=== PATIENT | male | born 1965 | race Caucasian/White ===

== ENCOUNTER → 2016-04-27 | Outpatient (CLI) | payer OTHER ==
[~2016-04-27] MED LIST: ABL/5 PO; ABL5 PO; ARIP2TAB3 PO; CGN1 PO; DSY100 PO; GLIM1TAB PO; LVQ500 PO; METF-384 PO; NCDT7 TD; SERT-234 PO; SERT50TA PO; SIMV40TA2 PO
[2016-04-27 12:34] LABS: ALT/SGPT 61 U/L (12-78); AST/SGOT 42 U/L (15-37); BLOOD UREA NITROGEN 14 mg/dl (7-18); BUN/CREATININE RATIO 14.2 (10-20); CALCIUM 9.1 mg/dl (8.5-10.1); CARBON DIOXIDE 23 mmol/L (21-32); CHLORIDE 104 mmol/L (98-107); CHOLESTEROL 213 mg/dl (0-200); GLUCOSE 168 mg/dl (70-99); SODIUM 140 mmol/L (136-145); TRIGLYCERIDES 262 mg/dl (0-150); VERY LOW DENSITY LIPOPROT CALC 52 mg/dl
[2016-04-27 12:40] LABS: ALB/GLOB RATIO 1.1 (0.9-2); ALKALINE PHOSPHATASE 108 U/L (45-117); HDL CHOLESTEROL 43 mg/dl; LDL CHOLESTEROL CALCULATED 118 mg/dl
[2016-04-27 12:47] LABS: ESTIMATED AVERAGE GLUCOSE 252 mg/dl; HA1C FLAG Normal (Normal)
[2016-04-27 13:12] LABS: RATIO 22.9 mcg/mg (0-30.0)
== END | disposition home or self-care (01) ==
LOC: C.LABBFT 08:59
PROVIDERS: ATTEND Nurse Practitioner
DX: E11.65 Type 2 diabetes mellitus with hyperglycemia (principal)

== ENCOUNTER 2016-06-22 13:41 | Inpatient (IN) | payer OTHER ==
[~2016-06-22] VITALS: Ht 175.3 cm; Wt 99.4 kg
[~2016-06-22 13:41] MED LIST changes: -ABL/5 PO; -ARIP2TAB3 PO; -GLIM1TAB PO; -METF-384 PO; -SERT-234 PO; -SERT50TA PO; -SIMV40TA2 PO
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
[2016-06-22 14:37] LABS: URINE APPEARANCE CLEAR (CLEAR); URINE BILIRUBIN NEG (NEG); URINE COLOR YELLOW; URINE NITRITE NEG (NEG); URINE SPECIFIC GRAVITY 1.031 (1.000-1.030); UROBILINOGEN NEG (NEG); ZZUR CULT IF INDIC CLEAN CATCH NO
[2016-06-22] MEDS ORDERED: DSY100 PO (14:37)
[2016-06-22] MEDS ORDERED: ABL/5 PO (14:37)
[2016-06-22] MEDS ORDERED: METF-384 PO (14:37)
[2016-06-22] MEDS ORDERED: SIMV40TA2 PO (14:37)
[2016-06-22] MEDS ORDERED: ARIP2TAB3 PO (14:37)
[2016-06-22] MEDS ORDERED: GLIM1TAB PO (14:37)
[2016-06-22] MEDS ORDERED: SERT50TA PO (14:37)
[2016-06-22 14:39] LABS: MANUAL MICROSCOPIC REQUIRED? NO; REVIEW REQ? NO
[2016-06-22 14:57] LABS: BASO % 0.1 %; BASO ABS # 0.01 K/uL (0-0.2); COMPLETE YES; EOS % 0.4 %; HEMATOCRIT 42.2 % (42-52); IG% 0.7 %; LYMPH % 17.8 %; LYMPH ABS # 1.66 K/uL (1.2-3.4); MEAN CELL VOLUME 83.9 fL (80-100); MEAN CORPUSCULAR HEMOGLOBIN 29.6 pg (25-34); MEAN CORPUSCULAR HGB CONC 35.3 g/dl (32-36); MEAN PLATELET VOLUME 9.6 fL (7.4-10.4); MONO % 8.9 %; NEUT % 72.1 %; PLATELET COUNT 262 K/uL (130-400); RED BLOOD COUNT 5.03 M/uL (4.7-6.1); WHITE BLOOD COUNT 9.35 K/uL (4.8-10.8)
[2016-06-22 15:11] LABS: BENZODIAZEPINE, URINE NEG (NEG); COCAINE,URINE NEG (NEG); PHENCYCLIDINE, URINE NEG (NEG)
[2016-06-22 15:26] LABS: ACETAMINOPHEN < 2 ug/ml (10-30); BUN/CREATININE RATIO 11.9 (10-20); CALCIUM 8.8 mg/dl (8.5-10.1); POTASSIUM 4.1 mmol/L (3.5-5.1)
[2016-06-22 15:36] LABS: THYROID STIMULATING HORMONE 2.25 uIu/ml (0.300-4.500)
[2016-06-22 19:05] VITALS: O2SAT 98
[2016-06-22] MEDS ORDERED: NURSING VERBAL MED ORDER ONE ×2 (19:15→20:15)
[2016-06-22] MEDS ORDERED: SODIUM CHLORIDE 0.65% NA SOLN 45 ML (OCEAN) PRN (19:30)
[2016-06-22] MEDS ORDERED: BISMUTH SUBSALICYLATE PER ML OMNICELL CHARGE PO PRN (19:30)
[2016-06-22] MEDS ORDERED: hydrOXYzine HCL 25 MG TAB PO PRN ×2 (19:30)
[2016-06-22] MEDS ORDERED: ALUMINUM/MAGNESIUM SUSP 30 ML UDC PO PRN (19:30)
[2016-06-22] MEDS ORDERED: ACETAMINOPHEN 325 MG TAB PO PRN (19:30)
[2016-06-22] MEDS ORDERED: MAGNESIUM HYDROXIDE SUSP 30 ML UDC PO PRN (19:30)
[2016-06-22 20:34] VITALS: BP 138/91; PULSE 82; TEMP 36.8; Ht 175.3 cm; Wt 99.4 kg
[2016-06-22] MEDS: SIMVASTATIN 40 MG TAB PO SCH (21:39)
[2016-06-22] MEDS: ARIPIprazole TAB 5 MG TAB PO SCH (21:40)
[2016-06-22] MEDS: TRAZODONE HCL 100 MG TAB PO SCH (21:40)
[2016-06-22] MEDS: METFORMIN HCL 500 MG TAB PO SCH (21:40)
[2016-06-22] MEDS ORDERED: SERTRALINE HCL 50 MG TAB PO SCH (22:00)
[2016-06-23 07:00] VITALS: BP_SYST 109; BP_SYST 114; BP_DIAS 68; BP_DIAS 74; PULSE 76; PULSE 91; TEMP 36.7
[2016-06-23] MEDS: GLIMEPIRIDE 2 MG TAB PO SCH (08:39)
[2016-06-23] MEDS: METFORMIN HCL 500 MG TAB PO SCH ×2 (08:40→21:09)
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
[2016-06-23] MEDS: TRAZODONE HCL 100 MG TAB PO SCH (21:09)
[2016-06-23] MEDS: SIMVASTATIN 40 MG TAB PO SCH (21:09)
[2016-06-23] MEDS: SERTRALINE HCL 100 MG TAB PO SCH (21:09)
[2016-06-23] MEDS: ARIPIprazole TAB 5 MG TAB PO SCH (21:09)
[2016-06-24 07:00] VITALS: BP_SYST 108; BP_SYST 120; BP_DIAS 70; BP_DIAS 74; PULSE 84; TEMP 36.6
[2016-06-24] MEDS: GLIMEPIRIDE 2 MG TAB PO SCH (07:26)
[2016-06-24] MEDS: METFORMIN HCL 500 MG TAB PO SCH ×2 (07:27→21:29)
[2016-06-24 08:17] LABS: CHOLESTEROL/HDL RATIO 7.9
--- NOTE | 2016-06-24 12:00 | Psychiatric Progress Notes ---
Progress Note Date of Service Jun 24, 2016. Interval History 51 yo with many past diagnoses including schizoaffective disorder and ID, who was brought to the ER due to not taking meds, and being unable to take care of himself living alone. Chief Complaint "I've got to learn to control my anger. ". Subjective Patient was seen & assessed interval progress reviewed with Treatment Team. The patient said that he got angry yesterday after talking with his brother and says that he yelled at his peers, but has since apoligized. he says that he needs to learn to control his anger. "Im not sure if I'm acting like a child, but I am over 19." Hearing continues to be a problem in communications. He continues to report a steady buzzing sound in his ears. In trying to assess whether he has auditory hallucinations, he gives varying reports of hearing voices when no one is in the room and then denies same. He says that he hears peoples voices when talking with someone, and they are muddled by the buzzing. He also has some child like thoughts, and uses words and phrases inappropriately. He tends to talk a lot, filling any silence as if its part of the conversation, and at times does not answer a question posed with appropriate response, but when asked louder, is able to answer appropriately. We talk about [facility] having a wait list, and he says that he is agreeable to other referrals until a bed does open up, but then says that he would rather stay where he is. He agrees that he took meds when the nurses were there, and admits to forgetting when he was alone. He rates his mood 8-9/ 10, denying SI/HI or visual hallucinations. Review of Systems Constitutional: No chills, No fatigue, No fever, No problem reported, No sweats , No weakness, No weight loss ENT: + hearing loss Respiratory: No cough, No dyspnea at rest, No dyspnea on exertion, No hemoptysis, No problem reported, No shortness of breath, No sputum, No wheezing Cardiovascular: No PND, No chest pain, No claudication, No edema, No orthopnea , No palpitations, No problem reported Abdomen: No GI bleeding, No constipation, No diarrhea, No nausea, No pain, No problem reported, No vomiting Musculoskeletal: No calf pain, No joint pain, No muscle pain, No problem reported, No swelling Neurologic: No balance problems, No memory loss, No numbness/tingling, No paralysis, No problem reported, No vertigo, No weakness Psychiatric: + problem reported (rates mood 8-9) Sleep Information Total Hours of Sleep: 6.75 Meal Information Percent of Breakfast Consumed: 100 Percent of Lunch Consumed: 100 Percent of Dinner Consumed: 100 Mental Status Exam During interview pt is: alert and oriented, cooperative Appearance: appropriately groomed, disheveled Eye contact is: good Motor behavior is: other (occasional gross tremor of head) Speech: normal in rate, rhythm & volume Affect: blunted Mood is: other (denies depression) Thought process: confabulations (in the context of hearing loss) Thought content: other (still trying to tease out what may be delusions versus low IQ and severe hearing loss) Suicidal thought are: denied Homicidal thoughts are: denied Hallucinations: denies visual Cognition: memory grossly intact Intelligence estimated to be: below average Insight: limited Judgement: limited Summary of Past History Records reveal multiple past evaluations and diagnoses: Major depressive Disorder, schizotypal personality disorder, schizophrenia, schizoaffective disorder, psychotic disorder. , unspecified ID Impression With the structure and support of the unit, the patient is taking his meds, showering and eating. His hearing impairment makes it difficult to communicate at times, and he tends to fill in with disconnected conversation when he doesn' t hear the conversation. He still gives conflicting information in response to questions about hallucinations and delusions, and so may also be hallucinating. he has had a variety of diagnoses in the past including schizoaffective disorder and schizophrenia, in addition to ID. For now we will continue with his current home meds while we explore other housing options. Continued Inpatient Care The patient requires inpatient treatment for medication stabilization and evaluation of other housing options in view of failure to thrive living alone. Plan (1) Schizoaffective disorder 06/24 - Continue home meds, as he was non compliant for the most part. - Collaborate with his OP providers and care givers and coordinate aftercare - Q 15 min checks for safety - Encourage participation in group and individual counseling - Explore hearing assist devices - Reality orientation - Be sure that all staff are aware of severe hearing loss. - Encourage/assist the patient to maintain appropriate ADL's - Family meeting if indicated - Explore alternate housing arrangement. (2) Unspecified intellectual disabilities 06/24 - Explore all support options through the ID system - Use appropriate level of vocabulary during explanations (3) Dyslipidemia 06/24 - Continue simvastatin 40 mg. daily - FLP WNL with the exception of triglycerides 31 and total cholesteraol 254 (4) Diabetes mellitus type II, non insulin dependent 06/24 -Continue metformin - Monitor BSG"s - Assist with food choices - Encourage exercise - FBS 06/24 was 192 - Will need follow up with PCP Discharge / Aftercare Planning Primary Care Physician: Name: Dr Ho Psychiatrist: Name: Dr Cervantes Therapist: Name: sherley Emt I/99: Name: Joyce Hyman MHID ID BCM Visit Code E&M Code: 05157 Risk Factors Assessment Male: Yes : Yes /single/: Yes Higher / Fall in social status: No Access to guns: No Health problems: Yes Mental Health Diagnoses: Yes Substance use disorders: No Previous psychiatric stay: Yes Protective Factors Assessment Temple beliefs: No : No Responsible for young children: No Employed: No Stable relationships: No Supportive family: No Good rapport with provider: Yes Data Vital Signs Last 24 Hrs: Date Time Temp Pulse Resp B/P Pulse Ox O2 Delivery O2 Flow Rate FiO2 06/24/16 07:00 36.6 84 18 120/70 84 108/74 Meds Administered Last 24 Hrs: Meds Administered (Past 24Hrs) Medications (Trade) Dose Ordered Sig/Edna Route Start Time Stop Time Status Last Admin Dose Admin Bismuth Subsalicylate (Kaopectate Liqd) 15 ml DAILY PRN PO 06/22/16 19:30 07/22/16 19:29 06/23/16 21:10 15 ML Aripiprazole (Abilify Tab) 5 mg HS PO 06/22/16 22:00 07/22/16 21:59 06/23/16 21:09 5 MG Glimepiride (Amaryl Tab) 2 mg QDB PO 06/23/16 09:00 07/23/16 08:59 06/24/16 07:26 2 MG Metformin HCl (Glucophage Tab) 1,000 mg BID PO 06/22/16 22:00 07/22/16 21:59 06/24/16 07:27 1,000 MG Sertraline HCl (Zoloft Tab) 50 mg HS PO 06/22/16 22:00 06/23/16 10:41 DC 06/22/16 21:39 50 MG Simvastatin (Zocor Tab) 40 mg HS PO 06/22/16 22:00 07/22/16 21:59 06/23/16 21:09 40 MG Trazodone HCl (Desyrel Tab) 100 mg HS PO 06/22/16 22:00 07/22/16 21:59 06/23/16 21:09 100 MG Sertraline HCl (Zoloft Tab) 100 mg HS PO 06/23/16 22:00 07/23/16 21:59 06/23/16 21:09 100 MG Lab Results Last 24 Hrs: Last 24 Hours Test 06/23/16 20:51 06/24/16 07:11 06/24/16 09:18 Bedside Glucose 188 mg/dl 258 mg/dl Fasting Glucose 192 mg/dl Triglycerides Level 301 mg/dl Cholesterol Level 254 mg/dl HDL Cholesterol 32 mg/dl LDL Cholesterol, Calculated 162 mg/dl VLDL Cholesterol, Calculated 60 mg/dl Cholesterol/HDL Ratio 7.9
[2016-06-24] MEDS: TRAZODONE HCL 100 MG TAB PO SCH (21:29)
[2016-06-24] MEDS: ARIPIprazole TAB 5 MG TAB PO SCH (21:29)
[2016-06-24] MEDS: SIMVASTATIN 40 MG TAB PO SCH (21:30)
[2016-06-24] MEDS: SERTRALINE HCL 100 MG TAB PO SCH (21:30)
[2016-06-25 06:42] VITALS: BP_SYST 120; BP_SYST 94; BP_DIAS 61; BP_DIAS 87; PULSE 77; PULSE 90; TEMP 36.8
[2016-06-25] MEDS: GLIMEPIRIDE 2 MG TAB PO SCH (07:22)
[2016-06-25] MEDS: METFORMIN HCL 500 MG TAB PO SCH ×2 (07:22→21:06)
--- NOTE | 2016-06-25 11:08 | Psychiatric Progress Notes ---
Progress Note Date of Service Jun 25, 2016. Interval History 51 yo with many past diagnoses including schizoaffective disorder and ID, who was brought to the ER due to not taking meds, and being unable to take care of himself living alone. Chief Complaint "Pretty good, just trying to learn these new people". Subjective Patient was seen & assessed and interval progress reviewed. He states his mood is "feeling a 98," then says he is "pretty good." He continues to be annoyed by the buzzing sound in his ears, and struggles to hear what people are saying. He says he got upset and yelled after his mouth started bleeding this morning, and feels bad, thinks he should apologize to peers. He talks about the arguing within his family, as two of his brothers don't get along. He reports good appetite and sleep. He denies SI, HI, and hearing voices. Sleep Information Total Hours of Sleep: 7.00 Meal Information Percent of Breakfast Consumed: 100 Percent of Lunch Consumed: 100 Percent of Dinner Consumed: 75 Mental Status Exam During interview pt is: alert and oriented, cooperative Appearance: disheveled, other (Older than stated age, wearing blue jeans that are rolled up and a t-shirt with the neck cut out) Eye contact is: good Motor behavior is: steady gait & station, no abnormal motor movements Speech: normal in rate, rhythm & volume Affect: blunted Mood is: other ("pretty good") Thought process: confabulations (in the context of hearing loss) Thought content: other (still trying to tease out what may be delusions versus low IQ and severe hearing loss) Suicidal thought are: denied Homicidal thoughts are: denied Hallucinations: denies visual Cognition: memory grossly intact Intelligence estimated to be: below average Insight: limited Judgement: limited Summary of Past History Records reveal multiple past evaluations and diagnoses: Major depressive Disorder, schizotypal personality disorder, schizophrenia, schizoaffective disorder, psychotic disorder. , unspecified ID Impression With the structure and support of the unit, the patient is taking his meds, showering and eating. His hearing impairment makes it difficult to communicate , and he tends to fill in with disconnected conversation when he doesn't hear the conversation. He still gives conflicting information in response to questions about hallucinations and delusions, and so may also be hallucinating. He has had a variety of diagnoses in the past including schizoaffective disorder and schizophrenia, in addition to ID. For now we will continue with his current home meds while we explore other housing options. Continued Inpatient Care The patient requires inpatient treatment for medication stabilization and evaluation of other housing options in view of failure to thrive living alone. Plan (1) Schizoaffective disorder 06/24 - Continue home meds, as he was non compliant for the most part. - Collaborate with his OP providers and care givers and coordinate aftercare - Q 15 min checks for safety - Encourage participation in group and individual counseling - Explore hearing assist devices - Reality orientation - Be sure that all staff are aware of severe hearing loss. - Encourage/assist the patient to maintain appropriate ADL's - Family meeting if indicated - Explore alternate housing arrangement. 06/25 - No supervised housing options available, may need to return home to live independently with services. (2) Unspecified intellectual disabilities 06/24 - Explore all support options through the ID system - Use appropriate level of vocabulary during explanations (3) Dyslipidemia 06/24 - Continue simvastatin 40 mg. daily - FLP WNL with the exception of triglycerides 31 and total cholesteraol 254 (4) Diabetes mellitus type II, non insulin dependent 06/24 -Continue metformin - Monitor BSG"s - Assist with food choices - Encourage exercise - FBS 06/24 was 192 - Will need follow up with PCP Discharge / Aftercare Planning Primary Care Physician: Name: Dr Ho Psychiatrist: Name: Dr Cervantes Therapist: Name: sherley Ball Points Inspector: Name: Joyce Hyman MHID ID BCM Visit Code E&M Code: 38785 Risk Factors Assessment Male: Yes : Yes /single/: Yes Higher / Fall in social status: No Access to guns: No Health problems: Yes Mental Health Diagnoses: Yes Substance use disorders: No Previous psychiatric stay: Yes Protective Factors Assessment Uatsdin beliefs: No : No Responsible for young children: No Employed: No Stable relationships: No Supportive family: No Good rapport with provider: Yes Data Vital Signs Last 24 Hrs: Date Time Temp Pulse Resp B/P Pulse Ox O2 Delivery O2 Flow Rate FiO2 06/25/16 06:42 36.8 77 16 94/61 90 120/87 Meds Administered Last 24 Hrs: Meds Administered (Past 24Hrs) Medications (Trade) Dose Ordered Sig/Edna Route Start Time Stop Time Status Last Admin Dose Admin Sertraline HCl (Zoloft Tab) 100 mg HS PO 06/23/16 22:00 07/23/16 21:59 06/24/16 21:30 100 MG Lab Results Last 24 Hrs: Last 24 Hours Test 06/24/16 20:38 06/25/16 07:16 Bedside Glucose 151 mg/dl 163 mg/dl
[2016-06-25] MEDS: ARIPIprazole TAB 5 MG TAB PO SCH (21:06)
[2016-06-25] MEDS: SIMVASTATIN 40 MG TAB PO SCH (21:06)
[2016-06-25] MEDS: TRAZODONE HCL 100 MG TAB PO SCH (21:06)
[2016-06-25] MEDS: SERTRALINE HCL 100 MG TAB PO SCH (21:07)
[2016-06-26 06:42] VITALS: BP_SYST 116; BP_SYST 118; BP_DIAS 73; BP_DIAS 74; PULSE 81; PULSE 91; TEMP 36.5
[2016-06-26] MEDS: METFORMIN HCL 500 MG TAB PO SCH ×2 (08:44→21:34)
[2016-06-26] MEDS: GLIMEPIRIDE 2 MG TAB PO SCH (08:44)
--- NOTE | 2016-06-26 10:23 | Psychiatric Progress Notes ---
Progress Note Date of Service Jun 26, 2016. Interval History 51 yo with many past diagnoses including schizoaffective disorder and ID, who was brought to the ER due to not taking meds, and being unable to take care of himself living alone. Chief Complaint "I don't hear the buzzing anymore.". Subjective Patient was seen & assessed interval progress reviewed with [Treatment Team] [ Support Service Tech] Review of Systems Constitutional: No chills, No fatigue, No fever, No problem reported, No sweats , No weakness, No weight loss ENT: + hearing loss Respiratory: No cough, No dyspnea at rest, No dyspnea on exertion, No hemoptysis, No problem reported, No shortness of breath, No sputum, No wheezing Cardiovascular: No PND, No chest pain, No claudication, No edema, No orthopnea , No palpitations, No problem reported Abdomen: No GI bleeding, No constipation, No diarrhea, No nausea, No pain, No problem reported, No vomiting Musculoskeletal: No calf pain, No joint pain, No muscle pain, No problem reported, No swelling Neurologic: No balance problems, No memory loss, No numbness/tingling, No paralysis, No problem reported, No vertigo, No weakness Psychiatric: + problem reported (Denies depression) Integumentary: No bleeding, No color change, No itch, No new/changing skin lesions, No problem reported, No rash Sleep Information Total Hours of Sleep: 6.50 Meal Information Percent of Breakfast Consumed: 100 Percent of Lunch Consumed: 100 Percent of Dinner Consumed: 100 Mental Status Exam During interview pt is: alert and oriented, cooperative Appearance: disheveled Eye contact is: good Motor behavior is: steady gait & station, no abnormal motor movements Speech: normal in rate, rhythm & volume Affect: blunted Mood is: other ("pretty good") Thought process: confabulations (in the context of hearing loss) Thought content: other (Denies hallucinations or ear buzzing) Suicidal thought are: denied Homicidal thoughts are: denied Hallucinations: denies auditory, denies visual Cognition: memory grossly intact Intelligence estimated to be: below average Insight: limited Judgement: limited Summary of Past History Records reveal multiple past evaluations and diagnoses: Major depressive Disorder, schizotypal personality disorder, schizophrenia, schizoaffective disorder, psychotic disorder. , unspecified ID Impression With the structure and support of the unit, the patient is taking his meds, showering and eating. His hearing impairment makes it difficult to communicate , and he tends to fill in with disconnected conversation when he doesn't hear the conversation. Says that buzzing in his ears is gone today, but still have to speak very loudly. We have not heard back from all of the [facility] that referrals were sent to and hope to hear today. [place] discharge would be to a supervised living situation, but if none available, will look to discharge on Wednesday back to his apt with a robust OP plan. Continued Inpatient Care The patient requires inpatient treatment for medication stabilization and evaluation of other housing options in view of failure to thrive living alone. Plan (1) Schizoaffective disorder 06/24 - Continue home meds, as he was non compliant for the most part. - Collaborate with his OP providers and care givers and coordinate aftercare - Q 15 min checks for safety - Encourage participation in group and individual counseling - Explore hearing assist devices - Reality orientation - Be sure that all staff are aware of severe hearing loss. - Encourage/assist the patient to maintain appropriate ADL's - Family meeting if indicated - Explore alternate housing arrangement. 06/25 - No supervised housing options available, may need to return home to live independently with services. 06/26 - Buzzing in his ears gone today, denies hallucinations. Continue current meds (2) Unspecified intellectual disabilities 06/24 - Explore all support options through the ID system - Use appropriate level of vocabulary during explanations (3) Dyslipidemia 06/24 - Continue simvastatin 40 mg. daily - FLP WNL with the exception of triglycerides 31 and total cholesteraol 254 (4) Diabetes mellitus type II, non insulin dependent 06/24 -Continue metformin - Monitor BSG"s - Assist with food choices - Encourage exercise - FBS 06/24 was 192 - Will need follow up with PCP Discharge / Aftercare Planning Primary Care Physician: Name: Dr Ho Psychiatrist: Name: Dr Cervantes Therapist: Name: sherley Supervisor Paper Coating: Name: Joyce Hyman MHID ID BCM Visit Code E&M Code: 29467 Risk Factors Assessment Male: Yes : Yes /single/: Yes Higher / Fall in social status: No Access to guns: No Health problems: Yes Mental Health Diagnoses: Yes Substance use disorders: No Previous psychiatric stay: Yes Protective Factors Assessment Muslim beliefs: No : No Responsible for young children: No Employed: No Stable relationships: No Supportive family: No Good rapport with provider: Yes Data Vital Signs Last 24 Hrs: Date Time Temp Pulse Resp B/P Pulse Ox O2 Delivery O2 Flow Rate FiO2 06/26/16 06:42 36.5 81 16 116/73 91 118/74 Meds Administered Last 24 Hrs: Current Inpatient Medications Medications (Trade) Dose Ordered Sig/Edna Route Start Time Stop Time Status Last Admin Dose Admin Acetaminophen (Tylenol Tab) 650 mg Q4H PRN PO 06/22/16 19:30 07/22/16 19:29 Al Hydroxide/Mg Hydroxide (Maalox Susp) 30 ml Q4H PRN PO 06/22/16 19:30 07/22/16 19:29 Bismuth Subsalicylate (Kaopectate Liqd) 15 ml DAILY PRN PO 06/22/16 19:30 07/22/16 19:29 06/23/16 21:10 15 ML Magnesium Hydroxide (Milk Of Magnesia Susp) 30 ml DAILY PRN PO 06/22/16 19:30 07/22/16 19:29 Sodium Chloride ([place] Nasal [place]) PRN PRN NA 06/22/16 19:30 07/22/16 19:29 Hydroxyzine HCl (Vistaril Tab) 50 mg HSZ PRN PO 06/22/16 19:30 07/22/16 19:29 Hydroxyzine HCl (Vistaril Tab) 25 mg Q4H PRN PO 06/22/16 19:30 07/22/16 19:29 Aripiprazole (Abilify Tab) 5 mg HS PO 06/22/16 22:00 07/22/16 21:59 06/25/16 21:06 5 MG Glimepiride (Amaryl Tab) 2 mg QDB PO 06/23/16 09:00 07/23/16 08:59 06/26/16 08:44 2 MG Metformin HCl (Glucophage Tab) 1,000 mg BID PO 06/22/16 22:00 07/22/16 21:59 06/26/16 08:44 1,000 MG Simvastatin (Zocor Tab) 40 mg HS PO 06/22/16 22:00 07/22/16 21:59 06/25/16 21:06 40 MG Trazodone HCl (Desyrel Tab) 100 mg HS PO 06/22/16 22:00 07/22/16 21:59 06/25/16 21:06 100 MG Sertraline HCl (Zoloft Tab) 100 mg HS PO 06/23/16 22:00 07/23/16 21:59 06/25/16 21:07 100 MG Lab Results Last 24 Hrs: Last 24 Hours Test 06/26/16 08:00 Bedside Glucose 166 mg/dl
[2016-06-26] MEDS: ARIPIprazole TAB 5 MG TAB PO SCH (21:33)
[2016-06-26] MEDS: TRAZODONE HCL 100 MG TAB PO SCH (21:33)
[2016-06-26] MEDS: SERTRALINE HCL 100 MG TAB PO SCH (21:34)
[2016-06-26] MEDS: SIMVASTATIN 40 MG TAB PO SCH (21:34)
[2016-06-27 06:52] VITALS: BP_SYST 111; BP_SYST 112; BP_DIAS 72; BP_DIAS 80; PULSE 79; PULSE 89; TEMP 36.4
[2016-06-27] MEDS: METFORMIN HCL 500 MG TAB PO SCH ×2 (08:34→21:34)
[2016-06-27] MEDS: GLIMEPIRIDE 2 MG TAB PO SCH (08:34)
--- NOTE | 2016-06-27 12:21 | Psychiatric Progress Notes ---
Progress Note Date of Service Jun 27, 2016. Interval History 51 yo with many past diagnoses including schizoaffective disorder and ID, who was brought to the ER due to not taking meds, and being unable to take care of himself living alone. Chief Complaint "not much to do here". Subjective Patient was seen & assessed interval progress reviewed with nursing. He complains about ringing in his ears from time to time but not currently and no brody. 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 He understands that we are still waiting to hear from [facility] as recommended he have more structured living situation/support on discharge if a possibility. Review of Systems Psych: denies symptoms other than stated above Constitutional: denied Cardiovascular: denied GI: denied Neurologic: denied Remainder of 10 body systems also reviewed and denied other than noted above. Sleep Information Total Hours of Sleep: 5.75 Meal Information Percent of Breakfast Consumed: 100 Percent of Lunch Consumed: 100 Percent of Dinner Consumed: 100 Mental Status Exam During interview pt is: alert and oriented, cooperative Appearance: appropriately groomed Eye contact is: good Motor behavior is: steady gait & station, other (shook head several times, appears behavioral rather than a tic, ?stim) Speech: normal in rate, rhythm & volume Affect: blunted Mood is: other ("good") Thought process: concrete Thought content: reality based without delusions Suicidal thought are: denied Homicidal thoughts are: denied Hallucinations: denies auditory, denies visual Cognition: memory grossly intact Intelligence estimated to be: below average Insight: limited Judgement: limited Summary of Past History Records reveal multiple past evaluations and diagnoses: Major depressive Disorder, schizotypal personality disorder, schizophrenia, schizoaffective disorder, psychotic disorder. , unspecified ID Impression With the structure and support of the unit, the patient is taking his meds, showering and eating. His hearing impairment makes it difficult to communicate , and he tends to fill in with disconnected conversation when he doesn't hear the conversation. Says that buzzing in his ears is gone today, but still have to speak very loudly. Continued Inpatient Care The patient requires inpatient treatment for medication stabilization and evaluation of other housing options in view of failure to thrive living alone. Plan (1) Schizoaffective disorder 06/24 - Continue home meds, as he was non compliant for the most part. - Collaborate with his OP providers and care givers and coordinate aftercare - Q 15 min checks for safety - Encourage participation in group and individual counseling - Explore hearing assist devices - Reality orientation - Be sure that all staff are aware of severe hearing loss. - Encourage/assist the patient to maintain appropriate ADL's - Family meeting if indicated - Explore alternate housing arrangement. 06/25 - No supervised housing options available, may need to return home to live independently with services. 06/26 - Buzzing in his ears gone today, denies hallucinations. Continue current meds (2) Unspecified intellectual disabilities 06/24 - Explore all support options through the ID system - Use appropriate level of vocabulary during explanations (3) Dyslipidemia 06/24 - Continue simvastatin 40 mg. daily - FLP WNL with the exception of triglycerides 31 and total cholesteraol 254 (4) Diabetes mellitus type II, non insulin dependent 06/24 -Continue metformin - Monitor BSG"s - Assist with food choices - Encourage exercise - FBS 06/24 was 192 - Will need follow up with PCP Discharge / Aftercare Planning Primary Care Physician: Name: Dr Ho Psychiatrist: Name: Dr Cervantes Therapist: Name: sherley Cryptographic Vulnerability Analyst: Name: Joyce Hyman MHID ID BCM Visit Code E&M Code: 33265 Risk Factors Assessment Male: Yes : Yes /single/: Yes Higher / Fall in social status: No Access to guns: No Health problems: Yes Mental Health Diagnoses: Yes Substance use disorders: No Previous psychiatric stay: Yes Protective Factors Assessment Jew beliefs: No : No Responsible for young children: No Employed: No Stable relationships: No Supportive family: No Good rapport with provider: Yes Data Vital Signs Last 24 Hrs: Date Time Temp Pulse Resp B/P Pulse Ox O2 Delivery O2 Flow Rate FiO2 06/27/16 06:52 36.4 79 19 111/72 89 112/80 Lab Results Last 24 Hrs: Last 24 Hours Test 06/27/16 07:52 Bedside Glucose 147 mg/dl
[2016-06-27] MEDS: ARIPIprazole TAB 5 MG TAB PO SCH (21:33)
[2016-06-27] MEDS: TRAZODONE HCL 100 MG TAB PO SCH (21:33)
[2016-06-27] MEDS: SERTRALINE HCL 100 MG TAB PO SCH (21:34)
[2016-06-27] MEDS: SIMVASTATIN 40 MG TAB PO SCH (21:34)
[2016-06-28 07:02] VITALS: BP_SYST 105; BP_SYST 126; BP_DIAS 71; BP_DIAS 72; PULSE 80; PULSE 97; TEMP 36.7
[2016-06-28] MEDS: METFORMIN HCL 500 MG TAB PO SCH ×2 (09:23→21:16)
[2016-06-28] MEDS: GLIMEPIRIDE 2 MG TAB PO SCH (09:23)
--- NOTE | 2016-06-28 12:04 | Psychiatric Progress Notes ---
Progress Note Date of Service Jun 28, 2016. Interval History 51 yo with many past diagnoses including schizoaffective disorder and ID, who was brought to the ER due to not taking meds, and being unable to take care of himself living alone. Chief Complaint "no problems". Subjective Patient was seen & assessed interval progress reviewed with nursing. somewhat religiously preoccupied first thing this am as a Wednesday, can be socially awkward but nothing bizarre or inappropriate in peer interactions. Says he has always shaked his head to keep calm (consistent with stim), no rocking noted. Required vistaril in addition to trazodone last pm. Review of Systems Psych: denies symptoms other than stated above Constitutional: denied Cardiovascular: denied GI: denied Neurologic: denied Remainder of 10 body systems also reviewed and denied other than noted above. Sleep Information Total Hours of Sleep: 6.25 Meal Information Percent of Breakfast Consumed: 100 Percent of Lunch Consumed: 100 Percent of Dinner Consumed: 100 Mental Status Exam During interview pt is: alert and oriented, cooperative Appearance: appropriately groomed Eye contact is: good Motor behavior is: steady gait & station, other Speech: normal in rate, rhythm & volume Affect: mood congruent Mood is: other (fine") Thought process: concrete Thought content: reality based without delusions Suicidal thought are: denied Homicidal thoughts are: denied Hallucinations: denies auditory, denies visual Cognition: memory grossly intact Intelligence estimated to be: below average Insight: limited Judgement: limited Summary of Past History Records reveal multiple past evaluations and diagnoses: Major depressive Disorder, schizotypal personality disorder, schizophrenia, schizoaffective disorder, psychotic disorder. , unspecified ID Impression With the structure and support of the unit, the patient is taking his meds, showering and eating. His hearing impairment makes it difficult to communicate , and he tends to fill in with disconnected conversation when he doesn't hear the conversation. Says that buzzing in his ears is gone today, but still have to speak very loudly. Continued Inpatient Care The patient requires inpatient treatment for medication stabilization and evaluation of other housing options in view of failure to thrive living alone. Plan (1) Schizoaffective disorder 06/24 - Continue home meds, as he was non compliant for the most part. - Collaborate with his OP providers and care givers and coordinate aftercare - Q 15 min checks for safety - Encourage participation in group and individual counseling - Explore hearing assist devices - Reality orientation - Be sure that all staff are aware of severe hearing loss. - Encourage/assist the patient to maintain appropriate ADL's - Family meeting if indicated - Explore alternate housing arrangement. 06/25 - No supervised housing options available, may need to return home to live independently with services. 06/26 - Buzzing in his ears gone today, denies hallucinations. Continue current meds (2) Unspecified intellectual disabilities 06/24 - Explore all support options through the ID system - Use appropriate level of vocabulary during explanations (3) Dyslipidemia 06/24 - Continue simvastatin 40 mg. daily - FLP WNL with the exception of triglycerides 31 and total cholesteraol 254 (4) Diabetes mellitus type II, non insulin dependent 06/24 -Continue metformin - Monitor BSG"s - Assist with food choices - Encourage exercise - FBS 06/24 was 192 - Will need follow up with PCP Discharge / Aftercare Planning Primary Care Physician: Name: Dr Ho Psychiatrist: Name: Dr Cervantes Therapist: Name: sherley General Matcher: Name: Joyce Hyman ID ID BCM Visit Code E&M Code: 49945 Risk Factors Assessment Male: Yes : Yes /single/: Yes Higher / Fall in social status: No Access to guns: No Health problems: Yes Mental Health Diagnoses: Yes Substance use disorders: No Previous psychiatric stay: Yes Protective Factors Assessment Congregation beliefs: No : No Responsible for young children: No Employed: No Stable relationships: No Supportive family: No Good rapport with provider: Yes Data Vital Signs Last 24 Hrs: Date Time Temp Pulse Resp B/P Pulse Ox O2 Delivery O2 Flow Rate FiO2 06/28/16 07:02 36.7 80 16 105/71 97 126/72 Lab Results Last 24 Hrs: Last 24 Hours Test 06/27/16 21:07 Bedside Glucose 204 mg/dl
[2016-06-28] MEDS: ARIPIprazole TAB 5 MG TAB PO SCH (21:15)
[2016-06-28] MEDS: TRAZODONE HCL 100 MG TAB PO SCH (21:15)
[2016-06-28] MEDS: SIMVASTATIN 40 MG TAB PO SCH (21:16)
[2016-06-28] MEDS: SERTRALINE HCL 100 MG TAB PO SCH (21:16)
[2016-06-29 07:00] VITALS: BP_SYST 112; BP_SYST 127; BP_DIAS 74; BP_DIAS 77; PULSE 80; PULSE 86; TEMP 36.5
[2016-06-29] MEDS: GLIMEPIRIDE 2 MG TAB PO SCH (08:37)
[2016-06-29] MEDS: METFORMIN HCL 500 MG TAB PO SCH ×2 (08:37→21:34)
--- NOTE | 2016-06-29 12:15 | Psychiatric Progress Notes ---
Progress Note Date of Service Jun 29, 2016. Interval History 51 yo with many past diagnoses including schizoaffective disorder and ID, who was brought to the ER due to not taking meds, and being unable to take care of himself living alone. Chief Complaint "Ok, need to talk to my brother". Subjective Patient was seen & assessed interval progress reviewed with Treatment Team. Staff report he is going to groups, continues to report ringing in his ears. He reports difficulty conversing with others due to the ringing, as he cannot hear very much. Mood is "okay, except for the ringing in my ears, and I get homesick. " He denies SI and HI. He is not sure if he can take care of himself at home if not accepted at a personal ch[facility], but doesn't think he has other options. He is not sure of the year, asking if it is 2019 or 2018. Sleep Information Total Hours of Sleep: 5.50 Meal Information Percent of Breakfast Consumed: 100 Percent of Lunch Consumed: 100 Percent of Dinner Consumed: 90 Mental Status Exam During interview pt is: alert and oriented, cooperative Appearance: appropriately dressed, appropriately groomed Eye contact is: good Motor behavior is: steady gait & station, other Speech: normal in rate, rhythm & volume Affect: mood congruent Mood is: other ("okay, except for the ringing in my ears.") Thought process: concrete Thought content: reality based without delusions Suicidal thought are: denied Homicidal thoughts are: denied Hallucinations: denies auditory, denies visual Cognition: memory grossly intact Intelligence estimated to be: below average Insight: limited Judgement: limited Summary of Past History Records reveal multiple past evaluations and diagnoses: Major depressive Disorder, schizotypal personality disorder, schizophrenia, schizoaffective disorder, psychotic disorder. , unspecified ID Impression With the structure and support of the unit, the patient is taking his meds, showering and eating. His hearing impairment makes it difficult to communicate , and he tends to fill in with disconnected conversation when he doesn't hear the conversation. Continued Inpatient Care The patient requires inpatient treatment for medication stabilization and evaluation of other housing options in view of failure to thrive living alone. Plan (1) Schizoaffective disorder 06/24 - Continue home meds, as he was non compliant for the most part. - Collaborate with his OP providers and care givers and coordinate aftercare - Q 15 min checks for safety - Encourage participation in group and individual counseling - Explore hearing assist devices - Reality orientation - Be sure that all staff are aware of severe hearing loss. - Encourage/assist the patient to maintain appropriate ADL's - Family meeting if indicated - Explore alternate housing arrangement. 06/25 - No supervised housing options available, may need to return home to live independently with services. 06/26 - Buzzing in his ears gone today, denies hallucinations. Continue current meds. 06/29 - Ringing in ears continues, very hard of hearing. Await response from [facility]. (2) Unspecified intellectual disabilities 06/24 - Explore all support options through the ID system - Use appropriate level of vocabulary during explanations (3) Dyslipidemia 06/24 - Continue simvastatin 40 mg. daily - FLP WNL with the exception of triglycerides 31 and total cholesteraol 254 (4) Diabetes mellitus type II, non insulin dependent 06/24 -Continue metformin - Monitor BSG"s - Assist with food choices - Encourage exercise - FBS 06/24 was 192 - Will need follow up with PCP Discharge / Aftercare Planning Primary Care Physician: Name: Dr Ho Psychiatrist: Name: Dr Cervantes Therapist: Name: sherley Workers Compensation Paralegal: Name: Joyce Hyman MHID ID BCM Visit Code E&M Code: 11739 Risk Factors Assessment Male: Yes : Yes /single/: Yes Higher / Fall in social status: No Access to guns: No Health problems: Yes Mental Health Diagnoses: Yes Substance use disorders: No Previous psychiatric stay: Yes Protective Factors Assessment Pentecostalism beliefs: No : No Responsible for young children: No Employed: No Stable relationships: No Supportive family: No Good rapport with provider: Yes Data Vital Signs Last 24 Hrs: Date Time Temp Pulse Resp B/P Pulse Ox O2 Delivery O2 Flow Rate FiO2 06/29/16 07:00 36.5 80 16 127/77 86 112/74 Lab Results Last 24 Hrs: Last 24 Hours Test 06/28/16 20:05 06/29/16 07:32 Bedside Glucose 177 mg/dl 158 mg/dl
[2016-06-29] MEDS: SERTRALINE HCL 100 MG TAB PO SCH (21:34)
[2016-06-29] MEDS: ARIPIprazole TAB 5 MG TAB PO SCH (21:34)
[2016-06-29] MEDS: TRAZODONE HCL 100 MG TAB PO SCH (21:34)
[2016-06-29] MEDS: SIMVASTATIN 40 MG TAB PO SCH (21:34)
[2016-06-30 06:59] VITALS: BP_SYST 112; BP_SYST 128; BP_DIAS 75; PULSE 89; PULSE 90; TEMP 36.4
[2016-06-30] MEDS ORDERED: SERT-234 PO (08:54)
--- NOTE | 2016-06-30 09:02 | Discharge Instructions ---
Discharge Information Report Includes Report will include the: Discharge Instructions & Summary Admission Admission Date / Time: Jun 22, 2016 at 19:13 Reason for Admission: Schizoaffective Disorder Discharge Discharge Diagnosis / Problem: Schizoaffective disorder Condition at Discharge: Fair Discharge Goals Goal(s): Decrease discomfort, Improve disease control, Prevent Disease Progression Activity Recommendations Activity Limitations: resume your previous activity . Instructions / Follow-Up Instructions / Follow-Up . SPECIAL CARE INSTRUCTIONS: 1. Follow through with your scheduled aftercare appointments. If unable to keep an appointment, please call to reschedule. 2. Take your medication only as prescribed. Medication should not be changed or stopped without the approval of your doctor. In the event of worsening symptoms or concerns about side effects, contact your doctor immediately. 3. Utilize new healthy coping skills, anger management skills, and stress management skills learned during your hospitalization. Journal feelings and process them with a support person. Identify stressors or situations that may result in relapse, deterioration or inappropriate behaviors and develop a plan to deal with those issues. 4. If your coping skills are ineffective and you are in crisis, contact your outpatient providers for direction. If unable to reach your providers, please call the CAN HELP LINE AT or go to the closest Emergency Room. 5. Avoid alcohol and un-prescribed drugs. 6. You have been provided with the Mental Health Advance Directives Pamphlet for your review. AFTERCARE APPOINTMENTS: * Please call your insurance company prior to your scheduled appointment to confirm your aftercare providers are covered. Take your insurance information to your appointments. . Discharge / Aftercare Planning Primary Care Physician: Name: Dr Ho Psychiatrist: Name: Dr Cervantes Therapist: Name Of Therapist: sherley Finance Controller: Name: Joyce Hyman MHID ID BCM . Follow-Up Care Plan for Follow-Up Care: The patient will return to his previous psychiatric providers. Current Hospital Diet Patient's current hospital diet: Regular Diet Discharge Diet Recommended Diet: Regular Diet Procedures Procedures Performed: No Pending Studies Pending Studies at Discharge: No Medical Emergencies . Who to Call and When: Medical Emergencies: For questions or emergencies related to your hospital stay, please contact the Inpatient Behavioral Health Unit at [phone]. A crisis clinician is on-call 26/10 for the Behavioral Health Unit for emergencies At any time you feel your situation is an emergency, you may also call 911 immediately. . Non-Emergent Contact Non-Emergency issues call your: Psychiatrist, Therapist Advance Directives Existing Advance Directive: No Do You Have an Existing Mental: No Existing Living Will: No Existing Power of Piece Dyeing Machine Tender: No Advance Directives Info Given: To Pt/S.O. Advance Directives Reason: Declines as Mental Health Visit. Discharge Summary Admission HPI Per the Admitting provider: Please see attached H&P Hospital Course (1) Schizoaffective disorder 06/24 - Continue home meds, as he was non compliant for the most part. - Collaborate with his OP providers and care givers and coordinate aftercare - Q 15 min checks for safety - Encourage participation in group and individual counseling - Explore hearing assist devices - Reality orientation - Be sure that all staff are aware of severe hearing loss. - Encourage/assist the patient to maintain appropriate ADL's - Family meeting if indicated - Explore alternate housing arrangement. 06/25 - No supervised housing options available, may need to return home to live independently with services. 06/26 - Buzzing in his ears gone today, denies hallucinations. Continue current meds. 06/29 - Ringing in ears continues, very hard of hearing. Await response from [facility]. (2) Unspecified intellectual disabilities 06/24 - Explore all support options through the ID system - Use appropriate level of vocabulary during explanations (3) Dyslipidemia 06/24 - Continue simvastatin 40 mg. daily - FLP WNL with the exception of triglycerides 31 and total cholesteraol 254 (4) Diabetes mellitus type II, non insulin dependent 06/24 -Continue metformin - Monitor BSG"s - Assist with food choices - Encourage exercise - FBS 06/24 was 192 - Will need follow up with PCP Risk Factors Assessment Male: Yes : Yes /single/: Yes Higher / Fall in social status: No Access to guns: No Health problems: Yes Mental Health Diagnoses: Yes Substance use disorders: No Previous psychiatric stay: Yes Protective Factors Assessment Christian beliefs: No : No Responsible for young children: No Employed: No Stable relationships: No Supportive family: No Good rapport with provider: Yes Day of Discharge Assessment COURSE OF HOSPITALIZATION: During the patient's 8 day stay, medication adjustments were made. Zoloft was increased from 50-100 mg daily but all other medications continued at home doses. He tolerated this without side effect. During his stay his hearing impairments made it difficult at times for him to hear. He also reported a "buzzing" in his ears that interfered as well. At times it was difficult to determine if he was hallucinating, as he would shake his head frequently as if responding to internal stimuli. In the end, he denied hearing voices when no one was in the room and there is high suspicion that his presentation was a function of both severe hearing impairment as well as his intellectual disabilities. He was cooperative with treatment throughout his stay. He had 2 episodes in which she became angry in response to phone calls from his brothers. He has good support as an outpatient including [facility], case management, and his psychiatrist. The primary problem is that he is not driving living independently in an apartment. It was reported that at the time of admission, his apartment was in disarray, he did not appear to have the appropriate food in the apartment and all were concerned that he needed a higher level of supervision. To that end, multiple referrals were made to personal care homes, all declining with the exception of [facility]'s personal skilled nursing which had not responded by the time of discharge. He denied suicidal thinking throughout his stay. DAY OF DISCHARGE ASSESSMENT: Today the patient is anticipating discharge. He was concerned because he had copies of Medicare forms in front of him and was not sure what they meant. He had questions about [facility]'s personal skilled nursing in the event they had a bed for him but was okay with going home to his apartment in the meanwhile. He continues to deny suicidal or homicidal thinking. He denies auditory or visual hallucinations. Today he is casually and appropriately dressed and groomed. Eye contact is good. Gait and station are within normal limits. Affect is restricted, anxious. Speech is of normal rate volume and tone. Thoughts are organized and goal directed in response to questions. Recent and remote memory are for the most part intact per conversation. Intelligence is estimated to be below average. Insight and judgment are improved over admission. Laboratory Test 06/22/16 14:10 06/22/16 14:40 06/24/16 07:11 06/29/16 17:07 Urine Color YELLOW Urine Appearance CLEAR Urine pH 5.0 Urine Specific Ucon 1.031 Urine Protein TRACE Urine Glucose (UA) 3+ Urine Ketones NEG Urine Occult Blood NEG Urine Nitrite NEG Urine Bilirubin NEG Urine Urobilinogen NEG Urine Leukocyte Esterase NEG Urine WBC (Auto) 1-5 Urine RBC (Auto) 0-4 Urine Hyaline Casts (Auto) 1-5 Urine Epithelial Cells (Auto) 5-10 Urine Bacteria (Auto) NEG Urine Opiates Screen NEG Urine Methadone, Qualitative NEG Urine Barbiturates NEG Urine Phencyclidine (PCP) Level NEG Ur Amphetamine/Methamphetamine NEG MDMA (Ecstasy) Screen NEG Urine Benzodiazepines Screen NEG Urine Cocaine Metabolite NEG Urine Marijuana (THC) NEG White Blood Count 9.35 Red Blood Count 5.03 Hemoglobin 14.9 Hematocrit 42.2 Mean Corpuscular Volume 83.9 Mean Corpuscular Hemoglobin 29.6 Mean Corpuscular Hemoglobin Concent 35.3 Platelet Count 262 Mean Platelet Volume 9.6 Neutrophils (%) (Auto) 72.1 Lymphocytes (%) (Auto) 17.8 Monocytes (%) (Auto) 8.9 Eosinophils (%) (Auto) 0.4 Basophils (%) (Auto) 0.1 Neutrophils # (Auto) 6.74 Lymphocytes # (Auto) 1.66 Monocytes # (Auto) 0.83 Eosinophils # (Auto) 0.04 Basophils # (Auto) 0.01 RDW Standard Deviation 38.1 RDW Coefficient of Variation 12.6 Immature Granulocyte % (Auto) 0.7 Immature Granulocyte # (Auto) 0.07 Sodium Level 140 Potassium Level 4.1 Chloride Level 104 Carbon Dioxide Level 27 Anion Gap 9.0 Blood Urea Nitrogen 12 Creatinine 1.00 Est Creatinine Clear Calc Drug Dose 91.8 Estimated GFR () 99.2 Estimated GFR (Non- 85.5 BUN/Creatinine Ratio 11.9 Random Glucose 159 Calcium Level 8.8 Total Bilirubin 0.3 Aspartate Amino Transferase (AST) 27 Alanine Aminotransferase (ALT) 68 Alkaline Phosphatase 117 Total Protein 8.0 Albumin 4.0 Globulin 4.0 Albumin/Globulin Ratio 1.0 Thyroid Stimulating Hormone (TSH) 2.250 Salicylates Level < 1.7 Acetaminophen Level < 2 Ethyl Alcohol mg/dL < 3.0 Fasting Glucose 192 Triglycerides Level 301 Cholesterol Level 254 HDL Cholesterol 32 LDL Cholesterol, Calculated 162 VLDL Cholesterol, Calculated 60 Cholesterol/HDL Ratio 7.9 POC Glucose 112 Test 06/30/16 07:21 POC Glucose 188 Total Time Total Time Spent (min): Greater than 30 minutes Total Time Included: examination of the patient, discharge planning, medication reconciliation, communication with other providers Tobacco Cessation at Discharge Smoking Status: Never Smoker FDA approved Prescription: non-smoker
[2016-06-30] MEDS: METFORMIN HCL 500 MG TAB PO SCH (09:08)
[2016-06-30] MEDS: GLIMEPIRIDE 2 MG TAB PO SCH (09:08)
== END 2016-06-30 16:25 | disposition home or self-care (01) | DRG 885 ==
LOC: EDBD 13:41 → C.EDA 13:42 → C.MHU 19:13
PROVIDERS: ADMIT Student in an Organized Health Care Education/Training Program; ATTEND Psychiatry & Neurology Psychiatry
DX: F20.1 Disorganized schizophrenia (principal); F79 Unspecified intellectual disabilities; E66.9 Obesity, unspecified; Z68.32 Body mass index [BMI] 32.0-32.9, adult; E11.9 Type 2 diabetes mellitus without complications; E78.5 Hyperlipidemia, unspecified; Z91.14 Patient's other noncompliance with medication regimen

== ENCOUNTER → 2016-09-21 | Outpatient (CLI) | payer OTHER ==
[~2016-09-21] MED LIST changes: +ABL/5 PO; -ABL5 PO; -CGN1 PO; +GLIM1TAB PO; -LVQ500 PO; +METF-384 PO; -NCDT7 TD; +SERT-234 PO; +SIMV40TA2 PO
[2016-09-21 17:33] LABS: BASO % 0.1 %; BASO ABS # 0.01 K/uL (0-0.2); COMPLETE YES; EOS % 1.5 %; HEMATOCRIT 42.3 % (42-52); IG% 0.4 %; LYMPH ABS # 1.79 K/uL (1.2-3.4); MEAN CELL VOLUME 86.5 fL (80-100); MEAN CORPUSCULAR HGB CONC 33.6 g/dl (32-36); MEAN PLATELET VOLUME 10.5 fL (7.4-10.4); MONO % 7.8 %; NEUT % 66.2 %; PLATELET COUNT 232 K/uL (130-400); RED BLOOD COUNT 4.89 M/uL (4.7-6.1); WHITE BLOOD COUNT 7.47 K/uL (4.8-10.8)
[2016-09-21 18:16] LABS: ALKALINE PHOSPHATASE 126 U/L (45-117); ALT/SGPT 48 U/L (12-78); AST/SGOT 27 U/L (15-37); BLOOD UREA NITROGEN 14 mg/dl (7-18); CALCIUM 8.7 mg/dl (8.5-10.1); CARBON DIOXIDE 26 mmol/L (21-32); CHLORIDE 108 mmol/L (98-107); CHOLESTEROL 190 mg/dl (0-200); CHOLESTEROL/HDL RATIO 5.1; CREATININE 0.94 mg/dl (0.60-1.40); GLUCOSE 126 mg/dl (70-99); HDL CHOLESTEROL 37 mg/dl; LDL CHOLESTEROL CALCULATED 116 mg/dl; POTASSIUM 4.4 mmol/L (3.5-5.1); SODIUM 142 mmol/L (136-145); TRIGLYCERIDES 185 mg/dl (0-150); VERY LOW DENSITY LIPOPROT CALC 37 mg/dl
[2016-09-22 06:02] LABS: ESTIMATED AVERAGE GLUCOSE 232 mg/dl; HA1C FLAG Normal (Normal)
== END | disposition home or self-care (01) ==
LOC: C.LABBFT 12:35
PROVIDERS: ATTEND Internal Medicine
DX: E78.5 Hyperlipidemia, unspecified (principal); E11.65 Type 2 diabetes mellitus with hyperglycemia

== ENCOUNTER → 2017-11-03 | Outpatient (CLI) | payer OTHER ==
[~2017-11-03] MED LIST changes: -SERT-234 PO
[2017-11-04 06:07] LABS: HEMOGLOBIN A1C 10.3 % (4.5-5.6)
== END | disposition home or self-care (01) ==
LOC: C.LABBFT 14:46
PROVIDERS: ATTEND Internal Medicine
DX: E11.65 Type 2 diabetes mellitus with hyperglycemia (principal); E78.5 Hyperlipidemia, unspecified

== ENCOUNTER 2021-06-03 12:32 | Inpatient (IN) ==
--- NOTE | 2021-06-03 13:09 | Emergency Department Note ---
History of Present Illness General Chief complaint: Swelling/Edema to Extremity Stated complaint: LT FOOT SWOLLEN Time Seen by Provider: 06/03/21 12:52 Source: patient and family (Brother) History of Present Illness Provider complaint: Foot pain Onset (ago): week(s) 2 Location: foot and left Radiation: non-radiation Pain Consistency: + constant Quality: + burning Relieved By: + none Associated symptoms: + cough; no chest pain, no fever/chills, no nausea/vomiting or no shortness of breath This is a 56-year-old male who presents with left foot pain over the past 2 weeks. It started when the weather was very cold. He was wearing boots and they were shaving his toes and developed burning pain to his toes. He states that he lives in a barn and there is very little heating in the barn. He can see his breath when he breathes. His feet felt cold for the past 3 weeks. His brother came over today to check on him and noticed the foot looking the way it did and so he brought him to an urgent care center. The urgent care center sent him here for further evaluation. He has had no associated fever, vomiting, chest pain, shortness of breath, abdominal pain, diarrhea or urinary symptoms. He denies homicidal or suicidal ideation. He does have a history of schizophrenia but does not take any medications. He states his tetanus shot is up-to-date and he had one about a year ago when he stepped on a nail. Home Medications Medication Instructions Recorded Confirmed Type atorvastatin 20 mg tablet 20 mg PO DAILY #30 tab 05/22/20 12/12/20 Rx glipizide 5 mg tablet, extended 5 mg PO DAILY #30 tab 05/22/20 12/12/20 Rx release 24 hr Allergies Allergy/AdvReac Type Severity Reaction Status Date / Time egg Allergy Unknown Verified 12/12/20 14:40 mustard Allergy Unknown UNKNOWN Verified 12/12/20 14:40 risperidone [From Risperdal] AdvReac Unknown unknown Verified 12/12/20 14:40 Past Med/Surg History Medical History (Updated 06/03/21 @ 15:05 by Dmitry Merida MD) Cellulitis Depression Diabetes Diabetes mellitus type II, non insulin dependent Dyslipidemia Dyslipidemia Fracture of lower leg (10/29/12) Nocturia Pseudoseizures Psychosis Schizo affective schizophrenia Unspecified intellectual disabilities Family History Mother Diabetes Father Stroke Social History Smoking Status: Never smoker Preferred Language: [place] Communication Ability: Effective Visual Impairment: No Limitations Hearing Ability: Normal Beliefs That Will Affect Care: None marital status: Single Feels Safe at Home: Yes Review of Systems See HPI for pertinent positives & negatives. and A total of 10 systems reviewed and were otherwise negative Physical Exam Vital Signs Vital Signs - 24 hr 06/03/21 12:33 06/03/21 13:02 06/03/21 14:38 Temperature 36.8 C Temperature Source Temporal Artery Scan Oral Pulse Rate 90 Pulse Rate [Right Finger] 72 Respiratory Rate 18 18 Blood Pressure 118/76 Blood Pressure [Right Arm] 127/85 Blood Pressure Mean 90 Blood Pressure Mean [Right Arm] 99 Blood Pressure Position Sitting Pulse Oximetry 98 98 Oxygen Delivery Method Room Air Room Air Sepsis Recent Fever Within 48 Hours No Sepsis New/Unexplained Change in Mental Status No Sepsis Action Taken by Nursing No Action Required Constitutional: Vital signs reviewed. Disheveled. Eyes: Pupils are equal round reactive to light. Conjunctiva are noninjected. ENT: Pharynx is clear without erythema or exudate. Mucous membranes are moist. Neck supple without meningeal signs. Respiratory: Clear to auscultation bilaterally. Breath sounds are equal bilaterally. Cardiovascular: Regular rate and rhythm. No rubs or gallops. GI: Soft, nondistended and nontender. Bowel sounds are present. Musculoskeletal: Erythema to the toes of the left foot with dime sized ulceration over the medial aspect of the third toe. Malodorous. No discharge is noted. Significant tenderness to the third toe. Capillary refill is intact. Integumentary: No cyanosis. or jaundice. Neurological: The patient is awake and alert. No focal deficits. Psychiatric: Normal affect. Not anxious appearing. Medical Decision Making Differential Diagnosis Nonfreezing cold injury, trench foot, cellulitis, osteomyelitis, frostbite Medical Records Attestation: I reviewed the patient's medical records. I did perform a limited focused review of portions of the patient's old chart on the electronic medical record. The patient has had no recent pertinent visits to this hospital. Home Medications Current Medication List: was personally reviewed by me Laboratory Data Attestation: I reviewed the patient's lab results. Result diagrams: 06/03/21 13:30 06/03/21 13:30 Lab Results 06/03/21 06/03/21 06/03/21 Range/Units 13:30 13:30 13:30 WBC 8.75 (4.8-10.8) K/uL RBC 4.95 (4.7-6.1) M/uL Hgb 14.8 (14.0-18.0) g/dL Hct 42.5 (42-52) % MCV 85.9 (80-100) fL MCH 29.9 (25-34) pg MCHC 34.8 (32-36) g/dL RDW Std Deviation 40.3 (36.4-46.3) fL RDW Coeff of Sofía 12.8 (11.5-14.5) % Plt Count 298 (130-400) K/uL MPV 9.1 (7.4-10.4) fL Immature Gran % (Auto) 0.3 % Neut % (Auto) 62.8 % Lymph % (Auto) 27.2 % Island % (Auto) 8.2 % Eos % (Auto) 1.4 % Baso % (Auto) 0.1 % Neut # (Auto) 5.49 (1.4-6.5) K/uL Lymph # (Auto) 2.38 (1.2-3.4) K/uL [place] # (Auto) 0.72 H (0.11-0.59) K/uL Eos # (Auto) 0.12 (0-0.5) K/uL Baso # (Auto) 0.01 (0-0.2) K/uL Immature Gran # (Auto) 0.03 H (0.00-0.02) K/uL Sodium 134 L (136-145) mmol/L Potassium 4.5 (3.5-5.1) mmol/L Chloride 98 (98-107) mmol/L Carbon Dioxide 27 (21-32) mmol/L Anion Gap 9 (3-11) BUN 12 (6-23) mg/dl Creatinine 0.78 (0.6-1.4) mg/dl Est Cr Clr Drug Dosing 106.6 ml/min Est GFR ( Amer) 115.3 ml/min Est GFR (Non-Af Amer) 99.5 ml/min BUN/Creatinine Ratio 15.4 (10-20) Glucose 183 H (70-99(Fasting)) mg/dl Lactate 1.5 (0.4-2.0) mmol/L Calcium 9.9 (8.5-10.1) mg/dl Total Bilirubin 0.7 (0.2-1.0) mg/dl AST 17 (13-39) U/L ALT 14 (7-52) U/L Alkaline Phosphatase 114 H (34-104) U/L C-Reactive Protein 0.74 H (0-0.5) mg/dl Total Protein 7.7 (6.0-8.3) gm/dl Albumin 4.4 (3.4-5.0) gm/dl Globulin 3.3 (2.5-4.0) gm/dl Albumin/Globulin Ratio 1.3 (0.9-2) SARS-CoV-2, RNA, NAAT (NEGATIVE) 06/03/21 Range/Units 13:30 WBC (4.8-10.8) K/uL RBC (4.7-6.1) M/uL Hgb (14.0-18.0) g/dL Hct (42-52) % MCV (80-100) fL MCH (25-34) pg MCHC (32-36) g/dL RDW Std Deviation (36.4-46.3) fL RDW Coeff of Sofía (11.5-14.5) % Plt Count (130-400) K/uL MPV (7.4-10.4) fL Immature Gran % (Auto) % Neut % (Auto) % Lymph % (Auto) % Island % (Auto) % Eos % (Auto) % Baso % (Auto) % Neut # (Auto) (1.4-6.5) K/uL Lymph # (Auto) (1.2-3.4) K/uL [place] # (Auto) (0.11-0.59) K/uL Eos # (Auto) (0-0.5) K/uL Baso # (Auto) (0-0.2) K/uL Immature Gran # (Auto) (0.00-0.02) K/uL Sodium (136-145) mmol/L Potassium (3.5-5.1) mmol/L Chloride (98-107) mmol/L Carbon Dioxide (21-32) mmol/L Anion Gap (3-11) BUN (6-23) mg/dl Creatinine (0.6-1.4) mg/dl Est Cr Clr Drug Dosing ml/min Est GFR ( Amer) ml/min Est GFR (Non-Af Amer) ml/min BUN/Creatinine Ratio (10-20) Glucose (70-99(Fasting)) mg/dl Lactate (0.4-2.0) mmol/L Calcium (8.5-10.1) mg/dl Total Bilirubin (0.2-1.0) mg/dl AST (13-39) U/L ALT (7-52) U/L Alkaline Phosphatase (34-104) U/L C-Reactive Protein (0-0.5) mg/dl Total Protein (6.0-8.3) gm/dl Albumin (3.4-5.0) gm/dl Globulin (2.5-4.0) gm/dl Albumin/Globulin Ratio (0.9-2) SARS-CoV-2, RNA, NAAT NEGATIVE (NEGATIVE) Imaging Data Radiologist's Impression: Chest X-Ray 06/03/21 13:03 XR chest 1V portable HISTORY: cough COMPARISON: Chest 11/02/2014. FINDINGS: The lungs are clear. Cardiac silhouette is normal in size. No pleural effusions. No pneumothorax. IMPRESSION: No acute process. ACT 112: Negative or not required by law. Electronically signed by: Red Benson M.D. 06/03/2021 1:40 PM Foot X-Ray 06/03/21 13:03 XR foot LT min 3V routine CLINICAL HISTORY: pain in toes eval for osteomyelitis TECHNIQUE: 3 views of the left foot were obtained. Comparison: None available at the time of this dictation. FINDINGS: No evidence of bony erosion is seen. The alignment is anatomic. The joint spaces are well preserved. No soft tissue abnormality is seen. IMPRESSION: No radiographic evidence of osteomyelitis. If clinical concern remains, MRI is a more sensitive modality. ACT 112: Negative or not required by law. Electronically signed by: Frederic Conley M.D. 06/03/2021 1:45 PM MDM Narrative I did evaluate the patient as noted above. He is diabetic and has an obvious infection to his left foot mostly over his toes. He has had the infection for about 2 weeks. Based on what he and his brother say about his living conditions he likely had repetitive nonfreezing cold injury or even chilblains at some point. There is a significant odor from the foot. He does not have systemic symptoms. He is schizophrenic and is not on any medications. He has not seen a doctor for over a year. The only reason he came in today is because his brother brought him in. IV access was established. I did order blood cultures. I did order and personally reviewed the images of the patient's chest and left foot x- rays as described above. There is no evidence of pneumonia or osteomyelitis on plain radiograph. I did order and review the patient's blood work as noted in the electronic medical record. His white count is not elevated. He has no anemia or thrombocytopenia. Electrolytes demonstrate a sodium 134. His glucose is 183 and his alk phos is 114. C-reactive protein is elevated at 0.74. I did treat the patient with IV vancomycin as well as Zosyn to cover Pseudomonas. I did recommend hospitalization for IV antibiotics. Screening COVID test is negative. I did discuss case with the hospitalist and briefcase sewer. Impression & Plan Diabetic infection of left foot, Schizo affective schizophrenia, Local injury due to exposure to cold, Hyperglycemia Discharge Plan Visit Data Chief Complaint: Swelling/Edema to Extremity Stated Complaint: LT FOOT SWOLLEN ED Provider: Dmitry Merida Discharge Problem: Diabetic infection of left foot, Schizo affective schizophrenia, Local injury due to exposure to cold, Hyperglycemia Patient Disposition: Being Evaluated by Hospitalist Forms Stand Alone Forms: My [facility] Prescriptions Prescriptions: No Action atorvastatin 20 mg tablet 20 mg PO DAILY Qty: 30 RF: 11 glipizide 5 mg tablet extended release 24hr 5 mg PO DAILY Qty: 30 RF: 11 Referrals Referrals: Arnulfo Ho III, MD [Primary Care Provider] -
--- NOTE | 2021-06-03 13:42 | XRay Report ---
XR chest 1V portable HISTORY: cough COMPARISON: Chest 11/02/2014. FINDINGS: The lungs are clear. Cardiac silhouette is normal in size. No pleural effusions. No pneumot horax. IMPRESSION: No acute process. ACT 112: Negative or not required by law. Electronically signed by: Red Benson M.D. 06/03/2021 1:40 PM
[2021-06-03 13:45] LABS: Basophils # (auto) 0.01 K/uL (0-0.2); Basophils % (auto) 0.1 %; Eosinophils # (auto) 0.12 K/uL (0-0.5); Eosinophils % (auto) 1.4 %; Hematocrit (blood only) 42.5 % (42-52); Hemoglobin 14.8 g/dL (14.0-18.0); Immature Granulocytes # (auto) 0.03 K/uL (0.00-0.02); Immature Granulocytes % (auto) 0.3 %; Lymphocytes # (auto) 2.38 K/uL (1.2-3.4); Lymphocytes % (auto) 27.2 %; Mean Corpuscular Hemoglobin 29.9 pg (25-34); Mean Corpuscular Hgb Conc 34.8 g/dL (32-36); Mean Corpuscular Volume 85.9 fL (80-100); Mean Platelet Volume 9.1 fL (7.4-10.4); Monocytes # (auto) 0.72 K/uL (0.11-0.59); Monocytes % (auto) 8.2 %; Neutrophils # (auto) 5.49 K/uL (1.4-6.5); Neutrophils % (auto) 62.8 %; Platelet Count 298 K/uL (130-400); RDW Coefficient of Variation 12.8 % (11.5-14.5); RDW Standard Deviation 40.3 fL (36.4-46.3); Red Blood Count 4.95 M/uL (4.7-6.1); White Blood Count 8.75 K/uL (4.8-10.8)
--- NOTE | 2021-06-03 13:47 | XRay Report ---
XR foot LT min 3V routine CLINICAL HISTORY: pain in toes eval for osteomyelitis TECHNIQUE: 3 views of the left foot were obtained. Comparison: None available at the time of this dictation. FINDINGS: No evidence of bony erosion is seen. The alignment is anatomic. The joint spaces are well preserved. No soft tissue abnormality is seen. IMPRESSION: No radiographic evidence of osteomyelitis. If clinical concern remains, MRI is a more sensitive modal ity. ACT 112: Negative or not required by law. Electronically signed by: Frederic Conley M.D. 06/03/2021 1:45 PM
[2021-06-03 14:12] LABS: Albumin Globulin Ratio 1.3 (0.9-2); Albumin Level 4.4 gm/dl (3.4-5.0); BUN Creatinine Ratio 15.4 (10-20); Bilirubin,Total 0.7 mg/dl (0.2-1.0); C Reactive Protein 0.74 mg/dl (0-0.5); Calcium 9.9 mg/dl (8.5-10.1); Creatinine Clr Calc Pharmacy 106.6 ml/min; Est GFR (African American) 115.3 ml/min; Est GFR (Non-African American) 99.5 ml/min; Globulin 3.3 gm/dl (2.5-4.0); Potassium 4.5 mmol/L (3.5-5.1); Total Protein 7.7 gm/dl (6.0-8.3)
[2021-06-03] MEDS ORDERED: VANCOMYCIN HCL 1,750 MG in SODIUM CHLORIDE 0.9% 500 ML IV ONE (14:43)
[2021-06-03] MEDS ORDERED: VANCOMYCIN CONSULT ACTIVE PRN ×2 (14:43→17:46)
[2021-06-03] MEDS ORDERED: PIPERACILL/TAZOBAC CONSULT ACTIVE PRN ×2 (14:43→17:46)
[2021-06-03] MEDS ORDERED: PIPERACILLIN/TAZOBACTAM 4.5 GM/120 ML BAG IV ONE (14:43)
--- NOTE | 2021-06-03 16:04 | History & Physical Report ---
Date of Service June 03, 2021 Assessment & Plan (1) Diabetic foot ulcer associated with type 2 diabetes mellitus, with fat layer exposed: (2) Diabetic infection of left foot: Plan: Mr. Gunn is a 56-year-old male with a history of Schizoaffective Schizophrenia, Depression, Pseudoseizures, Hyperlipidemia (untreated), Uncontrolled Type 2 Diabetes Mellitus, and Poor Living Conditions who presented to [facility] ER today with a large diabetic ulcer on his left 3rd toe with localized infection and exposed bone. This ulcer was likely brought on by his untrimmed toenails digging into the side of that toe and I suspect he has underlying PAD and some loss of protective sensation. His BSG's are not controlled and his last fasting lipid panel on 12/12/20 showed a total cholesterol of 323 mg/dL, HDL is 43 mg/dL, LDL 202 mg/dL, and triglycerides are 391 mg/dL. These factors certainly put him at risk for vascular disease. Patient currently lives in a barn with an inadequate heating system (he has been using space heaters ), and he generally wears his muck boots without socks. Patient does not have any running water but he does have electricity. Patient is uncertain when this ulceration developed, but he stated that his toes have been stiff and sore for a couple of weeks and that his feet always feel cold. Patient does not think that he has had any frostbite injuries. Patient denies any fevers, chills, headache, stiff neck. He has not had any nausea or vomiting. he denies any swelling or erythema of the leg, most of the erythema is limited around the 3rd toe wound. He does not experience intermittent claudication. The patient does not take any medications this time although he is supposed to be on Atorvastatin and Glipizide. In the ER patient received IV Zosyn and IV Vancomycin. Left foot x-ray does not show any evidence of osteomyelitis. CBC with diff is largely unremarkable, CRP is elevated. BSG is elevated at 183 mg/d today and he is mildly hyponatremic. Recommend the following: -- Admit to Med-Surg floor. -- Wound and blood cultures have been obtained. -- Check daily labs, WBC is not elevated today. -- Check HgbA1C tomorrow morning. -- Check aorto-iliac arterial ultrasound. -- Bilateral LE arterial ultrasound. -- Continue IV Zosyn 4.5 g every 8 hours. -- Continue IV Vancomycin. -- Consult wound clinic. -- Consult orthopedics, Dr. Sargent is acid correction hand today. -- Consult piano case and bench assembler, patient has poor living conditions as outlined above. (3) Diabetes mellitus type 2, uncontrolled: Plan: Patient has not taken medications for his diabetes mellitus for some time now -- was previously on Glipizide and at one time was on Metformin. Medication non-compliance has been an issue. -- Check hemoglobin A1c. -- Glycemic pharmacy consult. -- BSG qAC and HS. -- Sliding scale insulin coverage. (4) Dyslipidemia: Plan: Fasting lipid panel 12/12/20 showed a total cholesterol of 323 mg/dL, HDL is 43 mg/dL, LDL 202 mg/dL, and triglycerides are 391 mg/dL. Total Cholesterol:HDL ration is 7.5. -- Resume Atorvastatin at 80 mg daily. -- Check FLP, AST, ALT, CK levels in 2 to 3 months. -- If LDL is not at goal at that point consider starting Repatha. -- Check aorto-iliac and arterial Dopplers as ordered above. (5) Schizo affective schizophrenia: Plan: -- No recent hallucinations or delusions. No suicidal or homicidal ideation. -- Add Haldol as needed for anxiety/agitation/hallucinations, etc. -- Add Lorazepam as needed for anxiety/agitation. History of Present Illness Chief Complaint: -- Left 3rd Toe Diabetic Ulceration. -- Uncontrolled Type 2 DM. -- Probable PAD. -- Uncontrolled Hyperlipidemia. Primary Care Provider: Arnulfo Ho MD Mr. Gunn is a 56-year-old male with a history of Schizoaffective Schizophrenia, Depression, Pseudoseizures, Hyperlipidemia (untreated), Uncontrolled Type 2 Diabetes Mellitus, and Poor Living Conditions who presented to [facility] ER today with a large ulcer on his left 3rd toe which was likely brought on by his untrimmed toenails digging into the side of that toe. Patient currently lives in a barn with an inadequate heating system (he has been using space heaters ), and he generally wears his muck boots without socks. Patient does not have any running water but he does have electricity. Patient is uncertain when this ulceration developed, but he stated that his toes have been stiff and sore for a couple of weeks and that his feet always feel cold. Patient does not think that he has had any frostbite injuries. Patient denies any fevers, chills, headache, stiff neck. He has not had any nausea or vomiting. he denies any swelling or erythema of the leg, most of the erythema is limited around the 3rd toe wound. He does not experience intermittent claudication. Patient is accompanied by his brother today. The patient does not take any medications this time although he is supposed to be on Atorvastatin and Glipizide. Patient does not routinely check his blood sugars. Allergies Allergy/AdvReac Type Severity Reaction Status Date / Time egg Allergy Unknown Unknown Verified 06/03/21 15:53 mustard Allergy Unknown UNKNOWN Verified 06/03/21 15:53 risperidone [From Risperdal] AdvReac Unknown unknown Verified 06/03/21 15:53 Home Medications Medication Instructions Recorded Confirmed Type No Known Home Medications 06/03/21 06/03/21 History Past Med/Surg History Medical History (Updated 06/03/21 @ 16:23 by Jose L Goddard PA-C) Cellulitis Depression Diabetes Diabetes mellitus type II, non insulin dependent Dyslipidemia Dyslipidemia Fracture of lower leg (10/29/12) Nocturia Pseudoseizures Psychosis Schizo affective schizophrenia Unspecified intellectual disabilities Family History Mother Diabetes Father Stroke Social History Smoking Status: Never smoker Preferred Language: Occitan Communication Ability: Effective Visual Impairment: No Limitations Hearing Ability: Normal Beliefs That Will Affect Care: None marital status: Single Feels Safe at Home: Yes Review of Systems Review of Systems: Ten point review of systems was completed, and is negative the exception of what is mentioned in the HPI. Patient has not been having any delusions or hallucinations. Physical Exam Physical Exam: GENERAL: Patient in no acute distress. HEENT: Head is atraumatic, normocephalic. EOM's intact. Sclerae anicteric. Facies symmetric. No perioral cyanosis. NECK: No JVD. JVP is not elevated. Carotid upstrokes are + 2 bilaterally without obvious bruits. CHEST/LUNGS: Clear to auscultation throughout all lung sadler. No wheezes, rales, or crackles. CVS: S1 and S2 are regular without obvious murmurs, gallops, or rubs. PMI is nondisplaced. No lifts, heaves, or thrills. No abdominal aortic or renal bruits. ABDOMINAL EXAM: Bowel sounds are present. No masses, organomegaly, or tenderne ss. EXTREMITIES: No clubbing or cyanosis. Sparse hair on the distal legs. Reduced dorsalis and posterior tibial pulses bilaterally. There is a large ulceration on the medial aspect of the left 3rd toe with exposed bone, surrounding erythema and swelling. Small black lesions on left toes 1 through 4. NEUROLOGIC EXAM: Patient is awake, alert, and oriented. Pleasant and cooperative. Answers questions appropriately. Speech is clear. Normal movement in all 4 extremities. Sensation intact to light touch bilaterally. Gauit pattern not assessed. Results & Data Results & Data ([facility]) Vital Signs (Past 12 Hours) Vital Signs Temp Pulse Pulse Resp BP BP Pulse Ox 06/03/21 14:38 72 18 127/85 98 06/03/21 12:33 36.8 C 90 18 118/76 98 Laboratory Results Laboratory Results - last 24 hr 06/03/21 06/03/21 06/03/21 13:30 13:30 13:30 WBC 8.75 RBC 4.95 Hgb 14.8 Hct 42.5 MCV 85.9 MCH 29.9 MCHC 34.8 RDW Std Deviation 40.3 RDW Coeff of Sofía 12.8 Plt Count 298 MPV 9.1 Immature Gran % (Auto) 0.3 Neut % (Auto) 62.8 Lymph % (Auto) 27.2 [place] % (Auto) 8.2 Eos % (Auto) 1.4 Baso % (Auto) 0.1 Neut # (Auto) 5.49 Lymph # (Auto) 2.38 [place] # (Auto) 0.72 H Eos # (Auto) 0.12 Baso # (Auto) 0.01 Immature Gran # (Auto) 0.03 H Sodium 134 L Potassium 4.5 Chloride 98 Carbon Dioxide 27 Anion Gap 9 BUN 12 Creatinine 0.78 Est Cr Clr Drug Dosing 106.6 Est GFR ( Amer) 115.3 Est GFR (Non-Af Amer) 99.5 BUN/Creatinine Ratio 15.4 Glucose 183 H Lactate 1.5 Calcium 9.9 Total Bilirubin 0.7 AST 17 ALT 14 Alkaline Phosphatase 114 H C-Reactive Protein 0.74 H Total Protein 7.7 Albumin 4.4 Globulin 3.3 Albumin/Globulin Ratio 1.3 SARS-CoV-2, RNA, NAAT 06/03/21 13:30 WBC RBC Hgb Hct MCV MCH MCHC RDW Std Deviation RDW Coeff of Sofía Plt Count MPV Immature Gran % (Auto) Neut % (Auto) Lymph % (Auto) [place] % (Auto) Eos % (Auto) Baso % (Auto) Neut # (Auto) Lymph # (Auto) [place] # (Auto) Eos # (Auto) Baso # (Auto) Immature Gran # (Auto) Sodium Potassium Chloride Carbon Dioxide Anion Gap BUN Creatinine Est Cr Clr Drug Dosing Est GFR ( Amer) Est GFR (Non-Af Amer) BUN/Creatinine Ratio Glucose Lactate Calcium Total Bilirubin AST ALT Alkaline Phosphatase C-Reactive Protein Total Protein Albumin Globulin Albumin/Globulin Ratio SARS-CoV-2, RNA, NAAT NEGATIVE Diagnostic Findings XRAY Left Foot 06/03/21: No evidence of bony erosion is seen. The alignment is anatomic. The joint spaces are well preserved. No soft tissue abnormality is seen. IMPRESSION: -- No radiographic evidence of osteomyelitis. If clinical concern remains, MRI is a more sensitive modality. CXR 06/03/21: The lungs are clear. Cardiac silhouette is normal in size. No pleural effusions. No pneumothorax. IMPRESSION: -- No acute process. Medications Administered Medications No Known Home Medications 06/03/21 [History Confirmed 06/03/21] Home Medications Vancomycin HCl 1,750 mg/ (Sodium Chloride) 535 mls @ 200 mls/hr IV NOW ONE Stop: 06/03/21 17:23 Last Admin: 06/03/21 15:37 Dose: 200 mls/hr Documented by: Miscellaneous Information (Piperacill/Tazobac Consult Active) 1 ea N/A UD PRN PRN Reason: Consult Stop: 07/03/21 14:42 Miscellaneous Information (Vancomycin Consult Active) 1 ea N/A UD PRN PRN Reason: Consult Stop: 07/03/21 14:42 Code Status & VTE Plan Code Status Full Code VTE Prophylaxis Plan VTE Prophylaxis will be ordered: Yes Supervising Physician Co-Signing Physician Notes Patient was seen and examined independently I discussed the case with Scot Nitza PAC I reviewed pertinent past medical social family history and also the plan of care and agree with the plan of care. Patient with significant open area on his third toe with bone exposed. I was in the room when he was being evaluated by logistics specialist there is minor erythema to his toes initial imaging of his foot does not suggest osteomyelitis notices systemic symptoms suggest that he is got a septic type picture however the feet are in fairly poor condition antibiotics will be maintained and orthopedic consultation will be maintained likely with the need for hospital surgical amputation. Situation is challenging I believe his family is trying their best to support him but likely they have limited resources His exam otherwise he is fairly well capped his cardiac exam is regular lungs are clear abdomen NABS and soft he does have poor capillary refill and peripheral pulses distally may benefit from arterial evaluation Continue Zosyn and vancomycin at this point time cultures are pending wound cultures pending evaluation by surgical specialists Any exceptions will be noted below PG Care Time/CCT Total # of Minutes Spent Total Time Spent with Patient: Total time spent is greater than 50% in coordination of care (as documented) at patient's floor/unit and/or counseling patient:44 Coding Level of Care Code 23235 Initial Inpt Care Lvl 3 Diagnoses Diabetic foot ulcer associated with type 2 diabetes mellitus, with fat layer exposed E11.621; L97.502 Diabetic infection of left foot E11.628; L08.9 Diabetes mellitus type 2, uncontrolled E11.65 Dyslipidemia E78.5 Schizo affective schizophrenia F25.0 Time Spent (min) 63
[2021-06-03] MEDS ORDERED: POLYETHYLENE (MIRALAX) 17 GM PACK PO PRN (17:46)
[2021-06-03] MEDS ORDERED: HALOPERIDOL LACTATE 5 MG/ML 1 ML VIAL IM PRN (17:46)
[2021-06-03] MEDS ORDERED: ALUMINUM/MAGNESIUM SUSP 30 ML UDC PO PRN (17:46)
[2021-06-03] MEDS ORDERED: MAGNESIUM HYDROXIDE SUSP 30 ML UDC PO PRN (17:46)
[2021-06-03] MEDS ORDERED: ZOLPIDEM TARTRATE 5 MG TAB PO PRN (17:46)
[2021-06-03] MEDS ORDERED: PIPERACILLIN/TAZOBACTAM 4.5 GM in DEXTROSE 5% 100 ML IV SCH (17:46)
[2021-06-03] MEDS ORDERED: PHARMACY GLYCEMIC MGMT CONSULT PRN (17:46)
[2021-06-03] MEDS ORDERED: LORazepam 2 MG/1 ML VIAL IV PRN (17:46)
[2021-06-03] MEDS ORDERED: ONDANSETRON INJ 2 MG/ML 2 ML VIAL IV PRN (17:46)
[2021-06-03] MEDS ORDERED: GLUCOSE 40% GEL 15 GM TUBE PO PRN (18:31)
[2021-06-03] MEDS ORDERED: DEXTROSE 50% 50 ML SYRINGE IV PRN (18:31)
[2021-06-03] MEDS ORDERED: GLUCOSE 10 TABS/TUBE PO PRN (18:31)
[2021-06-03] MEDS ORDERED: CARBOHYDRATES FOR HYPOGLYCEMIA PO PRN (18:31)
[2021-06-03] MEDS ORDERED: GLUCAGON FOR INJ 1 MG VIAL SQ PRN (18:31)
[2021-06-03] MEDS: ATORVASTATIN 40 MG TAB PO SCH (18:34)
--- NOTE | 2021-06-03 19:27 | Pharmacy Report ---
Pharmacy Abx Initial Consult - Date of Service June 03, 2021 - Pharmacy Dosing Scope Date of Consult: 06/03/2021 Consultation requested by: Dr. Lopez/[facility] is consulted to initiate Zosyn/Vancomycin IV dosing therapy, order appropriate labs and adjust drug dose/frequency. - Subjective The patient is a 56 year old M admitted on 06/03/21 15:23. 56 yo admitted with left foot ulcer secondary to uncontrolled DM and cold exposure - Objective Height: 5 ft 10 in Weight: 84.686 kg Vital Signs (Past 12hrs): Vital Signs Temp Pulse Pulse Resp BP BP Pulse Ox 06/03/21 17:48 36.4 C L 69 16 117/77 97 06/03/21 16:00 81 16 121/80 97 06/03/21 14:38 72 18 127/85 98 06/03/21 12:33 36.8 C 90 18 118/76 98 Lab Results (24hrs): Laboratory Tests (24 Hours) 06/03/21 06/03/21 13:30 13:30 WBC 8.75 Neut # (Auto) 5.49 Creatinine 0.78 Est Cr Clr Drug Dosing 106.6 C-Reactive Protein 0.74 H Micro Results: 06/03/21 15:19 Gram Stain - Final Toe,Left Deep Wound Culture - Pending 06/03/21 13:44 Aerobic Blood Culture - Pending Blood Anaerobic Blood Culture - Pending 06/03/21 13:30 Aerobic Blood Culture - Pending Blood Anaerobic Blood Culture - Pending - Assessment & Plan Assessment 56 year old M admitted with left foot ulcer secondary to uncontrolled DM and cold exposure Plan IV Zosyn/Vancomycin for treatment of skin and soft tissue infection of the left foot Vancomycin IV * Estimated PK Parameters: Vd [] L/kg, Aleksander [] hr-1, t1/2 [] hr * Loading dose: 1750 mg (29 mg/kg) * Maintenance dose: 1250 mg IV (~15 mg/kg) every 12 hours * Goal trough level for diabetic foot infection : 13 to 17 mcg/mL * Trough level ordered for 06/05/21 early AM dose Piperacillin/tazobactam * 4.5 g bolus administered over 30 minutes, then 3.375 g IV extended infusion every 8 hours for CrCl greater than 20 mL/min OR every 12 hours for CrCl 20 mL/min or less and dialysis. Pharmacy will continue to follow and will adjust dose/frequency as necessary. Thank you.
--- NOTE | 2021-06-03 20:10 | Pharmacy Report ---
Pharmacy Glycemic Short Note 2 - Date of Service June 03, 2021 - Glycemic Short BSG Results (Last 24 hours): 06/03/21 06/03/21 13:30 18:33 Glucose 183 H POC Glucose 162 H OUTPATIENT ANTIDIABETIC REGIMEN: * Non compliance - reportedly had taken glipizide in the past * A1C pending in AM ASSESSMENT: * Reportedly non compliant on home regimen * Admitted for diabetic foot infection contributed to by his non compliance and poor living conditions PLAN FOR INPATIENT GLYCEMIC CONTROL: * Start with correction factor and carb coverage alone as A1C in pending * Basal insulin * Hold initially until A1c reported * Bolus insulin * NovoLog per scale ACHS or Q6hrs while NPO * Goal Range: Low 90 mg/dL - High 140 mg/dL * Correction Factor: 20 mg/dL/unit * Nutritional / Prandial insulin per carb ratio of 1 unit per 15 grams CHO consumed PLAN FOR DISCHARGE: * Defer
[2021-06-03] MEDS: PIPERACILLIN/TAZOBACTAM 3.375 GM in DEXTROSE 5% 100 ML IV SCH (21:22)
[2021-06-03] MEDS: INSULIN ASPART PER UNIT SC SCH (21:28)
[2021-06-03] MEDS: ENOXAPARIN INJ 40 MG/0.4 ML SYR SQ SCH (21:28)
[2021-06-04] MEDS: VANCOMYCIN HCL 1,250 MG in SODIUM CHLORIDE 0.9% 250 ML IV SCH ×2 (03:45→16:51)
[2021-06-04] MEDS: PIPERACILLIN/TAZOBACTAM 3.375 GM in DEXTROSE 5% 100 ML IV SCH ×3 (05:12→21:30)
[2021-06-04] MEDS: ACETAMINOPHEN 325 MG TAB PO PRN (05:14)
[2021-06-04 06:13] LABS: Basophils # (auto) 0.01 K/uL (0-0.2); Basophils % (auto) 0.2 %; Eosinophils # (auto) 0.15 K/uL (0-0.5); Eosinophils % (auto) 2.3 %; Hematocrit (blood only) 39.4 % (42-52); Hemoglobin 13.2 g/dL (14.0-18.0); Immature Granulocytes # (auto) 0.01 K/uL (0.00-0.02); Immature Granulocytes % (auto) 0.2 %; Lymphocytes # (auto) 1.76 K/uL (1.2-3.4); Lymphocytes % (auto) 26.8 %; Mean Corpuscular Hgb Conc 33.5 g/dL (32-36); Mean Corpuscular Volume 86.6 fL (80-100); Mean Platelet Volume 9.1 fL (7.4-10.4); Monocytes # (auto) 0.65 K/uL (0.11-0.59); Monocytes % (auto) 9.9 %; Neutrophils # (auto) 3.98 K/uL (1.4-6.5); Neutrophils % (auto) 60.6 %; Platelet Count 242 K/uL (130-400); RDW Coefficient of Variation 12.9 % (11.5-14.5); RDW Standard Deviation 40.9 fL (36.4-46.3); Red Blood Count 4.55 M/uL (4.7-6.1); White Blood Count 6.56 K/uL (4.8-10.8)
[2021-06-04 06:51] LABS: BUN Creatinine Ratio 16.5 (10-20); Creatinine Clr Calc Pharmacy 97.8 ml/min; Est GFR (African American) 111.3 ml/min; Potassium 3.9 mmol/L (3.5-5.1)
[2021-06-04] MEDS ORDERED: Flu Vaccine (Flucelvax) 0.5mL SYR **Egg-Free IM ONE (07:00)
[2021-06-04 07:35] LABS: Estimated Average Glucose 286 mg/dl; Hemoglobin A1C 11.6 % (4.5-5.6)
[2021-06-04] MEDS: ATORVASTATIN 40 MG TAB PO SCH (08:40)
[2021-06-04] MEDS: INSULIN ASPART PER UNIT SC SCH ×4 (08:45→21:28)
[2021-06-04] MEDS ORDERED: INSULIN GLARGINE SOLOSTAR 100 UNITS/ML 3 ML PEN SC SCH (09:00)
--- NOTE | 2021-06-04 09:03 | Hospitalist Progress Note ---
Date of Service June 04, 2021 Assessment & Plan (1) Diabetic foot ulcer associated with type 2 diabetes mellitus, with fat layer exposed: Plan: Mr. Gunn is a 56-year-old male with a history of Schizoaffective Schizophrenia, Depression, Pseudoseizures, Hyperlipidemia (untreated), Uncontrolled Type 2 Diabetes Mellitus, and Poor Living Conditions who presented to [facility] today with a large diabetic ulcer on his left 3rd toe with localized infection and exposed bone. The patient does not take any medications this time although he is supposed to be on Atorvastatin and Glipizide. IV Zosyn and IV Vancomycin. MRI is now suspicious for osteomyelitis orthopedic consult is pending official decision regarding amputation -- Wound and blood cultures -- Check aorto-iliac arterial ultrasound. -- Bilateral LE arterial ultrasound. No hemodynamically significant stenosis with normal ankle-brachial indices seen -- Continue IV Zosyn IV Vancomycin. -- Consult wound clinic. -- Consult orthopedics, -- Consult manager rn case, patient has poor living conditions as outlined above. MRI of his left foot 06/04/2021 shows A cutaneous ulceration is noted in the third toe with findings highly suspicious for osteomyelitis of the third middle and distal phalanges. Milder marrow edema is seen in the second toe within the middle and distal phalanges. Osteitis/developing osteomyelitis is not excluded No organized/drainable fluid collection is seen to suggest abscess. (2) Diabetes mellitus type 2, uncontrolled: Plan: Patient has not taken medications for his diabetes mellitus for some time now -- was previously on Glipizide and at one time was on Metformin. Medication non-compliance has been an issue. -- hemoglobin A1c. 11.6 -- Glycemic pharmacy consult. -- BSG qAC and HS. -- Sliding scale insulin coverage. (3) Dyslipidemia: Plan: Fasting lipid panel 12/12/20 showed a total cholesterol of 323 mg/dL, HDL is 43 mg/dL, LDL 202 mg/dL, and triglycerides are 391 mg/dL. Total Cholesterol:HDL ration is 7.5. -- Resume Atorvastatin at 80 mg daily. -- Check aorto-iliac and arterial Dopplers as ordered above. (4) Schizo affective schizophrenia: Plan: -- No recent hallucinations or delusions. No suicidal or homicidal ideation. -- Add Haldol as needed for anxiety/agitation/hallucinations, etc. -- Add Lorazepam as needed for anxiety/agitation. Admission and Anticipated Discharge Date Admission Date: June 03, 2021 Subjective Patient has no significant complaints or problems his foot is bandaged it is still painful his understanding that he may require surgical debridement or amputation Review of Systems Review of Systems: Mild distress and fatigue no headache, no visual changes no speech or swallowing issues no chest pain, pressure or palpitations no shortness of breath, cough or wheezes no abdominal pain, nausea or vomiting, diarrhea or constipation no dysuria, hematuria or frequency Bilateral foot pain left greater than right no back pain, CVA tenderness or radicular pain Erythema to all of his toes on the left foot there is an open area to the medial side of the third toe with bone exposed no focal signs of weakness or numbness or altered sensation no complaints of anxiety or depression.. Physical Exam Physical Exam: The patient appeared well nourished and normally developed. Vital signs as documented. Head exam is normocephalic atraumatic Neck is without JVD, thyromegaly, or carotid bruits. Lungs are clear to auscultation, no focal loss of breath sounds Cardiac exam, Rhythm is regular.. No murmurs, rubs or gallops. Abdominal exam reveals normal bowel sounds, soft non tender, no masses His feet show Ms. Nails he does have erythema to all the toes on his left foot with ulceration to the medial aspect of the left third toe with bone exposure this is a. Thickness ulceration Neurologic exam is alert and oriented, no focal loss of strength or sensation Skin is with cheilitis with foot defects as noted in the wound care notes Psychologically is without concerns for anxiety or depression.. Results & Data Results & Data ([facility]) Vital Signs (Past 12 Hours) Vital Signs Temp Pulse Resp BP Pulse Ox 06/04/21 07:55 98.2 F 67 18 111/72 97 06/03/21 21:21 97.9 F 80 18 119/76 97 PG Care Time/CCT Total # of Minutes Spent Total Time Spent with Patient: Total time spent is greater than 50% in coordination of care (as documented) at patient's floor/unit and/or counseling patient: Coding Level of Care Code 61164 Subseq Hosp Care Lvl 3 Diagnoses Diabetic foot ulcer associated with type 2 diabetes mellitus, with fat layer exposed E11.621; L97.502 Diabetes mellitus type 2, uncontrolled E11.65 Dyslipidemia E78.5 Schizo affective schizophrenia F25.0
--- NOTE | 2021-06-04 09:33 | Ultrasound Report ---
US arterial duplex LE BI CLINICAL HISTORY: Uncontrolled DM, Left 3rd toe, decreased pulses TECHNIQUE: Real-time grayscale and color and spectral Doppler ultrasound imaging of the bilateral low er extremity arteries was performed. Measurements calculated based on NASCET criteria. COMPARISON: None available at the time of this dictation. FINDINGS: RIGHT: Common femoral artery: Triphasic waveforms. Peak systolic velocity (PSV) 113 cm/s. Deep femoral artery: Triphasic waveforms. PSV 121 cm/s. Superficial femoral artery: Triphasic waveforms. PSV 108 cm/s. Popliteal artery: Triphasic waveforms. PSV 72 cm/s. Anterior tibial artery: Triphasic waveforms. PSV 69 cm/s. Posterior tibial artery: Triphasic waveforms. PSV 115 cm/s. Peroneal artery: Triphasic waveforms. PSV 58 cm/s. Dorsalis pedis: Triphasic waveforms. PSV 53 cm/s. LEFT: Common femoral artery: Triphasic waveforms. Peak systolic velocity (PSV) 111 cm/s. Deep femoral artery: Triphasic waveforms. PSV 110 cm/s. Superficial femoral artery: Triphasic waveforms. PSV 110 cm/s. Popliteal artery: Triphasic waveforms. PSV 116 cm/s. Anterior tibial artery: Triphasic waveforms. PSV 90 cm/s. Posterior tibial artery: Triphasic waveforms. PSV 105 cm/s. Peroneal artery: Triphasic waveforms. PSV 50 cm/s. Dorsalis pedis: Triphasic waveforms. PSV 103 cm/s. ANKLE/BRACHIAL INDEX (VENKATESH): Brachial: Right: 127 mmHg. Left: 121 mmHg. Ankle (dorsalis pedis): Right: 133 mmHg. Left: 130 mmHg. Ankle (posterior tibial): Right: 133 mmHg. Left: 139 mmHg. Ankle/brachial index: Right: 1.05, Left: 1.09. Reference ranges: Normal Ankle/Brachial Index (VENKATESH) 1.0-1.4; 0.91-0.99 borderline; < or = 0.9 abnormal (0.7-0.89 mild, 0.51-0.69 moderate, < or = 0.5 severe peripheral arterial disease). Normal Toe/Brachial Index (TBI) > or = 0.6; < 0.6 abnormal (0.34-0.59 mild, 0.12-0.34 moderate, < or = 0.11 severe peripheral arterial disease). IMPRESSION: 1. No hemodynamically significant stenosis. 2. Normal ankle-brachial indices. ACT 112: Negative or not required by law. Electronically signed by: Frederic Conley M.D. 06/04/2021 9:32 AM
--- NOTE | 2021-06-04 10:42 | Ultrasound Report ---
US duplex aorta/iliacs/IVC ltd CLINICAL HISTORY: Uncontrolled DM, Left 3rd toe,. decreased pulses. COMPARISON: None FINDINGS: Aorta: The abdominal aorta tapers without aneurysmal dilatation. There are no retroperitonal fluid co llections. Doppler imaging was performed with the measurements provided in centimeters per second Proximal: 115 Mid: 149 Distal: 106 Common Iliac arteries: No significant ectasia of the common iliac arteries is noted. Left iliac: 106 Right iliac: 109 IMPRESSION: 1. Normal Doppler ultrasound of the abdominal aorta and iliac arteries with no increased flow velocit ies demonstrated.. ACT 112: Negative or not required by law. Electronically signed by: Coleman Castle M.D. 06/04/2021 10:41 AM
--- NOTE | 2021-06-04 11:03 | Orthopedic Consultation ---
Date of Consultation June 04, 2021 Assessment & Plan (1) Diabetic foot ulcer associated with type 2 diabetes mellitus, with fat layer exposed: X-rays reviewed. Duplex ultrasound performed and results noted below. Plan for MRI of the left foot with and without contrast to rule out osteomyeli tis. Case will be discussed with [facility] to consider irrigation and debridement and possibility of need for toe amputation. History of Present Illness Reason for Consultation: Left third toe infection/question osteomyelitis Attending Physician: Dmitry Lopez MD History of Present Illness Mr. Gunn is a 56-year-old male with a history of Schizoaffective Schizophrenia, Depression, Pseudoseizures, Hyperlipidemia (untreated), Uncontrolled Type 2 Diabetes Mellitus, and Poor Living Conditions who presented to [facility] today with a large ulcer on his left 3rd toe which was likely brought on by his untrimmed toenails digging into the side of that toe. Patient currently lives in a barn with an inadequate heating system (he has been using space heaters ), and he generally wears his muck boots without socks. Patient does not have any running water but he does have electricity. Currently the patient is sitting up in bed awake and alert. He states that he has been having pain in the left foot for several weeks. He feels that his feet are always cold and he is questioning whether he had gotten some frostbite or not. He states that he had noticed some of the ulceration noted sometime ago but felt that it was just dirt between his toes. As the ulceration worsened, he states that his brother had looked at it and felt there was a fair amount of purulence in and around the ulceration. He continued to have discomfort and came into the emergency room to be seen. He has been admitted by the hospitalist service for IV antibiotics and we have been asked to see him for his third toe ulceration. Allergies Allergy/AdvReac Type Severity Reaction Status Date / Time egg Allergy Unknown Unknown Verified 06/03/21 15:53 mustard Allergy Unknown UNKNOWN Verified 06/03/21 15:53 risperidone [From Risperdal] AdvReac Unknown unknown Verified 06/03/21 15:53 Home Medications Medication Instructions Recorded Confirmed Type No Known Home Medications 06/03/21 06/03/21 History Patient History Medical History Cellulitis Depression Diabetes Diabetes mellitus type II, non insulin dependent Dyslipidemia Dyslipidemia Fracture of lower leg (10/29/12) Nocturia Pseudoseizures Psychosis Schizo affective schizophrenia Unspecified intellectual disabilities Family History Mother Diabetes Father Stroke Social History Smoking Status: Never smoker Hx Alcohol Use: No Hx Substance Use: No Preferred Language: Spanish Communication Ability: Effective Visual Impairment: No Limitations Hearing Ability: Normal Field Reimbursement Manager Required: No Beliefs That Will Affect Care: None marital status: Single Current Living Situation: Alone Feels Safe at Home: Yes Assistive Devices: None Physical Exam Physical Exam: Patient is currently sitting up in bed awake and alert. He is watching TV. He is alert and oriented x3. No acute distress. Pleasant and cooperative. On examination of his left foot, there is a dressing noted over the foot and toes. This is removed. I am able to appreciate a foul odor that is increased while examining the toes of his left foot. He has a noted ulceration on the medial aspect of his left third toe. There is a scant amount of purulent drainage noted on the dressing. The area does feel firm and a question of it being down to bone. He also has a noted open wound on the plantar surface of his second left toe which has some purulent drainage as well. This 1 is small in nature and is approximately a 3 to 4 mm in length. The toes are pink and warm with capillary refill less than 2 seconds. He has a fairly diffuse neuropathy of his toes at this time. He is able to feel touch on the dorsum and plantar aspect of his foot. He has a strong dorsalis pedis pulse of the left foot. Aquacel Ag dressing was placed back on 2 wounds of his foot and these were covered with 4 x 4 gauze and Kerlix wrap. Results & Data ([facility]) Vital Signs (Past 12 Hours) Vital Signs Temp Pulse Resp BP Pulse Ox 06/04/21 07:55 36.8 C 67 18 111/72 97 Diagnostic Findings Laboratory Results WBC 6.56 K/uL (4.8-10.8) 06/04/21 05:57 RBC 4.55 M/uL (4.7-6.1) L 06/04/21 05:57 Hgb 13.2 g/dL (14.0-18.0) L 06/04/21 05:57 Hct 39.4 % (42-52) L 06/04/21 05:57 MCV 86.6 fL (80-100) 06/04/21 05:57 MCH 29.0 pg (25-34) 06/04/21 05:57 MCHC 33.5 g/dL (32-36) 06/04/21 05:57 RDW Std Deviation 40.9 fL (36.4-46.3) 06/04/21 05:57 RDW Coeff of Sofía 12.9 % (11.5-14.5) 06/04/21 05:57 Plt Count 242 K/uL (130-400) 06/04/21 05:57 MPV 9.1 fL (7.4-10.4) 06/04/21 05:57 Immature Gran % (Auto) 0.2 % 06/04/21 05:57 Neut % (Auto) 60.6 % 06/04/21 05:57 Lymph % (Auto) 26.8 % 06/04/21 05:57 [place] % (Auto) 9.9 % 06/04/21 05:57 Eos % (Auto) 2.3 % 06/04/21 05:57 Baso % (Auto) 0.2 % 06/04/21 05:57 Neut # (Auto) 3.98 K/uL (1.4-6.5) 06/04/21 05:57 Lymph # (Auto) 1.76 K/uL (1.2-3.4) 06/04/21 05:57 [place] # (Auto) 0.65 K/uL (0.11-0.59) H 06/04/21 05:57 Eos # (Auto) 0.15 K/uL (0-0.5) 06/04/21 05:57 Baso # (Auto) 0.01 K/uL (0-0.2) 06/04/21 05:57 Immature Gran # (Auto) 0.01 K/uL (0.00-0.02) 06/04/21 05:57 Sodium 135 mmol/L (136-145) L 06/04/21 05:57 Potassium 3.9 mmol/L (3.5-5.1) 06/04/21 05:57 Chloride 101 mmol/L (98-107) 06/04/21 05:57 Carbon Dioxide 26 mmol/L (21-32) 06/04/21 05:57 Anion Gap 8 (3-11) 06/04/21 05:57 BUN 14 mg/dl (6-23) 06/04/21 05:57 Creatinine 0.85 mg/dl (0.6-1.4) 06/04/21 05:57 Est Cr Clr Drug Dosing 97.8 ml/min 06/04/21 05:57 Est GFR ( Amer) 111.3 ml/min 06/04/21 05:57 Est GFR (Non-Af Amer) 96.0 ml/min 06/04/21 05:57 BUN/Creatinine Ratio 16.5 (10-20) 06/04/21 05:57 Glucose 172 mg/dl (70-99(Fasting)) H 06/04/21 05:57 POC Glucose 192 mg/dl (70-99) H 06/04/21 08:04 Estimat Average Glucose 286 mg/dl 06/04/21 05:57 Hemoglobin A1c 11.6 % (4.5-5.6) H 06/04/21 05:57 Lactate 1.5 mmol/L (0.4-2.0) 06/03/21 13:30 Calcium 9.0 mg/dl (8.5-10.1) 06/04/21 05:57 Total Bilirubin 0.7 mg/dl (0.2-1.0) 06/03/21 13:30 AST 17 U/L (13-39) 06/03/21 13:30 ALT 14 U/L (7-52) 06/03/21 13:30 Alkaline Phosphatase 114 U/L (34-104) H 06/03/21 13:30 C-Reactive Protein 0.74 mg/dl (0-0.5) H 06/03/21 13:30 Total Protein 7.7 gm/dl (6.0-8.3) 06/03/21 13:30 Albumin 4.4 gm/dl (3.4-5.0) 06/03/21 13:30 Globulin 3.3 gm/dl (2.5-4.0) 06/03/21 13:30 Albumin/Globulin Ratio 1.3 (0.9-2) 06/03/21 13:30 SARS-CoV-2, RNA, NAAT NEGATIVE (NEGATIVE) 06/03/21 13:30 Impressions Foot X-Ray 06/03/21 13:03 XR foot LT min 3V routine CLINICAL HISTORY: pain in toes eval for osteomyelitis TECHNIQUE: 3 views of the left foot were obtained. Comparison: None available at the time of this dictation. FINDINGS: No evidence of bony erosion is seen. The alignment is anatomic. The joint spaces are well preserved. No soft tissue abnormality is seen. IMPRESSION: No radiographic evidence of osteomyelitis. If clinical concern remains, MRI is a more sensitive modality. ACT 112: Negative or not required by law. Electronically signed by: Frederic Conley M.D. 06/03/2021 1:45 PM Aorta Iliac Ultrasound 06/03/21 17:46 US duplex aorta/iliacs/IVC ltd CLINICAL HISTORY: Uncontrolled DM, Left 3rd toe,. decreased pulses. COMPARISON: None FINDINGS: Aorta: The abdominal aorta tapers without aneurysmal dilatation. There are no retroperitonal fluid collections. Doppler imaging was performed with the measurements provided in centimeters per second Proximal: 115 Mid: 149 Distal: 106 Common Iliac arteries: No significant ectasia of the common iliac arteries is noted. Left iliac: 106 Right iliac: 109 IMPRESSION: 1. Normal Doppler ultrasound of the abdominal aorta and iliac arteries with no increased flow velocities demonstrated.. ACT 112: Negative or not required by law. Electronically signed by: Coleman Castle M.D. 06/04/2021 10:41 AM Duplex Scan Lower Extremity Artery 06/03/21 17:46 US arterial duplex LE BI CLINICAL HISTORY: Uncontrolled DM, Left 3rd toe, decreased pulses TECHNIQUE: Real-time grayscale and color and spectral Doppler ultrasound imaging of the bilateral lower extremity arteries was performed. Measurements calculated based on NASCET criteria. COMPARISON: None available at the time of this dictation. FINDINGS: RIGHT: Common femoral artery: Triphasic waveforms. Peak systolic velocity (PSV) 113 cm/s. Deep femoral artery: Triphasic waveforms. PSV 121 cm/s. Superficial femoral artery: Triphasic waveforms. PSV 108 cm/s. Popliteal artery: Triphasic waveforms. PSV 72 cm/s. Anterior tibial artery: Triphasic waveforms. PSV 69 cm/s. Posterior tibial artery: Triphasic waveforms. PSV 115 cm/s. Peroneal artery: Triphasic waveforms. PSV 58 cm/s. Dorsalis pedis: Triphasic waveforms. PSV 53 cm/s. LEFT: Common femoral artery: Triphasic waveforms. Peak systolic velocity (PSV) 111 cm/s. Deep femoral artery: Triphasic waveforms. PSV 110 cm/s. Superficial femoral artery: Triphasic waveforms. PSV 110 cm/s. Popliteal artery: Triphasic waveforms. PSV 116 cm/s. Anterior tibial artery: Triphasic waveforms. PSV 90 cm/s. Posterior tibial artery: Triphasic waveforms. PSV 105 cm/s. Peroneal artery: Triphasic waveforms. PSV 50 cm/s. Dorsalis pedis: Triphasic waveforms. PSV 103 cm/s. ANKLE/BRACHIAL INDEX (VENKATESH): Brachial: Right: 127 mmHg. Left: 121 mmHg. Ankle (dorsalis pedis): Right: 133 mmHg. Left: 130 mmHg. Ankle (posterior tibial): Right: 133 mmHg. Left: 139 mmHg. Ankle/brachial index: Right: 1.05, Left: 1.09. Reference ranges: Normal Ankle/Brachial Index (VENKATESH) 1.0-1.4; 0.91-0.99 borderline; < or = 0.9 abnormal (0.7-0.89 mild, 0.51-0.69 moderate, < or = 0.5 severe peripheral arterial disease). Normal Toe/Brachial Index (TBI) > or = 0.6; < 0.6 abnormal (0.34-0.59 mild, 0.12-0.34 moderate, < or = 0.11 severe peripheral arterial disease). IMPRESSION: 1. No hemodynamically significant stenosis. 2. Normal ankle-brachial indices. ACT 112: Negative or not required by law. Electronically signed by: Frederic Conley M.D. 06/04/2021 9:32 AM Addendum June 04, 2021 15:17 Agree with above findings. MRI was completed by radiology has not met yet but the middle phalanx has increased signal activity on T2 weighted imaging concerning for osteomyelitis. Also some increased T2 signal in the distal phalanx of the great toe and some early findings on the second toe possibly. Awaiting radiology reading. May need toe amputation or debridement procedures and certainly long-term IV antibiotics.
[2021-06-04] MEDS ORDERED: GADOBUTROL 65ML VIAL IV ONE (13:53)
--- NOTE | 2021-06-04 14:45 | Pharmacy Report ---
Pharmacy Glycemic Short Note 2 - Date of Service June 04, 2021 - Glycemic Short BSG Results (Last 24 hours): 06/03/21 06/03/21 06/04/21 18:33 21:19 05:57 Glucose 172 H POC Glucose 162 H 251 H 06/04/21 06/04/21 08:04 12:06 Glucose POC Glucose 192 H 205 H OUTPATIENT ANTIDIABETIC REGIMEN: * Non compliance - reportedly had taken glipizide in the past ASSESSMENT: 06/04/21: * Patient received 6 units of bolus insulin last night after pharmacy consulted for glycemic control. * Fasting BSG was 172 mg/dl today AM. * HbA1c = 11.6% reported this AM. Basal Lantus dose ordered this AM based on wt and stress of 1. HS Lantus dose scale ordered for tonight based on BSG. * Novolog CR tightened this AM. Pre-lunch BSG elevated above 200 mg/dl. CR tightened further at lunch. Background 06/03/21: * Reportedly non compliant on home regimen * Admitted for diabetic foot infection contributed to by his non compliance and poor living conditions PLAN FOR INPATIENT GLYCEMIC CONTROL: * Basal insulin * Lantus 8 units SQ QAM and 5-8 units scale based on BSG at HS * Bolus insulin * NovoLog per scale ACHS or Q6hrs while NPO * Goal Range: Low 110 mg/dL - High 140 mg/dL * Correction Factor: 20 mg/dL/unit * Nutritional / Prandial insulin per carb ratio of 1 unit per 6 grams CHO consumed PLAN FOR DISCHARGE: * TBD
--- NOTE | 2021-06-04 15:19 | Magnetic Resonance Report ---
MRI OF THE LEFT FOREFOOT COMBO CLINICAL HISTORY: Second and third toe infection. COMPARISON STUDY: Radiographs of the left foot dated 06/03/2021. TECHNIQUE: MRI of the left forefoot is performed utilizing various T1 and T2-weighted sequences in th e axial, sagittal, and coronal planes. Contrast-enhanced sequences were acquired following the IV adm inistration of 8 cc of Gadavist. The examination is degraded by motion artifact. FINDINGS: There is significant marrow edema identified in the middle and distal phalanges of the thir d toe with corresponding drop in signal on the T1-weighted sequences and abnormal postcontrast enhanc ement. There is also overlying cutaneous ulceration along the medial aspect of the toe. Findings are highly suspicious for osteomyelitis. Milder marrow edema seen within the second middle and distal pha langes. Osteitis/developing osteomyelitis is not excluded. Degenerative changes noted in the first me tatarsophalangeal and interphalangeal joints. There is nonspecific marrow edema within the first dist al phalanx. While nonspecific marrow edema is also suggested in the dylon of the fourth and fifth dis malka phalanges. Mild soft tissue edema seen throughout the forefoot, greatest in the third toe. No org anized fluid collection is seen to suggest abscess. The flexor and extensor tendons are intact as vis ualized. The Lisfranc ligament is maintained. Imaged portions of the plantar fascia are maintained. IMPRESSION: 1. A cutaneous ulceration is noted in the third toe with findings highly suspicious for osteomyelitis of the third middle and distal phalanges. 2. Milder marrow edema is seen in the second toe within the middle and distal phalanges. Osteitis/dev eloping osteomyelitis is not excluded. 3. Milder nonspecific edema is seen within the first distal phalanx and the dylon of the fourth and f ifth distal phalanges. Clinical correlation will be required. 4. Soft tissue edema is noted in the forefoot, greatest in the third toe. The appearance is typical f or cellulitis. 5. No organized/drainable fluid collection is seen to suggest abscess. Dictated: 06/04/2021 2:45 PM Transcribed: 06/04/2021 3:02 PM Birdie [id number] [email or web address] Electronically signed by: Uday Connors M.D. 06/04/2021 3:18 PM
[2021-06-04] MEDS: ENOXAPARIN INJ 40 MG/0.4 ML SYR SQ SCH (21:29)
[2021-06-04] MEDS: INSULIN GLARGINE SOLOSTAR 100 UNITS/ML 3 ML PEN SC SCH (21:29)
[2021-06-05] MEDS ORDERED: VANCOMYCIN TROUGH ONE (03:30)
[2021-06-05 03:58] LABS: Basophils # (auto) 0.01 K/uL (0-0.2); Basophils % (auto) 0.2 %; Eosinophils # (auto) 0.14 K/uL (0-0.5); Eosinophils % (auto) 2.3 %; Hematocrit (blood only) 41.1 % (42-52); Immature Granulocytes # (auto) 0.02 K/uL (0.00-0.02); Immature Granulocytes % (auto) 0.3 %; Lymphocytes # (auto) 2.09 K/uL (1.2-3.4); Lymphocytes % (auto) 34.4 %; Mean Corpuscular Hemoglobin 29.5 pg (25-34); Mean Corpuscular Hgb Conc 34.1 g/dL (32-36); Mean Corpuscular Volume 86.5 fL (80-100); Mean Platelet Volume 9.6 fL (7.4-10.4); Monocytes % (auto) 8.2 %; Neutrophils # (auto) 3.32 K/uL (1.4-6.5); Neutrophils % (auto) 54.6 %; Platelet Count 216 K/uL (130-400); RDW Coefficient of Variation 12.9 % (11.5-14.5); RDW Standard Deviation 40.9 fL (36.4-46.3); Red Blood Count 4.75 M/uL (4.7-6.1); White Blood Count 6.08 K/uL (4.8-10.8)
[2021-06-05] MEDS: VANCOMYCIN HCL 1,250 MG in SODIUM CHLORIDE 0.9% 250 ML IV SCH ×2 (04:09→15:37)
[2021-06-05 04:25] LABS: BUN Creatinine Ratio 14.9 (10-20); Calcium 9.2 mg/dl (8.5-10.1); Creatinine Clr Calc Pharmacy 88.4 ml/min; Est GFR (African American) 103.2 ml/min; Potassium 4.7 mmol/L (3.5-5.1)
[2021-06-05] MEDS: PIPERACILLIN/TAZOBACTAM 3.375 GM in DEXTROSE 5% 100 ML IV SCH ×3 (05:39→21:04)
[2021-06-05] MEDS: INSULIN ASPART PER UNIT SC SCH ×4 (06:11→21:03)
[2021-06-05] MEDS: INSULIN GLARGINE SOLOSTAR 100 UNITS/ML 3 ML PEN SC SCH ×2 (08:53→21:03)
--- NOTE | 2021-06-05 09:18 | Pharmacy Report ---
Pharmacy Abx Dose Short Note - Date of Service June 05, 2021 - Assessment & Plan Assessment 56 year old M receiving Vancomycin for treatment of Diabetic left foot ulcer Day # 3 of antimicrobial therapy. Patient has been receiving Vancomycin 1250 mg IV q12h. Trough level was obtained this AM after two maintenance doses of Vanco yesterday. Laboratory Tests 06/05/21 03:43 Vancomycin Trough 11.1 Plan Vancomycin * Trough level of 11.1 mcg/mL is not at steady state but expect trough to rise to ~15 mcg/ml by day 5. * AUC/ELIAS is the preferred PK/PD target for vancomycin * AUC guided dosing is effective and associated with decreased risk of nephrotoxicity compared to traditional trough targets * Trough level of 11.1 mcg/mL is predicted to achieve target AUC/ELIAS of 400-600 mg/L.hr and may be associated with a 11 % risk of nephrotoxicity * Goal trough level for SST: 12 to 15 mcg/mL * Trough level ordered for 06/07 before dose at 04:00 Pharmacy will continue to follow and will adjust dose/frequency as necessary. Thank you.
--- NOTE | 2021-06-05 11:00 | Anesthesiology Consultation ---
Date of Service June 05, 2021 Assessment & Plan (1) Encounter for pre-operative examination: Chart Review Chart Review: wellness specialist initiated History Surgery Operation Date: 06/05/21 12:35 Proposed Procedures p Amputation 2nd and 3rd Toes - Adrian Tello M.D. Height/Weight Height: 5 ft 10 in Weight: 84.686 kg Allergies Allergy/AdvReac Type Severity Reaction Status Date / Time egg Allergy Unknown Unknown Verified 06/03/21 15:53 mustard Allergy Unknown UNKNOWN Verified 06/03/21 15:53 risperidone [From Risperdal] AdvReac Unknown unknown Verified 06/03/21 15:53 Medications Home Medications Medication Instructions Recorded Confirmed Last Taken No Known Home Medications 06/03/21 06/03/21 Unknown Active Medications Generic Name Dose Route Start Last Admin Trade Name Freq PRN Reason Stop Dose Admin Acetaminophen 650 mg 06/03/21 17:46 06/04/21 05:14 Acetaminophen 325 Mg Tab PO 07/03/21 17:45 650 mg Q4H PRN Administration pain/fever Atorvastatin Calcium 80 mg 06/03/21 17:46 06/04/21 08:40 Atorvastatin 40 Mg Tab PO 07/03/21 17:45 80 mg QAM TOMMY Administration Enoxaparin Sodium 40 mg 06/03/21 21:00 06/04/21 21:29 Enoxaparin Inj 40 Mg/0.4 Ml Syr SQ 07/03/21 20:59 40 mg Q24H TOMMY Administration Vancomycin HCl 1,250 mg/ 275 mls @ 200 mls/hr 06/04/21 04:00 06/05/21 05:39 Sodium Chloride IV 06/10/21 15:59 Infused Q12H TOMMY Infusion Protocol Piperacillin Sod/Tazobactam 115 mls @ 28.75 mls/hr 06/03/21 22:00 06/05/21 09:39 Sod 3.375 gm/ Dextrose IV 06/10/21 21:59 Infused Q8 TOMMY Infusion Protocol Insulin Aspart 0 units 06/05/21 06:00 06/05/21 06:11 Insulin Aspart Per Unit SC 07/05/21 05:59 2 units Q6 TOMMY Administration Insulin Glargine 0 units 06/04/21 21:00 06/04/21 21:29 Insulin Glargine Solostar 100 Units/Ml 3 Ml Pen SC 07/04/21 20:59 8 units HS [facility] Administration Protocol Insulin Glargine 15 units 06/05/21 09:00 06/05/21 08:53 Insulin Glargine Solostar 100 Units/Ml 3 Ml Pen SC 07/05/21 08:59 15 units QAM [facility] Administration Past Medical History Medical History (Updated 06/05/21 @ 10:59 by Adan Ray DO) Cellulitis Depression Diabetes Diabetes mellitus type II, non insulin dependent Dyslipidemia Dyslipidemia Fracture of lower leg (10/29/12) Nocturia Pseudoseizures Psychosis Schizo affective schizophrenia Unspecified intellectual disabilities Past Family History Family History Mother Diabetes Father Stroke Social History Smoking Status: Never smoker Hx Alcohol Use: No Hx Substance Use: No Physical Exam Vital Signs Last Vital Signs Temp 97.7 F 06/05/21 07:27 Pulse 88 06/05/21 07:27 Resp 18 06/05/21 07:27 BP 106/67 06/05/21 07:27 Pulse Ox 93 06/05/21 07:27 Testing Laboratory Results 06/05/21 03:43 06/05/21 03:43 Hemoglobin A1c 11.6 % (4.5-5.6) H 06/04/21 05:57 06/03/21 15:19 Gram Stain - Final Toe,Left Deep Wound Culture - Preliminary Proteus vulgaris 06/03/21 13:44 Aerobic Blood Culture - Preliminary Blood No growth in Aerobic bottle after 24 hours. Anaerobic Blood Culture - Preliminary No growth in Anaerobic bottle after 24 hours. 06/03/21 13:30 Aerobic Blood Culture - Preliminary Blood No growth in Aerobic bottle after 24 hours. Anaerobic Blood Culture - Preliminary No growth in Anaerobic bottle after 24 hours. 06/05/21 06:00 POC Glucose 175 H Chest X-Ray Date: 06/03/21 Findings: + NAD
[2021-06-05] MEDS: ATORVASTATIN 40 MG TAB PO SCH (12:05)
--- NOTE | 2021-06-05 14:09 | Pharmacy Report ---
Pharmacy Glycemic Short Note 2 - Date of Service June 05, 2021 - Glycemic Short BSG Results (Last 24 hours): 06/04/21 06/04/21 06/05/21 17:05 20:37 03:43 Glucose 154 H POC Glucose 161 H 180 H 06/05/21 06/05/21 06:00 12:05 Glucose POC Glucose 175 H 141 H OUTPATIENT ANTIDIABETIC REGIMEN: * Non compliance - reportedly had taken glipizide in the past ASSESSMENT: 06/05: * Patient received total 43 units of insulin; 16 units basal and 27 units bolus * Fasting BSG = 154 mg/dl today. Basal dose of 15 units ordered this AM and added 0 to 5 units basal dose scale based on BSG for tonight. * BSGs yesterday were [phone] mg/dl. * Patient was made NPO today AM for I&D of diabetic foot ulcer. Continued Novolog CF/CR the same as yesterday. 06/04/21: * Patient received 6 units of bolus insulin last night after pharmacy consulted for glycemic control. * Fasting BSG was 172 mg/dl today AM. * HbA1c = 11.6% reported this AM. Basal Lantus dose ordered this AM based on wt and stress of 1. HS Lantus dose scale ordered for tonight based on BSG. * Novolog CR tightened this AM. Pre-lunch BSG elevated above 200 mg/dl. CR tightened further at lunch. Background 06/03/21: * Reportedly non compliant on home regimen * Admitted for diabetic foot infection contributed to by his non compliance and poor living conditions PLAN FOR INPATIENT GLYCEMIC CONTROL: * Basal insulin * Lantus 15 units SQ QAM and 0-5 units dose scale based on BSG at HS * Bolus insulin * NovoLog per scale ACHS or Q6hrs while NPO * Goal Range: Low 110 mg/dL - High 140 mg/dL * Correction Factor: 20 mg/dL/unit * Nutritional / Prandial insulin per carb ratio of 1 unit per 6 grams CHO consumed
[2021-06-05] MEDS ORDERED: HALOPERIDOL LACTATE 5 MG/ML 1 ML VIAL IM PRN (14:42)
--- NOTE | 2021-06-05 15:11 | Hospitalist Progress Note ---
Date of Service June 05, 2021 Assessment & Plan (1) Diabetic foot ulcer associated with type 2 diabetes mellitus, with fat layer exposed: Plan: Mr. Gunn is a 56-year-old male with a history of Schizoaffective Schizophrenia, Depression, Pseudoseizures, Hyperlipidemia (untreated), Uncontrolled Type 2 Diabetes Mellitus, and Poor Living Conditions who presented to [facility] ER with a large diabetic ulcer on his left 3rd toe with localized infection and exposed bone. The patient does not take any medications this time although he is supposed to be on Atorvastatin and Glipizide. Currently on IV Zosyn and IV Vancomycin. MRI reveals the presence of left third toe osteomyelitis . Orthopedic consult appreciated. Left third toe amputation planned for tomorrow, June 06 -- Wound and blood cultures obtained -- arterial study noted . -- No hemodynamically significant stenosis with normal ankle-brachial indices seen -- Continue IV Zosyn IV Vancomycin. -- Consult wound clinic. -- Orthopedic consult appreciated -- Consult high risk case manager, patient has poor living conditions as outlined above. MRI of his left foot 06/04/2021 shows A cutaneous ulceration is noted in the third toe with findings highly suspicious for osteomyelitis of the third middle and di stal phalanges. Milder marrow edema is seen in the second toe within the middle and distal phalanges. Osteitis/developing osteomyelitis is not excluded No organized/drainable fluid collection is seen to suggest abscess. (2) Diabetes mellitus type 2, uncontrolled: Plan: Patient has not taken medications for his diabetes mellitus for some time now -- was previously on Glipizide and at one time was on Metformin. Medication non-compliance has been an issue. -- hemoglobin A1c. 11.6 -- Glycemic pharmacy consult. -- BSG qAC and HS. -- Sliding scale insulin coverage. (3) Dyslipidemia: Plan: Fasting lipid panel 12/12/20 showed a total cholesterol of 323 mg/dL, HDL is 43 mg/dL, LDL 202 mg/dL, and triglycerides are 391 mg/dL. Total Cholesterol:HDL ration is 7.5. -- Resumed Atorvastatin at 80 mg daily. (4) Schizo affective schizophrenia: Plan: -- No recent hallucinations or delusions. No suicidal or homicidal ideation. -- Added Haldol as needed for anxiety/agitation/hallucinations, etc. -- Added Lorazepam as needed for anxiety/agitation. --Psychiatry consultation pending Plan: Disposition: To be determined Admission and Anticipated Discharge Date Admission Date: June 03, 2021 Subjective Alert. No acute distress. Behavior has been odd at times but he does have a psychiatric history. Psychiatry consult requested. Will administer IM Haldol as needed. MRI scan of the left foot reveals osteomyelitis of the left third toe which will be amputated probably tomorrow, June 06. Glucose 154 today. Hemodynamically stable. Review of Systems Review of Systems: Constitutional-no fever or chills ENT-no blurred vision, no double vision, no epistaxis, no sore throat Respiratory-no cough, no wheezing, no shortness of breath Cardiac-no palpitations, no chest pain, no syncope GI-no nausea, vomiting, diarrhea, melena, hematochezia -no urinary retention, no urinary incontinence, no dysuria, no hematuria Musculoskeletal-multiple left foot toes are macerated with the left third toe exhibiting the worst changes and has underlying osteomyelitis Skin-no bruising, no rashes, no pruritus Neuro-no isolated weakness, no paresthesia, no weakness Psych-no depression, no anxiety Physical Exam Physical Exam: Insert general-alert and oriented x3, no fevers, no chills HEENT-head atraumatic and normocephalic, TMs intact bilaterally, pupils equal and reactive to light, extraocular muscles intact Neck-no lymphadenopathy or thyromegaly, trachea midline Chest-clear to auscultation percussion. No rales wheezing or rhonchi Cardiac-regular rate and rhythm, normal S1 and S2, no murmurs Abdomen-normal bowel sounds, nontender, no hepatosplenomegaly Extremities-no cyanosis, clubbing, or edema. Multiple macerated and ulcerated toes on the left foot with the left third toe ulcerated with cellulitis and un derlying osteomyelitis Neuro-cranial nerves II through XII intact, motor and sensory function within normal limits, strength symmetrical 5/5, no focal deficits Psych-normal affect, normal mood Results & Data Results & Data ([facility]) Vital Signs (Past 12 Hours) Vital Signs Temp Pulse Resp BP Pulse Ox 06/05/21 14:39 36.7 C 75 18 116/74 95 06/05/21 07:27 36.5 C 88 18 106/67 93 Laboratory Results 06/05/21 03:43 06/05/21 03:43 PG Care Time/CCT Total # of Minutes Spent Total Time Spent with Patient: Total time spent is greater than 50% in coordination of care (as documented) at patient's floor/unit and/or counseling patient: Coding Level of Care Code 76362 Subseq Hosp Care Lvl 3 Diagnoses Diabetic foot ulcer associated with type 2 diabetes mellitus, with fat layer exposed E11.621; L97.502 Diabetes mellitus type 2, uncontrolled E11.65 Dyslipidemia E78.5 Schizo affective schizophrenia F25.0
--- NOTE | 2021-06-05 15:41 | Psychiatric Consultation ---
Date of Consultation June 05, 2021 Impression / Recommendations Impression 56 yo male with prior diagnosis of schizoaffective disorder and intellectual disability, primarily the latter interfering with his ability to care for self/diabetes [place]. (1) Schizo affective schizophrenia: (2) Diabetes mellitus type 2, uncontrolled: (3) Diabetic foot ulcer associated with type 2 diabetes mellitus, with fat layer exposed: there is no evidence of acute psychosis, ROSY for registered nurse hh case manager, he does not meet criteria for forced psychiatric medication, antipsychotic would not restore his ability to care for self. is inability to care for self is a chronic issue and not amenable to acute inpatient care, largely a factor of intellectual disability--he does not have capacity to refuse appropriate nursing placement. Psychological eval by office of aging on chart, will need to determine their legal status re competency. needs simple instructions with time to process, simple routine, if holding food will become more orally preoccupied. Dr. Almonte updated Risk Factors Assessment Do You Have Access To A Gun?: No Psych History Identifying Data Jamil is a 56-year-old male with a hx of schizoaffective disorder and longstanding noncompliance with diabetes and self-care. Consult is by hospitalist service for disinhibited behavior. He is admitted for ulceration/need surgery. Chief Complaint "I shouldn't be living at the farm house anymore". History of Present Illness He describes pretty deplorable conditions, "yeah my brother says he can see my breath", reportedly toilets have been removed and uses an old tub for a toilet. He states he does not have running water. Office of Aging is involved per CM and I did review a psychological evaluation on his chart dated mid Apr stating that he does not have capacity. He denies any recent depression, SI, psychosis. He does not report any delusions. He states that he is open with case management but hasn't taken medication for some time. "I'm going all natural", meaning no medication or supplements. He doesn't fully understand why he is in the hospital or why his feet are "black and blue". He states that he doesn't take insulin as he's afraid he'll overdose on it. He was NPO for his procedure this am an apparently became overstimulated when saw vending machine and perhaps licked at the air. Other concerns include drawing inappropriate pictures of breasts, etc. Past Psychiatric History Outpatient Services: CM Previous Psych Admissions: multiple to [facility] and [facility], most recent here 2013 and 2016. Do You Have Access To A Gun?: No History of Previous Suicide Attempt: No Past Medication Trials: unsure, per 2017 admission Abilify, Zoloft, trazodone. Allergies Allergy/AdvReac Type Severity Reaction Status Date / Time egg Allergy Unknown Unknown Verified 06/03/21 15:53 mustard Allergy Unknown UNKNOWN Verified 06/03/21 15:53 risperidone [From Risperdal] AdvReac Unknown unknown Verified 06/03/21 15:53 Home Medications Medication Instructions Recorded Confirmed Type No Known Home Medications 06/03/21 06/03/21 History Personal History Beliefs That Will Affect Care: None Patient History Medical History Cellulitis Depression Diabetes Diabetes mellitus type II, non insulin dependent Dyslipidemia Dyslipidemia Fracture of lower leg (10/29/12) Nocturia Pseudoseizures Psychosis Schizo affective schizophrenia Unspecified intellectual disabilities Family History Mother Diabetes Father Stroke Social History Smoking Status: Never smoker Hx Alcohol Use: No Hx Substance Use: No Preferred Language: Citizen Of [place] Communication Ability: Effective Visual Impairment: No Limitations Hearing Ability: Normal Services Tech Required: No Beliefs That Will Affect Care: None marital status: Single Current Living Situation: Alone Feels Safe at Home: Yes Assistive Devices: None Physical Exam Psychiatric: Orientation: alert and oriented x 3 Apperance: appropriately groomed Eye Contact: good eye contact Motor Behavior: no abnormal motor movements Speech: normal rate/rhythm/volume of speech Affect: no depressed affect Mood: + anxious mood Thought Process: goal directed thought process Thought Content: reality based without delusions Suicidal Thoughts: denies suicidal thoughts Homicidal Thoughts: denies homicidal thoughts Hallucinations: no auditory hallucinations and no visual hallucinations Cognition: attention grossly intact and language grossly intact Estimated Intelligence: consistent with education level Insight: + poor insight Judgement: + poor judgement Vital Signs (Past 24 Hours): Last Vital Signs Temp 36.7 C 06/05/21 14:39 Pulse 75 06/05/21 14:39 Resp 18 06/05/21 14:39 BP 116/74 06/05/21 14:39 Pulse Ox 95 06/05/21 14:39 Review of Systems All systems reviewed & are unremarkable except as noted in HPI & below Results & Data (PSY) Laboratory Results 06/05/21 06/05/21 06/05/21 Range/Units 12:05 06:00 03:43 WBC (4.8-10.8) K/uL RBC (4.7-6.1) M/uL Hgb (14.0-18.0) g/dL Hct (42-52) % MCV (80-100) fL MCH (25-34) pg MCHC (32-36) g/dL RDW Std Deviation (36.4-46.3) fL RDW Coeff of Sofía (11.5-14.5) % Plt Count (130-400) K/uL MPV (7.4-10.4) fL Immature Gran % (Auto) % Neut % (Auto) % Lymph % (Auto) % Noble % (Auto) % Eos % (Auto) % Baso % (Auto) % Neut # (Auto) (1.4-6.5) K/uL Lymph # (Auto) (1.2-3.4) K/uL Noble # (Auto) (0.11-0.59) K/uL Eos # (Auto) (0-0.5) K/uL Baso # (Auto) (0-0.2) K/uL Immature Gran # (Auto) (0.00-0.02) K/uL Sodium (136-145) mmol/L Potassium (3.5-5.1) mmol/L Chloride (98-107) mmol/L Carbon Dioxide (21-32) mmol/L Anion Gap (3-11) BUN (6-23) mg/dl Creatinine (0.6-1.4) mg/dl Est Cr Clr Drug Dosing ml/min Est GFR ( Amer) ml/min Est GFR (Non-Af Amer) ml/min BUN/Creatinine Ratio (10-20) Glucose (70-99(Fasting)) mg/dl POC Glucose 141 H 175 H (70-99) mg/dl Calcium (8.5-10.1) mg/dl Vancomycin Trough 11.1 (10-20) mcg/ml 06/05/21 06/05/21 06/04/21 Range/Units 03:43 03:43 20:37 WBC 6.08 (4.8-10.8) K/uL RBC 4.75 (4.7-6.1) M/uL Hgb 14.0 (14.0-18.0) g/dL Hct 41.1 L (42-52) % MCV 86.5 (80-100) fL MCH 29.5 (25-34) pg MCHC 34.1 (32-36) g/dL RDW Std Deviation 40.9 (36.4-46.3) fL RDW Coeff of Sofía 12.9 (11.5-14.5) % Plt Count 216 (130-400) K/uL MPV 9.6 (7.4-10.4) fL Immature Gran % (Auto) 0.3 % Neut % (Auto) 54.6 % Lymph % (Auto) 34.4 % Noble % (Auto) 8.2 % Eos % (Auto) 2.3 % Baso % (Auto) 0.2 % Neut # (Auto) 3.32 (1.4-6.5) K/uL Lymph # (Auto) 2.09 (1.2-3.4) K/uL Noble # (Auto) 0.50 (0.11-0.59) K/uL Eos # (Auto) 0.14 (0-0.5) K/uL Baso # (Auto) 0.01 (0-0.2) K/uL Immature Gran # (Auto) 0.02 (0.00-0.02) K/uL Sodium 136 (136-145) mmol/L Potassium 4.7 D (3.5-5.1) mmol/L Chloride 103 (98-107) mmol/L Carbon Dioxide 25 (21-32) mmol/L Anion Gap 8 (3-11) BUN 14 (6-23) mg/dl Creatinine 0.94 (0.6-1.4) mg/dl Est Cr Clr Drug Dosing 88.4 ml/min Est GFR ( Amer) 103.2 ml/min Est GFR (Non-Af Amer) 89.0 ml/min BUN/Creatinine Ratio 14.9 (10-20) Glucose 154 H (70-99(Fasting)) mg/dl POC Glucose 180 H (70-99) mg/dl Calcium 9.2 (8.5-10.1) mg/dl Vancomycin Trough (10-20) mcg/ml 06/04/21 Range/Units 17:05 WBC (4.8-10.8) K/uL RBC (4.7-6.1) M/uL Hgb (14.0-18.0) g/dL Hct (42-52) % MCV (80-100) fL MCH (25-34) pg MCHC (32-36) g/dL RDW Std Deviation (36.4-46.3) fL RDW Coeff of Sofía (11.5-14.5) % Plt Count (130-400) K/uL MPV (7.4-10.4) fL Immature Gran % (Auto) % Neut % (Auto) % Lymph % (Auto) % Noble % (Auto) % Eos % (Auto) % Baso % (Auto) % Neut # (Auto) (1.4-6.5) K/uL Lymph # (Auto) (1.2-3.4) K/uL Noble # (Auto) (0.11-0.59) K/uL Eos # (Auto) (0-0.5) K/uL Baso # (Auto) (0-0.2) K/uL Immature Gran # (Auto) (0.00-0.02) K/uL Sodium (136-145) mmol/L Potassium (3.5-5.1) mmol/L Chloride (98-107) mmol/L Carbon Dioxide (21-32) mmol/L Anion Gap (3-11) BUN (6-23) mg/dl Creatinine (0.6-1.4) mg/dl Est Cr Clr Drug Dosing ml/min Est GFR ( Amer) ml/min Est GFR (Non-Af Amer) ml/min BUN/Creatinine Ratio (10-20) Glucose (70-99(Fasting)) mg/dl POC Glucose 161 H (70-99) mg/dl Calcium (8.5-10.1) mg/dl Vancomycin Trough (10-20) mcg/ml Medications Administered Acetaminophen (Acetaminophen 325 Mg Tab) 650 mg PO Q4H PRN PRN Reason: pain/fever Stop: 07/03/21 17:45 Last Admin: 06/04/21 05:14 Dose: 650 mg Documented by: [id number] Atorvastatin Calcium (Atorvastatin 40 Mg Tab) 80 mg PO QAM [facility] Stop: 07/03/21 17:45 Last Admin: 06/05/21 12:05 Dose: Not Given Documented by: [id number] Admin: 06/04/21 08:40 Dose: 80 mg Documented by: [id number] Admin: 06/03/21 18:34 Dose: 80 mg Documented by: [id number] Enoxaparin Sodium (Enoxaparin Inj 40 Mg/0.4 Ml Syr) 40 mg SQ Q24H TOMMY Stop: 07/03/21 20:59 Last Admin: 06/04/21 21:29 Dose: 40 mg Documented by: [id number] Admin: 06/03/21 21:28 Dose: 40 mg Documented by: [id number] Vancomycin HCl 1,250 mg/ (Sodium Chloride) 275 mls @ 200 mls/hr IV Q12H TOMMY; Protocol Stop: 06/10/21 15:59 Last Infusion: 06/05/21 05:39 Dose: 0 mls/hr Documented by: [id number] Admin: 06/05/21 04:09 Dose: 200 mls/hr Documented by: [id number] Infusion: 06/04/21 18:26 Dose: 0 mls/hr Documented by: [id number] Admin: 06/04/21 16:51 Dose: 200 mls/hr Documented by: [id number] Infusion: 06/04/21 04:56 Dose: 0 mls/hr Documented by: [id number] Admin: 06/04/21 03:45 Dose: 200 mls/hr Documented by: [id number] Piperacillin Sod/Tazobactam (Sod 3.375 gm/ Dextrose) 115 mls @ 28.75 mls/hr IV Q8 TOMMY; Protocol Stop: 06/10/21 21:59 Last Admin: 06/05/21 15:19 Dose: 28.8 mls/hr Documented by: [id number] Infusion: 06/05/21 09:39 Dose: 0 mls/hr Documented by: [id number] Admin: 06/05/21 05:39 Dose: 28.8 mls/hr Documented by: [id number] Infusion: 06/05/21 01:38 Dose: 0 mls/hr Documented by: [id number] Admin: 06/04/21 21:30 Dose: 28.8 mls/hr Documented by: [id number] Infusion: 06/04/21 18:26 Dose: 0 mls/hr Documented by: [id number] Admin: 06/04/21 14:26 Dose: 28.8 mls/hr Documented by: [id number] Infusion: 06/04/21 09:12 Dose: 0 mls/hr Documented by: [id number] Admin: 06/04/21 05:12 Dose: 28.8 mls/hr Documented by: [id number] Infusion: 06/04/21 00:51 Dose: 0 mls/hr Documented by: [id number] Admin: 06/03/21 21:22 Dose: 28.8 mls/hr Documented by: [id number] Insulin Aspart (Insulin Aspart Per Unit) 0 units SC Q6 TOMMY Stop: 07/05/21 05:59 Last Admin: 06/05/21 12:39 Dose: Not Given Documented by: [id number] Admin: 06/05/21 06:11 Dose: 2 units Documented by: [id number] Cosigned by: [id number] Insulin Glargine (Insulin Glargine Solostar 100 Units/Ml 3 Ml Pen) 0 units SC HS [facility]; Protocol Stop: 07/04/21 20:59 Last Admin: 06/04/21 21:29 Dose: 8 units Documented by: [id number] Cosigned by: [id number] Insulin Glargine (Insulin Glargine Solostar 100 Units/Ml 3 Ml Pen) 15 units SC QAM [facility] Stop: 07/05/21 08:59 Last Admin: 06/05/21 08:53 Dose: 15 units Documented by: [id number] Cosigned by: [id number] Coding Level of Care Code 11108 Inpt Consult Level 3 Diagnoses Schizo affective schizophrenia F25.0 Diabetes mellitus type 2, uncontrolled E11.65 Diabetic foot ulcer associated with type 2 diabetes mellitus, with fat layer exposed E11.621; L97.502
[2021-06-05] MEDS ORDERED: ePHEDrine sulfate 50 MG/ML AMP IV PRN (16:11)
[2021-06-05] MEDS ORDERED: ONDANSETRON INJ 2 MG/ML 2 ML VIAL IV PRN (16:11)
[2021-06-05] MEDS ORDERED: ATROPINE SULFATE 0.1 MG/ML 10ML SYR IV PRN (16:11)
[2021-06-05] MEDS ORDERED: fentaNYL citrate 100 MCG/2 ML VIAL IV PRN (16:11)
--- NOTE | 2021-06-05 16:37 | History & Physical Bridge Note ---
Date of Service June 05, 2021 History & Physical Bridge Note I have examined the patient, reviewed the History & Physical and in the interval since the performance of the History & Physical I have noted the following changes of clinical significance: Exam and imaging is consistent with osteomyelitis of the third toe with a fairly large overlying soft tissue defect and ulceration with gross purulence. MRI shows less intense edema signal in the adjacent second toe, as well as the distal phalanges of the first, fourth, and fifth toes. There are scattered small wounds over the other toes, including along the plantar flexion crease of the second toe without gross purulent drainage. I recommended amputation of the third toe, irrigation and debridement of the wounds, and possible amputation of the second toe based on intraoperative findings. Patient has schizophrenia and mental health issues that preclude informed consent. Informed consent was obtained from the patient's brother, Santiago Gunn. Risks, benefits, and alternatives of surgery were explained in detail. The surgical procedure, as well as postoperative recovery and rehabilitation, was also explained in detail. Risks include bleeding; persistent infection; damage to surrounding structures such as nerves, blood vessels, and tendons that run in the area; persistent pain, weakness, or stiffness; or need for further surgery. The patient understands all of this and wishes to proceed with surgery. Informed consent was obtained.
[2021-06-05] MEDS ORDERED: BUPIVACAINE 0.5 % 5 MG/1 ML MPF 30ML VIAL ONE (17:09)
[2021-06-05] MEDS ORDERED: LIDOCAINE 1% LOCAL 20 ML VIAL ONE (17:09)
[2021-06-05] MEDS ORDERED: MIDAZOLAM HCL 1 MG/ML 2ML VIAL ONE (17:20)
[2021-06-05] MEDS ORDERED: fentaNYL citrate 100 MCG/2 ML VIAL ONE (17:20)
[2021-06-05] MEDS ORDERED: ONDANSETRON INJ 2 MG/ML 2 ML VIAL ONE (18:00)
[2021-06-05] MEDS ORDERED: PROPOFOL IV EMULSION 10 MG/ML 20 ML VIAL IV ONE (18:00)
[2021-06-05] MEDS ORDERED: LIDOCAINE 2% 20 MG/ML 5 ML SYR IV ONE (18:00)
--- NOTE | 2021-06-05 18:03 | Post Operative Brief Note ---
Immediate Post Op Note v1 Date of Surgery June 05, 2021 Pre & Post Diagnosis Operation Date: 06/05/21 12:35 Pre-Op Diagnosis: 1. Left third toe osteomyelitis with overlying soft tissue defect 2. Left second toe possible osteomyelitis with diabetic ulcer 3. Left great toe diabetic ulcer Post-Op Diagnosis: 1. Left third toe osteomyelitis with overlying soft tissue defect 2. Left second toe 10x6mm diabetic ulcer without obvious osteomyelitis 3. Left great toe 6x5mm diabetic ulcer without obvious osteomyelitis I identified the patient and participated in the time-out.: Yes Procedure Operation Date: 06/05/21 12:35 Actual Procedures 1. Left 3rd toe amputation 2. Left 2nd toe irrigation and debridement of 10x6mm diabetic ulcer 3. Left great toe irrigation and debridement of 6x5mm diabetic ulcer - Adrian Tello M.D. Surgeon Adrian Tello Circus Rider Julito Gerard PA-C Estimated Blood Loss 10 Findings Consistent with Post-Op Diagnosis
--- NOTE | 2021-06-05 18:05 | Operative Report ---
Post Operative Report Pre & Post Diagnosis Operation Date: 06/05/21 12:35 Pre-Op Diagnosis: 1. Left third toe osteomyelitis with overlying soft tissue defect 2. Left second toe possible osteomyelitis with diabetic ulcer 3. Left great toe diabetic ulcer Post-Op Diagnosis: 1. Left third toe osteomyelitis with overlying soft tissue defect 2. Left second toe 10x6mm diabetic ulcer without obvious osteomyelitis 3. Left great toe 6x5mm diabetic ulcer without obvious osteomyelitis I identified the patient and participated in the time-out.: Yes Procedure Operation Date: 06/05/21 12:35 Actual Procedures 1. Left 3rd toe amputation through the metatarsal phalangeal joint (66845) 2. Left 2nd toe irrigation and debridement of 10x6mm diabetic ulcer, skin and subcutaneous tissue ([id number]) 3. Left great toe irrigation and debridement of 6x5mm diabetic ulcer, skin and subcutaneous tissue (56010) - Adrian Tello M.D. Surgeon Adrian Tello Slot Floor Supervisor Julito Gerard PA-C Estimated Blood Loss 10 Findings Consistent with Post-Op Diagnosis Specimens Left 3rd toe Drains None Anesthesia Type MAC Complications none Disposition Disposition: Recovery Room Indications Mr. Gunn is a 56-year-old male with infection in multiple toes on his left foot. History, clinical exam, and imaging were consistent with the above diagnosis. Risks, benefits, and alternatives of surgery were explained in detail. The patient understood all this and wished to proceed. Description of Procedure Patient was identified in the preoperative holding area. Operative extremity was marked. Patient was then brought back to the operating room, and MAC anesthesia was induced without complication. Appropriate weight-based dose of Ancef was infused intravenously for antibiotic prophylaxis. Tourniquet was placed on the left lower leg. Lower leg was then prepped and draped in a standard sterile fashion using Betadine prep due to his open wounds. The lower leg was then exsanguinated with an Esmarch starting proximal to the foot infection site, and the tourniquet was inflated. I first inspected the third toe, which was obviously the most severely involved, both by clinical exam and preoperative imaging. There was a fairly large ulceration along the entire medial aspect of the toe, extending down to exposed bone. Preoperative MRI showed extensive osteomyelitis throughout the phalanges of the toe. I therefore decided to proceed with amputation of the third toe to control his infection and get adequate soft tissue coverage. A "tennis racquet" incision was made around the base of the third toe, extending longitudinally along the dorsal aspect of the distal foot extending across the dorsal aspect of the third MTP joint. I dissected through subcutaneous tissues down to the extensor tendon and third MTP joint capsule. Extensor tendon and dorsal joint capsule was divided transversely, and I continued the capsulotomy incision circumferentially, dividing the collateral ligaments and plantar plate, followed by the flexor tendons. I then shelled out the toe and flexor and extensor tendons from the surrounding soft tissues from proximally to distally, and sent the toe for specimen. After the toe was removed, the surrounding soft tissues were inspected. The large soft tissue ulceration was excised with the toe, and the remaining skin and subcutaneous tissues looked healthy without obvious abscess or spreading infection. I then copiously irrigated the wound with sterile saline via gravity irrigation. I then inspected the second toe. There was less severe edema and questionable osteomyelitis on preoperative MRI. Intraoperatively, there was a diabetic soft tissue ulceration on the volar aspect of the toe and a flexion crease. There was no active or expressible drainage, and no obvious exposed bone. I debrided the skin and subcutaneous tissue of this ulcer with curette and rongeur. It appeared that there was good granulation tissue in the base without obvious exposed tendon or bone. The ulcer measured about 10 mm in width and 6 mm in length. I decided that this did not warrant amputation of the second toe at this point, and the wound may heal with wound care. I then copiously irrigated the wound with sterile saline via gravity irrigation. Finally, I inspected the great toe. There is a smaller diabetic soft tissue ulceration on the dorsalmedial aspect of the toe, just proximal to the IP joint. Again, there was no active or expressible drainage, no obvious exposed bone. I debrided the skin and subcutaneous tissue of this ulcer with curette and rongeur. It appeared that there was good granulation tissue in the base of this wound as well, also without obvious exposed tendon or bone. The ulcer measured about 6 mm in length and 5 mm in width. This wound was also copiously irrigated with sterile saline via gravity irrigation. Skin was closed with 4-0 Prolene. I then anesthetized the wound bed with a 50/50 mixture of 1% lidocaine and 0.5% Marcaine without epinephrine. Sterile dressings were then applied with Xeroform, sterile gauze, sterile Webril, and Mark wrap. The drapes were removed, the patient was awakened from anesthesia, and taken to the Post Anesthesia Care Unit in stable condition. There were no immediate complications from the procedure. I was present and scrubbed for the entire procedure. Due to the complex nature of the procedure, the entire surgery was performed with the operational assistance of Julito Gerard PA-C. The portfolio assistant, under direct supervision, was involved in the performance of all aspects of the surgical procedure including hemostasis, tissue incision and retraction, instrument management, patient positioning, and wound closure. I attest to the content of the Intraoperative Record and any orders documented therein. Any exceptions are noted below.
--- NOTE | 2021-06-05 19:07 | Anesthesiology Progress Note ---
Date of Service June 05, 2021 Anesthesia Post Procedure Vital Signs Vital Signs: Temp Pulse Pulse Resp BP Pulse Ox 06/05/21 18:45 36.7 C 67 14 120/75 96 06/05/21 18:35 36.6 C 62 12 110/73 97 06/05/21 18:25 36.6 C 61 13 109/72 100 06/05/21 18:15 65 13 124/73 96 06/05/21 18:07 36.2 C L 72 18 115/74 97 06/05/21 15:51 36.9 C 77 18 143/86 H 96 06/05/21 14:39 36.7 C 75 18 116/74 95 06/05/21 07:27 36.5 C 88 18 106/67 93 06/04/21 21:44 36.7 C 79 18 101/65 98 Pain Intensity Left Foot: Pain Intensity: 0 Bilateral Foot: Pain Intensity: 0 Transfer of Care Handoff Completed per policy Notes Mental Status: alert / awake / arousable and participated in evaluation Patient Amnestic to Procedure: Yes Nausea / Vomiting: adequately controlled Pain: adequately controlled Airway Patency, RR, SpO2: stable & adequate BP & HR: stable & adequate Hydration State: stable & adequate Anesthetic Complications: no major complications apparent and Pt Satisfied with anesthetic care
[2021-06-06] MEDS: VANCOMYCIN HCL 1,250 MG in SODIUM CHLORIDE 0.9% 250 ML IV SCH (04:55)
[2021-06-06] MEDS: ACETAMINOPHEN 325 MG TAB PO PRN ×2 (05:36→15:24)
[2021-06-06] MEDS: PIPERACILLIN/TAZOBACTAM 3.375 GM in DEXTROSE 5% 100 ML IV SCH (05:37)
--- NOTE | 2021-06-06 06:15 | Electrocardiogram Report ---
Test Reason : Blood Pressure : / mmHG Vent. Rate : 072 BPM Atrial Rate : 072 BPM P-R Int : 146 ms QRS Dur : 092 ms QT Int : 380 ms P-R-T Axes : 028 -05 041 degrees QTc Int : 416 ms Normal sinus rhythm Normal ECG When compared with ECG of 22-JUN-2016 14:20, No significant change was found Confirmed by Mal Umanzor ([id number]) on 06/06/2021 6:14:25 AM Referred By: REFERRED SELF Confirmed By:Mal Umanzor
[2021-06-06 06:21] LABS: Basophils # (auto) 0.01 K/uL (0-0.2); Basophils % (auto) 0.1 %; Eosinophils # (auto) 0.08 K/uL (0-0.5); Eosinophils % (auto) 0.8 %; Hematocrit (blood only) 38.9 % (42-52); Immature Granulocytes # (auto) 0.01 K/uL (0.00-0.02); Immature Granulocytes % (auto) 0.1 %; Lymphocytes # (auto) 1.59 K/uL (1.2-3.4); Lymphocytes % (auto) 15.7 %; Mean Corpuscular Hgb Conc 33.4 g/dL (32-36); Mean Corpuscular Volume 86.8 fL (80-100); Mean Platelet Volume 9.2 fL (7.4-10.4); Monocytes # (auto) 1.11 K/uL (0.11-0.59); Neutrophils # (auto) 7.33 K/uL (1.4-6.5); Neutrophils % (auto) 72.3 %; Platelet Count 237 K/uL (130-400); RDW Standard Deviation 41.8 fL (36.4-46.3); Red Blood Count 4.48 M/uL (4.7-6.1); White Blood Count 10.13 K/uL (4.8-10.8)
[2021-06-06 06:39] LABS: Calcium 9.2 mg/dl (8.5-10.1); Creatinine Clr Calc Pharmacy 83.1 ml/min; Est GFR (African American) 95.7 ml/min; Est GFR (Non-African American) 82.6 ml/min
[2021-06-06] MEDS: ATORVASTATIN 40 MG TAB PO SCH (07:43)
[2021-06-06] MEDS: INSULIN ASPART PER UNIT SC SCH ×4 (08:41→21:04)
[2021-06-06] MEDS: INSULIN GLARGINE SOLOSTAR 100 UNITS/ML 3 ML PEN SC SCH ×2 (08:43→21:03)
--- NOTE | 2021-06-06 10:47 | Orthopedic Progress Note ---
Date of Service June 06, 2021 Assessment & Plan (1) Diabetic foot ulcer associated with type 2 diabetes mellitus, with fat layer exposed: Plan: POD 1 PT/OT. Heel weightbearing on LLE DVT prophylaxis - Resume Lovenox this evening as per Med service or ASA bid. Pain management as written. Dressing change Wednesday Admission and Anticipated Discharge Date Admission Date: June 03, 2021 Subjective POD 1 Pt lying in bed awake,alert. Having some mild discomfort in the left foot from the surgery. No other complaints. Physical Exam Physical Exam: Dressings C/D/I. Results & Data ([facility]) Vital Signs (Past 12 Hours) Vital Signs Temp Pulse Resp BP Pulse Ox 06/06/21 07:24 36.7 C 79 16 109/68 95
[2021-06-06] MEDS ORDERED: cefTRIAXone SODIUM 2,000 MG in DEXTROSE 5% 50 ML IV SCH (14:00)
--- NOTE | 2021-06-06 17:09 | Hospitalist Progress Note ---
Date of Service June 06, 2021 Assessment & Plan (1) Diabetic foot ulcer associated with type 2 diabetes mellitus, with fat layer exposed: Plan: Mr. Gunn is a 56-year-old male with a history of Schizoaffective Schizophrenia, Depression, Pseudoseizures, Hyperlipidemia (untreated), Uncontrolled Type 2 Diabetes Mellitus, and Poor Living Conditions who presented to [facility] ER with a large diabetic ulcer on his left 3rd toe with localized infection and exposed bone. The patient does not take any medications this time although he is supposed to be on Atorvastatin and Glipizide. Admitted empirically on IV Zosyn and IV Vancomycin. MRI reveals the presence of left third toe osteomyelitis MRI: A cutaneous ulceration is noted in the third toe with findings highly suspicious for osteomyelitis of the third middle and distal phalanges. Milder marrow edema is seen in the second toe within the middle and distal phalanges. Osteitis/developing osteomyelitis is not excluded No organized/drainable fluid collection is seen to suggest abscess. Orthopedic consult appreciated patient is s/p I&D and amputation of the left third toe on 06/05 -Culture data showing Proteus vulgaris with kerr sensitivity along with an anaerobe -Transition antibiotics from Zosyn/Vanco to ertapenem (which will provide adequate coverage for both the Proteus and provide anaerobic coverage). -Would recommend 2 weeks of IV antibiotics followed by transition to oral antibiotics for 2 to 4 weeks pending improvement. Could consider Levaquin with Flagyl with transition to PO -We will order ultrasound-guided line for long-term IV antibiotic (2) Osteomyelitis: Plan: -S/p I&D and amputation of left third digit -Needs 2 weeks of IV antibiotic therapy followed by oral antibiotics X 2 weeks as outlined above (3) Diabetes mellitus type 2, uncontrolled: Plan: Patient has not taken medications for his diabetes mellitus for some time now -- was previously on Glipizide and at one time was on Metformin. Medication non- compliance has been an issue. -- hemoglobin A1c. 11.6 -- Glycemic management per pharmacy -- BSG qAC and HS. -- Sliding scale insulin coverage. -- Given his known history of noncompliance, I would not utilize insulin in this man long-term. Could consider Metformin and Lantus since likelihood of going to a facility is high given need for 2 weeks of IV antibiotics. -- Lengthy discussion with patient regarding the importance of compliance (4) Dyslipidemia: Plan: Fasting lipid panel 12/12/20 showed a total cholesterol of 323 mg/dL, HDL is 43 mg/dL, LDL 202 mg/dL, and triglycerides are 391 mg/dL. Total Cholesterol:HDL ration is 7.5. -- Resumed Atorvastatin at 80 mg daily. (5) Schizo affective schizophrenia: Plan: -- No recent hallucinations or delusions. No suicidal or homicidal ideation. -- Added Haldol as needed for anxiety/agitation/hallucinations, etc. -- Added Lorazepam as needed for anxiety/agitation. --Psychiatry consultation pending Plan: Disposition: To be determined. Was living in a farm house without running water or heat. Unable to be discharged back to that environment. Has been seen by psych and deemed to not have capacity to refuse appropriate nursing placement. Patient has an emergency hearing on Wednesday to establish emergency guardianship for making decisions and discharge planning. He cannot return home to his current living conditions. Admission and Anticipated Discharge Date Admission Date: June 03, 2021 Supervising Physician Co-Signing Physician Notes Attending Attestation - Chart reviewed, care plan d/w PA Eulalia Fernandez. I agree with the saavedra components of her documentation. Sundar Cody MD Subjective Patient seen on daily rounds today. Vocalizes no complaints or concerns. Has mild discomfort in the left foot but no significant pain. Denies fevers, chills, chest pain, shortness of breath, abdominal pain, nausea or vomiting. Moving bowel bladder without difficulty. Nursing voices no complaints or concerns. Case management on board helping with disposition as prior to this hospital stay, he was living in an old farm house that did not have running water or heat. Psych has seen him and deemed him incapable of refusing nursing fa cility/placement. Review of Systems Review of Systems: All systems reviewed and are unremarkable except as noted in HPI and below Denies fevers, chills, headache, nasal congestion, sore throat, cough, chest pain, shortness of breath, palpitations, orthopnea, PND, abdominal pain, nausea, vomiting, diarrhea, constipation, dysuria, hematuria, frequency, back pain, joint pain or swelling, easy bruising or bleeding, skin lesions or rashes. Physical Exam 2 Physical Exam: General: Resting comfortably in his hospital bed. He does not appear ill or toxic. NAD. HEENT: Head is AT/NC. Buccal mucosa is moist and pink Neck: No JVD. Negative hepatojugular reflex Cardiac: RRR without M/G/R Lungs: CTA without W/R/R Abdomen: Normoactive X4. Soft and nontender in all quadrants. Extremities: Left lower extremity with surgical dressing in place. It is dry and intact. The toes are visible and still with mild erythema. Crusted over lesion on the medial aspect of the great toe. Obvious s/p amputation of the third digit. Superimposed cellulitic area appears significantly improved when comparison to pictures Neuro: A&O X4. Cranial nerves II through XII are grossly intact. No focal neuro deficits Skin: No obvious skin lesions or rashes Psych: seems mentally simple. Appropriate affect. Pleasant and cooperative Results & Data Results & Data ([facility]) Vital Signs (Past 12 Hours) Vital Signs Temp Pulse Resp BP Pulse Ox 06/06/21 15:55 36.4 C L 77 16 137/76 97 06/06/21 07:24 36.7 C 79 16 109/68 95 Laboratory Results 06/06/21 05:48 06/06/21 05:48 Deep Wound Culture Preliminary 06/06/21-1211 Organism 1 Proteus vulgaris Quantity Many Sens Sensitivities to Follow +MixWound Plus High Counts of Probable Skin Reina Organism 2 Anaerobic gram positive cocci Quantity Many Sens No Sensitivities to Follow CULTURE CONTAINS HIGH COUNTS OF ANAEROBIC MICROBIOTA P vulgaris RX M.I.C. --- --------- Amox/Clav S <=8/4 Amp/Sul S <=8/4 Cefepime S <=2 Ceftriaxone S <=1 Ciprofloxacin S <=0.25 Ertapenem S <=0.5 Gentamicin S <=4 Levofloxacin S <=0.5 Meropenem S <=1 Tobramycin S <=4 Trimeth/Sulfa S <=2/38 Pip/Tazo S <=16 S = SENSITIVE I = INTERMEDIATE R = RESISTANT PG Care Time/CCT Total # of Minutes Spent Total Time Spent with Patient: Total time spent is greater than 50% in coordination of care (as documented) at patient's floor/unit and/or counseling patient: Coding Level of Care Code 30302 Subseq Hosp Care Lvl 2 Diagnoses Diabetic foot ulcer associated with type 2 diabetes mellitus, with fat layer exposed E11.621; L97.502 Diabetes mellitus type 2, uncontrolled E11.65 Dyslipidemia E78.5 Schizo affective schizophrenia F25.0 Osteomyelitis M86.9
[2021-06-06] MEDS: ERTAPENEM SODIUM 1,000 MG in SYRINGE 0 ML IV SCH (19:16)
[2021-06-07 03:37] LABS: Hematocrit (blood only) 37.5 % (42-52); Hemoglobin 12.8 g/dL (14.0-18.0); Mean Corpuscular Hemoglobin 29.6 pg (25-34); Mean Corpuscular Hgb Conc 34.1 g/dL (32-36); Mean Corpuscular Volume 86.8 fL (80-100); Mean Platelet Volume 8.9 fL (7.4-10.4); Platelet Count 216 K/uL (130-400); RDW Coefficient of Variation 12.9 % (11.5-14.5); RDW Standard Deviation 41.5 fL (36.4-46.3); Red Blood Count 4.32 M/uL (4.7-6.1); White Blood Count 6.54 K/uL (4.8-10.8)
[2021-06-07] MEDS: ATORVASTATIN 40 MG TAB PO SCH (08:48)
[2021-06-07] MEDS: INSULIN ASPART PER UNIT SC SCH ×4 (08:54→21:04)
[2021-06-07] MEDS ORDERED: INSULIN GLARGINE SOLOSTAR 100 UNITS/ML 3 ML PEN SC SCH (09:00)
--- NOTE | 2021-06-07 12:58 | Pharmacy Report ---
Pharmacy Glycemic Short Note 2 - Date of Service June 07, 2021 - Glycemic Short BSG Results (Last 24 hours): 06/06/21 06/06/21 06/07/21 17:15 20:46 08:12 POC Glucose 125 H 159 H 100 H 06/07/21 12:05 POC Glucose 188 H OUTPATIENT ANTIDIABETIC REGIMEN: * Non compliance - reportedly had taken glipizide in the past ASSESSMENT: 06/07/21 * patient's BSGs yesterday were [phone] mg/dL. * Fasting today is 100 mg/dL. * Decrease Lantus as fastings trending downwards (Basal doses have changed but were 16-20-15 units while fasting BSGs consistently trending downwards) . Continue Novolog as BSGs stable yesterday. 06/05: * Patient received total 43 units of insulin; 16 units basal and 27 units bolus * Fasting BSG = 154 mg/dl today. Basal dose of 15 units ordered this AM and added 0 to 5 units basal dose scale based on BSG for tonight. * BSGs yesterday were 549-443-225-180 mg/dl. * Patient was made NPO today AM for I&D of diabetic foot ulcer. Continued Novolog CF/CR the same as yesterday. 06/04/21: * Patient received 6 units of bolus insulin last night after pharmacy consulted for glycemic control. * Fasting BSG was 172 mg/dl today AM. * HbA1c = 11.6% reported this AM. Basal Lantus dose ordered this AM based on wt and stress of 1. HS Lantus dose scale ordered for tonight based on BSG. * Novolog CR tightened this AM. Pre-lunch BSG elevated above 200 mg/dl. CR tightened further at lunch. Background 06/03/21: * Reportedly non compliant on home regimen * Admitted for diabetic foot infection contributed to by his non compliance and poor living conditions PLAN FOR INPATIENT GLYCEMIC CONTROL: * Basal insulin * Lantus 12 units SQ QAM * Bolus insulin * NovoLog per scale ACHS or Q6hrs while NPO * Goal Range: Low 110 mg/dL - High 140 mg/dL * Correction Factor: 20 mg/dL/unit * Nutritional / Prandial insulin per carb ratio of 1 unit per 6 grams CHO consumed
--- NOTE | 2021-06-07 14:06 | Orthopedic Progress Note ---
Date of Service June 07, 2021 Assessment & Plan (1) Osteomyelitis: Plan: Postoperative day #2 status post left third toe amputation -Appearance of the foot looks significantly improved compared to preoperatively. -Antibiotics per medical team -Daily dressing changes Admission and Anticipated Discharge Date Admission Date: June 03, 2021 Subjective Patient resting comfortably. Denies any pain in his left foot. Physical Exam Physical Exam: Left foot dressing taken down and changed. Third toe amputation site is healing well without evidence of persistent infection. Ulcers on first and second toes look clean without persistent drainage or significant infection. Results & Data ([facility]) Vital Signs (Past 12 Hours) Vital Signs Temp Pulse Resp BP Pulse Ox 06/07/21 07:20 36.7 C 74 16 132/73 100 Laboratory Results Intraoperative cultures show Proteus vulgaris and many anaerobic gram-positive cocci, not further speciated.
--- NOTE | 2021-06-07 14:54 | Hospitalist Progress Note ---
Date of Service June 07, 2021 Assessment & Plan (1) Diabetic foot ulcer associated with type 2 diabetes mellitus, with fat layer exposed: Plan: Mr. Gunn is a 56-year-old male with a history of Schizoaffective Schizophrenia, Depression, Pseudoseizures, Hyperlipidemia (untreated), Uncontrolled Type 2 Diabetes Mellitus, and Poor Living Conditions who presented to [facility] ER with a large diabetic ulcer on his left 3rd toe with localized infection and exposed bone. The patient does not take any medications this time although he is supposed to be on Atorvastatin and Glipizide. Admitted empirically on IV Zosyn and IV Vancomycin. MRI reveals the presence of left third toe osteomyelitis Orthopedic consult appreciated patient is s/p I&D and amputation of the left third toe on 06/05 Culture data showing Proteus vulgaris with kerr sensitivity along with an anaer obe Transition antibiotics from Zosyn/Vanco to ertapenem (which will provide adequate coverage for both the Proteus and provide anaerobic coverage). Would recommend 2 weeks of IV antibiotics followed by transition to oral antibiotics for 2 to 4 weeks pending improvement. Could consider Levaquin with Flagyl with transition to PO We will order ultrasound-guided line for long-term IV antibiotic (2) Osteomyelitis: Plan: S/p I&D and amputation of left third digit Needs 2 weeks of IV antibiotic therapy followed by oral antibiotics X 2 weeks as outlined above (3) Diabetes mellitus type 2, uncontrolled: Plan: Patient has not taken medications for his diabetes mellitus for some time now -- was previously on Glipizide and at one time was on Metformin. Medication non- compliance has been an issue. hemoglobin A1c. 11.6 Glycemic management per pharmacy BSG qAC and HS. Sliding scale insulin coverage. Given his known history of noncompliance, I would not utilize insulin in this man long-term. Could consider Metformin and Lantus since likelihood of going to a facility is high given need for 2 weeks of IV antibiotics. Lengthy discussion with patient and previous provider regarding the importance of compliance (4) Dyslipidemia: Plan: Fasting lipid panel 12/12/20 showed a total cholesterol of 323 mg/dL, HDL is 43 mg/dL, LDL 202 mg/dL, and triglycerides are 391 mg/dL. Total Cholesterol:HDL ration is 7.5. Resumed Atorvastatin at 80 mg daily. (5) Schizo affective schizophrenia: Plan: No recent hallucinations or delusions. No suicidal or homicidal ideation. Added Haldol as needed for anxiety/agitation/hallucinations, etc. Added Lorazepam as needed for anxiety/agitation. Seen by psych on 06/05, pt does not have capacity to make medical decisions Plan: Disposition: To be determined. Patient has an emergency hearing on Wednesday for [employer] to establish emergency guardianship for making decisions and discharge planning. He cannot return home to his current living conditions. Admission and Anticipated Discharge Date Admission Date: June 03, 2021 Subjective Patient seen on rounds this morning. He is sitting up on edge of bed, offers no complaints/concerns at present. Reports soreness in right foot but notes that pain is controlled. No fever/chills. Review of Systems Review of Systems: All systems reviewed and are unremarkable except as noted in HPI and below Denies fevers, chills, headache, nasal congestion, sore throat, cough, chest pain, shortness of breath, palpitations, orthopnea, PND, abdominal pain, nausea, vomiting, diarrhea, constipation, dysuria, hematuria, frequency, back pain, joint pain or swelling, easy bruising or bleeding, skin lesions or rashes. Physical Exam Physical Exam: GENERAL: 56 yo WD/WN WM. NAD. LUNGS: Clear to auscultation bilaterally. No W/R/R. CARDIOVASCULAR: Regular rate and rhythm. No M/G/R. No JVD. ABDOMEN: Soft, non-tender and non-distended. BS normal x 4 quad. EXTREMITIES: No edema. Non-tender. Peripheral pulses +2/4. NEUROLOGIC: A&O x3. PSYCHIATRIC: Cooperative. Appropriate mood and affect. SKIN: Warm, dry, intact. No rashes or lesions. Results & Data Results & Data ([facility]) Vital Signs (Past 12 Hours) Vital Signs Temp Pulse Resp BP Pulse Ox 06/07/21 07:20 36.7 C 74 16 132/73 100 Laboratory Results 06/07/21 03:18 06/06/21 05:48 PG Care Time/CCT Total # of Minutes Spent Total Time Spent with Patient: Total time spent is greater than 50% in coordination of care (as documented) at patient's floor/unit and/or counseling patient: Coding Level of Care Code 21849 Subseq Hosp Care Lvl 2 Diagnoses Diabetic foot ulcer associated with type 2 diabetes mellitus, with fat layer exposed E11.621; L97.502 Osteomyelitis M86.9 Diabetes mellitus type 2, uncontrolled E11.65 Dyslipidemia E78.5 Schizo affective schizophrenia F25.0
[2021-06-07] MEDS: ERTAPENEM SODIUM 1,000 MG in SYRINGE 0 ML IV SCH (17:39)
[2021-06-07] MEDS: ACETAMINOPHEN 325 MG TAB PO PRN (20:12)
[2021-06-08 05:39] LABS: Basophils # (auto) 0.01 K/uL (0-0.2); Basophils % (auto) 0.2 %; Eosinophils % (auto) 3.2 %; Hematocrit (blood only) 37.5 % (42-52); Hemoglobin 12.4 g/dL (14.0-18.0); Immature Granulocytes # (auto) 0.01 K/uL (0.00-0.02); Immature Granulocytes % (auto) 0.2 %; Lymphocytes # (auto) 1.87 K/uL (1.2-3.4); Lymphocytes % (auto) 30.3 %; Mean Corpuscular Hgb Conc 33.1 g/dL (32-36); Mean Corpuscular Volume 87.6 fL (80-100); Mean Platelet Volume 9.4 fL (7.4-10.4); Monocytes # (auto) 0.79 K/uL (0.11-0.59); Monocytes % (auto) 12.8 %; Neutrophils % (auto) 53.3 %; Platelet Count 235 K/uL (130-400); RDW Standard Deviation 41.8 fL (36.4-46.3); Red Blood Count 4.28 M/uL (4.7-6.1); White Blood Count 6.18 K/uL (4.8-10.8)
[2021-06-08 06:04] LABS: Calcium 9.2 mg/dl (8.5-10.1); Creatinine Clr Calc Pharmacy 103.9 ml/min; Est GFR (African American) 114.1 ml/min; Est GFR (Non-African American) 98.5 ml/min
[2021-06-08] MEDS: ATORVASTATIN 40 MG TAB PO SCH (08:24)
[2021-06-08] MEDS: INSULIN GLARGINE SOLOSTAR 100 UNITS/ML 3 ML PEN SC SCH (08:26)
[2021-06-08] MEDS: INSULIN ASPART PER UNIT SC SCH ×4 (08:31→21:52)
--- NOTE | 2021-06-08 09:05 | Orthopedic Progress Note ---
Date of Service June 08, 2021 Assessment & Plan (1) Osteomyelitis: Plan: 56 yo male stable POD #3 s/p left 3rd toe amputation. 1. Med management- cont IV abx 2. DVT prophylaxis- SCDs 3. PT/OT 4. D/C planning- per medicine, pt stable from ortho standpoint, will sign off, call if question/concerns Admission and Anticipated Discharge Date Admission Date: June 03, 2021 Subjective Pt sitting up, eating breakfast, denies complaints. Pain controlled. Physical Exam Physical Exam: Dressing intact, toes mobile Results & Data ([facility]) Vital Signs (Past 12 Hours) Vital Signs Temp Pulse Resp BP Pulse Ox 06/08/21 07:40 36.3 C L 76 16 122/82 98 06/07/21 22:24 36.7 C 61 18 137/80 96 Laboratory Results 06/08/21 06/08/21 06/08/21 Range/Units 08:08 05:07 05:07 WBC 6.18 (4.8-10.8) K/uL RBC 4.28 L (4.7-6.1) M/uL Hgb 12.4 L (14.0-18.0) g/dL Hct 37.5 L (42-52) % MCV 87.6 (80-100) fL MCH 29.0 (25-34) pg MCHC 33.1 (32-36) g/dL RDW Std Deviation 41.8 (36.4-46.3) fL RDW Coeff of Sofía 13.0 (11.5-14.5) % Plt Count 235 (130-400) K/uL MPV 9.4 (7.4-10.4) fL Immature Gran % (Auto) 0.2 % Neut % (Auto) 53.3 % Lymph % (Auto) 30.3 % Kimble % (Auto) 12.8 % Eos % (Auto) 3.2 % Baso % (Auto) 0.2 % Neut # (Auto) 3.30 (1.4-6.5) K/uL Lymph # (Auto) 1.87 (1.2-3.4) K/uL Kimble # (Auto) 0.79 H (0.11-0.59) K/uL Eos # (Auto) 0.20 (0-0.5) K/uL Baso # (Auto) 0.01 (0-0.2) K/uL Immature Gran # (Auto) 0.01 (0.00-0.02) K/uL Sodium 139 (136-145) mmol/L Potassium 4.0 (3.5-5.1) mmol/L Chloride 106 (98-107) mmol/L Carbon Dioxide 25 (21-32) mmol/L Anion Gap 8 (3-11) BUN 16 (6-23) mg/dl Creatinine 0.80 (0.6-1.4) mg/dl Est Cr Clr Drug Dosing 103.9 ml/min Est GFR ( Amer) 114.1 ml/min Est GFR (Non-Af Amer) 98.5 ml/min BUN/Creatinine Ratio 20.0 (10-20) Glucose 120 H (70-99(Fasting)) mg/dl POC Glucose 131 H (70-99) mg/dl Calcium 9.2 (8.5-10.1) mg/dl 06/07/21 06/07/21 06/07/21 Range/Units 20:59 17:01 12:05 WBC (4.8-10.8) K/uL RBC (4.7-6.1) M/uL Hgb (14.0-18.0) g/dL Hct (42-52) % MCV (80-100) fL MCH (25-34) pg MCHC (32-36) g/dL RDW Std Deviation (36.4-46.3) fL RDW Coeff of Sofía (11.5-14.5) % Plt Count (130-400) K/uL MPV (7.4-10.4) fL Immature Gran % (Auto) % Neut % (Auto) % Lymph % (Auto) % Kimble % (Auto) % Eos % (Auto) % Baso % (Auto) % Neut # (Auto) (1.4-6.5) K/uL Lymph # (Auto) (1.2-3.4) K/uL Kimble # (Auto) (0.11-0.59) K/uL Eos # (Auto) (0-0.5) K/uL Baso # (Auto) (0-0.2) K/uL Immature Gran # (Auto) (0.00-0.02) K/uL Sodium (136-145) mmol/L Potassium (3.5-5.1) mmol/L Chloride (98-107) mmol/L Carbon Dioxide (21-32) mmol/L Anion Gap (3-11) BUN (6-23) mg/dl Creatinine (0.6-1.4) mg/dl Est Cr Clr Drug Dosing ml/min Est GFR ( Amer) ml/min Est GFR (Non-Af Amer) ml/min BUN/Creatinine Ratio (10-20) Glucose (70-99(Fasting)) mg/dl POC Glucose 170 H 112 H 188 H (70-99) mg/dl Calcium (8.5-10.1) mg/dl Microbiology 06/03/21 15:19 Gram Stain - Final Toe,Left Deep Wound Culture - Final Proteus vulgaris Anaerobic gram positive cocci
--- NOTE | 2021-06-08 09:13 | Pharmacy Report ---
Pharmacy Glycemic Short Note 2 - Date of Service June 08, 2021 - Glycemic Short BSG Results (Last 24 hours): 06/07/21 06/07/21 06/07/21 12:05 17:01 20:59 Glucose POC Glucose 188 H 112 H 170 H 06/08/21 06/08/21 05:07 08:08 Glucose 120 H POC Glucose 131 H OUTPATIENT ANTIDIABETIC REGIMEN: * Non compliance - reportedly had taken glipizide in the past ASSESSMENT: 06/08/21 * Patient's BSGs yesterday were [phone] mg/dL. Fasting today is 131 mg/dL. * Increase Lantus by 15% to 14 units as fasting increased by 30 points. * Tighten CR as BSGs elevated after being in range. 06/07/21 * patient's BSGs yesterday were [phone] mg/dL. * Fasting today is 100 mg/dL. * Decrease Lantus as fastings trending downwards (Basal doses have changed but were 16-20-15 units while fasting BSGs consistently trending downwards) . Continue Novolog as BSGs stable yesterday. 06/05: * Patient received total 43 units of insulin; 16 units basal and 27 units bolus * Fasting BSG = 154 mg/dl today. Basal dose of 15 units ordered this AM and added 0 to 5 units basal dose scale based on BSG for tonight. * BSGs yesterday were [phone] mg/dl. * Patient was made NPO today AM for I&D of diabetic foot ulcer. Continued Novolog CF/CR the same as yesterday. 06/04/21: * Patient received 6 units of bolus insulin last night after pharmacy consulted for glycemic control. * Fasting BSG was 172 mg/dl today AM. * HbA1c = 11.6% reported this AM. Basal Lantus dose ordered this AM based on wt and stress of 1. HS Lantus dose scale ordered for tonight based on BSG. * Novolog CR tightened this AM. Pre-lunch BSG elevated above 200 mg/dl. CR tightened further at lunch. Background 06/03/21: * Reportedly non compliant on home regimen * Admitted for diabetic foot infection contributed to by his non compliance and poor living conditions PLAN FOR INPATIENT GLYCEMIC CONTROL: * Basal insulin * Lantus 14 units SQ QAM * Bolus insulin * NovoLog per scale ACHS or Q6hrs while NPO * Goal Range: Low 110 mg/dL - High 140 mg/dL * Correction Factor: 20 mg/dL/unit * Nutritional / Prandial insulin per carb ratio of 1 unit per 5 grams CHO consumed
--- NOTE | 2021-06-08 15:50 | Hospitalist Progress Note ---
Date of Service June 08, 2021 Assessment & Plan (1) Diabetic foot ulcer associated with type 2 diabetes mellitus, with fat layer exposed: Plan: Mr. Gunn is a 56-year-old male with a history of Schizoaffective Schizophrenia, Depression, Pseudoseizures, Hyperlipidemia (untreated), Uncontrolled Type 2 Diabetes Mellitus, and Poor Living Conditions who presented to [facility] with a large diabetic ulcer on his left 3rd toe with localized infection and exposed bone. The patient does not take any medications this time although he is supposed to be on Atorvastatin and Glipizide. Admitted empirically on IV Zosyn and IV Vancomycin. MRI reveals the presence of left third toe osteomyelitis Orthopedic consult appreciated patient is s/p I&D and amputation of the left third toe on 06/05 Culture data showing Proteus vulgaris with kerr sensitivity along with an anaer obe Transition antibiotics from Zosyn/Vanco to ertapenem (which will provide adequate coverage for both the Proteus and provide anaerobic coverage). Would recommend 2 weeks of IV antibiotics followed by transition to oral antibiotics for 2 to 4 weeks pending improvement. Could consider Levaquin with Flagyl with transition to PO Ultrasound-guided line in place for long-term IV antibiotic (2) Osteomyelitis: Plan: S/p I&D and amputation of left third digit Needs 2 weeks of IV antibiotic therapy followed by oral antibiotics X 2 weeks as outlined above (3) Diabetes mellitus type 2, uncontrolled: Plan: Patient has not taken medications for his diabetes mellitus for some time now -- was previously on Glipizide and at one time was on Metformin. Medication non- compliance has been an issue. hemoglobin A1c. 11.6 Glycemic management per pharmacy BSG qAC and HS. Sliding scale insulin coverage. Given his known history of noncompliance, I would not utilize insulin in this man long-term. Could consider Metformin and Lantus since likelihood of going to a facility is high given need for 2 weeks of IV antibiotics. Lengthy discussion with patient and previous provider regarding the importance of compliance (4) Dyslipidemia: Plan: Fasting lipid panel 12/12/20 showed a total cholesterol of 323 mg/dL, HDL is 43 mg/dL, LDL 202 mg/dL, and triglycerides are 391 mg/dL. Total Cholesterol:HDL ration is 7.5. Resumed Atorvastatin at 80 mg daily. (5) Schizo affective schizophrenia: Plan: No recent hallucinations or delusions. No suicidal or homicidal ideation. Added Haldol as needed for anxiety/agitation/hallucinations, etc. Added Lorazepam as needed for anxiety/agitation. Seen by psych on 06/05, pt does not have capacity to make medical decisions Plan: Disposition: To be determined. Patient has an emergency hearing on Wednesday for [employer]OA to establish emergency guardianship for making decisions and discharge planning. He cannot return home to his current living conditions. Admission and Anticipated Discharge Date Admission Date: June 03, 2021 Subjective Patient seen on daily rounds this morning. He is resting comfortably in bed and offers no complaints. He denies chest pain, shortness of breath, nausea/vomiting/diarrhea, or uncontrolled left foot pain. Review of Systems Review of Systems: All systems reviewed and are unremarkable except as noted in HPI and below Denies fevers, chills, headache, nasal congestion, sore throat, cough, chest pain, shortness of breath, palpitations, orthopnea, PND, abdominal pain, nausea, vomiting, diarrhea, constipation, dysuria, hematuria, frequency, back pain, joint pain or swelling, easy bruising or bleeding, skin lesions or rashes. Physical Exam Physical Exam: GENERAL: 56 yo WD/WN WM. NAD. LUNGS: Clear to auscultation bilaterally. No W/R/R. CARDIOVASCULAR: Regular rate and rhythm. No M/G/R. No JVD. ABDOMEN: Soft, non-tender and non-distended. BS normal x 4 quad. EXTREMITIES: No edema. Non-tender. Peripheral pulses +2/4. L foot is dressed. NEUROLOGIC: A&O x3. PSYCHIATRIC: Cooperative. Appropriate mood and affect. SKIN: Warm, dry, intact. No rashes or lesions. Results & Data Results & Data ([facility]) Vital Signs (Past 12 Hours) Vital Signs Temp Pulse Resp BP Pulse Ox 06/08/21 15:28 36.8 C 77 16 113/72 97 06/08/21 07:40 36.3 C L 76 16 122/82 98 Laboratory Results 06/08/21 05:07 06/08/21 05:07 PG Care Time/CCT Total # of Minutes Spent Total Time Spent with Patient: Total time spent is greater than 50% in coordination of care (as documented) at patient's floor/unit and/or counseling patient: Coding Level of Care Code 79563 Subseq Hosp Care Lvl 2 Diagnoses Diabetic foot ulcer associated with type 2 diabetes mellitus, with fat layer exposed E11.621; L97.502 Osteomyelitis M86.9 Diabetes mellitus type 2, uncontrolled E11.65 Dyslipidemia E78.5 Schizo affective schizophrenia F25.0
[2021-06-08] MEDS: ERTAPENEM SODIUM 1,000 MG in SYRINGE 0 ML IV SCH (17:35)
[2021-06-09] MEDS: ATORVASTATIN 40 MG TAB PO SCH (08:06)
[2021-06-09] MEDS: INSULIN GLARGINE SOLOSTAR 100 UNITS/ML 3 ML PEN SC SCH (08:23)
[2021-06-09] MEDS: INSULIN ASPART PER UNIT SC SCH ×4 (08:37→21:55)
--- NOTE | 2021-06-09 13:12 | Hospitalist Progress Note ---
Date of Service June 09, 2021 Assessment & Plan (1) Diabetic foot ulcer associated with type 2 diabetes mellitus, with fat layer exposed: Plan: Mr. Gunn is a 56-year-old male with a history of Schizoaffective Schizophrenia, Depression, Pseudoseizures, Hyperlipidemia (untreated), Uncontrolled Type 2 Diabetes Mellitus, and Poor Living Conditions who presented to [facility] ER with a large diabetic ulcer on his left 3rd toe with localized infection and exposed bone. The patient does not take any medications this time although he is supposed to be on Atorvastatin and Glipizide. Admitted empirically on IV Zosyn and IV Vancomycin. MRI reveals the presence of left third toe osteomyelitis Orthopedic consult appreciated patient is s/p I&D and amputation of the left third toe on 06/05 Culture data showing Proteus vulgaris with kerr sensitivity along with an anaer obe Transitioned antibiotics from Zosyn/Vanco to ertapenem (which will provide adequate coverage for both the Proteus and provide anaerobic coverage) on 06/06. Would recommend 2 weeks of IV antibiotics followed by transition to oral antibiotics for 2 to 4 weeks pending improvement. Could consider Levaquin with Flagyl with transition to PO Ultrasound-guided line in place for long-term IV antibiotic (2) Osteomyelitis: Plan: S/p I&D and amputation of left third digit Needs 2 weeks of IV antibiotic therapy followed by oral antibiotics X 2 weeks as outlined above (3) Diabetes mellitus type 2, uncontrolled: Plan: Patient has not taken medications for his diabetes mellitus for some time now -- was previously on Glipizide and at one time was on Metformin. Medication non-compliance has been an issue. hemoglobin A1c. 11.6 Glycemic management per pharmacy BSG qAC and HS. Sliding scale insulin coverage. Given his known history of noncompliance, I would not utilize insulin in this man long-term. Could consider Metformin and Lantus since likelihood of going to a facility is high given need for 2 weeks of IV antibiotics. Lengthy discussion with patient and previous provider regarding the importance of compliance (4) Dyslipidemia: Plan: Fasting lipid panel 12/12/20 showed a total cholesterol of 323 mg/dL, HDL is 43 mg/dL, LDL 202 mg/dL, and triglycerides are 391 mg/dL. Total Cholesterol:HDL ration is 7.5. Resumed Atorvastatin at 80 mg daily. (5) Schizo affective schizophrenia: Plan: No recent hallucinations or delusions. No suicidal or homicidal ideation. Added Haldol as needed for anxiety/agitation/hallucinations, etc. Added Lorazepam as needed for anxiety/agitation. Seen by psych on 06/05, pt does not have capacity to make medical decisions Plan: Disposition: To be determined. Patient has an emergency hearing on Wednesday for [employer]OA to establish emergency guardianship for making decisions and discharge planning. He cannot return home to his current living conditions. Admission and Anticipated Discharge Date Admission Date: June 03, 2021 Subjective Patient seen on daily rounds this morning. He is resting comfortably in bed and offers no complaints. He denies chest pain, shortness of breath, nausea/vomiting/diarrhea, or uncontrolled left foot pain. Review of Systems Review of Systems: All systems reviewed and are unremarkable except as noted in HPI and below Denies fevers, chills, headache, nasal congestion, sore throat, cough, chest pain, shortness of breath, palpitations, orthopnea, PND, abdominal pain, nausea, vomiting, diarrhea, constipation, dysuria, hematuria, frequency, back pain, joint pain or swelling, easy bruising or bleeding, skin lesions or rashes. Physical Exam Physical Exam: GENERAL: 56 yo WD/WN WM. NAD. LUNGS: Clear to auscultation bilaterally. No W/R/R. CARDIOVASCULAR: Regular rate and rhythm. No M/G/R. No JVD. ABDOMEN: Soft, non-tender and non-distended. BS normal x 4 quad. EXTREMITIES: No edema. Non-tender. Peripheral pulses +2/4. L foot is dressed. NEUROLOGIC: A&O x3. PSYCHIATRIC: Cooperative. Appropriate mood and affect. SKIN: Warm, dry, intact. No rashes or lesions. Results & Data Results & Data ([facility]) Vital Signs (Past 12 Hours) Vital Signs Temp Pulse Resp BP Pulse Ox 06/09/21 07:56 36.5 C 79 16 124/82 99 Laboratory Results No new labs today PG Care Time/CCT Total # of Minutes Spent Total Time Spent with Patient: Total time spent is greater than 50% in coordination of care (as documented) at patient's floor/unit and/or counseling patient: Coding Level of Care Code 23058 Subseq Hosp Care Lvl 2 Diagnoses Diabetic foot ulcer associated with type 2 diabetes mellitus, with fat layer exposed E11.621; L97.502 Osteomyelitis M86.9 Diabetes mellitus type 2, uncontrolled E11.65 Dyslipidemia E78.5 Schizo affective schizophrenia F25.0
[2021-06-09] MEDS: ERTAPENEM SODIUM 1,000 MG in SYRINGE 0 ML IV SCH (17:25)
[2021-06-10] MEDS: ATORVASTATIN 40 MG TAB PO SCH (08:26)
[2021-06-10] MEDS: INSULIN ASPART PER UNIT SC SCH ×4 (08:27→20:55)
[2021-06-10] MEDS: INSULIN GLARGINE SOLOSTAR 100 UNITS/ML 3 ML PEN SC SCH (08:27)
--- NOTE | 2021-06-10 11:03 | Hospitalist Progress Note ---
Date of Service June 10, 2021 Assessment & Plan (1) Diabetic foot ulcer associated with type 2 diabetes mellitus, with fat layer exposed: Plan: Mr. Gunn is a 56-year-old male with a history of Schizoaffective Schizophrenia, Depression, Pseudoseizures, Hyperlipidemia (untreated), Uncontrolled Type 2 Diabetes Mellitus, and Poor Living Conditions who presented to [facility] ER with a large diabetic ulcer on his left 3rd toe with localized infection and exposed bone. The patient does not take any medications this time although he is supposed to be on Atorvastatin and Glipizide. Admitted empirically on IV Zosyn and IV Vancomycin. MRI reveals the presence of left third toe osteomyelitis Orthopedic consult appreciated patient is s/p I&D and amputation of the left third toe on 06/05 Culture data showing Proteus vulgaris with kerr sensitivity along with an anaer obe Transitioned antibiotics from Zosyn/Vanco to ertapenem (which will provide adequate coverage for both the Proteus and provide anaerobic coverage) on 06/06. Would recommend 2 weeks of IV antibiotics followed by transition to oral antibiotics for 2 to 4 weeks pending improvement. Could consider Levaquin with Flagyl with transition to PO Ultrasound-guided line in place for long-term IV antibiotic (2) Osteomyelitis: Plan: S/p I&D and amputation of left third digit Needs 2 weeks of IV antibiotic therapy followed by oral antibiotics X 2 weeks as outlined above (3) Diabetes mellitus type 2, uncontrolled: Plan: Patient has not taken medications for his diabetes mellitus for some time now -- was previously on Glipizide and at one time was on Metformin. Medication non-compliance has been an issue. hemoglobin A1c. 11.6 Glycemic management per pharmacy BSG qAC and HS. Sliding scale insulin coverage. Given his known history of noncompliance, I would not utilize insulin in this man long-term. Could consider Metformin and Lantus since likelihood of going to a facility is high given need for 2 weeks of IV antibiotics. Lengthy discussion with patient and previous provider regarding the importance of compliance (4) Dyslipidemia: Plan: Fasting lipid panel 12/12/20 showed a total cholesterol of 323 mg/dL, HDL is 43 mg/dL, LDL 202 mg/dL, and triglycerides are 391 mg/dL. Total Cholesterol:HDL ration is 7.5. Resumed Atorvastatin at 80 mg daily. (5) Schizo affective schizophrenia: Plan: No recent hallucinations or delusions. No suicidal or homicidal ideation. Added Haldol as needed for anxiety/agitation/hallucinations, etc. Added Lorazepam as needed for anxiety/agitation. Seen by psych on 06/05, pt does not have capacity to make medical decisions Plan: Disposition: To be determined. Patient has an emergency hearing today for OOA to establish emergency guardianship for making decisions and discharge planning. He cannot return home to his current living conditions. Admission and Anticipated Discharge Date Admission Date: June 03, 2021 Subjective Patient seen on daily rounds this morning. He is resting comfortably in bed and offers no complaints. He denies chest pain, shortness of breath, nausea/vomiting/diarrhea, or uncontrolled left foot pain. Review of Systems Review of Systems: All systems reviewed and are unremarkable except as noted in HPI and below Denies fevers, chills, headache, nasal congestion, sore throat, cough, chest pain, shortness of breath, palpitations, orthopnea, PND, abdominal pain, nausea, vomiting, diarrhea, constipation, dysuria, hematuria, frequency, back pain, joint pain or swelling, easy bruising or bleeding, skin lesions or rashes. Physical Exam Physical Exam: GENERAL: 56 yo WD/WN WM. NAD. LUNGS: Clear to auscultation bilaterally. No W/R/R. CARDIOVASCULAR: Regular rate and rhythm. No M/G/R. No JVD. ABDOMEN: Soft, non-tender and non-distended. BS normal x 4 quad. EXTREMITIES: No edema. Non-tender. Peripheral pulses +2/4. L foot is dressed. NEUROLOGIC: A&O x3. PSYCHIATRIC: Cooperative. Appropriate mood and affect. SKIN: Warm, dry, intact. No rashes or lesions. Results & Data Results & Data ([facility]) Vital Signs (Past 12 Hours) Vital Signs Temp Pulse Resp BP Pulse Ox 06/10/21 07:58 36.7 C 71 17 112/69 98 Laboratory Results No labs ordered today PG Care Time/CCT Total # of Minutes Spent Total Time Spent with Patient: Total time spent is greater than 50% in coordination of care (as documented) at patient's floor/unit and/or counseling patient: Coding Level of Care Code 10340 Subseq Hosp Care Lvl 2 Diagnoses Diabetic foot ulcer associated with type 2 diabetes mellitus, with fat layer exposed E11.621; L97.502 Osteomyelitis M86.9 Diabetes mellitus type 2, uncontrolled E11.65 Dyslipidemia E78.5 Schizo affective schizophrenia F25.0
--- NOTE | 2021-06-10 13:26 | Pharmacy Report ---
Pharmacy Glycemic Short Note 2 - Date of Service June 10, 2021 - Glycemic Short BSG Results (Last 24 hours): 06/09/21 06/09/21 06/10/21 17:14 20:25 07:57 POC Glucose 196 H 75 127 H 06/10/21 11:59 POC Glucose 226 H OUTPATIENT ANTIDIABETIC REGIMEN: * Non compliance - reportedly had taken glipizide in the past ASSESSMENT: 06/10/21 * Patients BSG were [phone] mg/dL, fasting 127mg/dL * No change to lantus. Monitor post prandial BSGs today to see if time/meal specific NovoLog scales indicated 06/08/21 * Patient's BSGs yesterday were [phone] mg/dL. Fasting today is 131 mg/dL. * Increase Lantus by 15% to 14 units as fasting increased by 30 points. * Tighten CR as BSGs elevated after being in range. 06/07/21 * patient's BSGs yesterday were [phone] mg/dL. * Fasting today is 100 mg/dL. * Decrease Lantus as fastings trending downwards (Basal doses have changed but were 16-20-15 units while fasting BSGs consistently trending downwards) . Continue Novolog as BSGs stable yesterday. 06/05: * Patient received total 43 units of insulin; 16 units basal and 27 units bolus * Fasting BSG = 154 mg/dl today. Basal dose of 15 units ordered this AM and added 0 to 5 units basal dose scale based on BSG for tonight. * BSGs yesterday were [phone] mg/dl. * Patient was made NPO today AM for I&D of diabetic foot ulcer. Continued Novolog CF/CR the same as yesterday. 06/04/21: * Patient received 6 units of bolus insulin last night after pharmacy consulted for glycemic control. * Fasting BSG was 172 mg/dl today AM. * HbA1c = 11.6% reported this AM. Basal Lantus dose ordered this AM based on wt and stress of 1. HS Lantus dose scale ordered for tonight based on BSG. * Novolog CR tightened this AM. Pre-lunch BSG elevated above 200 mg/dl. CR tightened further at lunch. Background 06/03/21: * Reportedly non compliant on home regimen * Admitted for diabetic foot infection contributed to by his non compliance and poor living conditions PLAN FOR INPATIENT GLYCEMIC CONTROL: * Basal insulin * Lantus 14 units SQ QAM * Bolus insulin * NovoLog per scale ACHS or Q6hrs while NPO * Goal Range: Low 110 mg/dL - High 140 mg/dL * Correction Factor: 20 mg/dL/unit * Nutritional / Prandial insulin per carb ratio of 1 unit per 5 grams CHO consumed
[2021-06-10] MEDS: ERTAPENEM SODIUM 1,000 MG in SYRINGE 0 ML IV SCH (17:47)
[2021-06-11] MEDS: ATORVASTATIN 40 MG TAB PO SCH (08:43)
[2021-06-11] MEDS: INSULIN GLARGINE SOLOSTAR 100 UNITS/ML 3 ML PEN SC SCH (08:43)
[2021-06-11] MEDS: INSULIN ASPART PER UNIT SC SCH ×6 (08:44→21:48)
[2021-06-11] MEDS: ACETAMINOPHEN 325 MG TAB PO PRN (08:53)
--- NOTE | 2021-06-11 10:49 | Hospitalist Progress Note ---
Date of Service June 11, 2021 Assessment & Plan (1) Diabetic foot ulcer associated with type 2 diabetes mellitus, with fat layer exposed: Plan: Mr. Gunn is a 56-year-old male with a history of Schizoaffective Schizophrenia, Depression, Pseudoseizures, Hyperlipidemia (untreated), Uncontrolled Type 2 Diabetes Mellitus, and Poor Living Conditions who presented to [facility] ER with a large diabetic ulcer on his left 3rd toe with localized infection and exposed bone. The patient does not take any medications this time although he is supposed to be on Atorvastatin and Glipizide. Admitted empirically on IV Zosyn and IV Vancomycin. MRI reveals the presence of left third toe osteomyelitis Orthopedic consult appreciated patient is s/p I&D and amputation of the left third toe on 06/05 Culture data showing Proteus vulgaris with kerr sensitivity along with an anaer obe Transitioned antibiotics from Zosyn/Vanco to ertapenem (which will provide adequate coverage for both the Proteus and provide anaerobic coverage) on 06/06. Would recommend 2 weeks of IV antibiotics followed by transition to oral antibiotics for 2 to 4 weeks pending improvement. Could consider Levaquin with Flagyl with transition to PO Ultrasound-guided line in place for long-term IV antibiotic (2) Osteomyelitis: Plan: S/p I&D and amputation of left third digit Needs 2 weeks of IV antibiotic therapy followed by oral antibiotics X 2 weeks as outlined above (3) Diabetes mellitus type 2, uncontrolled: Plan: Patient has not taken medications for his diabetes mellitus for some time now -- was previously on Glipizide and at one time was on Metformin. Medication non-compliance has been an issue. hemoglobin A1c. 11.6 Glycemic management per pharmacy BSG qAC and HS. Sliding scale insulin coverage. Given his known history of noncompliance, I would not utilize insulin in this man long-term. Could consider Metformin and Lantus since likelihood of going to a facility is high given need for 2 weeks of IV antibiotics. Lengthy discussion with patient and previous provider regarding the importance of compliance (4) Dyslipidemia: Plan: Fasting lipid panel 12/12/20 showed a total cholesterol of 323 mg/dL, HDL is 43 mg/dL, LDL 202 mg/dL, and triglycerides are 391 mg/dL. Total Cholesterol:HDL ration is 7.5. Resumed Atorvastatin at 80 mg daily. (5) Schizo affective schizophrenia: Plan: No recent hallucinations or delusions. No suicidal or homicidal ideation. Added Haldol as needed for anxiety/agitation/hallucinations, etc. Added Lorazepam as needed for anxiety/agitation. Seen by psych on 06/05, pt does not have capacity to make medical decisions Plan: Disposition: To be determined. Meeting on 06/10 held for OOA to establish emergency guardianship for making decisions and discharge planning. He cannot return home to his current living conditions. CM to assist w/ d/c planning once OOA obtains guardianship. Admission and Anticipated Discharge Date Admission Date: June 03, 2021 Subjective Patient seen on daily rounds this morning. He is resting comfortably in bed, c/o ringing in his ears. He denies chest pain, shortness of breath, nausea/vomiting/diarrhea, or uncontrolled left foot pain. Review of Systems Review of Systems: All systems reviewed and are unremarkable except as noted in HPI and below (+) tinnitus. Denies fevers, chills, headache, nasal congestion, sore throat, cough, chest pain, shortness of breath, palpitations, orthopnea, PND, abdominal pain, nausea, vomiting, diarrhea, constipation, dysuria, hematuria, frequency, back pain, joint pain or swelling, easy bruising or bleeding, skin lesions or rashes. Physical Exam Physical Exam: GENERAL: 56 yo WD/WN WM. NAD. LUNGS: Clear to auscultation bilaterally. No W/R/R. CARDIOVASCULAR: Regular rate and rhythm. No M/G/R. No JVD. ABDOMEN: Soft, non-tender and non-distended. BS normal x 4 quad. EXTREMITIES: No edema. Non-tender. Peripheral pulses +2/4. L foot is dressed. NEUROLOGIC: A&O x3. PSYCHIATRIC: Cooperative. Appropriate mood and affect. SKIN: Warm, dry, intact. No rashes or lesions. Results & Data Results & Data ([facility]) Vital Signs (Past 12 Hours) Vital Signs Temp Pulse Resp BP Pulse Ox 06/11/21 07:14 36.3 C L 65 16 123/79 96 PG Care Time/CCT Total # of Minutes Spent Total Time Spent with Patient: Total time spent is greater than 50% in coordination of care (as documented) at patient's floor/unit and/or counseling patient: Coding Level of Care Code 94964 Subseq Hosp Care Lvl 2 Diagnoses Diabetic foot ulcer associated with type 2 diabetes mellitus, with fat layer exposed E11.621; L97.502 Osteomyelitis M86.9 Diabetes mellitus type 2, uncontrolled E11.65 Dyslipidemia E78.5 Schizo affective schizophrenia F25.0
--- NOTE | 2021-06-11 11:03 | Pharmacy Report ---
Pharmacy Glycemic Short Note 2 - Date of Service June 11, 2021 - Glycemic Short BSG Results (Last 24 hours): 06/10/21 06/10/21 06/10/21 11:59 16:48 20:35 POC Glucose 226 H 96 167 H 06/11/21 08:02 POC Glucose 94 OUTPATIENT ANTIDIABETIC REGIMEN: * Non compliance - reportedly had taken glipizide in the past ASSESSMENT: 06/11/21: * Jamil received 46 units of insulin yesterday (14 units basal + 32 units bolus) * Fasting BSG trending downward, if < 100 mg/dL x 2, will decrease Lantus dose * Lunch BSG tends to be the highest of the day. Will tighten carb coverage with breakfast only. * Patient will likely be discharged on metformin. Will start this in-house to see BSG lowering effect. May need to adjust novolog parameters tomorrow. 06/10/21 * Patients BSG were [phone] mg/dL, fasting 127mg/dL * No change to lantus. Monitor post prandial BSGs today to see if time/meal specific NovoLog scales indicated 06/08/21 * Patient's BSGs yesterday were [phone] mg/dL. Fasting today is 131 mg/dL. * Increase Lantus by 15% to 14 units as fasting increased by 30 points. * Tighten CR as BSGs elevated after being in range. 06/07/21 * patient's BSGs yesterday were [phone] mg/dL. * Fasting today is 100 mg/dL. * Decrease Lantus as fastings trending downwards (Basal doses have changed but were 16-20-15 units while fasting BSGs consistently trending downwards) . Continue Novolog as BSGs stable yesterday. Background 06/03/21: * Reportedly non compliant on home regimen * Admitted for diabetic foot infection contributed to by his non compliance and poor living conditions PLAN FOR INPATIENT GLYCEMIC CONTROL: * Start metformin 500 mg PO daily with dinner * Basal insulin * Lantus 14 units SQ QAM * Bolus insulin * NovoLog per scale ACHS or Q6hrs while NPO * Goal Range: Low 110 mg/dL - High 140 mg/dL Breakfast: * Correction Factor: 20 mg/dL/unit * Nutritional / Prandial insulin per carb ratio of 1 unit per 4 grams CHO consumed Lunch/Dinner/HS: * Correction Factor: 25 mg/dL/unit * Nutritional / Prandial insulin per carb ratio of 1 unit per 5 grams CHO consumed
[2021-06-11] MEDS: metFORMIN HCL 500 MG TAB PO SCH (17:51)
[2021-06-11] MEDS: ERTAPENEM SODIUM 1,000 MG in SYRINGE 0 ML IV SCH (17:51)
[2021-06-12] MEDS: ATORVASTATIN 40 MG TAB PO SCH (07:33)
[2021-06-12] MEDS: INSULIN GLARGINE SOLOSTAR 100 UNITS/ML 3 ML PEN SC SCH (09:37)
[2021-06-12] MEDS: INSULIN ASPART PER UNIT SC SCH ×4 (09:47→21:07)
--- NOTE | 2021-06-12 12:44 | Hospitalist Progress Note ---
Date of Service June 12, 2021 Assessment & Plan (1) Diabetic foot ulcer associated with type 2 diabetes mellitus, with fat layer exposed: Plan: Mr. Gunn is a 56-year-old male with a history of Schizoaffective Schizophrenia, Depression, Pseudoseizures, Hyperlipidemia (untreated), Uncontrolled Type 2 Diabetes Mellitus, and Poor Living Conditions who presented to [facility] with a large diabetic ulcer on his left 3rd toe with localized infection and exposed bone. The patient does not take any medications this time although he is supposed to be on Atorvastatin and Glipizide. Admitted empirically on IV Zosyn and IV Vancomycin. MRI reveals the presence of left third toe osteomyelitis Orthopedic consult appreciated patient is s/p I&D and amputation of the left third toe on 06/05 Culture data showing Proteus vulgaris with kerr sensitivity along with an anae robe Transitioned antibiotics from Zosyn/Vanco to ertapenem (which will provide adequate coverage for both the Proteus and provide anaerobic coverage) on 06/06--thus far has had total of 9 days of IV antibiotics out of 14 Would recommend 2 weeks of IV antibiotics followed by transition to oral antibiotics for 2 to 4 weeks pending improvement. Could consider Levaquin with Flagyl with transition to PO Ultrasound-guided line in place for long-term IV antibiotic (2) Osteomyelitis: Plan: S/p I&D and amputation of left third digit Needs 2 weeks of IV antibiotic therapy followed by oral antibiotics X 2 weeks as outlined above (3) Diabetes mellitus type 2, uncontrolled: Plan: Patient has not taken medications for his diabetes mellitus for some time now -- was previously on Glipizide and at one time was on Metformin. Medication non- compliance has been an issue. hemoglobin A1c. 11.6 Glycemic management per pharmacy BSG qAC and HS--per review, BS appear relatively well controlled, appears to be requiring ~10 units w/ meals and currently on 14 units of Lantus Given his known history of noncompliance, I would not utilize insulin in this man long-term. Could consider Metformin and Lantus since likelihood of going to a facility is high given need for 2 weeks of IV antibiotics. Patient has been educated regarding the importance of compliance Metformin initiated at 500mg daily while in house and will need increased to BID upon d/c (4) Dyslipidemia: Plan: Fasting lipid panel 12/12/20 showed a total cholesterol of 323 mg/dL, HDL is 43 mg/dL, LDL 202 mg/dL, and triglycerides are 391 mg/dL. Total Cholesterol:HDL ration is 7.5. Resumed Atorvastatin at 80 mg daily. (5) Schizo affective schizophrenia: Plan: No recent hallucinations or delusions. No suicidal or homicidal ideation. Added Haldol as needed for anxiety/agitation/hallucinations, etc. Added Lorazepam as needed for anxiety/agitation. Seen by psych on 06/05, pt does not have capacity to make medical decisions Plan: Disposition: To be determined. Meeting on 06/10 held for [facility] to establish emergency guardianship for making decisions and discharge planning. He cannot return home to his current living conditions. CM to assist w/ d/c planning once [facility] obtains guardianship. Admission and Anticipated Discharge Date Admission Date: June 03, 2021 Subjective Patient seen on daily rounds this morning. He is resting comfortably in bed, continues to c/o ringing in his right ear (states that this has been an ongoing issue for years). He denies chest pain, shortness of breath, nausea/vomiting/diarrhea, or uncontrolled left foot pain. Review of Systems Review of Systems: All systems reviewed and are unremarkable except as noted in HPI and below (+) tinnitus. Denies fevers, chills, headache, nasal congestion, sore throat, cough, chest pain, shortness of breath, palpitations, orthopnea, PND, abdominal pain, nausea, vomiting, diarrhea, constipation, dysuria, hematuria, frequency, back pain, joint pain or swelling, easy bruising or bleeding, skin lesions or rashes. Physical Exam 2 Physical Exam: GENERAL: 56 yo WD/WN WM. NAD. LUNGS: Clear to auscultation bilaterally. No W/R/R. CARDIOVASCULAR: Regular rate and rhythm. No M/G/R. No JVD. ABDOMEN: Soft, non-tender and non-distended. BS normal x 4 quad. EXTREMITIES: No edema. Non-tender. Peripheral pulses +2/4. L foot is dressed. NEUROLOGIC: A&O x3. PSYCHIATRIC: Cooperative. Appropriate mood and affect. SKIN: Warm, dry, intact. No rashes or lesions. Results & Data Results & Data ([facility]) Vital Signs (Past 12 Hours) Vital Signs Temp Pulse Resp BP Pulse Ox 06/12/21 07:21 36.8 C 75 16 113/72 96 PG Care Time/CCT Total # of Minutes Spent Total Time Spent with Patient: Total time spent is greater than 50% in coordination of care (as documented) at patient's floor/unit and/or counseling patient: Coding Level of Care Code 02122 Subseq Hosp Care Lvl 2 Diagnoses Diabetic foot ulcer associated with type 2 diabetes mellitus, with fat layer exposed E11.621; L97.502 Osteomyelitis M86.9 Diabetes mellitus type 2, uncontrolled E11.65 Dyslipidemia E78.5 Schizo affective schizophrenia F25.0
[2021-06-12] MEDS: metFORMIN HCL 500 MG TAB PO SCH (17:33)
[2021-06-12] MEDS: ERTAPENEM SODIUM 1,000 MG in SYRINGE 0 ML IV SCH (17:38)
[2021-06-13 06:12] LABS: Basophils # (auto) 0.01 K/uL (0-0.2); Basophils % (auto) 0.1 %; Eosinophils % (auto) 2.8 %; Hematocrit (blood only) 37.4 % (42-52); Hemoglobin 12.4 g/dL (14.0-18.0); Immature Granulocytes # (auto) 0.01 K/uL (0.00-0.02); Immature Granulocytes % (auto) 0.1 %; Lymphocytes # (auto) 1.79 K/uL (1.2-3.4); Lymphocytes % (auto) 25.4 %; Mean Corpuscular Hgb Conc 33.2 g/dL (32-36); Mean Corpuscular Volume 87.6 fL (80-100); Mean Platelet Volume 9.3 fL (7.4-10.4); Monocytes # (auto) 0.79 K/uL (0.11-0.59); Monocytes % (auto) 11.2 %; Neutrophils # (auto) 4.24 K/uL (1.4-6.5); Neutrophils % (auto) 60.4 %; Platelet Count 271 K/uL (130-400); RDW Coefficient of Variation 12.8 % (11.5-14.5); RDW Standard Deviation 41.2 fL (36.4-46.3); Red Blood Count 4.27 M/uL (4.7-6.1); White Blood Count 7.04 K/uL (4.8-10.8)
[2021-06-13 06:42] LABS: Calcium 9.3 mg/dl (8.5-10.1); Creatinine Clr Calc Pharmacy 93.4 ml/min; Est GFR (African American) 109.2 ml/min; Est GFR (Non-African American) 94.3 ml/min; Potassium 4.3 mmol/L (3.5-5.1)
[2021-06-13] MEDS: ATORVASTATIN 40 MG TAB PO SCH (08:38)
[2021-06-13] MEDS: INSULIN GLARGINE SOLOSTAR 100 UNITS/ML 3 ML PEN SC SCH (08:39)
[2021-06-13] MEDS: INSULIN ASPART PER UNIT SC SCH ×4 (08:43→21:55)
--- NOTE | 2021-06-13 09:52 | Pharmacy Report ---
Pharmacy Glycemic Short Note 2 - Date of Service June 13, 2021 - Glycemic Short BSG Results (Last 24 hours): 06/12/21 06/12/21 06/12/21 11:58 17:06 20:57 Glucose POC Glucose 142 H 125 H 111 H 06/13/21 06/13/21 05:18 07:34 Glucose 93 POC Glucose 98 OUTPATIENT ANTIDIABETIC REGIMEN: * Non compliance - reportedly had taken glipizide in the past * HbA1c: 5.8% (05/21/21) ASSESSMENT: 06/13/21 * Mr Gunn has been stable on current diabetic regimen for the past several days. * Metformin was initiated on 06/11, and appears to be tolerated thus far. * No changes required at this time. 06/11 * Jamil received 46 units of insulin yesterday (14 units basal + 32 units bolus) * Fasting BSG trending downward, if < 100 mg/dL x 2, will decrease Lantus dose * Lunch BSG tends to be the highest of the day. Will tighten carb coverage with breakfast only. * Patient will likely be discharged on metformin. Will start this in-house to see BSG lowering effect. May need to adjust novolog parameters tomorrow. 06/10 * Patients BSG were [phone] mg/dL, fasting 127mg/dL * No change to lantus. Monitor post prandial BSGs today to see if time/meal specific NovoLog scales indicated 06/08 * Patient's BSGs yesterday were [phone] mg/dL. Fasting today is 131 mg/dL. * Increase Lantus by 15% to 14 units as fasting increased by 30 points. * Tighten CR as BSGs elevated after being in range. 06/07 * patient's BSGs yesterday were [phone] mg/dL. * Fasting today is 100 mg/dL. * Decrease Lantus as fastings trending downwards (Basal doses have changed but were 16-20-15 units while fasting BSGs consistently trending downwards) . Continue Novolog as BSGs stable yesterday. Background 06/03/21: * Reportedly non compliant on home regimen * Admitted for diabetic foot infection contributed to by his non compliance and poor living conditions PLAN FOR INPATIENT GLYCEMIC CONTROL: * Metformin 500 mg PO daily with dinner * Basal insulin * Lantus 14 units SQ QAM * Bolus insulin * NovoLog per scale ACHS or Q6hrs while NPO * Goal Range: Low 110 mg/dL - High 140 mg/dL * Correction Factor: 25 mg/dL/unit * Nutritional / Prandial insulin per carb ratio of 1 unit per 4 grams CHO consumed
--- NOTE | 2021-06-13 10:37 | Hospitalist Progress Note ---
Date of Service June 13, 2021 Assessment & Plan (1) Diabetic foot ulcer associated with type 2 diabetes mellitus, with fat layer exposed: Plan: Mr. Gunn is a 56-year-old male with a history of Schizoaffective Schizophrenia, Depression, Pseudoseizures, Hyperlipidemia (untreated), Uncontrolled Type 2 Diabetes Mellitus, and Poor Living Conditions who presented to [facility] with a large diabetic ulcer on his left 3rd toe with localized infection and exposed bone. The patient does not take any medications this time although he is supposed to be on Atorvastatin and Glipizide. Admitted empirically on IV Zosyn and IV Vancomycin. MRI reveals the presence of left third toe osteomyelitis Orthopedic consult appreciated patient is s/p I&D and amputation of the left third toe on 06/05 Culture data showing Proteus vulgaris with kerr sensitivity along with an anae robe Transitioned antibiotics from Zosyn/Vanco to ertapenem (which will provide adequate coverage for both the Proteus and provide anaerobic coverage) on 06/06--thus far has had total of 10 days of IV antibiotics out of 14 Would recommend 2 weeks of IV antibiotics followed by transition to oral antibiotics for 2 to 4 weeks pending improvement. Could consider Levaquin with Flagyl with transition to PO Ultrasound-guided line in place for long-term IV antibiotic (2) Osteomyelitis: Plan: S/p I&D and amputation of left third digit Needs 2 weeks of IV antibiotic therapy followed by oral antibiotics X 2 weeks as outlined above (3) Diabetes mellitus type 2, uncontrolled: Plan: Patient has not taken medications for his diabetes mellitus for some time now -- was previously on Glipizide and at one time was on Metformin. Medication non- compliance has been an issue. hemoglobin A1c. 11.6 Glycemic management per pharmacy BSG qAC and HS--per review, BS appear relatively well controlled, appears to be requiring ~10 units w/ meals and currently on 14 units of Lantus Given his known history of noncompliance, I would not utilize insulin in this man long-term. Could consider Metformin and Lantus since likelihood of going to a facility is high given need for 2 weeks of IV antibiotics. Patient has been educated regarding the importance of compliance Metformin initiated at 500mg daily while in house and will need increased to BID upon d/c (4) Dyslipidemia: Plan: Fasting lipid panel 12/12/20 showed a total cholesterol of 323 mg/dL, HDL is 43 mg/dL, LDL 202 mg/dL, and triglycerides are 391 mg/dL. Total Cholesterol:HDL ration is 7.5. Resumed Atorvastatin at 80 mg daily. (5) Schizo affective schizophrenia: Plan: No recent hallucinations or delusions. No suicidal or homicidal ideation. Added Haldol as needed for anxiety/agitation/hallucinations, etc. Added Lorazepam as needed for anxiety/agitation. Seen by psych on 06/05, pt does not have capacity to make medical decisions Plan: Disposition: To be determined. Meeting on 06/10 held for [facility] to establish emergency guardianship for making decisions and discharge planning. He cannot return home to his current living conditions. CM to assist w/ d/c planning once [facility] obtains guardianship. Admission and Anticipated Discharge Date Admission Date: June 03, 2021 Subjective Patient seen on daily rounds this morning. He is resting comfortably in bed, continues to c/o ringing in his right ear (states that this has been an ongoing issue for years). He denies chest pain, shortness of breath, nausea/vomiting/diarrhea, or uncontrolled left foot pain. Review of Systems Review of Systems: All systems reviewed and are unremarkable except as noted in HPI and below (+) tinnitus. Denies fevers, chills, headache, nasal congestion, sore throat, cough, chest pain, shortness of breath, palpitations, orthopnea, PND, abdominal pain, nausea, vomiting, diarrhea, constipation, dysuria, hematuria, frequency, back pain, joint pain or swelling, easy bruising or bleeding, skin lesions or rashes. Physical Exam Physical Exam: GENERAL: 56 yo WD/WN WM. NAD. LUNGS: Clear to auscultation bilaterally. No W/R/R. CARDIOVASCULAR: Regular rate and rhythm. No M/G/R. No JVD. ABDOMEN: Soft, non-tender and non-distended. BS normal x 4 quad. EXTREMITIES: No edema. Non-tender. Peripheral pulses +2/4. L foot is dressed. NEUROLOGIC: A&O x3. PSYCHIATRIC: Cooperative. Appropriate mood and affect. SKIN: Warm, dry, intact. No rashes or lesions. Results & Data Results & Data ([facility]) Vital Signs (Past 12 Hours) Vital Signs Temp Pulse Resp BP Pulse Ox 06/13/21 07:23 36.9 C 69 16 122/74 96 06/12/21 23:04 36.4 C L 75 18 130/75 95 Laboratory Results 06/13/21 05:18 06/13/21 05:18 PG Care Time/CCT Total # of Minutes Spent Total Time Spent with Patient: Total time spent is greater than 50% in coordination of care (as documented) at patient's floor/unit and/or counseling patient: Coding Level of Care Code 17396 Subseq Hosp Care Lvl 2 Diagnoses Diabetic foot ulcer associated with type 2 diabetes mellitus, with fat layer exposed E11.621; L97.502 Osteomyelitis M86.9 Diabetes mellitus type 2, uncontrolled E11.65 Dyslipidemia E78.5 Schizo affective schizophrenia F25.0
[2021-06-13] MEDS: ACETAMINOPHEN 325 MG TAB PO PRN (17:42)
[2021-06-13] MEDS: ERTAPENEM SODIUM 1,000 MG in SYRINGE 0 ML IV SCH (17:43)
[2021-06-13] MEDS: metFORMIN HCL 500 MG TAB PO SCH (17:44)
[2021-06-14] MEDS: ATORVASTATIN 40 MG TAB PO SCH (08:04)
[2021-06-14] MEDS: INSULIN ASPART PER UNIT SC SCH ×4 (09:00→22:16)
[2021-06-14] MEDS: INSULIN GLARGINE SOLOSTAR 100 UNITS/ML 3 ML PEN SC SCH (09:00)
[2021-06-14] MEDS: ACETAMINOPHEN 325 MG TAB PO PRN (12:40)
--- NOTE | 2021-06-14 12:41 | Pharmacy Report ---
Pharmacy Glycemic Short Note 2 - Date of Service June 14, 2021 - Glycemic Short BSG Results (Last 24 hours): 06/13/21 06/13/21 06/14/21 16:29 20:49 08:07 POC Glucose 111 H 90 91 06/14/21 12:16 POC Glucose 88 OUTPATIENT ANTIDIABETIC REGIMEN: * Non compliance - reportedly had taken glipizide in the past * HbA1c: 5.8% (05/21/21) ASSESSMENT: 06/14: * Blood sugars at goal, but trending on the lower end, will decrease Lantus starting tomorrow and loosen CR today to prevent hypoglycemia. 06/13/21 * Mr Gunn has been stable on current diabetic regimen for the past several days. * Metformin was initiated on 06/11, and appears to be tolerated thus far. * No changes required at this time. 06/11 * Jamil received 46 units of insulin yesterday (14 units basal + 32 units bolus) * Fasting BSG trending downward, if < 100 mg/dL x 2, will decrease Lantus dose * Lunch BSG tends to be the highest of the day. Will tighten carb coverage with breakfast only. * Patient will likely be discharged on metformin. Will start this in-house to see BSG lowering effect. May need to adjust novolog parameters tomorrow. 06/10 * Patients BSG were [phone] mg/dL, fasting 127mg/dL * No change to lantus. Monitor post prandial BSGs today to see if time/meal specific NovoLog scales indicated 06/08 * Patient's BSGs yesterday were [phone] mg/dL. Fasting today is 131 mg/dL. * Increase Lantus by 15% to 14 units as fasting increased by 30 points. * Tighten CR as BSGs elevated after being in range. 06/07 * patient's BSGs yesterday were [phone] mg/dL. * Fasting today is 100 mg/dL. * Decrease Lantus as fastings trending downwards (Basal doses have changed but were 16-20-15 units while fasting BSGs consistently trending downwards) . Continue Novolog as BSGs stable yesterday. Background 06/03/21: * Reportedly non compliant on home regimen * Admitted for diabetic foot infection contributed to by his non compliance and poor living conditions PLAN FOR INPATIENT GLYCEMIC CONTROL: * Metformin 500 mg PO daily with dinner * Basal insulin -decrease * Lantus 10 units SQ QAM * Bolus insulin * NovoLog per scale ACHS or Q6hrs while NPO * Goal Range: Low 110 mg/dL - High 140 mg/dL * Correction Factor: 25 mg/dL/unit * LOOSEN: Nutritional / Prandial insulin per carb ratio of 1 unit per 5 grams CHO consumed
--- NOTE | 2021-06-14 13:50 | Hospitalist Progress Note ---
Date of Service June 14, 2021 Assessment & Plan (1) Diabetic foot ulcer associated with type 2 diabetes mellitus, with fat layer exposed: Plan: Mr. Gunn is a 56-year-old male with a history of Schizoaffective Schizophrenia, Depression, Pseudoseizures, Hyperlipidemia (untreated), Uncontrolled Type 2 Diabetes Mellitus, and Poor Living Conditions who presented to [facility] ER with a large diabetic ulcer on his left 3rd toe with localized infection and exposed bone. The patient does not take any medications this time although he is supposed to be on Atorvastatin and Glipizide. Admitted empirically on IV Zosyn and IV Vancomycin. MRI reveals the presence of left third toe osteomyelitis Orthopedic consult appreciated patient is s/p I&D and amputation of the left third toe on 06/05 Culture data showing Proteus vulgaris with kerr sensitivity along with an anae robe Transitioned antibiotics from Zosyn/Vanco to ertapenem (which will provide adequate coverage for both the Proteus and provide anaerobic coverage) -- to complete on 06/20 Would recommend 2 weeks of IV antibiotics followed by transition to oral a ntibiotics for 2 to 4 weeks pending improvement. Could consider Levaquin with Flagyl with transition to PO Ultrasound-guided line in place for long-term IV antibiotic (2) Osteomyelitis: Plan: S/p I&D and amputation of left third digit Needs 2 weeks of IV antibiotic therapy followed by oral antibiotics X 2 weeks as outlined above (3) Diabetes mellitus type 2, uncontrolled: Plan: Patient has not taken medications for his diabetes mellitus for some time now -- was previously on Glipizide and at one time was on Metformin. Medication non- compliance has been an issue. hemoglobin A1c. 11.6 Glycemic management per pharmacy BSG qAC and HS--per review, BS appear relatively well controlled, appears to be requiring ~10 units w/ meals and currently on 14 units of Lantus Given his known history of noncompliance, I would not utilize insulin in this man long-term. Could consider Metformin and Lantus since likelihood of going to a facility is high given need for 2 weeks of IV antibiotics. Patient has been educated regarding the importance of compliance Metformin initiated at 500mg daily while in house and will need increased to BID upon d/c (4) Dyslipidemia: Plan: Fasting lipid panel 12/12/20 showed a total cholesterol of 323 mg/dL, HDL is 43 mg/dL, LDL 202 mg/dL, and triglycerides are 391 mg/dL. Total Cholesterol:HDL ration is 7.5. Resumed Atorvastatin at 80 mg daily. (5) Schizo affective schizophrenia: Plan: No recent hallucinations or delusions. No suicidal or homicidal ideation. Added Haldol as needed for anxiety/agitation/hallucinations, etc. Added Lorazepam as needed for anxiety/agitation. Seen by psych on 06/05, pt does not have capacity to make medical decisions Plan: Disposition: To be determined. Meeting on 06/10 held for [facility] to establish emergency guardianship for making decisions and discharge planning. He cannot return home to his current living conditions. CM to assist w/ d/c planning once [facility] obtains guardianship. Admission and Anticipated Discharge Date Admission Date: June 03, 2021 Supervising Physician Co-Signing Physician Notes chart reviewed, case d/w J Rebecca PAC - agree w above Subjective Patient seen on daily rounds today. Vocalizes no significant complaints or concerns. Denies fevers, chills, chest pain, shortness of breath, abdominal pain, nausea or vomiting. Review of Systems Review of Systems: All systems reviewed and are unremarkable except as noted in HPI and below Denies fevers, chills, headache, nasal congestion, sore throat, cough, chest pain, shortness of breath, palpitations, orthopnea, PND, abdominal pain, nausea, vomiting, diarrhea, constipation, dysuria, hematuria, frequency, back pain, joint pain or swelling, easy bruising or bleeding, skin lesions or rashes. Physical Exam Physical Exam: General: Resting comfortably in his hospital bed. He does not appear ill or toxic. NAD. HEENT: Head is AT/NC. Buccal mucosa is moist and pink Neck: No JVD. Negative hepatojugular reflex Cardiac: RRR without M/G/R Lungs: CTA without W/R/R Abdomen: Normoactive X4. Soft and nontender in all quadrants. Extremities: Left lower extremity with surgical dressing in place. It is dry and intact. The toes are visible and still with mild erythema. Crusted over lesion on the medial aspect of the great toe. Obvious s/p amputation of the third digit. Superimposed cellulitic area appears significantly improved when comparison to pictures Neuro: A&O X4. Cranial nerves II through XII are grossly intact. No focal neuro deficits Skin: No obvious skin lesions or rashes Psych: seems mentally simple. Appropriate affect. Pleasant and cooperative Results & Data Results & Data ([facility]) Vital Signs (Past 12 Hours) Vital Signs Temp Pulse Resp BP Pulse Ox 06/14/21 07:30 36.8 C 75 18 119/78 97 Laboratory Results 06/13/21 05:18 06/13/21 05:18 PG Care Time/CCT Total # of Minutes Spent Total Time Spent with Patient: Total time spent is greater than 50% in coordination of care (as documented) at patient's floor/unit and/or counseling patient: Coding Level of Care Code 31542 Subseq Hosp Care Lvl 1 Diagnoses Diabetic foot ulcer associated with type 2 diabetes mellitus, with fat layer exposed E11.621; L97.502 Osteomyelitis M86.9 Diabetes mellitus type 2, uncontrolled E11.65 Dyslipidemia E78.5 Schizo affective schizophrenia F25.0
[2021-06-14] MEDS: ERTAPENEM SODIUM 1,000 MG in SYRINGE 0 ML IV SCH (17:35)
[2021-06-14] MEDS: metFORMIN HCL 500 MG TAB PO SCH (17:35)
[2021-06-15] MEDS ORDERED: INSULIN ASPART PER UNIT SC SCH
[2021-06-15] MEDS: INSULIN ASPART PER UNIT SC SCH ×4 (08:35→21:30)
[2021-06-15] MEDS: INSULIN GLARGINE SOLOSTAR 100 UNITS/ML 3 ML PEN SC SCH (08:35)
[2021-06-15] MEDS: ATORVASTATIN 40 MG TAB PO SCH (08:40)
--- NOTE | 2021-06-15 09:10 | Hospitalist Progress Note ---
Date of Service June 15, 2021 Assessment & Plan (1) Diabetic foot ulcer associated with type 2 diabetes mellitus, with fat layer exposed: Plan: Mr. Gunn is a 56-year-old male with a history of Schizoaffective Schizophrenia, Depression, Pseudoseizures, Hyperlipidemia (untreated), Uncontrolled Type 2 Diabetes Mellitus, and Poor Living Conditions who presented to [facility] ER with a large diabetic ulcer on his left 3rd toe with localized infection and exposed bone. The patient does not take any medications this time although he is supposed to be on Atorvastatin and Glipizide. Admitted empirically on IV Zosyn and IV Vancomycin. MRI revealed the presence of left third toe osteomyelitis Orthopedic consult appreciated patient is s/p I&D and amputation of the left third toe on 06/05 Culture data showing Proteus vulgaris with kerr-sensitivity along with an adolph erobic GPC Transitioned antibiotics from Zosyn/Vanco to ertapenem (which will provide adequate coverage for both the Proteus and provide anaerobic coverage) -- to complete on 06/20 Would recommend 2 weeks of IV antibiotics followed by transition to oral antibiotics for 2 to 4 weeks pending improvement. Could consider Levaquin with Flagyl with transition to PO Ultrasound-guided line in place for long-term IV antibiotic (2) Osteomyelitis: Plan: S/p I&D and amputation of left third digit Needs 2 weeks of IV antibiotic therapy followed by oral antibiotics X 2 weeks as outlined above (3) Diabetes mellitus type 2, uncontrolled: Plan: Patient has not taken medications for his diabetes mellitus for some time now -- was previously on Glipizide and at one time was on Metformin. Medication non- compliance has been an issue. hemoglobin A1c. 11.6 Glycemic management per pharmacy BSG qAC and HS--per review, BS appear relatively well controlled, appears to be requiring ~10 units w/ meals and currently on 14 units of Lantus Has been started on Metformin 500 mg daily. Tolerating this. Increase to 500 mg twice daily with eventual plan to increase to 1000 mg twice daily Given his known history of noncompliance, I would not utilize insulin in this man long-term. Could consider Lantus temporarily since likelihood of going to a facility is high given need for 2 weeks of IV antibiotics. Patient has been educated regarding the importance of compliance (4) Dyslipidemia: Plan: Fasting lipid panel 12/12/20 showed a total cholesterol of 323 mg/dL, HDL is 43 mg/dL, LDL 202 mg/dL, and triglycerides are 391 mg/dL. Total Cholesterol:HDL ration is 7.5. Resumed Atorvastatin at 80 mg daily. (5) Schizo affective schizophrenia: Plan: No recent hallucinations or delusions. No suicidal or homicidal ideation. Added Haldol as needed for anxiety/agitation/hallucinations, etc. Added Lorazepam as needed for anxiety/agitation. Seen by psych on 06/05, pt does not have capacity to make medical decisions Plan: Disposition: To be determined. Meeting on 06/10 held for [facility] to establish emergency guardianship for making decisions and discharge planning. He cannot return home to his current living conditions. CM to assist w/ d/c planning once [facility] obtains guardianship. Admission and Anticipated Discharge Date Admission Date: June 03, 2021 Subjective Patient seen on daily rounds today. Denies fevers, chills, chest pain, shortness of breath, abdominal pain, nausea or vomiting. No c/c per patient or staff. Review of Systems Review of Systems: All systems reviewed and are unremarkable except as noted in HPI and below Denies fevers, chills, headache, nasal congestion, sore throat, cough, chest pain, shortness of breath, palpitations, orthopnea, PND, abdominal pain, nausea, vomiting, diarrhea, constipation, dysuria, hematuria, frequency, back pain, joint pain or swelling, easy bruising or bleeding, skin lesions or rashes. Physical Exam Physical Exam: General: Resting comfortably in his hospital bed. He does not appear ill or toxic. NAD. HEENT: Head is AT/NC. Buccal mucosa is moist and pink Neck: No JVD. Negative hepatojugular reflex Cardiac: RRR without M/G/R Lungs: CTA without W/R/R Abdomen: Normoactive X4. Soft and nontender in all quadrants. Extremities: Left lower extremity with surgical dressing in place. It is dry and intact. The toes are visible and still with mild erythema. Crusted over lesion on the medial aspect of the great toe. Obvious s/p amputation of the third digit. Superimposed cellulitic area appears significantly improved when comparison to pictures Neuro: A&O X4. Cranial nerves II through XII are grossly intact. No focal neuro deficits Skin: No obvious skin lesions or rashes Psych: seems mentally simple. Appropriate affect. Pleasant and cooperative Results & Data Results & Data ([facility]) Vital Signs (Past 12 Hours) Vital Signs Temp Pulse Resp BP Pulse Ox 06/15/21 07:02 37.1 C 64 16 122/73 95 06/14/21 21:44 36.8 C 79 18 137/80 97 Laboratory Results no labs data today PG Care Time/CCT Total # of Minutes Spent Total Time Spent with Patient: Total time spent is greater than 50% in coordination of care (as documented) at patient's floor/unit and/or counseling patient: Coding Level of Care Code 55803 Subseq Hosp Care Lvl 1 Diagnoses Diabetic foot ulcer associated with type 2 diabetes mellitus, with fat layer exposed E11.621; L97.502 Osteomyelitis M86.9 Diabetes mellitus type 2, uncontrolled E11.65 Dyslipidemia E78.5 Schizo affective schizophrenia F25.0
[2021-06-15] MEDS: metFORMIN HCL 500 MG TAB PO SCH (18:00)
[2021-06-15] MEDS: ERTAPENEM SODIUM 1,000 MG in SYRINGE 0 ML IV SCH (18:00)
[2021-06-16 05:56] LABS: Basophils # (auto) 0.02 K/uL (0-0.2); Basophils % (auto) 0.3 %; Eosinophils # (auto) 0.22 K/uL (0-0.5); Eosinophils % (auto) 3.2 %; Hematocrit (blood only) 38.6 % (42-52); Hemoglobin 12.9 g/dL (14.0-18.0); Immature Granulocytes # (auto) 0.01 K/uL (0.00-0.02); Immature Granulocytes % (auto) 0.1 %; Lymphocytes % (auto) 27.7 %; Mean Corpuscular Hemoglobin 29.2 pg (25-34); Mean Corpuscular Hgb Conc 33.4 g/dL (32-36); Mean Corpuscular Volume 87.3 fL (80-100); Mean Platelet Volume 8.9 fL (7.4-10.4); Monocytes # (auto) 0.79 K/uL (0.11-0.59); Monocytes % (auto) 11.5 %; Neutrophils # (auto) 3.93 K/uL (1.4-6.5); Neutrophils % (auto) 57.2 %; Platelet Count 289 K/uL (130-400); RDW Coefficient of Variation 12.6 % (11.5-14.5); RDW Standard Deviation 40.6 fL (36.4-46.3); Red Blood Count 4.42 M/uL (4.7-6.1); White Blood Count 6.87 K/uL (4.8-10.8)
[2021-06-16 06:28] LABS: C Reactive Protein 3.64 mg/dl (0-0.5); Calcium 9.4 mg/dl (8.5-10.1); Creatinine Clr Calc Pharmacy 115.5 ml/min; Est GFR (African American) 119.2 ml/min; Est GFR (Non-African American) 102.8 ml/min; Potassium 4.4 mmol/L (3.5-5.1)
--- NOTE | 2021-06-16 08:21 | Pharmacy Report ---
Pharmacy Glycemic Short Note 2 - Date of Service June 16, 2021 - Glycemic Short BSG Results (Last 24 hours): 06/15/21 06/15/21 06/15/21 12:07 16:51 21:20 Glucose POC Glucose 91 193 H 80 06/16/21 06/16/21 05:41 07:13 Glucose 99 POC Glucose 102 H OUTPATIENT ANTIDIABETIC REGIMEN: * Non compliance - reportedly had taken glipizide in the past * HbA1c: 5.8% (05/21/21) ASSESSMENT: 06/15 * Stressors stable * AM fasting BSG in goal range after reduction in Lantus yesterday. Will continue * Metformin increasing today * Will loosen carb ratio further 2nd two BSG's below goal yesterday 06/14: * Blood sugars at goal, but trending on the lower end, will decrease Lantus starting tomorrow and loosen CR today to prevent hypoglycemia. 06/13/21 * Mr Gunn has been stable on current diabetic regimen for the past several days. * Metformin was initiated on 06/11, and appears to be tolerated thus far. * No changes required at this time. Background 06/03/21: * Reportedly non compliant on home regimen * Admitted for diabetic foot infection contributed to by his non compliance and poor living conditions PLAN FOR INPATIENT GLYCEMIC CONTROL: * Metformin 500 mg PO BIDM * Basal insulin * Lantus 10 units SQ QAM * Bolus insulin * NovoLog per scale ACHS or Q6hrs while NPO * Goal Range: Low 110 mg/dL - High 140 mg/dL * Correction Factor: 25 mg/dL/unit * Nutritional / Prandial insulin per carb ratio of 1 unit per 6 grams CHO consumed
[2021-06-16] MEDS: metFORMIN HCL 500 MG TAB PO SCH ×2 (08:35→17:22)
[2021-06-16] MEDS: INSULIN GLARGINE SOLOSTAR 100 UNITS/ML 3 ML PEN SC SCH (08:35)
[2021-06-16] MEDS: ATORVASTATIN 40 MG TAB PO SCH (08:35)
[2021-06-16] MEDS: INSULIN ASPART PER UNIT SC SCH ×4 (08:36→22:03)
--- NOTE | 2021-06-16 11:45 | Communication Note ---
Date of Service: June 16, 2021 POD 11 s/p toe amputation. Wound healing well. Scant drainage at the proximal and distal end of the incison. Incision well approximated. No erythema. Plan for follow up with Dr. Tello next week for wound check and possible sutrue removal.
--- NOTE | 2021-06-16 14:38 | Hospitalist Progress Note ---
Date of Service June 16, 2021 Assessment & Plan (1) Diabetic foot ulcer associated with type 2 diabetes mellitus, with fat layer exposed: Plan: Mr. Gunn is a 56-year-old male with a history of Schizoaffective Schizophrenia, Depression, Pseudoseizures, Hyperlipidemia (untreated), Uncontrolled Type 2 Diabetes Mellitus, and Poor Living Conditions who presented to [facility] ER with a large diabetic ulcer on his left 3rd toe with localized infection and exposed bone. The patient does not take any medications this time although he is supposed to be on Atorvastatin and Glipizide. Admitted empirically on IV Zosyn and IV Vancomycin. MRI revealed the presence of left third toe osteomyelitis Orthopedic consult appreciated patient is s/p I&D and amputation of the left third toe on 06/05 Culture data showing Proteus vulgaris with kerr-sensitivity along with an adolph erobic GPC Transitioned antibiotics from Zosyn/Vanco to ertapenem (which should provide adequate coverage for both the Proteus and provide anaerobic coverage) -- to complete on 06/20 Would recommend 2 weeks of IV antibiotics followed by transition to oral antibiotics for 2 to 4 weeks pending improvement. Could consider Levaquin with Flagyl with transition to PO Ultrasound-guided line in place for long-term IV antibiotic -CRP drawn today and elevated at 3.64 (was 0.74). No ESR down upfront. Although slightly increased, toe/foot showing no clinical concern for infection. Afebrile. Normal WBC. Would trend CRP every week to help tye when oral abx can be discontinued. (2) Osteomyelitis: Plan: S/p I&D and amputation of left third digit Needs 2 weeks of IV antibiotic therapy followed by oral antibiotics X 2-4 weeks as outlined above (3) Diabetes mellitus type 2, uncontrolled: Plan: Patient has not taken medications for his diabetes mellitus for some time now -- was previously on Glipizide and at one time was on Metformin. Medication non- compliance has been an issue. hemoglobin A1c. 11.6 Glycemic management per pharmacy BSG qAC and HS--per review, BS appear relatively well controlled, appears to be requiring ~10 units w/ meals and currently on 14 units of Lantus Since has been started on Metformin with uptitration to 500mg BID. Will plan to uptitrate further to 1000mg bid as he tolerates Given his known history of noncompliance, I would not utilize insulin in this man long-term. Could consider Lantus temporarily since likelihood of going to a facility is high given need for 2 weeks of IV antibiotics. Patient has been educated regarding the importance of compliance - will add lisinopril 2.5mg for renal protection - will need podiatry FU for nail care, diabetic eye exam, microalbumin, and follow up labs (4) Dyslipidemia: Plan: Fasting lipid panel 12/12/20 showed a total cholesterol of 323 mg/dL, HDL is 43 mg/dL, LDL 202 mg/dL, and triglycerides are 391 mg/dL. Total Cholesterol:HDL ration is 7.5. Resumed Atorvastatin at 80 mg daily. -will need follow up labs and potentially addition of tricor to target TG. Now on heart healthy diet. (5) Schizo affective schizophrenia: Plan: No recent hallucinations or delusions. No suicidal or homicidal ideation. Added Haldol as needed for anxiety/agitation/hallucinations, etc. Added Lorazepam as needed for anxiety/agitation. Seen by psych on 06/05, pt does not have capacity to make medical decisions Plan: Disposition: To be determined. Meeting on 06/10 held for [employer] to establish emergency guardianship for making decisions and discharge planning. He cannot return home to his current living conditions. CM to assist w/ d/c planning once [facility] obtains guardianship. Multiple phone calls made by CM regarding decisions of guardianship; however, Adult Prote [employer]ive Services not returning calls plan of care to be D/W Dr. Lopez Admission and Anticipated Discharge Date Admission Date: June 03, 2021 Subjective Patient seen on daily rounds today. Vocalizes no complaints or concerns. Denies fevers, chills, chest pain, shortness of breath, abdominal pain, nausea or vomiting. Nursing voices no complaints or concerns. Review of Systems Review of Systems: All systems reviewed and are unremarkable except as noted in HPI and below Denies fevers, chills, headache, nasal congestion, sore throat, cough, chest pain, shortness of breath, palpitations, orthopnea, PND, abdominal pain, nausea, vomiting, diarrhea, constipation, dysuria, hematuria, frequency, back pain, joint pain or swelling, easy bruising or bleeding, skin lesions or rashes. Physical Exam Physical Exam: General: Resting comfortably in his hospital bed. He does not appear ill or toxic. NAD. HEENT: Head is AT/NC. Buccal mucosa is moist and pink Neck: No JVD. Negative hepatojugular reflex Cardiac: RRR without M/G/R Lungs: CTA without W/R/R Abdomen: Normoactive X4. Soft and nontender in all quadrants. Extremities: Left foot examined. S/p third digit amputation. Sutures intact. Skin well approximated. No obvious drainage. No periwound erythema. Neuro: A&O X4. Cranial nerves II through XII are grossly intact. No focal neuro deficits Skin: No obvious skin lesions or rashes Psych: seems mentally simple. Appropriate affect. Pleasant and cooperative Results & Data Results & Data ([facility]) Vital Signs (Past 12 Hours) Vital Signs Temp Pulse Resp BP Pulse Ox 06/16/21 07:44 36.7 C 54 L 20 124/77 96 Laboratory Results 06/16/21 05:41 06/16/21 05:41 PG Care Time/CCT Total # of Minutes Spent Total Time Spent with Patient: Total time spent is greater than 50% in coordination of care (as documented) at patient's floor/unit and/or counseling patient: Coding Level of Care Code 99153 Subseq Hosp Care Lvl 2 Diagnoses Diabetic foot ulcer associated with type 2 diabetes mellitus, with fat layer exposed E11.621; L97.502 Osteomyelitis M86.9 Diabetes mellitus type 2, uncontrolled E11.65 Dyslipidemia E78.5 Schizo affective schizophrenia F25.0
[2021-06-16] MEDS: ERTAPENEM SODIUM 1,000 MG in SYRINGE 0 ML IV SCH (17:22)
[2021-06-17] MEDS: ACETAMINOPHEN 325 MG TAB PO PRN (07:44)
[2021-06-17] MEDS: metFORMIN HCL 500 MG TAB PO SCH ×2 (07:46→16:42)
[2021-06-17] MEDS: lisinopril 2.5 MG TAB PO SCH (08:16)
[2021-06-17] MEDS: ATORVASTATIN 40 MG TAB PO SCH (08:16)
[2021-06-17] MEDS: INSULIN GLARGINE SOLOSTAR 100 UNITS/ML 3 ML PEN SC SCH (09:13)
[2021-06-17] MEDS: INSULIN ASPART PER UNIT SC SCH ×4 (09:16→21:18)
--- NOTE | 2021-06-17 09:46 | Hospitalist Progress Note ---
Date of Service June 17, 2021 Assessment & Plan (1) Diabetic foot ulcer associated with type 2 diabetes mellitus, with fat layer exposed: Plan: Mr. Gunn is a 56-year-old male with a history of Schizoaffective Schizophrenia, Depression, Pseudoseizures, Hyperlipidemia (untreated), Uncontrolled Type 2 Diabetes Mellitus, and Poor Living Conditions who presented to [facility] ER with a large diabetic ulcer on his left 3rd toe with localized infection and exposed bone. The patient does not take any medications this time although he is supposed to be on Atorvastatin and Glipizide. Admitted empirically on IV Zosyn and IV Vancomycin. MRI revealed the presence of left third toe osteomyelitis with ? developing osteo of the 2nd toe Orthopedic consult appreciated patient is s/p I&D and amputation of the left third toe on 06/05 Culture data showing Proteus vulgaris with kerr-sensitivity along with an anaerobic GPC Transitioned antibiotics from Zosyn/Vanco to ertapenem (which should provide adequate coverage for both the Proteus and provide anaerobic coverage) -- to complete on 06/20 Would recommend 2 weeks of IV antibiotics (given concer for residual osteo of 2nd toe that remains) followed by transition to oral antibiotics for 2 to 4 weeks pending improvement. Could consider Levaquin with Flagyl with transition to PO Ultrasound-guided line in place for long-term IV antibiotic -CRP drawn today and elevated at 3.64 (was 0.74). No ESR down upfront. Although slightly increased, toe/foot showing no clinical concern for infection. Afebrile. Normal WBC. Would trend CRP every week to help tye when oral abx can be discontinued (2) Osteomyelitis: Plan: S/p I&D and amputation of left third digit but ? developing osteo in 2nd toe that remains Needs 2 weeks of IV antibiotic therapy followed by oral antibiotics X 2-4 weeks as outlined above (3) Diabetes mellitus type 2, uncontrolled: Plan: Patient has not taken medications for his diabetes mellitus for some time now -- was previously on Glipizide and at one time was on Metformin. Medication non- compliance has been an issue. hemoglobin A1c. 11.6 Glycemic management per pharmacy BSG qAC and HS--per review, BS appear relatively well controlled, appears to be requiring ~10 units w/ meals and currently on 14 units of Lantus Since has been started on Metformin with uptitration to 500mg BID. Will plan to uptitrate further to 1000mg bid as he tolerates Given his known history of noncompliance, I would not utilize insulin in this man long-term. Could consider Lantus temporarily since likelihood of going to a facility is high given need for 2 weeks of IV antibiotics. Patient has been educated regarding the importance of compliance - added lisinopril 2.5mg for renal protection - will need podiatry FU for nail care, diabetic eye exam, microalbumin, and follow up labs (4) Dyslipidemia: Plan: Fasting lipid panel 12/12/20 showed a total cholesterol of 323 mg/dL, HDL is 43 mg/dL, LDL 202 mg/dL, and triglycerides are 391 mg/dL. Total Cholesterol:HDL ration is 7.5. Resumed Atorvastatin at 80 mg daily. -will need follow up labs and potentially addition of tricor to target TG. Now on heart healthy diet. (5) Schizo affective schizophrenia: Plan: No recent hallucinations or delusions. No suicidal or homicidal ideation. Added Haldol as needed for anxiety/agitation/hallucinations, etc. Added Lorazepam as needed for anxiety/agitation. Seen by psych on 06/05, pt does not have capacity to make medical decisions Plan: Disposition: To be determined. Meeting on 06/10 held for [employer] to establish emergency guardianship for making decisions and discharge planning. He cannot return home to his current living conditions. CM to assist w/ d/c planning once [facility] obtains guardianship. Multiple phone calls made by CM regarding decisions of guardianship; however, Adult Protective Services not returning calls plan of care to be D/W Dr. Ferrell Admission and Anticipated Discharge Date Admission Date: June 03, 2021 Subjective Patient seen on daily rounds today. Vocalizes no complaints or concerns. Denies fevers, chills, chest pain, shortness of breath, abdominal pain, nausea or vomiting. Nursing voices no complaints or concerns. Review of Systems Review of Systems: All systems reviewed and are unremarkable except as noted in HPI and below Denies fevers, chills, headache, nasal congestion, sore throat, cough, chest pain, shortness of breath, palpitations, orthopnea, PND, abdominal pain, nausea, vomiting, diarrhea, constipation, dysuria, hematuria, frequency, back pain, joint pain or swelling, easy bruising or bleeding, skin lesions or rashes. Physical Exam Physical Exam: General: Resting comfortably in his hospital bed. He does not appear ill or toxic. NAD. HEENT: Head is AT/NC. Buccal mucosa is moist and pink Neck: No JVD. Negative hepatojugular reflex Cardiac: RRR without M/G/R Lungs: CTA without W/R/R Abdomen: Normoactive X4. Soft and nontender in all quadrants. Extremities: Left foot examined. S/p third digit amputation. Sutures intact. Skin well approximated. No obvious drainage. No periwound erythema. Neuro: A&O X4. Cranial nerves II through XII are grossly intact. No focal neuro deficits Skin: No obvious skin lesions or rashes Psych: seems mentally simple. Appropriate affect. Pleasant and cooperative Results & Data Results & Data ([facility]) Vital Signs (Past 12 Hours) Vital Signs Temp Pulse Resp BP Pulse Ox 06/17/21 07:38 36.9 C 66 18 132/81 97 Laboratory Results No lab data today PG Care Time/CCT Total # of Minutes Spent Total Time Spent with Patient: Total time spent is greater than 50% in coordination of care (as documented) at patient's floor/unit and/or counseling patient: Coding Level of Care Code 40797 Subseq Hosp Care Lvl 1 Diagnoses Diabetic foot ulcer associated with type 2 diabetes mellitus, with fat layer exposed E11.621; L97.502 Osteomyelitis M86.9 Diabetes mellitus type 2, uncontrolled E11.65 Dyslipidemia E78.5 Schizo affective schizophrenia F25.0
[2021-06-17] MEDS: ERTAPENEM SODIUM 1,000 MG in SYRINGE 0 ML IV SCH (17:40)
[2021-06-18] MEDS: lisinopril 2.5 MG TAB PO SCH (09:12)
[2021-06-18] MEDS: ATORVASTATIN 40 MG TAB PO SCH (09:13)
[2021-06-18] MEDS: metFORMIN HCL 500 MG TAB PO SCH ×2 (09:13→17:09)
[2021-06-18] MEDS: INSULIN GLARGINE SOLOSTAR 100 UNITS/ML 3 ML PEN SC SCH (09:15)
[2021-06-18] MEDS: INSULIN ASPART PER UNIT SC SCH ×4 (09:16→20:55)
--- NOTE | 2021-06-18 13:14 | Pharmacy Report ---
Pharmacy Glycemic Short Note 2 - Date of Service June 18, 2021 - Glycemic Short BSG Results (Last 24 hours): 06/17/21 06/17/21 06/18/21 17:03 21:13 08:16 POC Glucose 99 106 H 100 H 06/18/21 12:22 POC Glucose 99 OUTPATIENT ANTIDIABETIC REGIMEN: * Non compliance - reportedly had taken glipizide in the past * HbA1c: 5.8% (05/21/21) ASSESSMENT: 06/16: * Patient received total of 35 units of insulin yesterday of which 10 units were basal. Also receiving metformin bid * Fasting BSG 100 mg/dL - will plan to scale back on basal insulin this AM * Loosened CF/CR this AM, will remove CR at lunch today as BSGs have improved over the last couple of days with the addition of bid metformin 06/15 * Stressors stable * AM fasting BSG in goal range after reduction in Lantus yesterday. Will continue * Metformin increasing today * Will loosen carb ratio further 2nd two BSG's below goal yesterday 06/14: * Blood sugars at goal, but trending on the lower end, will decrease Lantus starting tomorrow and loosen CR today to prevent hypoglycemia. 06/13/21 * Mr Gunn has been stable on current diabetic regimen for the past several days. * Metformin was initiated on 06/11, and appears to be tolerated thus far. * No changes required at this time. Background 06/03/21: * Reportedly non compliant on home regimen * Admitted for diabetic foot infection contributed to by his non compliance and poor living conditions PLAN FOR INPATIENT GLYCEMIC CONTROL: * Metformin 500 mg PO BIDM * Basal insulin - decrease * Lantus 7 units SQ QAM * Bolus insulin - loosen * NovoLog per scale ACHS or Q6hrs while NPO * Goal Range: Low 110 mg/dL - High 140 mg/dL * Correction Factor: 30 mg/dL/unit * Nutritional / Prandial insulin per carb ratio of 1 unit per -- grams CHO consumed
--- NOTE | 2021-06-18 16:16 | Hospitalist Progress Note ---
Date of Service June 18, 2021 Assessment & Plan (1) Diabetic foot ulcer associated with type 2 diabetes mellitus, with fat layer exposed: Plan: Mr. Gunn is a 56-year-old male with a history of Schizoaffective Schizophrenia, Depression, Pseudoseizures, Hyperlipidemia (untreated), Uncontrolled Type 2 Diabetes Mellitus, and Poor Living Conditions who presented to [facility] ER with a large diabetic ulcer on his left 3rd toe with localized infection and exposed bone. The patient does not take any medications this time although he is supposed to be on Atorvastatin and Glipizide. Admitted empirically on IV Zosyn and IV Vancomycin. MRI revealed the presence of left third toe osteomyelitis with ? developing osteo of the 2nd toe Orthopedic consult appreciated patient is s/p I&D and amputation of the left third toe on 06/05 Culture data showing Proteus vulgaris with kerr-sensitivity along with an anaerobic GPC Transitioned antibiotics from Zosyn/Vanco to ertapenem (which should provide adequate coverage for both the Proteus and provide anaerobic coverage) -- to complete on 06/20 Would recommend 2 weeks of IV antibiotics (given concer for residual osteo of 2nd toe that remains) followed by transition to oral antibiotics for 2 to 4 weeks pending improvement. Could consider Levaquin with Flagyl with transition to PO Ultrasound-guided line in place for long-term IV antibiotic -CRP drawn today and elevated at 3.64 (was 0.74). No ESR down upfront. Although slightly increased, toe/foot showing no clinical concern for infection. Afebrile. Normal WBC. Would trend CRP every week to help tye when oral abx can be discontinued (2) Osteomyelitis: Plan: S/p I&D and amputation of left third digit but ? developing osteo in 2nd toe that remains Needs 2 weeks of IV antibiotic therapy followed by oral antibiotics X 2-4 weeks as outlined above (3) Diabetes mellitus type 2, uncontrolled: Plan: Patient has not taken medications for his diabetes mellitus for some time now -- was previously on Glipizide and at one time was on Metformin. Medication non- compliance has been an issue. hemoglobin A1c. 11.6 Glycemic management per pharmacy BSG qAC and HS--per review, BS appear relatively well controlled, appears to be requiring ~10 units w/ meals and currently on 14 units of Lantus Since has been started on Metformin with uptitration to 500mg BID. Will plan to uptitrate further to 1000mg bid as he tolerates Given his known history of noncompliance, I would not utilize insulin in this man long-term. Could consider Lantus temporarily since likelihood of going to a facility is high given need for 2 weeks of IV antibiotics. Patient has been educated regarding the importance of compliance - added lisinopril 2.5mg for renal protection. BP tolerating this (110/72) - will need podiatry FU for nail care, diabetic eye exam, microalbumin, and follow up labs (4) Dyslipidemia: Plan: Fasting lipid panel 12/12/20 showed a total cholesterol of 323 mg/dL, HDL is 43 mg/dL, LDL 202 mg/dL, and triglycerides are 391 mg/dL. Total Cholesterol:HDL ration is 7.5. Resumed Atorvastatin at 80 mg daily. -will need follow up labs and potentially addition of tricor to target TG. Now on heart healthy diet. (5) Schizo affective schizophrenia: Plan: No recent hallucinations or delusions. No suicidal or homicidal ideation. Added Haldol as needed for anxiety/agitation/hallucinations, etc. Added Lorazepam as needed for anxiety/agitation. Seen by psych on 06/05, pt does not have capacity to make medical decisions Plan: Disposition: To be determined. Meeting on 06/10 held for [facility] to establish emergency guardianship for making decisions and discharge planning. He cannot return home to his current living conditions. CM to assist w/ d/c planning once [facility] obtains guardianship. Multiple phone calls made by CM regarding decisions of guardianship; however, Adult Protective Services not returning calls plan of care to be D/W Dr. Ferrell Admission and Anticipated Discharge Date Admission Date: June 03, 2021 Subjective Patient seen on daily rounds today. Vocalizes no complaints or concerns. Comments on how beautiful the weather is but otherwise denies fevers, chills, chest pain, shortness of breath, abdominal pain, nausea or vomiting Review of Systems Review of Systems: All systems reviewed and are unremarkable except as noted in HPI and below Denies fevers, chills, headache, nasal congestion, sore throat, cough, chest pain, shortness of breath, palpitations, orthopnea, PND, abdominal pain, nausea, vomiting, diarrhea, constipation, dysuria, hematuria, frequency, back pain, joint pain or swelling, easy bruising or bleeding, skin lesions or rashes. Physical Exam Physical Exam: General: Resting comfortably in his hospital bed. He does not appear ill or toxic. NAD. HEENT: Head is AT/NC. Buccal mucosa is moist and pink Neck: No JVD. Negative hepatojugular reflex Cardiac: RRR without M/G/R Lungs: CTA without W/R/R Abdomen: Normoactive X4. Soft and nontender in all quadrants. Extremities: Left foot examined. S/p third digit amputation. Sutures intact. Skin well approximated. No obvious drainage. No periwound erythema. Neuro: A&O X4. Cranial nerves II through XII are grossly intact. No focal neuro deficits Skin: No obvious skin lesions or rashes Psych: seems mentally simple. Appropriate affect. Pleasant and cooperative Results & Data Results & Data ([facility]) Vital Signs (Past 12 Hours) Vital Signs Temp Pulse Resp BP Pulse Ox 06/18/21 16:00 36.8 C 66 16 110/72 98 06/18/21 07:46 37.2 C 63 16 94/58 L 97 Laboratory Results no labs PG Care Time/CCT Total # of Minutes Spent Total Time Spent with Patient: Total time spent is greater than 50% in coordination of care (as documented) at patient's floor/unit and/or counseling patient: Coding Level of Care Code 08606 Subseq Hosp Care Lvl 1 Diagnoses Diabetic foot ulcer associated with type 2 diabetes mellitus, with fat layer exposed E11.621; L97.502 Osteomyelitis M86.9 Diabetes mellitus type 2, uncontrolled E11.65 Dyslipidemia E78.5 Schizo affective schizophrenia F25.0
[2021-06-18] MEDS: ERTAPENEM SODIUM 1,000 MG in SYRINGE 0 ML IV SCH (17:03)
[2021-06-19 06:52] LABS: Creatinine Clr Calc Pharmacy 95.6 ml/min; Est GFR (African American) 110.3 ml/min; Est GFR (Non-African American) 95.1 ml/min
[2021-06-19] MEDS: metFORMIN HCL 500 MG TAB PO SCH ×2 (07:30→17:48)
[2021-06-19] MEDS: ATORVASTATIN 40 MG TAB PO SCH (07:30)
[2021-06-19] MEDS: lisinopril 2.5 MG TAB PO SCH (07:30)
[2021-06-19] MEDS: INSULIN ASPART PER UNIT SC SCH ×4 (08:58→21:09)
[2021-06-19] MEDS: INSULIN GLARGINE SOLOSTAR 100 UNITS/ML 3 ML PEN SC SCH (08:59)
[2021-06-19] MEDS: ACETAMINOPHEN 325 MG TAB PO PRN (08:59)
--- NOTE | 2021-06-19 14:34 | Hospitalist Progress Note ---
Date of Service June 19, 2021 Assessment & Plan (1) Diabetic foot ulcer associated with type 2 diabetes mellitus, with fat layer exposed: Plan: Mr. Gunn is a 56-year-old male with a history of Schizoaffective Schizophrenia, Depression, Pseudoseizures, Hyperlipidemia (untreated), Uncontrolled Type 2 Diabetes Mellitus, and Poor Living Conditions who presented to [facility] ER with a large diabetic ulcer on his left 3rd toe with localized infection and exposed bone. The patient does not take any medications this time although he is supposed to be on Atorvastatin and Glipizide. Admitted empirically on IV Zosyn and IV Vancomycin. MRI revealed the presence of left third toe osteomyelitis with ? developing osteo of the 2nd toe Orthopedic consult appreciated patient is s/p I&D and amputation of the left third toe on 06/05 Culture data showing Proteus vulgaris with kerr-sensitivity along with an anaerobic GPC Transitioned antibiotics from Zosyn/Vanco to ertapenem (which should provide adequate coverage for both the Proteus and provide anaerobic coverage) -- today is his 14th dose (to complete full course) has since completed 2 weeks of IV antibiotics (given concern for residual osteo of 2nd toe that remains). Transition to Levaquin with Flagyl with transition to PO starting tomorrow Ultrasound-guided line in place for long-term IV antibiotic -CRP drawn today and elevated at 3.64 (was 0.74). No ESR down upfront. Although slightly increased, toe/foot showing no clinical concern for infection. Afebrile. Normal WBC. Would trend CRP every week to help tye when oral abx can be discontinued (2) Osteomyelitis: Plan: S/p I&D and amputation of left third digit but ? developing osteo in 2nd toe that remains To receive last dose of IV Invanz today with conversion to oral Levaquin/Flagyl starting tomorrow (X 2 to 4 weeks based on follow-up clinical status) (3) Diabetes mellitus type 2, uncontrolled: Plan: Patient has not taken medications for his diabetes mellitus for some time now -- was previously on Glipizide and at one time was on Metformin. Medication non- compliance has been an issue. hemoglobin A1c. 11.6 Glycemic management per pharmacy BSG qAC and HS--per review, BS appear relatively well controlled, appears to be requiring ~10 units w/ meals and currently on 14 units of Lantus Since has been started on Metformin with uptitration to 500mg BID. Will plan to uptitrate further to 1000mg bid as he tolerates Given his known history of noncompliance, I would not utilize insulin in this man long-term. Could consider Lantus temporarily since likelihood of going to a facility is high given need for 2 weeks of IV antibiotics. Patient has been educated regarding the importance of compliance - added lisinopril 2.5mg for renal protection. BP tolerating this (110/72) - will need podiatry FU for nail care, diabetic eye exam, microalbumin, and follow up labs (4) Dyslipidemia: Plan: Fasting lipid panel 12/12/20 showed a total cholesterol of 323 mg/dL, HDL is 43 mg/dL, LDL 202 mg/dL, and triglycerides are 391 mg/dL. Total Cholesterol:HDL ration is 7.5. Resumed Atorvastatin at 80 mg daily. -will need follow up labs and potentially addition of tricor to target TG. Now on heart healthy diet. (5) Schizo affective schizophrenia: Plan: No recent hallucinations or delusions. No suicidal or homicidal ideation. Added Haldol as needed for anxiety/agitation/hallucinations, etc. Added Lorazepam as needed for anxiety/agitation. Seen by psych on 06/05, pt does not have capacity to make medical decisions Plan: Disposition: To be determined. Meeting on 06/10 held for [facility] to establish emergency guardianship for making decisions and discharge planning. He cannot return home to his current living conditions. CM to assist w/ d/c planning once [facility] obtains guardianship. Multiple phone calls made by CM regarding decisions of guardianship; however, Adult Protective Services not returning calls plan of care to be D/W Dr. Ferrell Admission and Anticipated Discharge Date Admission Date: June 03, 2021 Subjective Patient seen on daily rounds today. Vocalizes no significant complaints or concerns. Denies fevers, chills, chest pain, shortness breath, abdominal pain, nausea or vomiting. Nursing voices no complaints or concerns. Review of Systems Review of Systems: All systems reviewed and are unremarkable except as noted in HPI and below Denies fevers, chills, headache, nasal congestion, sore throat, cough, chest pain, shortness of breath, palpitations, orthopnea, PND, abdominal pain, nausea, vomiting, diarrhea, constipation, dysuria, hematuria, frequency, back pain, joint pain or swelling, easy bruising or bleeding, skin lesions or rashes. Physical Exam Physical Exam: General: Resting comfortably in his hospital bed. He does not appear ill or toxic. NAD. HEENT: Head is AT/NC. Buccal mucosa is moist and pink Neck: No JVD. Negative hepatojugular reflex Cardiac: RRR without M/G/R Lungs: CTA without W/R/R Abdomen: Normoactive X4. Soft and nontender in all quadrants. Extremities: Left foot examined. S/p third digit amputation. Sutures intact. Skin well approximated. No obvious drainage. No periwound erythema. Neuro: A&O X4. Cranial nerves II through XII are grossly intact. No focal neuro deficits Skin: No obvious skin lesions or rashes Psych: seems mentally simple. Appropriate affect. Pleasant and cooperative Results & Data Results & Data ([facility]) Vital Signs (Past 12 Hours) Vital Signs Temp Pulse Resp BP Pulse Ox 06/19/21 07:10 36.6 C 74 15 114/60 98 PG Care Time/CCT Total # of Minutes Spent Total Time Spent with Patient: Total time spent is greater than 50% in coordination of care (as documented) at patient's floor/unit and/or counseling patient: Coding Level of Care Code 38028 Subseq Hosp Care Lvl 2 Diagnoses Diabetic foot ulcer associated with type 2 diabetes mellitus, with fat layer exposed E11.621; L97.502 Osteomyelitis M86.9 Diabetes mellitus type 2, uncontrolled E11.65 Dyslipidemia E78.5 Schizo affective schizophrenia F25.0
[2021-06-19] MEDS ORDERED: ERTAPENEM SODIUM 1,000 MG in SYRINGE 0 ML IV SCH (18:00)
[2021-06-20] MEDS: metroNIDAZOLE 500 MG TAB PO SCH ×2 (08:06→17:15)
[2021-06-20] MEDS: INSULIN GLARGINE SOLOSTAR 100 UNITS/ML 3 ML PEN SC SCH (08:06)
[2021-06-20] MEDS: metFORMIN HCL 500 MG TAB PO SCH ×2 (08:06→17:15)
[2021-06-20] MEDS: ATORVASTATIN 40 MG TAB PO SCH (08:06)
[2021-06-20] MEDS: lisinopril 2.5 MG TAB PO SCH (08:06)
[2021-06-20] MEDS: INSULIN ASPART PER UNIT SC SCH ×4 (08:06→21:00)
--- NOTE | 2021-06-20 10:32 | Pharmacy Report ---
Pharmacy Glycemic Short Note 2 - Date of Service June 20, 2021 - Glycemic Short BSG Results (Last 24 hours): 06/19/21 06/19/21 06/19/21 12:23 17:27 20:57 POC Glucose 165 H 113 H 125 H 06/20/21 08:03 POC Glucose 221 H OUTPATIENT ANTIDIABETIC REGIMEN: * Non compliance - reportedly had taken glipizide in the past * HbA1c: 5.8% (05/21/21) ASSESSMENT: 06/20: * Patient received total of 9 units yesterday, of which 7 units were basal. Also receiving metformin BID * BSGs stable yesterday, no change to CF/CR * Fasting BSG trending up since dosage decrease on 06/18 - may increase for tomorrow AM 06/16: * Patient received total of 35 units of insulin yesterday of which 10 units were basal. Also receiving metformin bid * Fasting BSG 100 mg/dL - will plan to scale back on basal insulin this AM * Loosened CF/CR this AM, will remove CR at lunch today as BSGs have improved over the last couple of days with the addition of bid metformin 06/15 * Stressors stable * AM fasting BSG in goal range after reduction in Lantus yesterday. Will continue * Metformin increasing today * Will loosen carb ratio further 2nd two BSG's below goal yesterday 06/14: * Blood sugars at goal, but trending on the lower end, will decrease Lantus starting tomorrow and loosen CR today to prevent hypoglycemia. 06/13/21 * Mr Gunn has been stable on current diabetic regimen for the past several days. * Metformin was initiated on 06/11, and appears to be tolerated thus far. * No changes required at this time. Background 06/03/21: * Reportedly non compliant on home regimen * Admitted for diabetic foot infection contributed to by his non compliance and poor living conditions PLAN FOR INPATIENT GLYCEMIC CONTROL: * Metformin 500 mg PO BIDM * Basal insulin * Lantus 8 units SQ QAM * Bolus insulin - loosen * NovoLog per scale ACHS or Q6hrs while NPO * Goal Range: Low 110 mg/dL - High 140 mg/dL * Correction Factor: 30 mg/dL/unit * Nutritional / Prandial insulin per carb ratio of 1 unit per -- grams CHO consumed
[2021-06-20] MEDS: levoFLOXacin 750 MG TAB PO SCH (12:03)
--- NOTE | 2021-06-20 14:21 | Hospitalist Progress Note ---
Date of Service June 20, 2021 Assessment & Plan (1) Diabetic foot ulcer associated with type 2 diabetes mellitus, with fat layer exposed: Plan: Mr. Gunn is a 56-year-old male with a history of Schizoaffective Schizophrenia, Depression, Pseudoseizures, Hyperlipidemia (untreated), Uncontrolled Type 2 Diabetes Mellitus, and Poor Living Conditions who presented to [facility] ER with a large diabetic ulcer on his left 3rd toe with localized infection and exposed bone. The patient does not take any medications this time although he is supposed to be on Atorvastatin and Glipizide. Admitted empirically on IV Zosyn and IV Vancomycin. MRI revealed the presence of left third toe osteomyelitis with ? developing osteo of the 2nd toe Orthopedic consult appreciated patient is s/p I&D and amputation of the left third toe on 06/05 Culture data showing Proteus vulgaris with kerr-sensitivity along with an anaerobic GPC Transitioned antibiotics from Zosyn/Vanco to ertapenem (which should provide adequate coverage for both the Proteus and provide anaerobic coverage) -- today is his 14th dose (to complete full course) has since completed 2 weeks of IV antibiotics (given concern for residual osteo of 2nd toe that remains). Transitioned to Levaquin with Flagyl 06/20 Ultrasound-guided line in place for long-term IV antibiotic -CRP drawn today and elevated at 3.64 (was 0.74). No ESR down upfront. Although slightly increased, toe/foot showing no clinical concern for infection. Afebrile. Normal WBC. (2) Osteomyelitis: Plan: S/p I&D and amputation of left third digit but ? developing osteo in 2nd toe that remains Last dose of Invanz given 06/19 with conversion to oral Levaquin/Flagyl started today (X 2 to 4 weeks based on follow-up clinical status) (3) Diabetes mellitus type 2, uncontrolled: Plan: Patient has not taken medications for his diabetes mellitus for some time now -- was previously on Glipizide and at one time was on Metformin. Medication non- compliance has been an issue. hemoglobin A1c. 11.6 Glycemic management per pharmacy BSG qAC and HS--per review, BS appear relatively well controlled, appears to be requiring ~10 units w/ meals and currently on 14 units of Lantus Since has been started on Metformin with uptitration to 500mg BID. Will plan to uptitrate further to 1000mg bid as he tolerates Given his known history of noncompliance, I would not utilize insulin in this man long-term. Could consider Lantus temporarily since likelihood of going to a facility is high given need for 2 weeks of IV antibiotics. Patient has been educated regarding the importance of compliance Added lisinopril 2.5mg for renal protection. BP tolerating this (110/72) Will need podiatry FU for nail care, diabetic eye exam, microalbumin, and follow up labs (4) Dyslipidemia: Plan: Fasting lipid panel 12/12/20 showed a total cholesterol of 323 mg/dL, HDL is 43 mg/dL, LDL 202 mg/dL, and triglycerides are 391 mg/dL. Total Cholesterol:HDL ration is 7.5. Resumed Atorvastatin at 80 mg daily. Will need follow up labs and potentially addition of tricor to target TG. Now on heart healthy diet. (5) Schizo affective schizophrenia: Plan: No recent hallucinations or delusions. No suicidal or homicidal ideation. Added Haldol as needed for anxiety/agitation/hallucinations, etc. Added Lorazepam as needed for anxiety/agitation. Seen by psych on 06/05, pt does not have capacity to make medical decisions Plan: Disposition: To be determined. Meeting on 06/10 held for [facility] to establish emergency guardianship for making decisions and discharge planning. He cannot return home to his current living conditions. CM to assist w/ d/c planning once [facility] obtains guardianship. Multiple phone calls made by CM regarding decisions of guardianship; however, Adult Protective Services not returning calls Plan d/w Dr. Kraus. Admission and Anticipated Discharge Date Admission Date: June 03, 2021 Subjective Patient seen on daily rounds today. Vocalizes no significant complaints or concerns. Denies fevers, chills, chest pain, shortness breath, abdominal pain, nausea or vomiting. Nursing voices no complaints or concerns. Review of Systems Review of Systems: All systems reviewed and are unremarkable except as noted in HPI and below Denies fevers, chills, headache, nasal congestion, sore throat, cough, chest pain, shortness of breath, palpitations, orthopnea, PND, abdominal pain, nausea, vomiting, diarrhea, constipation, dysuria, hematuria, frequency, back pain, joint pain or swelling, easy bruising or bleeding, skin lesions or rashes. Physical Exam Physical Exam: GENERAL: 56 yo WD/WN WM. NAD. LUNGS: Clear to auscultation bilaterally. No W/R/R. CARDIOVASCULAR: Regular rate and rhythm. No M/G/R. No JVD. ABDOMEN: Soft, non-tender and non-distended. BS normal x 4 quad. EXTREMITIES: No edema. Non-tender. Peripheral pulses +2/4. L foot is dressed. NEUROLOGIC: A&O x3. PSYCHIATRIC: Cooperative. Appropriate mood and affect. SKIN: Warm, dry, intact. No rashes or lesions. Results & Data Results & Data ([facility]) Vital Signs (Past 12 Hours) Vital Signs Temp Pulse Resp BP Pulse Ox 06/20/21 07:30 37.2 C 78 18 115/74 95 Laboratory Results no labs PG Care Time/CCT Total # of Minutes Spent Total Time Spent with Patient: Total time spent is greater than 50% in coordination of care (as documented) at patient's floor/unit and/or counseling patient: Coding Level of Care Code 39078 Subseq Hosp Care Lvl 2 Diagnoses Diabetic foot ulcer associated with type 2 diabetes mellitus, with fat layer ex posed E11.621; L97.502 Osteomyelitis M86.9 Diabetes mellitus type 2, uncontrolled E11.65 Dyslipidemia E78.5 Schizo affective schizophrenia F25.0
[2021-06-21] MEDS: metroNIDAZOLE 500 MG TAB PO SCH ×3 (01:04→16:18)
[2021-06-21 06:51] LABS: Creatinine Clr Calc Pharmacy 92.4 ml/min; Est GFR (African American) 108.7 ml/min; Est GFR (Non-African American) 93.8 ml/min
[2021-06-21] MEDS: ACETAMINOPHEN 325 MG TAB PO PRN (07:30)
[2021-06-21] MEDS: lisinopril 2.5 MG TAB PO SCH (07:30)
[2021-06-21] MEDS: ATORVASTATIN 40 MG TAB PO SCH (07:30)
[2021-06-21] MEDS: metFORMIN HCL 500 MG TAB PO SCH ×2 (07:31→16:18)
[2021-06-21] MEDS: INSULIN ASPART PER UNIT SC SCH ×4 (08:17→21:20)
[2021-06-21] MEDS: levoFLOXacin 750 MG TAB PO SCH (10:17)
[2021-06-21] MEDS: INSULIN GLARGINE SOLOSTAR 100 UNITS/ML 3 ML PEN SC SCH (10:17)
--- NOTE | 2021-06-21 10:29 | Hospitalist Progress Note ---
Date of Service June 21, 2021 Assessment & Plan (1) Diabetic foot ulcer associated with type 2 diabetes mellitus, with fat layer exposed: Plan: Mr. Gunn is a 56-year-old male with a history of Schizoaffective Schizophrenia, Depression, Pseudoseizures, Hyperlipidemia (untreated), Uncontrolled Type 2 Diabetes Mellitus, and Poor Living Conditions who presented to [facility] ER with a large diabetic ulcer on his left 3rd toe with localized infection and exposed bone. The patient does not take any medications this time although he is supposed to be on Atorvastatin and Glipizide. Admitted empirically on IV Zosyn and IV Vancomycin. MRI revealed the presence of left third toe osteomyelitis with ? developing osteo of the 2nd toe Orthopedic consult appreciated patient is s/p I&D and amputation of the left third toe on 06/05 Culture data showing Proteus vulgaris with kerr-sensitivity along with an anaerobic GPC Transitioned antibiotics from Zosyn/Vanco to ertapenem (which should provide adequate coverage for both the Proteus and provide anaerobic coverage) -- today is his 14th dose (to complete full course) has since completed 2 weeks of IV antibiotics (given concern for residual osteo of 2nd toe that remains). Transitioned to Levaquin with Flagyl 06/20 Ultrasound-guided line in place for long-term IV antibiotic -CRP drawn today and elevated at 3.64 (was 0.74). No ESR done upfront. Although slightly increased, toe/foot showing no clinical concern for infection. Afebrile. Normal WBC. (2) Osteomyelitis: Plan: S/p I&D and amputation of left third digit but ? developing osteo in 2nd toe that remains Last dose of Invanz given 06/19 with conversion to oral Levaquin/Flagyl started 06/20 (X 2 to 4 weeks based on follow-up clinical status) (3) Diabetes mellitus type 2, uncontrolled: Plan: Patient has not taken medications for his diabetes mellitus for some time now -- was previously on Glipizide and at one time was on Metformin. Medication non- compliance has been an issue. hemoglobin A1c. 11.6 Glycemic management per pharmacy BSG qAC and HS--per review, BS appear relatively well controlled, appears to be requiring ~10 units w/ meals and currently on 14 units of Lantus Since has been started on Metformin with uptitration to 500mg BID. Will plan to uptitrate further to 1000mg bid as he tolerates Given his known history of noncompliance, I would not utilize insulin in this man long-term. Could consider Lantus temporarily since likelihood of going to a facility is high given need for 2 weeks of IV antibiotics. Patient has been educated regarding the importance of compliance Added lisinopril 2.5mg for renal protection. BP tolerating this (110/72) Will need podiatry FU for nail care, diabetic eye exam, microalbumin, and follow up labs (4) Dyslipidemia: Plan: Fasting lipid panel 12/12/20 showed a total cholesterol of 323 mg/dL, HDL is 43 mg/dL, LDL 202 mg/dL, and triglycerides are 391 mg/dL. Total Cholesterol:HDL ration is 7.5. Resumed Atorvastatin at 80 mg daily. Will need follow up labs and potentially addition of tricor to target TG. Now on heart healthy diet. (5) Schizo affective schizophrenia: Plan: No recent hallucinations or delusions. No suicidal or homicidal ideation. Added Haldol as needed for anxiety/agitation/hallucinations, etc. Added Lorazepam as needed for anxiety/agitation. Seen by psych on 06/05, pt does not have capacity to make medical decisions Plan: Disposition: To be determined. Meeting on 06/10 held for [facility] to establish emergency guardianship for making decisions and discharge planning. He cannot return home to his current living conditions. CM to assist w/ d/c planning once [facility] obtains guardianship. Multiple phone calls made by CM regarding decisions of guardianship; however, Adult Protective Services not returning calls Plan d/w Dr. Kraus. Admission and Anticipated Discharge Date Admission Date: June 03, 2021 Subjective Patient seen on daily rounds today. Vocalizes no significant complaints or concerns. Denies fevers, chills, chest pain, shortness breath, abdominal pain, nausea or vomiting. Nursing voices no complaints or concerns. Review of Systems Review of Systems: All systems reviewed and are unremarkable except as noted in HPI and below Denies fevers, chills, headache, nasal congestion, sore throat, cough, chest pain, shortness of breath, palpitations, orthopnea, PND, abdominal pain, nausea, vomiting, diarrhea, constipation, dysuria, hematuria, frequency, back pain, joint pain or swelling, easy bruising or bleeding, skin lesions or rashes. Physical Exam Physical Exam: GENERAL: 56 yo WD/WN WM. NAD. LUNGS: Clear to auscultation bilaterally. No W/R/R. CARDIOVASCULAR: Regular rate and rhythm. No M/G/R. No JVD. ABDOMEN: Soft, non-tender and non-distended. BS normal x 4 quad. EXTREMITIES: No edema. Non-tender. Peripheral pulses +2/4. L foot is dressed. NEUROLOGIC: A&O x3. PSYCHIATRIC: Cooperative. Appropriate mood and affect. SKIN: Warm, dry, intact. No rashes or lesions. Results & Data Results & Data ([facility]) Vital Signs (Past 12 Hours) Vital Signs Temp Pulse Resp BP Pulse Ox 06/21/21 07:53 37.2 C 75 16 111/70 96 06/20/21 22:56 36.6 C 67 16 138/74 96 PG Care Time/CCT Total # of Minutes Spent Total Time Spent with Patient: Total time spent is greater than 50% in coordination of care (as documented) at patient's floor/unit and/or counseling patient: Coding Level of Care Code 56247 Subseq Hosp Care Lvl 2 Diagnoses Diabetic foot ulcer associated with type 2 diabetes mellitus, with fat layer exposed E11.621; L97.502 Osteomyelitis M86.9 Diabetes mellitus type 2, uncontrolled E11.65 Dyslipidemia E78.5 Schizo affective schizophrenia F25.0
[2021-06-22] MEDS: metroNIDAZOLE 500 MG TAB PO SCH ×3 (00:51→17:38)
[2021-06-22] MEDS: ACETAMINOPHEN 325 MG TAB PO PRN ×2 (07:29→20:47)
[2021-06-22] MEDS: metFORMIN HCL 500 MG TAB PO SCH ×2 (07:30→17:38)
[2021-06-22] MEDS: ATORVASTATIN 40 MG TAB PO SCH (07:30)
[2021-06-22] MEDS: lisinopril 2.5 MG TAB PO SCH (07:30)
[2021-06-22] MEDS: INSULIN ASPART PER UNIT SC SCH ×4 (08:24→20:49)
[2021-06-22] MEDS: INSULIN GLARGINE SOLOSTAR 100 UNITS/ML 3 ML PEN SC SCH (08:50)
[2021-06-22] MEDS: levoFLOXacin 750 MG TAB PO SCH (11:10)
--- NOTE | 2021-06-22 12:02 | Hospitalist Progress Note ---
Date of Service June 22, 2021 Assessment & Plan (1) Diabetic foot ulcer associated with type 2 diabetes mellitus, with fat layer exposed: Plan: Mr. Gunn is a 56-year-old male with a history of Schizoaffective Schizophrenia, Depression, Pseudoseizures, Hyperlipidemia (untreated), Uncontrolled Type 2 Diabetes Mellitus, and Poor Living Conditions who presented to [facility] ER with a large diabetic ulcer on his left 3rd toe with localized infection and exposed bone. The patient does not take any medications this time although he is supposed to be on Atorvastatin and Glipizide. Admitted empirically on IV Zosyn and IV Vancomycin. MRI revealed the presence of left third toe osteomyelitis with ? developing osteo of the 2nd toe Orthopedic consult appreciated patient is s/p I&D and amputation of the left third toe on 06/05 Culture data showing Proteus vulgaris with kerr-sensitivity along with an anaerobic GPC Transitioned antibiotics from Zosyn/Vanco to ertapenem (which should provide adequate coverage for both the Proteus and provide anaerobic coverage)--completed 14 day course has since completed 2 weeks of IV antibiotics (given concern for residual osteo of 2nd toe that remains). Transitioned to Levaquin with Flagyl 06/20 for additional 2-4 weeks depending clinical response Ultrasound-guided line in place for long-term IV antibiotic and now at this time remains in place for IV access (2) Osteomyelitis: Plan: S/p I&D and amputation of left third digit but ? developing osteo in 2nd toe that remains Last dose of Invanz given 06/19 with conversion to oral Levaquin/Flagyl started 06/20 (X 2 to 4 weeks based on follow-up clinical status) (3) Diabetes mellitus type 2, uncontrolled: Plan: Patient has not taken medications for his diabetes mellitus for some time now -- was previously on Glipizide and at one time was on Metformin. Medication non- compliance has been an issue. hemoglobin A1c. 11.6 Glycemic management per pharmacy BSG qAC and HS--per review, BS appear relatively well controlled, appears to be requiring ~10 units w/ meals and currently on 14 units of Lantus Since has been started on Metformin with uptitration to 500mg BID. Will plan to uptitrate further to 1000mg bid as he tolerates Given his known history of noncompliance, I would not utilize insulin in this man long-term. Could consider Lantus temporarily since likelihood of going to a facility is high given need for 2 weeks of IV antibiotics. Patient has been educated regarding the importance of compliance Added lisinopril 2.5mg for renal protection. BP tolerating this (110/72) Will need podiatry F/U for nail care, diabetic eye exam, microalbumin, and follow up labs (4) Dyslipidemia: Plan: Fasting lipid panel 12/12/20 showed a total cholesterol of 323 mg/dL, HDL is 43 mg/dL, LDL 202 mg/dL, and triglycerides are 391 mg/dL. Total Cholesterol:HDL ration is 7.5. Resumed Atorvastatin at 80 mg daily. Will need follow up labs and potentially addition of tricor to target TG. Now on heart healthy/DM diet. (5) Schizo affective schizophrenia: Plan: No recent hallucinations or delusions. No suicidal or homicidal ideation. Added Haldol as needed for anxiety/agitation/hallucinations, etc. Added Lorazepam as needed for anxiety/agitation. Seen by psych on 06/05, pt does not have capacity to make medical decisions Plan: Disposition: To be determined. Meeting on 06/10 held for [employer] to establish emergency guardianship for making decisions and discharge planning. He cannot return home to his current living conditions. CM to assist w/ d/c planning once [facility] obtains guardianship. Multiple phone calls made by CM regarding decisions of guardianship; however, Adult Protective Services not returning calls Plan d/w Dr. Kraus. Admission and Anticipated Discharge Date Admission Date: June 03, 2021 Subjective Patient seen on daily rounds today. Vocalizes no significant complaints or concerns. Denies fevers, chills, chest pain, shortness breath, abdominal pain, nausea or vomiting. Review of Systems Review of Systems: All systems reviewed and are unremarkable except as noted in HPI and below Denies fevers, chills, headache, nasal congestion, sore throat, cough, chest pain, shortness of breath, palpitations, orthopnea, PND, abdominal pain, nausea, vomiting, diarrhea, constipation, dysuria, hematuria, frequency, back pain, joint pain or swelling, easy bruising or bleeding, skin lesions or rashes. Physical Exam Physical Exam: GENERAL: 56 yo WD/WN WM. NAD. LUNGS: Clear to auscultation bilaterally. No W/R/R. CARDIOVASCULAR: Regular rate and rhythm. No M/G/R. No JVD. ABDOMEN: Soft, non-tender and non-distended. BS normal x 4 quad. EXTREMITIES: No edema. Non-tender. Peripheral pulses +2/4. L foot is dressed. NEUROLOGIC: A&O x3. PSYCHIATRIC: Cooperative. Appropriate mood and affect. SKIN: Warm, dry, intact. L hallux with pea size black escar, mild swelling of toes noted. Surgical site just redressed this AM. Results & Data Results & Data ([facility]) Vital Signs (Past 12 Hours) Vital Signs Temp Pulse Resp BP Pulse Ox 06/22/21 07:39 36.9 C 63 16 112/73 98 PG Care Time/CCT Total # of Minutes Spent Total Time Spent with Patient: Total time spent is greater than 50% in coordination of care (as documented) at patient's floor/unit and/or counseling patient: Coding Level of Care Code 39146 Subseq Hosp Care Lvl 1 History Problem Focused Exam Problem Focused Medical Decision Making Low Complexity Diagnoses Diabetic foot ulcer associated with type 2 diabetes mellitus, with fat layer exposed E11.621; L97.502 Osteomyelitis M86.9 Diabetes mellitus type 2, uncontrolled E11.65 Dyslipidemia E78.5 Schizo affective schizophrenia F25.0
--- NOTE | 2021-06-22 14:45 | Pharmacy Report ---
Pharmacy Glycemic Short Note 2 - Date of Service June 22, 2021 - Glycemic Short BSG Results (Last 24 hours): 06/21/21 06/21/21 06/22/21 16:49 20:59 08:13 POC Glucose 117 H 167 H 117 H 06/22/21 11:47 POC Glucose 179 H OUTPATIENT ANTIDIABETIC REGIMEN: * Non compliance - reportedly had taken glipizide in the past * HbA1c: 5.8% (05/21/21) ASSESSMENT: 06/22: * Patient received total 10 units of insulin yesterday; 8 units basal + 2 units bolus. * BSGs yesterday were 126-147-838-167 mg/dl. * Fasting BSG today was 117 mg/dl. Continued basal insulin and Novolog parameters the same as yesterday. 06/20: * Patient received total of 9 units yesterday, of which 7 units were basal. Also receiving metformin BID * BSGs stable yesterday, no change to CF/CR * Fasting BSG trending up since dosage decrease on 06/18 - may increase for tomorrow AM 06/16: * Patient received total of 35 units of insulin yesterday of which 10 units were basal. Also receiving metformin bid * Fasting BSG 100 mg/dL - will plan to scale back on basal insulin this AM * Loosened CF/CR this AM, will remove CR at lunch today as BSGs have improved over the last couple of days with the addition of bid metformin 06/15 * Stressors stable * AM fasting BSG in goal range after reduction in Lantus yesterday. Will continue * Metformin increasing today * Will loosen carb ratio further 2nd two BSG's below goal yesterday 06/14: * Blood sugars at goal, but trending on the lower end, will decrease Lantus starting tomorrow and loosen CR today to prevent hypoglycemia. 06/13/21 * Mr Gunn has been stable on current diabetic regimen for the past several days. * Metformin was initiated on 06/11, and appears to be tolerated thus far. * No changes required at this time. Background 06/03/21: * Reportedly non compliant on home regimen * Admitted for diabetic foot infection contributed to by his non compliance and poor living conditions PLAN FOR INPATIENT GLYCEMIC CONTROL: * Metformin 500 mg PO BIDM * Basal insulin * Lantus 8 units SQ QAM * Bolus insulin - loosen * NovoLog per scale ACHS or Q6hrs while NPO * Goal Range: Low 110 mg/dL - High 140 mg/dL * Correction Factor: 30 mg/dL/unit * Nutritional / Prandial insulin per carb ratio of 1 unit per -- grams CHO consumed
[2021-06-23] MEDS: metroNIDAZOLE 500 MG TAB PO SCH ×3 (00:26→17:51)
[2021-06-23] MEDS: ATORVASTATIN 40 MG TAB PO SCH (08:18)
[2021-06-23] MEDS: lisinopril 2.5 MG TAB PO SCH (08:18)
[2021-06-23] MEDS: metFORMIN HCL 500 MG TAB PO SCH ×2 (08:18→17:51)
[2021-06-23] MEDS: INSULIN GLARGINE SOLOSTAR 100 UNITS/ML 3 ML PEN SC SCH (09:14)
[2021-06-23] MEDS: INSULIN ASPART PER UNIT SC SCH ×4 (09:15→21:09)
[2021-06-23] MEDS: levoFLOXacin 750 MG TAB PO SCH (11:30)
--- NOTE | 2021-06-23 12:50 | Hospitalist Progress Note ---
Date of Service June 23, 2021 Assessment & Plan (1) Diabetic foot ulcer associated with type 2 diabetes mellitus, with fat layer exposed: Plan: Mr. Gunn is a 56-year-old male with a history of Schizoaffective Schizophrenia, Depression, Pseudoseizures, Hyperlipidemia (untreated), Uncontrolled Type 2 Diabetes Mellitus, and Poor Living Conditions who presented to [facility] ER with a large diabetic ulcer on his left 3rd toe with localized infection and exposed bone. The patient does not take any medications this time although he is supposed to be on Atorvastatin and Glipizide. Admitted empirically on IV Zosyn and IV Vancomycin. MRI revealed the presence of left third toe osteomyelitis with ? developing osteo of the 2nd toe Orthopedic consult appreciated patient is s/p I&D and amputation of the left third toe on 06/05 Culture data showing Proteus vulgaris with kerr-sensitivity along with an anaerobic GPC Transitioned antibiotics from Zosyn/Vanco to ertapenem (which should provide adequate coverage for both the Proteus and provide anaerobic coverage)--completed 14 day course has since completed 2 weeks of IV antibiotics (given concern for residual osteo of 2nd toe that remains). Transitioned to Levaquin with Flagyl 06/20 for additional 2-4 weeks depending clinical response Ultrasound-guided line in place for long-term IV antibiotic (which has been completed) and now at this time remains in place for IV access (2) Osteomyelitis: Plan: S/p I&D and amputation of left third digit but ? developing osteo in 2nd toe that remains Last dose of Invanz given 06/19 with conversion to oral Levaquin/Flagyl started 06/20 (X 2 to 4 weeks based on follow-up clinical status) (3) Diabetes mellitus type 2, uncontrolled: Plan: Patient has not taken medications for his diabetes mellitus for some time now -- was previously on Glipizide and at one time was on Metformin. Medication non- compliance has been an issue. hemoglobin A1c. 11.6 Glycemic management per pharmacy BSG qAC and HS--per review, BS appear relatively well controlled, appears to be requiring ~10 units w/ meals and currently on 14 units of Lantus Since has been started on Metformin with uptitration to 500mg BID. Will plan to uptitrate further to 1000mg bid as he tolerates Given his known history of noncompliance, I would not utilize insulin in this man long-term. Could consider Lantus temporarily since likelihood of going to a facility is high given need for 2 weeks of IV antibiotics. Patient has been educated regarding the importance of compliance Added lisinopril 2.5mg for renal protection. BP tolerating this (110/72) Will need podiatry F/U for nail care, diabetic eye exam, microalbumin, and follow up labs (4) Dyslipidemia: Plan: Fasting lipid panel 12/12/20 showed a total cholesterol of 323 mg/dL, HDL is 43 mg/dL, LDL 202 mg/dL, and triglycerides are 391 mg/dL. Total Cholesterol:HDL ration is 7.5. Resumed Atorvastatin at 80 mg daily. Will need follow up labs and potentially addition of tricor to target TG. Now on heart healthy/DM diet. (5) Schizo affective schizophrenia: Plan: No recent hallucinations or delusions. No suicidal or homicidal ideation. Added Haldol as needed for anxiety/agitation/hallucinations, etc. Added Lorazepam as needed for anxiety/agitation. Seen by psych on 06/05, pt does not have capacity to make medical decisions Plan: Disposition: To be determined. Meeting on 06/10 held for [employer] to establish emergency guardianship for making decisions and discharge planning. He cannot return home to his current living conditions. CM to assist w/ d/c planning once [facility] obtains guardianship. Multiple phone calls made by CM regarding decisions of guardianship; however, Adult Protective Services not returning calls Plan d/w Dr. Kraus. Admission and Anticipated Discharge Date Admission Date: June 03, 2021 Subjective Patient seen on daily rounds today. Vocalizes no significant complaints or concerns. Denies fevers, chills, chest pain, shortness breath, abdominal pain, nausea or vomiting. Review of Systems Review of Systems: All systems reviewed and are unremarkable except as noted in HPI and below Denies fevers, chills, headache, nasal congestion, sore throat, cough, chest pain, shortness of breath, palpitations, orthopnea, PND, abdominal pain, nausea, vomiting, diarrhea, constipation, dysuria, hematuria, frequency, back pain, valdez int pain or swelling, easy bruising or bleeding, skin lesions or rashes. Physical Exam Physical Exam: GENERAL: 56 yo WD/WN WM. NAD. LUNGS: Clear to auscultation bilaterally. No W/R/R. CARDIOVASCULAR: Regular rate and rhythm. No M/G/R. No JVD. ABDOMEN: Soft, non-tender and non-distended. BS normal x 4 quad. EXTREMITIES: No edema. Non-tender. Peripheral pulses +2/4. L foot is dressed. NEUROLOGIC: A&O x3. PSYCHIATRIC: Cooperative. Appropriate mood and affect. SKIN: Warm, dry, intact. L hallux with pea size black escar, mild swelling of toes noted. Surgical site just redressed this AM. Results & Data Results & Data ([facility]) Vital Signs (Past 12 Hours) Vital Signs Temp Pulse Resp BP Pulse Ox 06/23/21 07:18 36.9 C 61 16 112/71 97 06/23/21 06:43 37.0 C 72 18 128/82 97 PG Care Time/CCT Total # of Minutes Spent Total Time Spent with Patient: Total time spent is greater than 50% in coordination of care (as documented) at patient's floor/unit and/or counseling patient: Coding Level of Care Code 87583 Subseq Hosp Care Lvl 1 Diagnoses Diabetic foot ulcer associated with type 2 diabetes mellitus, with fat layer exposed E11.621; L97.502 Osteomyelitis M86.9 Diabetes mellitus type 2, uncontrolled E11.65 Dyslipidemia E78.5 Schizo affective schizophrenia F25.0
[2021-06-24] MEDS: metroNIDAZOLE 500 MG TAB PO SCH ×3 (01:26→16:46)
[2021-06-24 07:08] LABS: Creatinine Clr Calc Pharmacy 91.4 ml/min; Est GFR (African American) 107.3 ml/min; Est GFR (Non-African American) 92.6 ml/min
[2021-06-24] MEDS: ACETAMINOPHEN 325 MG TAB PO PRN (07:53)
[2021-06-24] MEDS: metFORMIN HCL 500 MG TAB PO SCH (09:09)
[2021-06-24] MEDS: ATORVASTATIN 40 MG TAB PO SCH (09:09)
[2021-06-24] MEDS: lisinopril 2.5 MG TAB PO SCH (09:09)
[2021-06-24] MEDS: INSULIN GLARGINE SOLOSTAR 100 UNITS/ML 3 ML PEN SC SCH (09:10)
[2021-06-24] MEDS: INSULIN ASPART PER UNIT SC SCH ×4 (09:11→21:42)
--- NOTE | 2021-06-24 10:43 | Hospitalist Progress Note ---
Date of Service June 24, 2021 Assessment & Plan (1) Diabetic foot ulcer associated with type 2 diabetes mellitus, with fat layer exposed: Plan: Mr. Gunn is a 56-year-old male with a history of Schizoaffective Schizophrenia, Depression, Pseudoseizures, Hyperlipidemia (untreated), Uncontrolled Type 2 Diabetes Mellitus, and Poor Living Conditions who presented to [facility] with a large diabetic ulcer on his left 3rd toe with localized infection and exposed bone. The patient does not take any medications this time although he is supposed to be on Atorvastatin and Glipizide. Admitted empirically on IV Zosyn and IV Vancomycin. MRI revealed the presence of left third toe osteomyelitis with ? developing osteo of the 2nd toe Orthopedic consult appreciated patient is s/p I&D and amputation of the left third toe on 06/05 Culture data showing Proteus vulgaris with kerr-sensitivity along with an anaerobic GPC Transitioned antibiotics from Zosyn/Vanco to ertapenem (which should provide adequate coverage for both the Proteus and provide anaerobic coverage)--completed 14 day course has since completed 2 weeks of IV antibiotics (given concern for residual osteo of 2nd toe that remains). Transitioned to Levaquin with Flagyl 06/20 for additional 2-4 weeks depending clinical response Ultrasound-guided line in place for long-term IV antibiotic (which has been completed) and now at this time remains in place for IV access CRP elevated at 3.64 on 06/19, could consider trending weekly to gauge duration of treatment. Next one could be trended on /Wednesday of this week. (2) Osteomyelitis: Plan: S/p I&D and amputation of left third digit but ? developing osteo in 2nd toe that remains Last dose of Invanz given 06/19 with conversion to oral Levaquin/Flagyl started 06/20 (X 2 to 4 weeks based on follow-up clinical status) (3) Diabetes mellitus type 2, uncontrolled: Plan: Patient has not taken medications for his diabetes mellitus for some time now -- was previously on Glipizide and at one time was on Metformin. Medication non-compliance has been an issue. hemoglobin A1c. 11.6 Glycemic management per pharmacy BSG qAC and HS--per review, BS appear relatively well controlled, appears to be requiring ~10 units w/ meals and currently on 14 units of Lantus Since has been started on Metformin with uptitration to 500mg BID. Will plan to uptitrate further to 1000mg bid as he tolerates Given his known history of noncompliance, I would not utilize insulin long- term. Could consider Lantus temporarily since likelihood of going to a facility is high given need for 2 weeks of IV antibiotics. Patient has been educated regarding the importance of compliance Added lisinopril 2.5mg for renal protection. BP tolerating this Will need podiatry F/U for nail care, diabetic eye exam, microalbumin, and follow up labs (4) Dyslipidemia: Plan: Fasting lipid panel 12/12/20 showed a total cholesterol of 323 mg/dL, HDL is 43 mg/dL, LDL 202 mg/dL, and triglycerides are 391 mg/dL. Total Cholesterol:HDL ration is 7.5. Resumed Atorvastatin at 80 mg daily. Will need follow up labs and potentially addition of tricor to target TG. Now on heart healthy/DM diet. (5) Schizo affective schizophrenia: Plan: No recent hallucinations or delusions. No suicidal or homicidal ideation. Added Haldol as needed for anxiety/agitation/hallucinations, etc. Added Lorazepam as needed for anxiety/agitation. Seen by psych on 06/05, pt does not have capacity to make medical decisions Plan: Disposition: To be determined. Meeting on 06/10 held for [facility] to establish emergency guardianship for making decisions and discharge planning. He cannot return home to his current living conditions. CM to assist w/ d/c planning once [facility] obtains guardianship. Multiple phone calls made by CM regarding decisions of guardianship; however, Adult Protective Services not returning calls. As of 06/24, still no update per CM. Plan d/w Dr. Kraus. Admission and Anticipated Discharge Date Admission Date: June 03, 2021 Subjective Patient seen on daily rounds today. Vocalizes no significant complaints or concerns. Denies fevers, chills, chest pain, shortness breath, abdominal pain, nausea or vomiting. Review of Systems Review of Systems: All systems reviewed and are unremarkable except as noted in HPI and below Denies fevers, chills, headache, nasal congestion, sore throat, cough, chest pain, shortness of breath, palpitations, orthopnea, PND, abdominal pain, nausea, vomiting, diarrhea, constipation, dysuria, hematuria, frequency, back pain, joint pain or swelling, easy bruising or bleeding, skin lesions or rashes. Physical Exam Physical Exam: GENERAL: 56 yo WD/WN WM. NAD. LUNGS: Clear to auscultation bilaterally. No W/R/R. CARDIOVASCULAR: Regular rate and rhythm. No M/G/R. No JVD. ABDOMEN: Soft, non-tender and non-distended. BS normal x 4 quad. EXTREMITIES: No edema. Non-tender. Peripheral pulses +2/4. L foot is dressed. NEUROLOGIC: A&O x3. PSYCHIATRIC: Cooperative. Appropriate mood and affect. SKIN: Warm, dry, intact. L hallux with pea size black escar, mild swelling of t oes noted. Surgical site just redressed this AM. Results & Data Results & Data ([facility]) Vital Signs (Past 12 Hours) Vital Signs Temp Pulse Resp BP Pulse Ox 06/24/21 07:27 36.7 C 62 16 106/70 97 PG Care Time/CCT Total # of Minutes Spent Total Time Spent with Patient: Total time spent is greater than 50% in coordination of care (as documented) at patient's floor/unit and/or counseling patient: Coding Level of Care Code 28486 Subseq Hosp Care Lvl 1 Diagnoses Diabetic foot ulcer associated with type 2 diabetes mellitus, with fat layer exposed E11.621; L97.502 Osteomyelitis M86.9 Diabetes mellitus type 2, uncontrolled E11.65 Dyslipidemia E78.5 Schizo affective schizophrenia F25.0
[2021-06-24] MEDS: levoFLOXacin 750 MG TAB PO SCH (12:22)
--- NOTE | 2021-06-24 15:39 | Pharmacy Report ---
Glycemic Ortho Sign Off Note - Date of Service June 24, 2021 - Scope Glycemic Pharmacist consulted for glycemic control and to write orders per [facility] inpatient glycemic control protocol. - Objective Accuchecks BSG (last 24hrs):: 06/23/21 06/23/21 06/24/21 16:58 20:44 08:15 POC Glucose 122 H 127 H 133 H 06/24/21 11:57 POC Glucose 163 H HbA1c:: Hemoglobin A1c 11.6 % (4.5-5.6) H 06/04/21 05:57 - Assessment * Current regimen of low stress weight based insulin dosing appropriate since patient has minimal risk factors for insulin resistance (i.e. no steroids). * Low dose basal insulin has been resulting in well controlled fasting BSG. * Addition of home dose of oral Metformin with meals resulting in well controlled post-prandial BSGs. - Plan For Inpatient Glycemic Control * Basal insulin * Lantus 8 units SQ QAM * Bolus insulin * Novolog ACHS or Q6h if NPO * Correction factor: 30 mg/dl/unit * Carb ratio: none * Pharmacy has entered glycemic orders and is signing off of the glycemic consult. We will no longer be making adjustments to inpatient regimen. Please feel free to re-consult if needed. Thank you.
[2021-06-25] MEDS: metroNIDAZOLE 500 MG TAB PO SCH ×3 (00:29→17:22)
[2021-06-25] MEDS: metFORMIN HCL 500 MG TAB PO SCH ×2 (08:20→17:22)
[2021-06-25] MEDS: lisinopril 2.5 MG TAB PO SCH (08:21)
[2021-06-25] MEDS: ATORVASTATIN 40 MG TAB PO SCH (08:21)
[2021-06-25] MEDS: INSULIN GLARGINE SOLOSTAR 100 UNITS/ML 3 ML PEN SC SCH (08:22)
[2021-06-25] MEDS: INSULIN ASPART PER UNIT SC SCH ×4 (08:31→21:24)
[2021-06-25] MEDS: levoFLOXacin 750 MG TAB PO SCH (11:22)
--- NOTE | 2021-06-25 11:46 | Hospitalist Progress Note ---
Date of Service June 25, 2021 Assessment & Plan (1) Diabetic foot ulcer associated with type 2 diabetes mellitus, with fat layer exposed: Plan: Mr. Gunn is a 56-year-old male with a history of Schizoaffective Schizophrenia, Depression, Pseudoseizures, Hyperlipidemia (untreated), Uncontrolled Type 2 Diabetes Mellitus, and Poor Living Conditions who presented to [facility] with a large diabetic ulcer on his left 3rd toe with localized infection and exposed bone. The patient does not take any medications this time although he is supposed to be on Atorvastatin and Glipizide. Admitted empirically on IV Zosyn and IV Vancomycin. MRI revealed the presence of left third toe osteomyelitis with ? developing osteo of the 2nd toe Orthopedic consult appreciated patient is s/p I&D and amputation of the left third toe on 06/05 Culture data showing Proteus vulgaris with kerr-sensitivity along with an anaerobic GPC Transitioned antibiotics from Zosyn/Vanco to ertapenem (which should provide adequate coverage for both the Proteus and provide anaerobic coverage)--completed 14 day course has since completed 2 weeks of IV antibiotics (given concern for residual osteo of 2nd toe that remains). Transitioned to Levaquin with Flagyl 06/20 for additional 2-4 weeks depending clinical response Ultrasound-guided line in place for long-term IV antibiotic (which has been completed) and now at this time remains in place for IV access CRP elevated at 3.64 on 06/19, could consider trending weekly to gauge duration of treatment. Next one ordered for tomorrow AM. Sutures still in place, will reach out to ortho re: removal (2) Osteomyelitis: Plan: S/p I&D and amputation of left third digit but ? developing osteo in 2nd toe that remains Last dose of Invanz given 06/19 with conversion to oral Levaquin/Flagyl started 06/20 (X 2 to 4 weeks based on follow-up clinical status) (3) Diabetes mellitus type 2, uncontrolled: Plan: Patient has not taken medications for his diabetes mellitus for some time now -- was previously on Glipizide and at one time was on Metformin. Medication non- compliance has been an issue. hemoglobin A1c. 11.6 Glycemic management per pharmacy BSG qAC and HS--per review, BS appear relatively well controlled, appears to be requiring ~10 units w/ meals and currently on 14 units of Lantus Since has been started on Metformin with uptitration to 500mg BID. Will plan to uptitrate further to 1000mg bid as he tolerates Given his known history of noncompliance, I would not utilize insulin long- term. Could consider Lantus temporarily since likelihood of going to a facility is high given need for 2 weeks of IV antibiotics. Patient has been educated regarding the importance of compliance Added lisinopril 2.5mg for renal protection. BP tolerating this Will need podiatry F/U for nail care, diabetic eye exam, microalbumin, and follow up labs--will see if podiatry will come in and do nail care while still here (4) Dyslipidemia: Plan: Fasting lipid panel 12/12/20 showed a total cholesterol of 323 mg/dL, HDL is 43 mg/dL, LDL 202 mg/dL, and triglycerides are 391 mg/dL. Total Cholesterol:HDL ration is 7.5. Resumed Atorvastatin at 80 mg daily. Will need follow up labs and potentially addition of tricor to target TG. Now on heart healthy/DM diet. (5) Schizo affective schizophrenia: Plan: No recent hallucinations or delusions. No suicidal or homicidal ideation. Added Haldol as needed for anxiety/agitation/hallucinations, etc. Added Lorazepam as needed for anxiety/agitation. Seen by psych on 06/05, pt does not have capacity to make medical decisions Plan: Disposition: To be determined. Meeting on 06/10 held for [facility] to establish emergency guardianship for making decisions and discharge planning. He cannot return home to his current living conditions. CM to assist w/ d/c planning once [facility] obtains guardianship. Multiple phone calls made by CM regarding decisions of guardianship; however, Adult Protective Services not returning calls. As of 06/24, still no update per CM. Admission and Anticipated Discharge Date Admission Date: June 03, 2021 Subjective Patient seen on daily rounds today. Vocalizes no significant complaints or concerns. Denies fevers, chills, chest pain, shortness breath, abdominal pain, nausea or vomiting. Review of Systems Review of Systems: All systems reviewed and are unremarkable except as noted in HPI and below Denies fevers, chills, headache, nasal congestion, sore throat, cough, chest pain, shortness of breath, palpitations, orthopnea, PND, abdominal pain, nausea, vomiting, diarrhea, constipation, dysuria, hematuria, frequency, back pain, joint pain or swelling, easy bruising or bleeding, skin lesions or rashes. Physical Exam Physical Exam: GENERAL: 56 yo WD/WN WM. NAD. LUNGS: Clear to auscultation bilaterally. No W/R/R. CARDIOVASCULAR: Regular rate and rhythm. No M/G/R. No JVD. ABDOMEN: Soft, non-tender and non-distended. BS normal x 4 quad. EXTREMITIES: No edema. Non-tender. Peripheral pulses +2/4. L foot is dressed. NEUROLOGIC: A&O x3. PSYCHIATRIC: Cooperative. Appropriate mood and affect. SKIN: Warm, dry, intact. L hallux with pea size black escar. Surgical incision healing well, no active bleeding/drainage or erythema. Sutures still in place. Results & Data Results & Data ([facility]) Vital Signs (Past 12 Hours) Vital Signs Temp Pulse Resp BP Pulse Ox 06/25/21 07:26 36.7 C 67 16 111/74 97 PG Care Time/CCT Total # of Minutes Spent Total Time Spent with Patient: Total time spent is greater than 50% in coordination of care (as documented) at patient's floor/unit and/or counseling patient: Coding Level of Care Code 92840 Subseq Hosp Care Lvl 1 Diagnoses Diabetic foot ulcer associated with type 2 diabetes mellitus, with fat layer exposed E11.621; L97.502 Osteomyelitis M86.9 Diabetes mellitus type 2, uncontrolled E11.65 Dyslipidemia E78.5 Schizo affective schizophrenia F25.0
[2021-06-25] MEDS: ACETAMINOPHEN 325 MG TAB PO PRN ×2 (12:59→21:32)
[2021-06-26] MEDS: metroNIDAZOLE 500 MG TAB PO SCH ×3 (00:25→17:14)
[2021-06-26 07:33] LABS: C Reactive Protein 0.76 mg/dl (0-0.5); Creatinine Clr Calc Pharmacy 87.5 ml/min; Est GFR (African American) 101.9 ml/min; Est GFR (Non-African American) 87.9 ml/min
[2021-06-26] MEDS: metFORMIN HCL 500 MG TAB PO SCH ×2 (08:36→17:13)
[2021-06-26] MEDS: ATORVASTATIN 40 MG TAB PO SCH (08:37)
[2021-06-26] MEDS: lisinopril 2.5 MG TAB PO SCH (08:37)
[2021-06-26] MEDS: INSULIN GLARGINE SOLOSTAR 100 UNITS/ML 3 ML PEN SC SCH (08:39)
[2021-06-26] MEDS: INSULIN ASPART PER UNIT SC SCH ×4 (08:43→20:40)
[2021-06-26] MEDS: levoFLOXacin 750 MG TAB PO SCH (13:16)
--- NOTE | 2021-06-26 14:52 | Hospitalist Progress Note ---
Date of Service June 26, 2021 Assessment & Plan (1) Diabetic foot ulcer associated with type 2 diabetes mellitus, with fat layer exposed: Plan: Mr. Gunn is a 56-year-old male with a history of Schizoaffective Schizophrenia, Depression, Pseudoseizures, Hyperlipidemia (untreated), Uncontrolled Type 2 Diabetes Mellitus, and Poor Living Conditions who presented to [facility] with a large diabetic ulcer on his left 3rd toe with localized infection and exposed bone. The patient does not take any medications this time although he is supposed to be on Atorvastatin and Glipizide. Admitted empirically on IV Zosyn and IV Vancomycin. MRI revealed the presence of left third toe osteomyelitis with ? developing osteo of the 2nd toe Orthopedic consult appreciated patient is s/p I&D and amputation of the left third toe on 06/05 Culture data showing Proteus vulgaris with kerr-sensitivity along with an anaerobic GPC Transitioned antibiotics from Zosyn/Vanco to ertapenem (which should provide adequate coverage for both the Proteus and provide anaerobic coverage)--completed 14 day course has since completed 2 weeks of IV antibiotics (given concern for residual osteo of 2nd toe that remains). Transitioned to Levaquin with Flagyl 06/20 for additional 2-4 weeks depending clinical response CRP elevated at 3.64 on 06/19. Down to 0.76 on 06/26. Repeat in 1 week (will help gauge length or oral abx) Sutures still in place-- today is the start of 3 weeks. Per Ortho, to remain in place 3-4 week. Will have them follow up on this (2) Osteomyelitis: Plan: S/p I&D and amputation of left third digit but ? developing osteo in 2nd toe that remains Last dose of Invanz given 06/19 with conversion to oral Levaquin/Flagyl started 06/20 (X 2 to 4 weeks based on follow-up clinical status) (3) Diabetes mellitus type 2, uncontrolled: Plan: Patient has not taken medications for his diabetes mellitus for some time now -- was previously on Glipizide and at one time was on Metformin. Medication non- compliance has been an issue. hemoglobin A1c. 11.6 Glycemic management per pharmacy BSG qAC and HS--per review, BS appear relatively well controlled, appears to be requiring ~10 units w/ meals and currently on 14 units of Lantus Since has been started on Metformin with uptitration to 500mg BID. Will plan to uptitrate further to 1000mg bid as he tolerates Given his known history of noncompliance, I would not utilize insulin long- term. Could consider Lantus temporarily if going to a facility Patient has been educated regarding the importance of compliance Added lisinopril 2.5mg for renal protection. BP tolerating this Will need podiatry F/U for nail care, diabetic eye exam, microalbumin, and follow up labs (4) Dyslipidemia: Plan: Fasting lipid panel 12/12/20 showed a total cholesterol of 323 mg/dL, HDL is 43 mg/dL, LDL 202 mg/dL, and triglycerides are 391 mg/dL. Total Cholesterol:HDL ration is 7.5. Resumed Atorvastatin at 80 mg daily. Will need follow up labs and potentially addition of tricor to target TG. Now on heart healthy/DM diet. (5) Schizo affective schizophrenia: Plan: No recent hallucinations or delusions. No suicidal or homicidal ideation. Added Haldol as needed for anxiety/agitation/hallucinations, etc. Added Lorazepam as needed for anxiety/agitation. Seen by psych on 06/05, pt does not have capacity to make medical decisions Plan: Disposition: To be determined. Meeting on 06/10 held for [facility] to establish emergency guardianship for making decisions and discharge planning. He cannot return home to his current living conditions. CM to assist w/ d/c planning once [facility] obtains guardianship. Multiple phone calls made by CM regarding decisions of guardianship; however, Adult Protective Services not returning calls. As of 06/26, still no update per CM. Admission and Anticipated Discharge Date Admission Date: June 03, 2021 Subjective Patient seen on daily rounds today. Vocalizes no complaints or concerns. Denies fevers, chills, chest pain, shortness of breath, abdominal pain, nausea or vomiting. Moving bowel bladder without difficulty. Nursing voices no complaints or concerns. Review of Systems Review of Systems: All systems reviewed and are unremarkable except as noted in HPI and below Denies fevers, chills, headache, nasal congestion, sore throat, cough, chest pain, shortness of breath, palpitations, orthopnea, PND, abdominal pain, nausea, vomiting, diarrhea, constipation, dysuria, hematuria, frequency, back pain, joint pain or swelling, easy bruising or bleeding, skin lesions or rashes. Physical Exam Physical Exam: GENERAL: 56 yo WD/WN WM. NAD. LUNGS: Clear to auscultation bilaterally. No W/R/R. CARDIOVASCULAR: Regular rate and rhythm. No M/G/R. No JVD. ABDOMEN: Soft, non-tender and non-distended. BS normal x 4 quad. EXTREMITIES: No edema. Non-tender. Peripheral pulses +2/4. L foot is dressed. NEUROLOGIC: A&O x3. PSYCHIATRIC: Cooperative. Appropriate mood and affect. SKIN: Warm, dry, intact. L hallux with pea size black escar. Surgical incision healing well, no active bleeding/drainage or erythema. Sutures still in place. Results & Data Results & Data ([place]) Vital Signs (Past 12 Hours) Vital Signs Temp Pulse Resp BP Pulse Ox 06/26/21 14:43 36.8 C 87 18 113/76 96 06/26/21 08:27 36.6 C 63 16 124/79 97 PG Care Time/CCT Total # of Minutes Spent Total Time Spent with Patient: Total time spent is greater than 50% in coordination of care (as documented) at patient's floor/unit and/or counseling patient: Coding Level of Care Code 55194 Subseq Hosp Care Lvl 1 Diagnoses Diabetic foot ulcer associated with type 2 diabetes mellitus, with fat layer exposed E11.621; L97.502 Osteomyelitis M86.9 Diabetes mellitus type 2, uncontrolled E11.65 Dyslipidemia E78.5 Schizo affective schizophrenia F25.0
[2021-06-27] MEDS: metroNIDAZOLE 500 MG TAB PO SCH ×3 (00:56→17:29)
[2021-06-27] MEDS: metFORMIN HCL 500 MG TAB PO SCH ×2 (08:21→17:28)
[2021-06-27] MEDS: INSULIN ASPART PER UNIT SC SCH ×4 (08:25→21:36)
[2021-06-27] MEDS: ATORVASTATIN 40 MG TAB PO SCH (09:19)
[2021-06-27] MEDS: lisinopril 2.5 MG TAB PO SCH (09:20)
[2021-06-27] MEDS: INSULIN GLARGINE SOLOSTAR 100 UNITS/ML 3 ML PEN SC SCH (09:21)
[2021-06-27] MEDS: levoFLOXacin 750 MG TAB PO SCH (13:26)
[2021-06-27] MEDS: FLUTICASONE PROPIONATE NA SPR 16 GM BTL SCH (13:26)
--- NOTE | 2021-06-27 15:16 | Hospitalist Progress Note ---
Date of Service June 27, 2021 Assessment & Plan (1) Diabetic foot ulcer associated with type 2 diabetes mellitus, with fat layer exposed: Plan: Mr. Gunn is a 56-year-old male with a history of Schizoaffective Schizophrenia, Depression, Pseudoseizures, Hyperlipidemia (untreated), Uncontrolled Type 2 Diabetes Mellitus, and Poor Living Conditions who presented to [facility] ER with a large diabetic ulcer on his left 3rd toe with localized infection and exposed bone. The patient does not take any medications this time although he is supposed to be on Atorvastatin and Glipizide. Admitted empirically on IV Zosyn and IV Vancomycin. MRI revealed the presence of left third toe osteomyelitis with ? developing osteo of the 2nd toe Orthopedic consult appreciated patient is s/p I&D and amputation of the left third toe on 06/05 Culture data showing Proteus vulgaris with kerr-sensitivity along with an anaerobic GPC Transitioned antibiotics from Zosyn/Vanco to ertapenem (which should provide adequate coverage for both the Proteus and provide anaerobic coverage)--completed 14 day course has since completed 2 weeks of IV antibiotics (given concern for residual osteo of 2nd toe that remains). Transitioned to Levaquin with Flagyl 06/20 for additional 2-4 weeks depending clinical response CRP elevated at 3.64 on 06/19. Down to 0.76 on 06/26. Repeat in 1 week (will help gauge length or oral abx) Sutures still in place-- today is the start of 3 weeks. Per Ortho, to remain in place 3-4 week. Will have them follow up on this (2) Osteomyelitis: Plan: S/p I&D and amputation of left third digit but ? developing osteo in 2nd toe that remains Last dose of Invanz given 06/19 with conversion to oral Levaquin/Flagyl started 06/20 (X 2 to 4 weeks based on follow-up clinical status) (3) Diabetes mellitus type 2, uncontrolled: Plan: Patient has not taken medications for his diabetes mellitus for some time now -- was previously on Glipizide and at one time was on Metformin. Medication non- compliance has been an issue. hemoglobin A1c. 11.6 Glycemic management per pharmacy Since has been started on Metformin with uptitration to 1000mg Given his known history of noncompliance, I would not utilize insulin long- term. Could consider Lantus temporarily if going to a facility Blood sugars have been adequately controlled up until this point. Blood sugar over 300 this morning which is likely due to him snacking from the vending machine and his brothers bring chips Patient has been educated regarding the importance of compliance and good glyc emic control Consult dietitian Added lisinopril 2.5mg for renal protection. BP tolerating this Will need podiatry F/U for nail care, diabetic eye exam, microalbumin, and follow up labs (4) Dyslipidemia: Plan: Fasting lipid panel 12/12/20 showed a total cholesterol of 323 mg/dL, HDL is 43 mg/dL, LDL 202 mg/dL, and triglycerides are 391 mg/dL. Total Cholesterol:HDL ration is 7.5. Resumed Atorvastatin at 80 mg daily. Will need follow up labs and potentially addition of tricor to target TG. Now on heart healthy/DM diet. (5) Schizo affective schizophrenia: Plan: No recent hallucinations or delusions. No suicidal or homicidal ideation. Added Haldol as needed for anxiety/agitation/hallucinations, etc. Added Lorazepam as needed for anxiety/agitation. Seen by psych on 06/05, pt does not have capacity to make medical decisions Plan: Disposition: To be determined. Meeting on 06/10 held for [facility] to establish emergency guardianship for making de cisions and discharge planning. He cannot return home to his current living conditions. CM to assist w/ d/c planning once [facility] obtains guardianship. Multiple phone calls made by CM regarding decisions of guardianship; however, Adult Protective Services not returning calls. As of 06/26, still no update per CM. Admission and Anticipated Discharge Date Admission Date: June 03, 2021 Subjective Patient seen on daily rounds today. When initially seen, had multiple complaints but was a difficult historian and hard to assess exactly what the problem was. From what I can gather, he was hearing "ringing". This was causing him to be very agitated. At this time, there was a different patient walking up and down the halls with therapy and there walker was squeaking. Patient started to freak out, he was grabbing his head and yelling. His door was closed and the patient ambulating the brody with a squeaky walker was encouraged down a different brody. This seemed to improve the ringing and patient was able to be called. He is complaining of a fullness in his ears but otherwise denies fevers, chills, head pressure/pain. In addition, his blood sugar was over 300 this morning. Nursing reports he has been to and from the vending machine all evening and this morning. In addition, patient's brother was in yesterday and brought him several snacks including bags of chips. Review of Systems Review of Systems: All systems reviewed and are unremarkable except as noted in HPI and below Denies fevers, chills, headache, nasal congestion, sore throat, cough, chest pain, shortness of breath, palpitations, orthopnea, PND, abdominal pain, nausea, vomiting, diarrhea, constipation, dysuria, hematuria, frequency, back pain, joint pain or swelling, easy bruising or bleeding, skin lesions or rashes. Physical Exam Physical Exam: General: Resting comfortably in his hospital bed. Initially when seen, he was holding his head and yelling due to the "ringing" which was later deemed secondary to a squeaky walker. When reevaluated, he was calm. NAD. HEENT: Head is AT/NC. Buccal mucosa is moist and pink. Bilateral ear canals filled with cerumen. Cannot visualize the right TM. Left TM, I can visualize the top. It is ganrer and shiny. It is not erythematous or bulging Neck: No JVD. Negative hepatojugular reflex Cardiac: RRR without M/G/R Lungs: CTA without W/R/R Abdomen: Normoactive X4. Soft and nontender in all quadrants. Extremities: No peripheral clubbing cyanosis or edema Neuro: A&O X4. Cranial nerves II through XII are grossly intact. No focal neuro deficits Skin: No obvious skin lesions or rashes Psych: Appropriate affect. Pleasant and cooperative Results & Data Results & Data ([facility]) Vital Signs (Past 12 Hours) Vital Signs Temp Pulse Resp BP Pulse Ox 06/27/21 14:40 36.9 C 96 H 16 133/94 96 06/27/21 07:51 36.4 C L 77 18 144/82 H 97 Laboratory Results 06/16/21 05:41 06/26/21 06:52 PG Care Time/CCT Total # of Minutes Spent Total Time Spent with Patient: Total time spent is greater than 50% in coordination of care (as documented) at patient's floor/unit and/or counseling patient: Coding Level of Care Code 96312 Subseq Hosp Care Lvl 2 Diagnoses Diabetic foot ulcer associated with type 2 diabetes mellitus, with fat layer exposed E11.621; L97.502 Osteomyelitis M86.9 Diabetes mellitus type 2, uncontrolled E11.65 Dyslipidemia E78.5 Schizo affective schizophrenia F25.0
[2021-06-27 18:11] LABS: Influenza A virus by PCR Negative (Negative); Influenza B virus by PCR Negative (Negative)
[2021-06-27] MEDS: CARBAMIDE PEROXIDE 6.5% 15 ML BTL OT SCH (21:35)
[2021-06-28] MEDS: metroNIDAZOLE 500 MG TAB PO SCH ×3 (00:22→17:03)
[2021-06-28] MEDS: lisinopril 2.5 MG TAB PO SCH (08:45)
[2021-06-28] MEDS: ATORVASTATIN 40 MG TAB PO SCH (08:45)
[2021-06-28] MEDS: metFORMIN HCL 500 MG TAB PO SCH ×2 (08:45→17:02)
[2021-06-28] MEDS: FLUTICASONE PROPIONATE NA SPR 16 GM BTL SCH (08:46)
[2021-06-28] MEDS: INSULIN GLARGINE SOLOSTAR 100 UNITS/ML 3 ML PEN SC SCH (08:49)
[2021-06-28] MEDS: INSULIN ASPART PER UNIT SC SCH ×4 (08:49→21:21)
[2021-06-28] MEDS: levoFLOXacin 750 MG TAB PO SCH (11:11)
[2021-06-28] MEDS: CARBAMIDE PEROXIDE 6.5% 15 ML BTL OT SCH ×2 (11:11→21:35)
--- NOTE | 2021-06-28 13:51 | Hospitalist Progress Note ---
Date of Service June 28, 2021 Assessment & Plan (1) Diabetic foot ulcer associated with type 2 diabetes mellitus, with fat layer exposed: Plan: Mr. Gunn is a 56-year-old male with a history of Schizoaffective Schizophrenia, Depression, Pseudoseizures, Hyperlipidemia (untreated), Uncontrolled Type 2 Diabetes Mellitus, and Poor Living Conditions who presented to [facility] ER with a large diabetic ulcer on his left 3rd toe with localized infection and exposed bone. The patient does not take any medications this time although he is supposed to be on Atorvastatin and Glipizide. Admitted empirically on IV Zosyn and IV Vancomycin. MRI revealed the presence of left third toe osteomyelitis with ? developing osteo of the 2nd toe Orthopedic consult appreciated patient is s/p I&D and amputation of the left third toe on 06/05 Culture data showing Proteus vulgaris with kerr-sensitivity along with an anaerobic GPC Transitioned antibiotics from Zosyn/Vanco to ertapenem (which should provide adequate coverage for both the Proteus and provide anaerobic coverage)--completed 14 day course has since completed 2 weeks of IV antibiotics (given concern for residual osteo of 2nd toe that remains). Transitioned to Levaquin with Flagyl 06/20 for additional 2-4 weeks depending clinical response CRP elevated at 3.64 on 06/19. Down to 0.76 on 06/26. Repeat in 1 week (will help gauge length or oral abx) Sutures still in place-- today is the start of 3 weeks. Per Ortho, to remain in place 3-4 week. Will have them follow up on this (2) Osteomyelitis: Plan: S/p I&D and amputation of left third digit but ? developing osteo in 2nd toe that remains Last dose of Invanz given 06/19 with conversion to oral Levaquin/Flagyl started 06/20 (X 2 to 4 weeks based on follow-up clinical status) (3) Diabetes mellitus type 2, uncontrolled: Plan: Patient has not taken medications for his diabetes mellitus for some time now -- was previously on Glipizide and at one time was on Metformin. Medication non- compliance has been an issue. hemoglobin A1c. 11.6 Glycemic management per pharmacy Since has been started on Metformin with uptitration to 1000mg Given his known history of noncompliance, I would not utilize insulin long- term. Could consider Lantus temporarily if going to a facility blood sugars mostly controlled but >300 on 06/27 (from brother bringing chips and patient eating from vending machine) Patient has been educated regarding the importance of compliance and good glycemic control Consult dietitian-- appreciate assistance Added lisinopril 2.5mg for renal protection. BP tolerating this Will need podiatry F/U for nail care, diabetic eye exam, microalbumin, and follow up labs (4) Dyslipidemia: Plan: Fasting lipid panel 12/12/20 showed a total cholesterol of 323 mg/dL, HDL is 43 mg/dL, LDL 202 mg/dL, and triglycerides are 391 mg/dL. Total Cholesterol:HDL ration is 7.5. Resumed Atorvastatin at 80 mg daily. Will need follow up labs and potentially addition of tricor to target TG. Now on heart healthy/DM diet. (5) Schizo affective schizophrenia: Plan: No recent hallucinations or delusions. No suicidal or homicidal ideation. Added Haldol as needed for anxiety/agitation/hallucinations, etc. Added Lorazepam as needed for anxiety/agitation. Seen by psych on 06/05, pt does not have capacity to make medical decisions (6) Tinnitus: Plan: - doesn't seem to be acute (patient seen by ENT in the past) - poor historian given tangential speech pattern-- unable to differentiate if unilateral/bilateral, if he has associated/OWENS/change in hearing/vertigo. - seems improved slightly per patient. Refer to ENT as OP (if severe, may reach out for assistance while patient remains in house) Plan: Disposition: To be determined. Meeting on 06/10 held for [facility] to establish emergency guardianship for making decisions and discharge planning. He cannot return home to his current living conditions. CM to assist w/ d/c planning once [facility] obtains guardianship. Multiple phone calls made by CM regarding decisions of guardianship; however, Adult Protective Services not returning calls. As of 06/26, still no update per CM. Admission and Anticipated Discharge Date Admission Date: June 03, 2021 Subjective Patient seen on daily rounds today. Difficult historian due to tangential speech pattern but from what I can gather, still complaining of mild tinnitus. In talking with him, it sounds as if he has seen an ENT in the past (Dr. Rothman) whom has since retired. He reports he was told "there is nothing that can be done". I have asked him multiple times if he is having any pain, headache, change in his hearing but I am not able to get a clear-cut response given the tangential speech pattern. In addition, I am unable to differentiate if this is bilateral or unilateral tinnitus. Review of Systems Review of Systems: All systems reviewed and are unremarkable except as noted in HPI and below Denies fevers, chills, headache, nasal congestion, sore throat, cough, chest pain, shortness of breath, palpitations, orthopnea, PND, abdominal pain, nausea, vomiting, diarrhea, constipation, dysuria, hematuria, frequency, back pain, joint pain or swelling, easy bruising or bleeding, skin lesions or rashes. Physical Exam Physical Exam: General: Resting comfortably in his hospital bed. NAD. HEENT: Head is AT/NC. Buccal mucosa is moist and pink. Neck: No JVD. Negative hepatojugular reflex Cardiac: RRR without M/G/R Lungs: CTA without W/R/R Abdomen: Normoactive X4. Soft and nontender in all quadrants. Extremities: No peripheral clubbing cyanosis or edema. post-surgical boot to right lower extremity Neuro: A&O X4. Cranial nerves II through XII are grossly intact. No focal neuro deficits Skin: No obvious skin lesions or rashes Psych: Appropriate affect. Pleasant and cooperative Results & Data Results & Data ([facility]) Vital Signs (Past 12 Hours) Vital Signs Temp Pulse Resp BP Pulse Ox 06/28/21 07:30 36.6 C 79 14 102/57 L 95 Laboratory Results 06/16/21 05:41 06/26/21 06:52 PG Care Time/CCT Total # of Minutes Spent Total Time Spent with Patient: Total time spent is greater than 50% in coordination of care (as documented) at patient's floor/unit and/or counseling patient: Coding Level of Care Code 99272 Subseq Hosp Care Lvl 1 Diagnoses Diabetic foot ulcer associated with type 2 diabetes mellitus, with fat layer exposed E11.621; L97.502 Osteomyelitis M86.9 Diabetes mellitus type 2, uncontrolled E11.65 Dyslipidemia E78.5 Schizo affective schizophrenia F25.0 Tinnitus H93.19
[2021-06-29] MEDS: metroNIDAZOLE 500 MG TAB PO SCH ×3 (01:34→16:58)
--- NOTE | 2021-06-29 08:13 | Hospitalist Progress Note ---
Date of Service June 29, 2021 Assessment & Plan (1) Diabetic foot ulcer associated with type 2 diabetes mellitus, with fat layer exposed: Plan: Mr. Gunn is a 56-year-old male with a history of Schizoaffective Schizophrenia, Depression, Pseudoseizures, Hyperlipidemia (untreated), Uncontrolled Type 2 Diabetes Mellitus, and Poor Living Conditions who presented to [facility] ER with a large diabetic ulcer on his left 3rd toe with localized infection and exposed bone. The patient does not take any medications this time although he is supposed to be on Atorvastatin and Glipizide. Admitted empirically on IV Zosyn and IV Vancomycin. MRI revealed the presence of left third toe osteomyelitis with ? developing osteo of the 2nd toe Orthopedic consult appreciated patient is s/p I&D and amputation of the left third toe on 06/05 Culture data showing Proteus vulgaris with kerr-sensitivity along with an anaerobic GPC Transitioned antibiotics from Zosyn/Vanco to ertapenem (which should provide adequate coverage for both the Proteus and provide anaerobic coverage)--completed 14 day course has since completed 2 weeks of IV antibiotics (given concern for residual osteo of 2nd toe that remains). Transitioned to Levaquin with Flagyl 06/20 for additional 2-4 weeks depending clinical response CRP elevated at 3.64 on 06/19. Down to 0.76 on 06/26. Repeat in 1 week (will help gauge length or oral abx) Sutures still in place-- today is the start of 3 weeks. Per Ortho, to remain in place 3-4 week. Will have them follow up on this (2) Osteomyelitis: Plan: S/p I&D and amputation of left third digit but ? developing osteo in 2nd toe that remains Last dose of Invanz given 06/19 with conversion to oral Levaquin/Flagyl started 06/20 (X 2 to 4 weeks based on follow-up clinical status) (3) Diabetes mellitus type 2, uncontrolled: Plan: Patient has not taken medications for his diabetes mellitus for some time now -- was previously on Glipizide and at one time was on Metformin. Medication non- compliance has been an issue. hemoglobin A1c. 11.6 Glycemic management per pharmacy Since has been started on Metformin with uptitration to 1000mg Given his known history of noncompliance, I would not utilize insulin long- term. Could consider Lantus temporarily if going to a facility blood sugars mostly controlled but >300 on 06/27 (from brother bringing chips and patient eating from vending machine) Patient has been educated regarding the importance of compliance and good glycemic control Consult dietitian-- appreciate assistance Added lisinopril 2.5mg for renal protection. BP tolerating this Will need podiatry F/U for nail care, diabetic eye exam, microalbumin, and follow up labs (4) Dyslipidemia: Plan: Fasting lipid panel 12/12/20 showed a total cholesterol of 323 mg/dL, HDL is 43 mg/dL, LDL 202 mg/dL, and triglycerides are 391 mg/dL. Total Cholesterol:HDL ration is 7.5. Resumed Atorvastatin at 80 mg daily. Will need follow up labs and potentially addition of tricor to target TG. Now on heart healthy/DM diet. (5) Schizo affective schizophrenia: Plan: Added Haldol as needed for anxiety/agitation/hallucinations, etc. Added Lorazepam as needed for anxiety/agitation. Seen by psych on 06/05, pt does not have capacity to make medical decisions On 06/28 and 06/29: Patient seems to be very easily agitated. Things such as the lights, loud noises, things going on with other patients seem overstimulating to him. He has been very tearful off and on. I have consulted psychiatry who has since seen the patient and recommends no medication changes at this time but behavioral modifications such as limiting overstimulation. In addition, she has recommended a urinalysis which I have ordered. Not overly suspicious that there is an underlying bacterial infectious process as patient has been on IV antibiotics and now converted to oral antibiotics. His CRP continues to downtrend. He is afebrile and hemodynamically stable. He did have an episode of emesis this morning, perhaps he has something viral which is exacerbating his psychiatric issues. We will continue to follow. Appreciate recommendations per psych. (6) Tinnitus: Plan: - doesn't seem to be acute (patient seen by ENT in the past) - poor historian given tangential speech pattern-- unable to differentiate if unilateral/bilateral, if he has associated/[place]/change in hearing/vertigo. - seems improved slightly per patient. Refer to ENT as OP (if severe, may reach out for assistance while patient remains in house) Plan: Disposition: To be determined. Meeting on 06/10 held for [facility] to establish emergency guardianship for making decisions and discharge planning. He cannot return home to his current living conditions. CM to assist w/ d/c planning once [facility] obtains guardianship. Multiple phone calls made by CM regarding decisions of guardianship; however, Adult Protective Services not returning calls. As of 06/26, still no update per CM. Case discussed with Dr. Arreola Admission and Anticipated Discharge Date Admission Date: June 03, 2021 Subjective Patient seen on daily rounds today. Laying in bed reporting that he "just does not feel well". Had one bout of emesis per nursing staff. Overall, he seems to feel better. Still easily agitated by many things. Tearful at times. Difficult historian given tangential speech pattern. Review of Systems 2 Review of Systems: All systems reviewed and are unremarkable except as noted in HPI and below Denies fevers, chills, headache, nasal congestion, sore throat, cough, chest pain, shortness of breath, palpitations, orthopnea, PND, abdominal pain, diarrhea, constipation, dysuria, hematuria, frequency, back pain, joint pain or swelling, easy bruising or bleeding, skin lesions or rashes. Physical Exam Physical Exam: General: Resting comfortably in his hospital bed. NAD. HEENT: Head is AT/NC. Buccal mucosa is moist and pink. Neck: No JVD. Negative hepatojugular reflex Cardiac: RRR without M/G/R Lungs: CTA without W/R/R Abdomen: Normoactive X4. Soft and nontender in all quadrants. Extremities: No peripheral clubbing cyanosis or edema. post-surgical boot to right lower extremity Neuro: A&O X4. Cranial nerves II through XII are grossly intact. No focal neuro deficits Skin: No obvious skin lesions or rashes Psych: Appropriate affect. Pleasant and cooperative Results & Data Results & Data ([facility]) Vital Signs (Past 12 Hours) Vital Signs Temp Pulse Resp BP Pulse Ox 06/29/21 07:25 36.8 C 65 16 116/74 98 06/28/21 22:07 36.6 C 82 18 93/64 L 97 PG Care Time/CCT Total # of Minutes Spent Total Time Spent with Patient: Total time spent is greater than 50% in coordination of care (as documented) at patient's floor/unit and/or counseling patient: Coding Level of Care Code 29628 Subseq Hosp Care Lvl 2 Diagnoses Diabetic foot ulcer associated with type 2 diabetes mellitus, with fat layer exposed E11.621; L97.502 Osteomyelitis M86.9 Diabetes mellitus type 2, uncontrolled E11.65 Dyslipidemia E78.5 Schizo affective schizophrenia F25.0 Tinnitus H93.19
[2021-06-29] MEDS: lisinopril 2.5 MG TAB PO SCH (08:50)
[2021-06-29] MEDS: metFORMIN HCL 500 MG TAB PO SCH ×2 (08:50→16:21)
[2021-06-29] MEDS: ATORVASTATIN 40 MG TAB PO SCH (08:50)
[2021-06-29] MEDS: FLUTICASONE PROPIONATE NA SPR 16 GM BTL SCH (08:51)
[2021-06-29] MEDS: CARBAMIDE PEROXIDE 6.5% 15 ML BTL OT SCH ×2 (08:54→21:55)
[2021-06-29] MEDS: INSULIN ASPART PER UNIT SC SCH ×4 (08:55→21:55)
[2021-06-29] MEDS: INSULIN GLARGINE SOLOSTAR 100 UNITS/ML 3 ML PEN SC SCH (08:56)
[2021-06-29] MEDS: levoFLOXacin 750 MG TAB PO SCH (11:24)
--- NOTE | 2021-06-29 14:34 | Psychiatric Consultation ---
Date of Consultation June 29, 2021 Impression / Recommendations Impression 56 yo male with prior diagnosis of schizoaffective disorder and intellectual disability, primarily the latter interfering with his ability to care for self/diabetes [place]. He does exhibit some autistic features that are typical of ID patients with/without other developmental disabilities. I see no evidence of active psychosis at time of exam, if intermittent confusion consider delirium or sundowning. (1) Schizo affective schizophrenia: (2) Diabetes mellitus type 2, uncontrolled: (3) Diabetic foot ulcer associated with type 2 diabetes mellitus, with fat layer exposed: reports he understands and would be agreeable to supervised living setting such as personal care or what is recommended by medical team/protective services no acute indication for antipsychotics meds as no agitation, brody, aggression consider UA will follow, limit overstimulation (bright lights, noises, room or routine changes) Risk Factors Assessment Do You Have Access To A Gun?: No Psych History Identifying Data Jamil is a 56-year-old male with a hx of schizoaffective disorder and longstanding noncompliance with diabetes and self-care. Re-consult by Eulalia Fernandez PA-C for behavior change past 2-3 days, brody? Chief Complaint "my ear was bothering me" History of Present Illness initial consult completed on 06/05/21. Patient was pending a guardianship hearing which apparently was ?rescheduled. No recent contact with adult protective services per CM. Patient currently has cotton in ears and said ringing/noise was bothering him. Is able to identify that although he's been in the hospital for some time he gets confused if wakes up to noise. Has been sensitive to noise in the past and initial consultation he was rather disinhibited with food/change. No clear pattern. Past Psychiatric History Previous Psych History: see previous consult, prior dx schizophrenia with no psych meds for years, hx ID Do You Have Access To A Gun?: No History of Previous Suicide Attempt: No Allergies Allergy/AdvReac Type Severity Reaction Status Date / Time egg Allergy Unknown Unknown Verified 06/03/21 15:53 mustard Allergy Unknown UNKNOWN Verified 06/03/21 15:53 risperidone [From Risperdal] AdvReac Unknown unknown Verified 06/03/21 15:53 Home Medications Medication Instructions Recorded Confirmed Type No Known Home Medications 06/03/21 06/03/21 History Personal History Beliefs That Will Affect Care: None Patient History Medical History Cellulitis Depression Diabetes Diabetes mellitus type II, non insulin dependent Dyslipidemia Dyslipidemia Fracture of lower leg (10/29/12) Nocturia Pseudoseizures Psychosis Schizo affective schizophrenia Unspecified intellectual disabilities Family History Mother Diabetes Father Stroke Social History Smoking Status: Never smoker Hx Alcohol Use: No Hx Substance Use: No Preferred Language: Romanian Communication Ability: Effective Visual Impairment: No Limitations Hearing Ability: Normal 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 Required: No Beliefs That Will Affect Care: None marital status: Single Current Living Situation: Alone Feels Safe at Home: Yes Assistive Devices: None Physical Exam Psychiatric: Orientation: alert, oriented to person and oriented to place Apperance: appropriately groomed Eye Contact: + fair eye contact Motor Behavior: no abnormal motor movements Speech: normal rate/rhythm/volume of speech Affect: no depressed affect Mood: no anxious mood Thought Process: + concrete thought process; no looseness of associations Thought Content: reality based without delusions Suicidal Thoughts: denies suicidal thoughts Homicidal Thoughts: denies homicidal thoughts Hallucinations: no auditory hallucinations and no visual hallucinations Cognition: attention grossly intact and language grossly intact Estimated Intelligence: consistent with education level Insight: + poor insight Judgement: + poor judgement Vital Signs (Past 24 Hours): Last Vital Signs Temp 36.8 C 06/29/21 13:43 Pulse 91 H 06/29/21 13:43 Resp 16 06/29/21 13:43 BP 132/85 06/29/21 13:43 Pulse Ox 96 06/29/21 13:43 Review of Systems All systems reviewed & are unremarkable except as noted in HPI & below Results & Data (PSY) Medications Administered Acetaminophen (Acetaminophen 325 Mg Tab) 650 mg PO Q4H PRN PRN Reason: pain/fever Stop: 07/03/21 17:45 Last Admin: 06/25/21 21:32 Dose: 650 mg Documented by: [id number] Admin: 06/25/21 12:59 Dose: 650 mg Documented by: [id number] Admin: 06/24/21 07:53 Dose: 650 mg Documented by: [id number] Admin: 06/22/21 20:47 Dose: 650 mg Documented by: [id number] Admin: 06/22/21 07:29 Dose: 650 mg Documented by: [id number] Admin: 06/21/21 07:30 Dose: 650 mg Documented by: [id number] Admin: 06/19/21 08:59 Dose: 650 mg Documented by: [id number] Admin: 06/17/21 07:44 Dose: 650 mg Documented by: [id number] Admin: 06/14/21 12:40 Dose: 650 mg Documented by: [id number] Admin: 06/13/21 17:42 Dose: 650 mg Documented by: [id number] Cosigned by: [id number] Admin: 06/11/21 08:53 Dose: 650 mg Documented by: [id number] Admin: 06/07/21 20:12 Dose: 650 mg Documented by: [id number] Admin: 06/06/21 15:24 Dose: 650 mg Documented by: [id number] Admin: 06/06/21 05:36 Dose: 650 mg Documented by: [id number] Admin: 06/04/21 05:14 Dose: 650 mg Documented by: [id number] Atorvastatin Calcium (Atorvastatin 40 Mg Tab) [facility] [place] 07/03/21 17:45 Last Admin: 06/29/21 08:50 Dose: 80 mg Documented by: [id number] Admin: 06/28/21 08:45 Dose: 80 mg Documented by: [id number] Admin: 06/27/21 09:19 Dose: 80 mg Documented by: [id number] Admin: 06/26/21 08:37 Dose: 80 mg Documented by: [id number] Admin: 06/25/21 08:21 Dose: 80 mg Documented by: [id number] Admin: 06/24/21 09:09 Dose: 80 mg Documented by: [id number] Admin: 06/23/21 08:18 Dose: 80 mg Documented by: [id number] Admin: 06/22/21 07:30 Dose: 80 mg Documented by: [id number] Admin: 06/21/21 07:30 Dose: 80 mg Documented by: [id number] Admin: 06/20/21 08:06 Dose: 80 mg Documented by: [id number] Admin: 06/19/21 07:30 Dose: 80 mg Documented by: [id number] Admin: 06/18/21 09:13 Dose: 80 mg Documented by: [id number] Admin: 06/17/21 08:16 Dose: 80 mg Documented by: [id number] Admin: 06/16/21 08:35 Dose: 80 mg Documented by: [id number] Admin: 06/15/21 08:40 Dose: 80 mg Documented by: [id number] Admin: 06/14/21 08:04 Dose: 80 mg Documented by: [id number] Admin: 06/13/21 08:38 Dose: 80 mg Documented by: [id number] Cosigned by: [id number] Admin: 06/12/21 07:33 Dose: 80 mg Documented by: [id number] Admin: 06/11/21 08:43 Dose: 80 mg Documented by: [id number] Admin: 06/10/21 08:26 Dose: 80 mg Documented by: [id number] Admin: 06/09/21 08:06 Dose: 80 mg Documented by: [id number] Admin: 06/08/21 08:24 Dose: 80 mg Documented by: [id number] Admin: 06/07/21 08:48 Dose: 80 mg Documented by: [id number] Admin: 06/06/21 07:43 Dose: 80 mg Documented by: [id number] Admin: 06/05/21 12:05 Dose: Not Given Documented by: [id number] Admin: 06/04/21 08:40 Dose: 80 mg Documented by: [id number] Admin: 06/03/21 18:34 Dose: 80 mg Documented by: [id number] Carbamide Peroxide (Carbamide Peroxide 6.5% 15 Ml Btl) 5 drops OT BID TOMMY Stop: 07/01/21 20:59 Last Admin: 06/29/21 08:54 Dose: 5 drops Documented by: [id number] Admin: 06/28/21 21:35 Dose: 5 drops Documented by: [id number] Admin: 06/28/21 11:11 Dose: 5 drops Documented by: [id number] Admin: 06/27/21 21:35 Dose: 5 drops Documented by: [id number] Fluticasone Propionate (Fluticasone Propionate Na Spr 16 Gm Btl) 2 sprays NA DAILY TOMMY Stop: 07/27/21 12:14 Last Admin: 06/29/21 08:51 Dose: 2 sprays Documented by: [id number] Admin: 06/28/21 08:46 Dose: 2 sprays Documented by: [id number] Admin: 06/27/21 13:26 Dose: 2 sprays Documented by: [id number] Insulin Aspart (Insulin Aspart Per Unit) 0 units SC ACHS TOMMY Stop: 07/12/21 07:29 Last Admin: 06/29/21 12:56 Dose: 2 units Documented by: [id number] Cosigned by: [id number] Admin: 06/29/21 08:55 Dose: 1 units Documented by: [id number] Cosigned by: [id number] Admin: 06/28/21 21:21 Dose: Not Given Documented by: [id number] Cosigned by: [id number] Admin: 06/28/21 18:20 Dose: Not Given Documented by: [id number] Admin: 06/28/21 13:30 Dose: 4 units Documented by: [id number] Cosigned by: [id number] Admin: 06/28/21 08:49 Dose: Not Given Documented by: [id number] Admin: 06/27/21 21:36 Dose: 2 units Documented by: [id number] Cosigned by: [id number] Admin: 06/27/21 17:33 Dose: 1 units Documented by: [id number] Cosigned by: [id number] Admin: 06/27/21 13:35 Dose: 3 units Documented by: [id number] Cosigned by: [id number] Admin: 06/27/21 08:25 Dose: 8 units Documented by: [id number] Cosigned by: [id number] Admin: 06/26/21 20:40 Dose: 1 units Documented by: [id number] Cosigned by: [id number] Admin: 06/26/21 17:10 Dose: Not Given Documented by: [id number] Admin: 06/26/21 13:15 Dose: 1 units Documented by: [id number] Cosigned by: [id number] Admin: 06/26/21 08:43 Dose: 1 units Documented by: [id number] Cosigned by: [id number] Admin: 06/25/21 21:24 Dose: 5 units Documented by: [id number] Cosigned by: [id number] Admin: 06/25/21 17:40 Dose: Not Given Documented by: [id number] Admin: 06/25/21 12:58 Dose: 3 units Documented by: [id number] Cosigned by: [id number] Admin: 06/25/21 08:31 Dose: Not Given Documented by: [id number] Admin: 06/24/21 21:42 Dose: 1 units Documented by: [id number] Cosigned by: [id number] Admin: 06/24/21 17:38 Dose: Not Given Documented by: [id number] Admin: 06/24/21 13:28 Dose: 1 units Documented by: [id number] Cosigned by: [id number] Admin: 06/24/21 09:11 Dose: Not Given Documented by: [id number] Admin: 06/23/21 21:09 Dose: Not Given Documented by: [id number] Admin: 06/23/21 17:52 Dose: Not Given Documented by: [id number] Admin: 06/23/21 13:09 Dose: Not Given Documented by: [id number] Admin: 06/23/21 09:15 Dose: 1 units Documented by: [id number] Cosigned by: [id number] Admin: 06/22/21 20:49 Dose: Not Given Documented by: [id number] Admin: 06/22/21 17:38 Dose: 1 units Documented by: [id number] Cosigned by: [id number] Admin: 06/22/21 12:33 Dose: 2 units Documented by: [id number] Cosigned by: [id number] Admin: 06/22/21 08:24 Dose: Not Given Documented by: [id number] Admin: 06/21/21 21:20 Dose: 1 units Documented by: [id number] Cosigned by: [id number] Admin: 06/21/21 17:07 Dose: Not Given Documented by: [id number] Admin: 06/21/21 12:31 Dose: 1 units Documented by: [id number] Cosigned by: [id number] Admin: 06/21/21 08:17 Dose: Not Given Documented by: [id number] Admin: 06/20/21 21:00 Dose: Not Given Documented by: [id number] Cosigned by: [id number] Admin: 06/20/21 17:12 Dose: 1 units Documented by: [id number] Cosigned by: [id number] Admin: 06/20/21 12:03 Dose: Not Given Documented by: [id number] Admin: 06/20/21 08:06 Dose: 3 units Documented by: [id number] Cosigned by: [id number] Admin: 06/19/21 21:09 Dose: Not Given Documented by: [id number] Admin: 06/19/21 17:31 Dose: Not Given Documented by: [id number] Admin: 06/19/21 12:29 Dose: 1 units Documented by: [id number] Cosigned by: [id number] Admin: 06/19/21 08:58 Dose: 1 units Documented by: [id number] Cosigned by: [id number] Admin: 06/18/21 20:55 Dose: Not Given Documented by: [id number] Admin: 06/18/21 17:34 Dose: 1 units Documented by: [id number] Cosigned by: [id number] Admin: 06/18/21 12:32 Dose: Not Given Documented by: [id number] Admin: 06/18/21 09:16 Dose: 7 units Documented by: [id number] Cosigned by: [id number] Admin: 06/17/21 21:18 Dose: Not Given Documented by: [id number] Admin: 06/17/21 17:35 Dose: 8 units Documented by: [id number] Cosigned by: [id number] Admin: 06/17/21 12:54 Dose: 7 units Documented by: [id number] Cosigned by: [id number] Admin: 06/17/21 09:16 Dose: 10 units Documented by: [id number] Cosigned by: [id number] Admin: 06/16/21 22:03 Dose: Not Given Documented by: [id number] Cosigned by: [id number] Admin: 06/16/21 17:22 Dose: 10 units Documented by: [id number] Cosigned by: [id number] Admin: 06/16/21 12:39 Dose: 8 units Documented by: [id number] Cosigned by: [id number] Admin: 06/16/21 08:36 Dose: 5 units Documented by: [id number] Cosigned by: [id number] Admin: 06/15/21 21:30 Dose: Not Given Documented by: [id number] Cosigned by: [id number] Admin: 06/15/21 17:59 Dose: 9 units Documented by: [id number] Cosigned by: [id number] Admin: 06/15/21 12:48 Dose: 9 units Documented by: [id number] Cosigned by: [id number] Admin: 06/15/21 08:35 Dose: 9 units Documented by: [id number] Cosigned by: [id number] Admin: 06/14/21 22:16 Dose: 3 units Documented by: [id number] Cosigned by: [id number] Admin: 06/14/21 17:35 Dose: 9 units Documented by: [id number] Cosigned by: [id number] Admin: 06/14/21 12:45 Dose: 4 units Documented by: [id number] Cosigned by: [id number] Admin: 06/14/21 09:00 Dose: 17 units Documented by: [id number] Cosigned by: [id number] Admin: 06/13/21 21:55 Dose: Not Given Documented by: [id number] Cosigned by: [id number] Admin: 06/13/21 17:43 Dose: 8 units Documented by: [id number] Cosigned by: [id number] Admin: 06/13/21 12:39 Dose: 18 units Documented by: [id number] Cosigned by: [id number] Admin: 06/13/21 08:43 Dose: 17 units Documented by: [id number] Cosigned by: [id number] Admin: 06/12/21 21:07 Dose: Not Given Documented by: [id number] Cosigned by: [id number] Admin: 06/12/21 17:36 Dose: 6 units Documented by: [id number] Cosigned by: [id number] Admin: 06/12/21 12:49 Dose: 17 units Documented by: [id number] Cosigned by: [id number] Admin: 06/12/21 09:47 Dose: 16 units Documented by: [id number] Cosigned by: [id number] Insulin Glargine (Insulin Glargine Solostar 100 Units/Ml 3 Ml Pen) [facility] [place] [facility] [place]: 07/21/21 08:59 Last Admin: 06/29/21 08:56 Dose: 8 units Documented by: [id number] Cosigned by: [id number] Admin: 06/28/21 08:49 Dose: 8 units Documented by: [id number] Cosigned by: [id number] Admin: 06/27/21 09:21 Dose: 8 units Documented by: [id number] Cosigned by: [id number] Admin: 06/26/21 08:39 Dose: 8 units Documented by: [id number] Cosigned by: [id number] Admin: 06/25/21 08:22 Dose: 8 units Documented by: [id number] Cosigned by: [id number] Admin: 06/24/21 09:10 Dose: 8 units Documented by: [id number] Cosigned by: [id number] Admin: 06/23/21 09:14 Dose: 8 units Documented by: [id number] Cosigned by: [id number] Admin: 06/22/21 08:50 Dose: 8 units Documented by: [id number] Cosigned by: [id number] Admin: 06/21/21 10:17 Dose: 8 units Documented by: [id number] Cosigned by: [id number] Levofloxacin (Levofloxacin 750 Mg Tab) 750 mg PO DAILY@1100 [facility] Stop: 08/01/21 10:59 Last Admin: 06/29/21 11:24 Dose: 750 mg Documented by: [id number] Admin: 06/28/21 11:11 Dose: 750 mg Documented by: [id number] Admin: 06/27/21 13:26 Dose: 750 mg Documented by: [id number] Admin: 06/26/21 13:16 Dose: 750 mg Documented by: [id number] Admin: 06/25/21 11:22 Dose: 750 mg Documented by: [id number] Admin: 06/24/21 12:22 Dose: 750 mg Documented by: [id number] Admin: 06/23/21 11:30 Dose: 750 mg Documented by: [id number] Admin: 06/22/21 11:10 Dose: 750 mg Documented by: [id number] Admin: 06/21/21 10:17 Dose: 750 mg Documented by: [id number] Admin: 06/20/21 12:03 Dose: 750 mg Documented by: [id number] Lisinopril (Lisinopril 2.5 Mg Tab) 2.5 mg PO [facility] Stop: 07/17/21 08:59 Last Admin: 06/29/21 08:50 Dose: 2.5 mg Documented by: [id number] Admin: 06/28/21 08:45 Dose: 2.5 mg Documented by: [id number] Admin: 06/27/21 09:20 Dose: 2.5 mg Documented by: [id number] Admin: 06/26/21 08:37 Dose: 2.5 mg Documented by: [id number] Admin: 06/25/21 08:21 Dose: 2.5 mg Documented by: [id number] Admin: 06/24/21 09:09 Dose: 2.5 mg Documented by: [id number] Admin: 06/23/21 08:18 Dose: 2.5 mg Documented by: [id number] Admin: 06/22/21 07:30 Dose: 2.5 mg Documented by: [id number] Admin: 06/21/21 07:30 Dose: 2.5 mg Documented by: [id number] Admin: 06/20/21 08:06 Dose: 2.5 mg Documented by: [id number] Admin: 06/19/21 07:30 Dose: 2.5 mg Documented by: [id number] Admin: 06/18/21 09:12 Dose: 2.5 mg Documented by: [id number] Admin: 06/17/21 08:16 Dose: 2.5 mg Documented by: [id number] Lorazepam (Lorazepam 2 Mg/1 Ml Vial) 1 mg IV Q4H PRN PRN Reason: Anxiety/Agitation Stop: 07/03/21 17:45 Last Admin: 06/06/21 05:52 Dose: 1 mg Documented by: [id number] Metformin HCl (Metformin Hcl 500 Mg Tab) 500 mg PO QDB [facility] Stop: 07/25/21 07:29 Last Admin: 06/29/21 08:50 Dose: 500 mg Documented by: [id number] Admin: 06/28/21 08:45 Dose: 500 mg Documented by: [id number] Admin: 06/27/21 08:21 Dose: 500 mg Documented by: [id number] Admin: 06/26/21 08:36 Dose: 500 mg Documented by: [id number] Admin: 06/25/21 08:20 Dose: 500 mg Documented by: [id number] Metformin HCl (Metformin Hcl 500 Mg Tab) 1,000 mg PO DAILYBD [facility] Stop: 07/25/21 15:29 Last Admin: 06/28/21 17:02 Dose: 1,000 mg Documented by: [id number] Admin: 06/27/21 17:28 Dose: 1,000 mg Documented by: [id number] Admin: 06/26/21 17:13 Dose: 1,000 mg Documented by: [id number] Admin: 06/25/21 17:22 Dose: 1,000 mg Documented by: [id number] Metronidazole (Metronidazole 500 Mg Tab) 500 mg PO Q8H TOMMY Stop: 08/01/21 08:59 Last Admin: 06/29/21 08:50 Dose: 500 mg Documented by: [id number] Admin: 06/29/21 01:34 Dose: 500 mg Documented by: [id number] Admin: 06/28/21 17:03 Dose: 500 mg Documented by: [id number] Admin: 06/28/21 08:45 Dose: 500 mg Documented by: [id number] Admin: 06/28/21 00:22 Dose: 500 mg Documented by: [id number] Admin: 06/27/21 17:29 Dose: 500 mg Documented by: [id number] Admin: 06/27/21 09:20 Dose: 500 mg Documented by: [id number] Admin: 06/27/21 00:56 Dose: 500 mg Documented by: [id number] Admin: 06/26/21 17:14 Dose: 500 mg Documented by: [id number] Admin: 06/26/21 08:38 Dose: 500 mg Documented by: [id number] Admin: 06/26/21 00:25 Dose: 500 mg Documented by: [id number] Admin: 06/25/21 17:22 Dose: 500 mg Documented by: [id number] Admin: 06/25/21 08:23 Dose: 500 mg Documented by: [id number] Admin: 06/25/21 00:29 Dose: 500 mg Documented by: [id number] Admin: 06/24/21 16:46 Dose: 500 mg Documented by: [id number] Admin: 06/24/21 09:09 Dose: 500 mg Documented by: [id number] Admin: 06/24/21 01:26 Dose: 500 mg Documented by: [id number] Admin: 06/23/21 17:51 Dose: 500 mg Documented by: [id number] Admin: 06/23/21 08:18 Dose: 500 mg Documented by: [id number] Admin: 06/23/21 00:26 Dose: 500 mg Documented by: [id number] Admin: 06/22/21 17:38 Dose: 500 mg Documented by: [id number] Admin: 06/22/21 07:30 Dose: 500 mg Documented by: [id number] Admin: 06/22/21 00:51 Dose: 500 mg Documented by: [id number] Admin: 06/21/21 16:18 Dose: 500 mg Documented by: [id number] Admin: 06/21/21 07:31 Dose: 500 mg Documented by: [id number] Admin: 06/21/21 01:04 Dose: 500 mg Documented by: [id number] Admin: 06/20/21 17:15 Dose: 500 mg Documented by: [id number] Admin: 06/20/21 08:06 Dose: 500 mg Documented by: [id number] Coding Level of Care Code 97258 Inpt Consult Level 3 Diagnoses Schizo affective schizophrenia F25.0 Diabetes mellitus type 2, uncontrolled E11.65 Diabetic foot ulcer associated with type 2 diabetes mellitus, with fat layer exposed E11.621; L97.140
[2021-06-29] MEDS ORDERED: ONDANSETRON 4 MG OD TAB PO PRN (15:36)
[2021-06-29 16:34] LABS: Appearance Urine Clear (Clear); Bilirubin Urine Negative (Negative); Blood Urine Negative (Negative); Color Urine Yellow; Glucose Urine UA Trace (Negative); Ketones Urine Negative (Negative); Leukocyte Esterase Urine Negative (Negative); Nitrite Urine Negative (Negative); Protein Urine Negative (Negative); Urobilinogen Urine Negative (Negative)
[2021-06-30] MEDS: metroNIDAZOLE 500 MG TAB PO SCH ×3 (01:45→17:02)
[2021-06-30] MEDS: ATORVASTATIN 40 MG TAB PO SCH (09:18)
[2021-06-30] MEDS: metFORMIN HCL 500 MG TAB PO SCH ×2 (09:18→15:29)
[2021-06-30] MEDS: lisinopril 2.5 MG TAB PO SCH (09:18)
[2021-06-30] MEDS: FLUTICASONE PROPIONATE NA SPR 16 GM BTL SCH (09:20)
[2021-06-30] MEDS: CARBAMIDE PEROXIDE 6.5% 15 ML BTL OT SCH ×2 (09:23→21:54)
[2021-06-30] MEDS: INSULIN GLARGINE SOLOSTAR 100 UNITS/ML 3 ML PEN SC SCH (09:24)
[2021-06-30] MEDS: INSULIN ASPART PER UNIT SC SCH ×4 (09:25→21:55)
[2021-06-30] MEDS: levoFLOXacin 750 MG TAB PO SCH (12:01)
[2021-06-30] MEDS ORDERED: OPTIRAY 320 100ml IV ONE (12:48)
--- NOTE | 2021-06-30 14:48 | CT Scan Report ---
CT angio head wo/w CLINICAL HISTORY: tinnitus COMPARISON STUDY: No previous studies for comparison. CT DOSE: 650.23 mGy.cm TECHNIQUE: CT Angio of the brain was performed.followed by image post processing with coronal, and s agittal MIP reformats. Contrast Volume: Optiray 320, 120 ml FINDINGS: Vascular findings: There is normal enhancement within the internal carotid arteries bilaterally. The re is normal enhancement noted within the anterior, middle and posterior cerebral arteries. Nonvascular findings: There is homogeneous attenuation of the brain parenchyma bilaterally. There is no evidence for an acute infarct or cerebral edema. IMPRESSION: Negative CT angiogram of the brain without and with contrast. ACT 112: Negative or not required by law. Electronically signed by: Coleman Castle M.D. 06/30/2021 2:47 PM
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
[2021-07-01] MEDS: metroNIDAZOLE 500 MG TAB PO SCH ×2 (00:59→08:15)
[2021-07-01] MEDS: INSULIN ASPART PER UNIT SC SCH ×2 (08:12→12:11)
[2021-07-01] MEDS: metFORMIN HCL 500 MG TAB PO SCH ×2 (08:13→15:57)
[2021-07-01] MEDS: lisinopril 2.5 MG TAB PO SCH (08:14)
[2021-07-01] MEDS: ATORVASTATIN 40 MG TAB PO SCH (08:14)
[2021-07-01] MEDS: FLUTICASONE PROPIONATE NA SPR 16 GM BTL SCH (08:15)
[2021-07-01] MEDS: INSULIN GLARGINE SOLOSTAR 100 UNITS/ML 3 ML PEN SC SCH (08:16)
[2021-07-01] MEDS: CARBAMIDE PEROXIDE 6.5% 15 ML BTL OT SCH ×2 (08:51→20:16)
--- NOTE | 2021-07-01 09:13 | Hospitalist Progress Note ---
Date of Service July 01, 2021 Assessment & Plan (1) Diabetic foot ulcer associated with type 2 diabetes mellitus, with fat layer exposed: Plan: Mr. Gunn is a 56-year-old male with a history of Schizoaffective Schizophrenia, Depression, Pseudoseizures, Hyperlipidemia (untreated), Uncontrolled Type 2 Diabetes Mellitus, and Poor Living Conditions who presented to [facility] ER with a large diabetic ulcer on his left 3rd toe with localized infection and exposed bone. The patient does not take any medications this time although he is supposed to be on Atorvastatin and Glipizide. Admitted empirically on IV Zosyn and IV Vancomycin. MRI revealed the presence of left third toe osteomyelitis with ? developing osteo of the 2nd toe Orthopedic consult appreciated patient is s/p I&D and amputation of the left third toe on 06/05 Culture data showing Proteus vulgaris with kerr-sensitivity along with an anaerobic GPC Transitioned antibiotics from Zosyn/Vanco to ertapenem (which should provide adequate coverage for both the Proteus and provide anaerobic coverage)--c ompleted 14 day course has since completed 2 weeks of IV antibiotics (given concern for residual osteo of 2nd toe that remains). Transitioned to Levaquin with Flagyl 06/20 for additional 2-4 weeks depending clinical response --Uncertain if the quinolone is potentially causing exacerbation of his psychiatric issues. Seems to be ongoing since this change. --Needs antibiotics through 07/03 at minimum given significant improvement. --will transition Levaquin/Flagyl to Augmentin to complete full course CRP elevated a 3.64 on 06/19. Down to 0.76 on 06/26. Repeat in 1 week (will help gauge length or oral abx) Sutures were not removed by anyone in house. On evaluation today (07/01) no sutures in place. Discussed with orthopedics and they did not remove these nor did nursing staff. Nor did anyone with the hospitalist. Patient has not been compliant with heel only weightbearing restrictions. Ortho believes that perhaps the sutures broke. Fortunately, there is no wound dehiscence (2) Osteomyelitis: Plan: S/p I&D and amputation of left third digit but ? developing osteo in 2nd toe that remains Last dose of Invanz given 06/19 with conversion to oral Levaquin/Flagyl started 06/20. Now on Augmentin through 07/03 minimum given clinical improvement. (3) Tinnitus: Plan: - doesn't seem to be acute (patient seen by ENT in the past) - poor historian given tangential speech pattern-- unable to differentiate if unilateral/bilateral, if he has associated/OWENS/change in hearing/vertigo. - seems improved slightly per patient. Refer to ENT as OP (if severe, may reach out for assistance while patient remains in house) - Given difficulty ascertaining history questions and associated one bout of emesis on 06/29 I did order a CT of the head with and without with intraauditory canal cuts (discussed with radiology) -- CT shows no acute pathology. No obvious schwannoma --Ultimately, MRI would be diagnostic study of choice; however, he seems to be very sensitive to noise and I do not believe he would be compliant with that (4) Diabetes mellitus type 2, uncontrolled: Plan: Patient has not taken medications for his diabetes mellitus for some time now -- was previously on Glipizide and at one time was on Metformin. Medication non- compliance has been an issue. hemoglobin A1c. 11.6 Glycemic management per pharmacy Since has been started on Metformin with uptitration to 1000mg Given his known history of noncompliance, I would not utilize insulin long- term. Could consider Lantus temporarily if going to a facility (currently on Lantus 8U at night) Is on sliding scale and requiring little if any coverage (2 units). His biggest complaint is the multiple fingersticks and his fingers are sore Given adequate blood sugar control, will stop Accu-Cheks 4 times daily and transition to Accuchecks (Fasting) on Mondays, Wednesdays, Fridays and as needed Patient has been educated regarding the importance of compliance and good glycemic control returned item clerk consulted for dietary education-- appreciate assistance Added lisinopril 2.5mg for renal protection. BP tolerating this Will need podiatry F/U for nail care, diabetic eye exam, microalbumin, and follow up labs Will need follow-up A1c (September) (5) Dyslipidemia: Plan: Fasting lipid panel 12/12/20 showed a total cholesterol of 323 mg/dL, HDL is 43 mg/dL, LDL 202 mg/dL, and triglycerides are 391 mg/dL. Total Cholesterol:HDL ration is 7.5. Resumed Atorvastatin at 80 mg daily. Will need follow up labs and potentially addition of tricor to target TG. Now on heart healthy/DM diet. (6) Schizo affective schizophrenia: Plan: Added Haldol as needed for anxiety/agitation/hallucinations, etc. Added Lorazepam as needed for anxiety/agitation. Seen by psych on 06/05, pt does not have capacity to make medical decisions On 06/28 and 06/29: Patient seems to be very easily agitated. Things such as the lights, loud noises, things going on with other patients seem overstimulating to him. He has been very tearful off and on. I have consulted psychiatry who has since seen the patient and recommends no medication changes at this time but behavioral modifications such as limiting overstimulation. In addition, she has recommended a urinalysis which I have ordered. Not overly suspicious that there is an underlying bacterial infectious process as patient has been on IV antibiotics and now converted to oral antibiotics. His CRP continues to downtrend. He is afebrile and hemodynamically stable. He did have an episode of emesis on 06/29, perhaps he has something viral which is exacerbating his psychiatric issues. ? exacerbated bu Quinolone on board (changed as outlined above). Will continue to follow. Appreciate recommendations per psych. Plan: Disposition: To be determined. Meeting on 06/10 held for [facility] to establish emergency guardianship for making decisions and discharge planning. He cannot return home to his current living conditions. CM to assist w/ d/c planning once [facility] obtains guardianship. Multiple phone calls made by CM regarding decisions of guardianship; however, Adult Protective Services not returning calls. As of 06/26, still no update per CM. Case discussed with Dr. Arreola Admission and Anticipated Discharge Date Admission Date: June 03, 2021 Subjective Patient remains overstimulated. Continues to complain of buzzing in his head. CT of the head was negative showing no evidence of schwannoma or vascular abnormality. Denies fevers, chills, chest pain, shortness of breath, abdominal pain, nausea or vomiting but a very difficult historian given his tangential speech pattern. Looking back, this seems to be an issue since converting his IV to oral antibiotics. Review of Systems Review of Systems: All systems reviewed and are unremarkable except as noted in HPI and below Denies fevers, chills, headache, nasal congestion, sore throat, cough, chest pain, shortness of breath, palpitations, orthopnea, PND, abdominal pain, nausea, vomiting, diarrhea, constipation, dysuria, hematuria, frequency, back pain, joint pain or swelling, easy bruising or bleeding, skin lesions or rashes. Physical Exam Physical Exam: General: Resting comfortably in his hospital bed. NAD. HEENT: Head is AT/NC. Buccal mucosa is moist and pink. No nystagmus but limited in his cooperation. TMs intact bilaterally. Cerumen in the bilateral canals which seems to be improving with Debrox. Neck: No JVD. Negative hepatojugular reflex. No bruits Cardiac: RRR without M/G/R Lungs: CTA without W/R/R Abdomen: Normoactive X4. Soft and nontender in all quadrants. Extremities: No peripheral clubbing cyanosis or edema. post-surgical boot to right lower extremity. Surgical dressing removed and he is s/p amputation of the third toe. This area looks very good. The skin is well approximated with just a minimal amount of scabbing. There is no periwound erythema. No drainage. Sutures are not in place at this point Neuro: A&O X4. Cranial nerves II through XII are grossly intact. No focal neuro deficits Skin: No obvious skin lesions or rashes Psych: Appropriate affect. Pleasant and cooperative Results & Data Results & Data ([facility]) Vital Signs (Past 12 Hours) Vital Signs Temp Pulse Resp BP BP Pulse Ox 07/01/21 07:02 36.6 C 77 16 106/74 95 06/30/21 23:34 36.9 C 80 18 102/60 98 Laboratory Results No lab data Urinalysis is not grossly infected Urine culture shows less than 1000 colonies PG Care Time/CCT Total # of Minutes Spent Total Time Spent with Patient: Total time spent is greater than 50% in coordination of care (as documented) at patient's floor/unit and/or counseling patient: Coding Level of Care Code 30981 Subseq Hosp Care Lvl 2 Diagnoses Diabetic foot ulcer associated with type 2 diabetes mellitus, with fat layer exposed E11.621; L97.502 Osteomyelitis M86.9 Tinnitus H93.19 Diabetes mellitus type 2, uncontrolled E11.65 Dyslipidemia E78.5 Schizo affective schizophrenia F25.0
[2021-07-01] MEDS: AMOXICILLIN/CLAVULANATE 875 MG TAB PO SCH (15:57)
[2021-07-02] MEDS: AMOXICILLIN/CLAVULANATE 875 MG TAB PO SCH ×2 (08:14→17:59)
[2021-07-02] MEDS: metFORMIN HCL 500 MG TAB PO SCH ×2 (08:14→15:25)
[2021-07-02] MEDS: FLUTICASONE PROPIONATE NA SPR 16 GM BTL SCH (08:33)
[2021-07-02] MEDS: INSULIN GLARGINE SOLOSTAR 100 UNITS/ML 3 ML PEN SC SCH (08:33)
[2021-07-02] MEDS: ATORVASTATIN 40 MG TAB PO SCH (08:34)
[2021-07-02] MEDS: CARBAMIDE PEROXIDE 6.5% 15 ML BTL OT SCH (08:34)
[2021-07-02] MEDS: lisinopril 2.5 MG TAB PO SCH (08:34)
[2021-07-02] MEDS: ADVANCED PROBIOTIC 1250 MG CAPSULE PO SCH (08:40)
--- NOTE | 2021-07-02 18:19 | Hospitalist Progress Note ---
Date of Service July 02, 2021 Assessment & Plan (1) Diabetic foot ulcer associated with type 2 diabetes mellitus, with fat layer exposed: Plan: Mr. Gunn is a 56-year-old male with a history of Schizoaffective Schizophrenia, Depression, Pseudoseizures, Hyperlipidemia (untreated), Uncontrolled Type 2 Diabetes Mellitus, and Poor Living Conditions who presented to [facility] ER with a large diabetic ulcer on his left 3rd toe with localized infection and exposed bone. The patient does not take any medications this time although he is supposed to be on Atorvastatin and Glipizide. Admitted empirically on IV Zosyn and IV Vancomycin. MRI revealed the presence of left third toe osteomyelitis with ? developing osteo of the 2nd toe Orthopedic consult appreciated patient is s/p I&D and amputation of the left third toe on 06/05 Culture data showing Proteus vulgaris with kerr-sensitivity along with an anaerobic GPC Transitioned antibiotics from Zosyn/Vanco to ertapenem (which should provide adequate coverage for both the Proteus and provide anaerobic coverage)--c ompleted 14 day course has since completed 2 weeks of IV antibiotics (given concern for residual osteo of 2nd toe that remains). Transitioned to Levaquin with Flagyl 06/20 for additional 2-4 weeks depending clinical response --Uncertain if the quinolone was potentially causing exacerbation of his psychiatric issues. Seems to be ongoing since this change. pt claims predates this hosptialization --Needs antibiotics through 07/03 at minimum given significant improvement. --transitioned Levaquin/Flagyl to Augmentin to complete full course CRP elevated a 3.64 on 06/19. Down to 0.76 on 06/26. Repeat in 1 week (will help gauge length or oral abx) Sutures were not removed by anyone in house. On evaluation today (07/01) no sutures in place. Discussed with orthopedics and they did not remove these nor did nursing staff. Nor did anyone with the hospitalist. Patient has not been compliant with heel only weightbearing restrictions. Ortho believes that perhaps the sutures broke. Fortunately, there is no wound dehiscence (2) Osteomyelitis: Plan: S/p I&D and amputation of left third digit but ? developing osteo in 2nd toe that remains Last dose of Invanz given 06/19 with conversion to oral Levaquin/Flagyl started 06/20. Now on Augmentin through 07/03 minimum given clinical improvement. (3) Tinnitus: Plan: - doesn't seem to be acute (patient seen by ENT in the past) - poor historian given tangential speech pattern-- unable to differentiate if unilateral/bilateral, if he has associated/OWENS/change in hearing/vertigo. - seems improved slightly per patient. Refer to ENT as OP (if severe, may reach out for assistance while patient remains in house) - Given difficulty ascertaining history questions and associated one bout of emesis on 06/29 I did order a CT of the head with and without with intraauditory canal cuts (discussed with radiology) -- CT shows no acute pathology. No obvious schwannoma --Ultimately, MRI would be diagnostic study of choice; however, he seems to be very sensitive to noise and I do not believe he would be compliant with that (4) Diabetes mellitus type 2, uncontrolled: Plan: Patient has not taken medications for his diabetes mellitus for some time now -- was previously on Glipizide and at one time was on Metformin. Medication non- compliance has been an issue. hemoglobin A1c. 11.6 Glycemic management per pharmacy Since has been started on Metformin with uptitration to 1000mg Given his known history of noncompliance, I would not utilize insulin long- term. Could consider Lantus temporarily if going to a facility (currently on Lantus 8U at night) Is on sliding scale and requiring little if any coverage (2 units). His biggest complaint is the multiple fingersticks and his fingers are sore Given adequate blood sugar control, stopped Accu-Cheks 4 times daily and transitioned to Accuchecks (Fasting) on Mondays, Wednesdays, Fridays and as needed (trying to lesson stimulation) Patient has been educated regarding the importance of compliance and good glycemic control lead fire protection engineer consulted for dietary education-- appreciate assistance Added lisinopril 2.5mg for renal protection. BP tolerating this Will need podiatry F/U for nail care, diabetic eye exam, microalbumin, and follow up labs Will need follow-up A1c (September) (5) Dyslipidemia: Plan: Fasting lipid panel 12/12/20 showed a total cholesterol of 323 mg/dL, HDL is 43 mg/dL, LDL 202 mg/dL, and triglycerides are 391 mg/dL. Total Cholesterol:HDL ration is 7.5. Resumed Atorvastatin at 80 mg daily. Will need follow up labs and potentially addition of tricor to target TG. Now on heart healthy/DM diet. (6) Schizo affective schizophrenia: Plan: Added Haldol as needed for anxiety/agitation/hallucinations, etc. Added Lorazepam as needed for anxiety/agitation. Seen by psych on 06/05, pt does not have capacity to make medical decisions On 06/28 and 06/29: Patient seems to be very easily agitated. Things such as the lights, loud noises, things going on with other patients seem overstimulating to him. He has been very tearful off and on. I have consulted psychiatry who has since seen the patient and recommends no medication changes at this time but behavioral modifications such as limiting overstimulation. In addition, she has recommended a urinalysis which I have ordered. Not overly suspicious that there is an underlying bacterial infectious process as patient has been on IV antibiotics and now converted to oral antibiotics. His CRP continues to downtrend. He is afebrile and hemodynamically stable. He did have an episode of emesis on 06/29, perhaps he has something viral which is exacerbating his psychiatric issues. ? exacerbated bu Quinolone on board (changed as outlined above). Will continue to follow. Appreciate recommendations per psych. Did change Accu-Cheks from 4 times a day to 3 times a week trying to limit stimulation as patient seems to be easily agitated. Plan: Disposition: To be determined. Meeting on 06/10 held for [employer] to establish emergency guardianship for making decisions and discharge planning. He cannot return home to his current living conditions. CM to assist w/ d/c planning once [employer] obtains guardianship. Multiple phone calls made by CM regarding decisions of guardianship; however, Adult Protective Services not returning calls. As of 07/02, still no update per CM. Case discussed with Dr. Ferrell Admission and Anticipated Discharge Date Admission Date: June 03, 2021 Subjective Patient seen on daily rounds today. Vocalizes no significant complaints or concerns. Still with intermittent "buzzing in his head". Nursing voices no complaints or concerns. Review of Systems Review of Systems: All systems reviewed and are unremarkable except as noted in HPI and below Denies fevers, chills, headache, nasal congestion, sore throat, cough, chest pain, shortness of breath, palpitations, orthopnea, PND, abdominal pain, nausea, vomiting, diarrhea, constipation, dysuria, hematuria, frequency, back pain, joint pain or swelling, easy bruising or bleeding, skin lesions or rashes. Physical Exam Physical Exam: General: Resting comfortably in his hospital bed. NAD. HEENT: Head is AT/NC. Buccal mucosa is moist and pink. No nystagmus but limited in his cooperation. TMs intact bilaterally. Cerumen in the bilateral canals which seems to be improving with Debrox. Neck: No JVD. Negative hepatojugular reflex. No bruits Cardiac: RRR without M/G/R Lungs: CTA without W/R/R Abdomen: Normoactive X4. Soft and nontender in all quadrants. Extremities: No peripheral clubbing cyanosis or edema. post-surgical boot to right lower extremity. Surgical dressing removed and he is s/p amputation of the third toe. This area looks very good. The skin is well approximated with just a minimal amount of scabbing. There is no periwound erythema. No drainage. Sutures are not in place at this point Neuro: A&O X4. Cranial nerves II through XII are grossly intact. No focal neuro deficits Skin: No obvious skin lesions or rashes Psych: Appropriate affect. Pleasant and cooperative Results & Data Results & Data ([facility]) Vital Signs (Past 12 Hours) Vital Signs Temp Pulse Resp BP Pulse Ox 07/02/21 15:57 36.9 C 82 16 121/79 97 07/02/21 07:17 36.9 C 78 16 108/75 97 PG Care Time/CCT Total # of Minutes Spent Total Time Spent with Patient: Total time spent is greater than 50% in coordination of care (as documented) at patient's floor/unit and/or counseling patient: Coding Level of Care Code 84081 Subseq Hosp Care Lvl 1 Diagnoses Diabetic foot ulcer associated with type 2 diabetes mellitus, with fat layer exposed E11.621; L97.502 Osteomyelitis M86.9 Tinnitus H93.19 Diabetes mellitus type 2, uncontrolled E11.65 Dyslipidemia E78.5 Schizo affective schizophrenia F25.0
[2021-07-03] MEDS: ATORVASTATIN 40 MG TAB PO SCH (08:19)
[2021-07-03] MEDS: lisinopril 2.5 MG TAB PO SCH (08:19)
[2021-07-03] MEDS: metFORMIN HCL 500 MG TAB PO SCH ×2 (08:19→16:51)
[2021-07-03] MEDS: ADVANCED PROBIOTIC 1250 MG CAPSULE PO SCH (08:19)
[2021-07-03] MEDS: AMOXICILLIN/CLAVULANATE 875 MG TAB PO SCH ×2 (08:19→16:51)
[2021-07-03] MEDS: FLUTICASONE PROPIONATE NA SPR 16 GM BTL SCH (08:20)
[2021-07-03] MEDS: INSULIN GLARGINE SOLOSTAR 100 UNITS/ML 3 ML PEN SC SCH (08:20)
--- NOTE | 2021-07-03 13:08 | Hospitalist Progress Note ---
Date of Service July 03, 2021 Assessment & Plan (1) Diabetic foot ulcer associated with type 2 diabetes mellitus, with fat layer exposed: Plan: Mr. Gunn is a 56-year-old male with a history of Schizoaffective Schizophrenia, Depression, Pseudoseizures, Hyperlipidemia (untreated), Uncontrolled Type 2 Diabetes Mellitus, and Poor Living Conditions who presented to [facility] ER with a large diabetic ulcer on his left 3rd toe with localized infection and exposed bone. The patient does not take any medications this time although he is supposed to be on Atorvastatin and Glipizide. Admitted empirically on IV Zosyn and IV Vancomycin. MRI revealed the presence of left third toe osteomyelitis with ? developing osteo of the 2nd toe Orthopedic consult appreciated patient is s/p I&D and amputation of the left third toe on 06/05 Culture data showing Proteus vulgaris with kerr-sensitivity along with an anaerobic GPC Transitioned antibiotics from Zosyn/Vanco to ertapenem (which should provide adequate coverage for both the Proteus and provide anaerobic coverage)--c ompleted 14 day course has since completed 2 weeks of IV antibiotics (given concern for residual osteo of 2nd toe that remains). Transitioned to Levaquin with Flagyl 06/20 for additional 2-4 weeks depending clinical response --Uncertain if the quinolone was potentially causing exacerbation of his psychiatric issues. Seems to be ongoing since this change. pt claims predates this hospitalization --Needs antibiotics through 07/03 at minimum given significant improvement. --transitioned Levaquin/Flagyl to Augmentin to complete full course CRP elevated a 3.64 on 06/19. Down to 0.76 on 06/26. Repeat in 1 week (will help gauge length or oral abx) Sutures were in fact removed by nursing on 06/25 after d/w orthopedic PA Today (07/03) tapia completion of abx after evening dose of Augmentin. (2) Osteomyelitis: Plan: S/p I&D and amputation of left third digit but ? developing osteo in 2nd toe that remains Last dose of Invanz given 06/19 with conversion to oral Levaquin/Flagyl started 06/20. Now on Augmentin through 07/03 minimum given clinical improvement. (3) Tinnitus: Plan: - doesn't seem to be acute (patient seen by ENT in the past) - poor historian given tangential speech pattern-- unable to differentiate if unilateral/bilateral, if he has associated/OWENS/change in hearing/vertigo. - seems improved slightly per patient. Refer to ENT as OP (if severe, may reach out for assistance while patient remains in house) - Given difficulty ascertaining history questions and associated one bout of emesis on 06/29 I did order a CT of the head with and without with intraauditory canal cuts (discussed with radiology) -- CT shows no acute pathology. No obvious schwannoma --Ultimately, MRI would be diagnostic study of choice; however, he seems to be very sensitive to noise and I do not believe he would be compliant with that (4) Diabetes mellitus type 2, uncontrolled: Plan: Patient has not taken medications for his diabetes mellitus for some time now -- was previously on Glipizide and at one time was on Metformin. Medication non- compliance has been an issue. hemoglobin A1c. 11.6 Glycemic management per pharmacy Since has been started on Metformin with uptitration to 1000mg Given his known history of noncompliance, I would not utilize insulin long- term. Could consider Lantus temporarily if going to a facility (currently on Lantus 8U at night) Is on sliding scale and requiring little if any coverage (2 units). His biggest complaint is the multiple fingersticks and his fingers are sore Given adequate blood sugar control, stopped Accu-Cheks 4 times daily and transitioned to Accuchecks (Fasting) on Mondays, Wednesdays, Fridays and as needed (trying to lesson stimulation) Patient has been educated regarding the importance of compliance and good glycemic control chairman & ceo consulted for dietary education-- appreciate assistance Added lisinopril 2.5mg for renal protection. BP tolerating this Will need podiatry F/U for nail care, diabetic eye exam, microalbumin, and follow up labs Will need follow-up A1c (September) (5) Dyslipidemia: Plan: Fasting lipid panel 12/12/20 showed a total cholesterol of 323 mg/dL, HDL is 43 mg/dL, LDL 202 mg/dL, and triglycerides are 391 mg/dL. Total Cholesterol:HDL ration is 7.5. Resumed Atorvastatin at 80 mg daily. Will need follow up labs and potentially addition of tricor to target TG. Now on heart healthy/DM diet. (6) Schizo affective schizophrenia: Plan: Added Haldol as needed for anxiety/agitation/hallucinations, etc. Added Lorazepam as needed for anxiety/agitation. Seen by psych on 06/05, pt does not have capacity to make medical decisions On 06/28 and 06/29: Patient seems to be very easily agitated. Things such as the lights, loud noises, things going on with other patients seem overstimulating to him. He has been very tearful off and on. I have consulted psychiatry who has since seen the patient and recommends no medication changes at this time but behavioral modifications such as limiting overstimulation. In addition, she has recommended a urinalysis which I have ordered. Not overly suspicious that there is an underlying bacterial infectious process as patient has been on IV antibiotics and now converted to oral antibiotics. His CRP continues to downtrend. He is afebrile and hemodynamically stable. He did have an episode of emesis on 06/29, perhaps he has something viral which is exacerbating his psychiatric issues. ? exacerbated by FQ on board (changed as outlined above). Will continue to follow. Appreciate recommendations per psych. Did change Accu-Cheks from 4 times a day to 3 times a week trying to limit stimulation as patient seems to be easily agitated. Plan: Disposition: To be determined. Meeting on 06/10 held for [employer] to establish emergency guardianship for making decisions and discharge planning. He cannot return home to his current living conditions. CM to assist w/ d/c planning once [facility] obtains guardianship. Multiple phone calls made by CM regarding decisions of guardianship; however, Adult Protective Services not returning calls. As of 07/02, still no update per CM. Admission and Anticipated Discharge Date Admission Date: June 03, 2021 Subjective Patient seen on daily rounds today. Vocalizes no significant complaints or concerns. Still with intermittent "buzzing in his head". Nursing voices no complaints or concerns. Review of Systems Review of Systems: All systems reviewed and are unremarkable except as noted in HPI and below Denies fevers, chills, headache, nasal congestion, sore throat, cough, chest pain, shortness of breath, palpitations, orthopnea, PND, abdominal pain, nausea, vomiting, diarrhea, constipation, dysuria, hematuria, frequency, back pain, joint pain or swelling, easy bruising or bleeding, skin lesions or rashes. Physical Exam Physical Exam: GENERAL: 56 yo WD/WN WM. NAD. LUNGS: Clear to auscultation bilaterally. No W/R/R. CARDIOVASCULAR: Regular rate and rhythm. No M/G/R. No JVD. ABDOMEN: Soft, non-tender and non-distended. BS normal x 4 quad. EXTREMITIES: No edema. Non-tender. Peripheral pulses +2/4. L foot is dressed. NEUROLOGIC: A&O x3. PSYCHIATRIC: Cooperative. Appropriate mood and affect. SKIN: Warm, dry, intact. Post operative site looks well healed, sutures removed. Results & Data Results & Data ([facility]) Vital Signs (Past 12 Hours) Vital Signs Temp Pulse Resp BP Pulse Ox 07/03/21 07:51 36.8 C 81 16 117/78 92 PG Care Time/CCT Total # of Minutes Spent Total Time Spent with Patient: Total time spent is greater than 50% in coordination of care (as documented) at patient's floor/unit and/or counseling patient: Coding Level of Care Code 17179 Subseq Hosp Care Lvl 1 Diagnoses Diabetic foot ulcer associated with type 2 diabetes mellitus, with fat layer exposed E11.621; L97.502 Osteomyelitis M86.9 Tinnitus H93.19 Diabetes mellitus type 2, uncontrolled E11.65 Dyslipidemia E78.5 Schizo affective schizophrenia F25.0
[2021-07-04] MEDS: ADVANCED PROBIOTIC 1250 MG CAPSULE PO SCH (08:54)
[2021-07-04] MEDS: FLUTICASONE PROPIONATE NA SPR 16 GM BTL SCH (08:55)
[2021-07-04] MEDS: metFORMIN HCL 500 MG TAB PO SCH ×2 (08:55→16:06)
[2021-07-04] MEDS: INSULIN GLARGINE SOLOSTAR 100 UNITS/ML 3 ML PEN SC SCH (08:55)
[2021-07-04] MEDS: lisinopril 2.5 MG TAB PO SCH (08:55)
--- NOTE | 2021-07-04 10:18 | Hospitalist Progress Note ---
Date of Service July 04, 2021 Assessment & Plan (1) Discharge planning issues: Plan: Patient presented to the hospital with large diabetic foot ulcer with exposed bone, all of which has subsequently been treated as indicated below Pt was living in poor conditions--old farm house w/o running water or heat Seen by Psych, it was determined he does not have capacity to make decisions A meeting was held on 06/10 in order for the OOA to obtain emergency guardianship to assist in medical decision making and discharge planning Case management has been following along closely with this case, multiple phone calls made to APS re: guardianship decision but they are not returning calls, no update as of 07/02 Pt subsequently remains in the hospital until a safe discharge plan is in place (2) Diabetic foot ulcer associated with type 2 diabetes mellitus, with fat layer exposed: Plan: Admitted empirically on IV Zosyn and IV Vancomycin. MRI revealed the presence of left third toe osteomyelitis with ? developing osteo of the 2nd toe Orthopedic consult appreciated patient is s/p I&D and amputation of the left third toe on 06/05 Culture data showing Proteus vulgaris with kerr-sensitivity along with an anaerobic GPC Transitioned antibiotics from Zosyn/Vanco to ertapenem (to cover Proteus and provide anaerobic coverage)--completed 14 day course has since completed 2 weeks of IV antibiotics (given concern for residual osteo of 2nd toe that remains). Transitioned to Levaquin with Flagyl 06/20 for additional 2-4 weeks depending on clinical response --Uncertain if the quinolone was potentially causing exacerbation of his psychiatric issues. Seems to be ongoing since this change. pt claims predates this hospitalization --Needs antibiotics through 07/03 at minimum given significant improvement. --transitioned Levaquin/Flagyl to Augmentin on 07/01 to complete full courseon 07/03 CRP elevated a 3.64 on 06/19. Down to 0.76 on 06/26. Sutures were removed by nursing on 06/25 after d/w orthopedic PA (sutures were in place for 3 weeks) Antibiotics were completed as of 07/03 and Augmentin has been discontinued. (3) Osteomyelitis: Plan: S/p I&D and amputation of left third digit but ? developing osteo in 2nd toe that remains Last dose of Invanz given 06/19 with conversion to oral Levaquin/Flagyl started 06/20. Changed to Augmentin 07/01 and completed as of 07/03 (4) Tinnitus: Plan: doesn't seem to be acute (patient seen by ENT in the past) poor historian given tangential speech pattern-- unable to differentiate if unilateral/bilateral, if he has associated/OWENS/change in hearing/vertigo. seems improved slightly per patient. Refer to ENT as OP (if severe, may reach out for assistance while patient remains in house) Given difficulty ascertaining history questions and associated one bout of emesis on 06/29, a CT of the head with and without with intraauditory canal cuts was ordered --CT shows no acute pathology. No obvious schwannoma --Ultimately, MRI would be diagnostic study of choice; however, he seems to be very sensitive to noise and I do not believe he would be compliant with that (5) Diabetes mellitus type 2, uncontrolled: Plan: Patient has not taken medications for his diabetes mellitus for some time now -- was previously on Glipizide and at one time was on Metformin. Medication non- compliance has been an issue. hemoglobin A1c. 11.6 Glycemic management per pharmacy Since has been started on Metformin with uptitration to 1000mg Given his known history of noncompliance, I would not utilize insulin long- term. Could consider Lantus temporarily if going to a facility (currently on Lantus 8U at night) Is on sliding scale and requiring little if any coverage (2 units). His biggest complaint is the multiple fingersticks and his fingers are sore Given adequate blood sugar control, stopped Accu-Cheks 4 times daily and transitioned to Accuchecks (Fasting) on Mondays, Wednesdays, Fridays and as needed (trying to lesson stimulation) Patient has been educated regarding the importance of compliance and good glycemic control residential caregiver consulted for dietary education-- appreciate assistance Added lisinopril 2.5mg for renal protection. BP tolerating this Will need podiatry F/U for nail care, diabetic eye exam, microalbumin, and follow up labs Will need follow-up A1c (September) (6) Dyslipidemia: Plan: Fasting lipid panel 12/12/20 showed a total cholesterol of 323 mg/dL, HDL is 43 mg/dL, LDL 202 mg/dL, and triglycerides are 391 mg/dL. Total Cholesterol:HDL ration is 7.5. Resumed Atorvastatin at 80 mg daily. Will need follow up labs and potentially addition of tricor to target TG. Now on heart healthy/DM diet. (7) Schizo affective schizophrenia: Plan: Added Haldol as needed for anxiety/agitation/hallucinations, etc. Added Lorazepam as needed for anxiety/agitation. Seen by psych on 06/05, pt does not have capacity to make medical decisions On 06/28 and 06/29: Patient seems to be very easily agitated. Things such as the lights, loud noises, things going on with other patients seem overstimulating to him. He has been very tearful off and on. I have consulted psychiatry who has since seen the patient and recommends no medication changes at this time but behavioral modifications such as limiting overstimulation. In addition, she has recommended a urinalysis which I have ordered. Not overly suspicious that there is an underlying bacterial infectious process as patient has been on IV antibiotics and now converted to oral antibiotics. His CRP continues to downtrend. He is afebrile and hemodynamically stable. He did have an episode of emesis on 06/29, perhaps he has something viral which is exacerbating his psychiatric issues. ? exacerbated by FQ on board (changed as outlined above). Will continue to follow. Appreciate recommendations per psych. Did change Accu-Cheks from 4 times a day to 3 times a week trying to limit stimulation as patient seems to be easily agitated. Plan: Disposition: To be determined. Admission and Anticipated Discharge Date Admission Date: June 03, 2021 Subjective Patient seen on daily rounds today. Vocalizes no significant complaints or concerns. Nursing voices no complaints or concerns. Review of Systems Review of Systems: All systems reviewed and are unremarkable except as noted in HPI and below Denies fevers, chills, headache, nasal congestion, sore throat, cough, chest pain, shortness of breath, palpitations, orthopnea, PND, abdominal pain, nausea, vomiting, diarrhea, constipation, dysuria, hematuria, frequency, back pain, joint pain or swelling, easy bruising or bleeding, skin lesions or rashes. Physical Exam Physical Exam: GENERAL: 56 yo WD/WN WM. NAD. LUNGS: Clear to auscultation bilaterally. No W/R/R. CARDIOVASCULAR: Regular rate and rhythm. No M/G/R. ABDOMEN: Soft, non-tender and non-distended. BS normal x 4 quad. EXTREMITIES: No edema. Non-tender. Peripheral pulses +2/4. NEUROLOGIC: A&O x3. PSYCHIATRIC: Cooperative. Appropriate mood and affect. SKIN: Warm, dry, intact. Results & Data Results & Data ([facility]) Vital Signs (Past 12 Hours) Vital Signs Temp Pulse Resp BP Pulse Ox 07/04/21 07:40 36.8 C 65 16 107/71 98 07/03/21 23:15 37.2 C 67 16 120/75 97 PG Care Time/CCT Total # of Minutes Spent Total Time Spent with Patient: Total time spent is greater than 50% in coordination of care (as documented) at patient's floor/unit and/or counseling patient: Coding Level of Care Code 21793 Subseq Hosp Care Lvl 1 Diagnoses Diabetic foot ulcer associated with type 2 diabetes mellitus, with fat layer exposed E11.621; L97.502 Osteomyelitis M86.9 Tinnitus H93.19 Diabetes mellitus type 2, uncontrolled E11.65 Dyslipidemia E78.5 Schizo affective schizophrenia F25.0 Discharge planning issues Z02.9
[2021-07-04] MEDS ORDERED: GLUCOSE 10 TABS/TUBE PO PRN (13:30)
[2021-07-04] MEDS ORDERED: GLUCAGON FOR INJ 1 MG VIAL IM PRN (13:30)
[2021-07-04] MEDS ORDERED: GLUCOSE 40% GEL 15 GM TUBE PO PRN (13:30)
[2021-07-04] MEDS ORDERED: CARBOHYDRATES FOR HYPOGLYCEMIA PO PRN (13:30)
[2021-07-04] MEDS ORDERED: DEXTROSE 50% 50 ML SYRINGE IV PRN (13:30)
[2021-07-05] MEDS: lisinopril 2.5 MG TAB PO SCH (08:57)
[2021-07-05] MEDS: ADVANCED PROBIOTIC 1250 MG CAPSULE PO SCH (08:57)
[2021-07-05] MEDS: FLUTICASONE PROPIONATE NA SPR 16 GM BTL SCH (08:57)
[2021-07-05] MEDS: INSULIN GLARGINE SOLOSTAR 100 UNITS/ML 3 ML PEN SC SCH (08:57)
[2021-07-05] MEDS: metFORMIN HCL 500 MG TAB PO SCH ×2 (08:57→14:35)
--- NOTE | 2021-07-05 10:54 | Hospitalist Progress Note ---
Date of Service July 05, 2021 Assessment & Plan (1) Discharge planning issues: Plan: Patient presented to the hospital with large diabetic foot ulcer with exposed bone, all of which has subsequently been treated as indicated below Pt was living in poor conditions--old farm house w/o running water or heat Seen by Psych, it was determined he does not have capacity to make decisions A meeting was held on 06/10 in order for the OOA to obtain emergency guardianship to assist in medical decision making and discharge planning Case management has been following along closely with this case, multiple phone calls made to APS re: guardianship decision but they are not returning calls, no update as of 07/02 Pt subsequently remains in the hospital until a safe discharge plan is in place (2) Diabetic foot ulcer associated with type 2 diabetes mellitus, with fat layer exposed: Plan: Admitted empirically on IV Zosyn and IV Vancomycin. MRI revealed the presence of left third toe osteomyelitis with ? developing osteo of the 2nd toe Orthopedic consult appreciated patient is s/p I&D and amputation of the left third toe on 06/05 Culture data showing Proteus vulgaris with kerr-sensitivity along with an anaerobic GPC Transitioned antibiotics from Zosyn/Vanco to ertapenem (to cover Proteus and provide anaerobic coverage)--completed 14 day course has since completed 2 weeks of IV antibiotics (given concern for residual osteo of 2nd toe that remains). Transitioned to Levaquin with Flagyl 06/20 for additional 2-4 weeks depending on clinical response --Uncertain if the quinolone was potentially causing exacerbation of his psychiatric issues. Seems to be ongoing since this change. pt claims predates this hospitalization --Needs antibiotics through 07/03 at minimum given significant improvement. --transitioned Levaquin/Flagyl to Augmentin on 07/01 to complete full courseon 07/03 CRP elevated a 3.64 on 06/19. Down to 0.76 on 06/26. Sutures were removed by nursing on 06/25 after d/w orthopedic PA (sutures were in place for 3 weeks) Antibiotics were completed as of 07/03 and Augmentin has been discontinued. (3) Osteomyelitis: Plan: S/p I&D and amputation of left third digit but ? developing osteo in 2nd toe that remains Last dose of Invanz given 06/19 with conversion to oral Levaquin/Flagyl started 06/20. Changed to Augmentin 07/01 and completed as of 07/03 (4) Tinnitus: Plan: doesn't seem to be acute (patient seen by ENT in the past) poor historian given tangential speech pattern-- unable to differentiate if unilateral/bilateral, if he has associated/OWENS/change in hearing/vertigo. seems improved slightly per patient. Refer to ENT as OP (if severe, may reach out for assistance while patient remains in house) Given difficulty ascertaining history questions and associated one bout of emesis on 06/29, a CT of the head with and without with intraauditory canal cuts was ordered --CT shows no acute pathology. No obvious schwannoma --Ultimately, MRI would be diagnostic study of choice; however, he seems to be very sensitive to noise and I do not believe he would be compliant with that (5) Diabetes mellitus type 2, uncontrolled: Plan: Patient has not taken medications for his diabetes mellitus for some time now -- was previously on Glipizide and at one time was on Metformin. Medication non- compliance has been an issue. hemoglobin A1c. 11.6 Glycemic management per pharmacy Since has been started on Metformin with uptitration to 1000mg Given his known history of noncompliance, I would not utilize insulin long- term. Could consider Lantus temporarily if going to a facility (currently on Lantus 8U at night) Is on sliding scale and requiring little if any coverage (2 units). His biggest complaint is the multiple fingersticks and his fingers are sore Given adequate blood sugar control, stopped Accu-Cheks 4 times daily and transitioned to Accuchecks (Fasting) on Mondays, Wednesdays, Fridays and as needed (trying to lesson stimulation) Patient has been educated regarding the importance of compliance and good glycemic control rd lab technician consulted for dietary education-- appreciate assistance Added lisinopril 2.5mg for renal protection. BP tolerating this Will need podiatry F/U for nail care, diabetic eye exam, microalbumin, and follow up labs Will need follow-up A1c (September) (6) Dyslipidemia: Plan: Fasting lipid panel 12/12/20 showed a total cholesterol of 323 mg/dL, HDL is 43 mg/dL, LDL 202 mg/dL, and triglycerides are 391 mg/dL. Total Cholesterol:HDL ration is 7.5. Resumed Atorvastatin at 80 mg daily. Will need follow up labs and potentially addition of tricor to target TG. Now on heart healthy/DM diet. (7) Schizo affective schizophrenia: Plan: Added Haldol as needed for anxiety/agitation/hallucinations, etc. Added Lorazepam as needed for anxiety/agitation. Seen by psych on 06/05, pt does not have capacity to make medical decisions On 06/28 and 06/29: Patient seems to be very easily agitated. Things such as the lights, loud noises, things going on with other patients seem overstimulating to him. He has been very tearful off and on. I have consulted psychiatry who has since seen the patient and recommends no medication changes at this time but behavioral modifications such as limiting overstimulation. In addition, she has recommended a urinalysis which I have ordered. Not overly suspicious that there is an underlying bacterial infectious process as patient has been on IV antibiotics and now converted to oral antibiotics. His CRP continues to downtrend. He is afebrile and hemodynamically stable. He did have an episode of emesis on 06/29, perhaps he has something viral which is exacerbating his psychiatric issues. ? exacerbated by FQ on board (changed as outlined above). Will continue to follow. Appreciate recommendations per psych. Did change Accu-Cheks from 4 times a day to 3 times a week trying to limit stimulation as patient seems to be easily agitated. Plan: Disposition: To be determined. Admission and Anticipated Discharge Date Admission Date: June 03, 2021 Subjective Patient seen on daily rounds today. Vocalizes no significant complaints or concerns. C/o "buzzing" again in his ear. Review of Systems Review of Systems: All systems reviewed and are unremarkable except as noted in HPI and below Denies fevers, chills, headache, nasal congestion, sore throat, cough, chest pain, shortness of breath, palpitations, orthopnea, PND, abdominal pain, nausea, vomiting, diarrhea, constipation, dysuria, hematuria, frequency, back pain, joint pain or swelling, easy bruising or bleeding, skin lesions or rashes. Physical Exam Physical Exam: GENERAL: 56 yo WD/WN WM. NAD. LUNGS: Clear to auscultation bilaterally. No W/R/R. CARDIOVASCULAR: Regular rate and rhythm. No M/G/R. ABDOMEN: Soft, non-tender and non-distended. BS normal x 4 quad. EXTREMITIES: No edema. Non-tender. Peripheral pulses +2/4. NEUROLOGIC: A&O x3. PSYCHIATRIC: Cooperative. Appropriate mood and affect. SKIN: Warm, dry, intact. Results & Data Results & Data ([facility]) Vital Signs (Past 12 Hours) Vital Signs Temp Pulse Resp BP Pulse Ox 07/05/21 07:44 36.6 C 70 20 116/77 95 PG Care Time/CCT Total # of Minutes Spent Total Time Spent with Patient: Total time spent is greater than 50% in coordination of care (as documented) at patient's floor/unit and/or counseling patient: Coding Level of Care Code 39166 Subseq Hosp Care Lvl 1 Diagnoses Discharge planning issues Z02.9 Diabetic foot ulcer associated with type 2 diabetes mellitus, with fat layer exposed E11.621; L97.502 Osteomyelitis M86.9 Tinnitus H93.19 Diabetes mellitus type 2, uncontrolled E11.65 Dyslipidemia E78.5 Schizo affective schizophrenia F25.0
[2021-07-06] MEDS: metFORMIN HCL 500 MG TAB PO SCH ×2 (09:25→15:07)
[2021-07-06] MEDS: INSULIN GLARGINE SOLOSTAR 100 UNITS/ML 3 ML PEN SC SCH (09:25)
[2021-07-06] MEDS: FLUTICASONE PROPIONATE NA SPR 16 GM BTL SCH (09:25)
[2021-07-06] MEDS: lisinopril 2.5 MG TAB PO SCH (09:26)
--- NOTE | 2021-07-06 10:56 | Hospitalist Progress Note ---
Date of Service July 06, 2021 Assessment & Plan (1) Discharge planning issues: Plan: Patient presented to the hospital with large diabetic foot ulcer with exposed bone, all of which has subsequently been treated as indicated below Pt was living in poor conditions--old farm house w/o running water or heat Seen by Psych, it was determined he does not have capacity to make decisions A meeting was held on 06/10 in order for the [facility]OA to obtain emergency guardianship to assist in medical decision making and discharge planning Case management has been following along closely with this case, multiple phone calls made to APS re: guardianship decision but they are not returning calls, no update as of 07/02 Pt subsequently remains in the hospital until a safe discharge plan is in place (2) Diabetic foot ulcer associated with type 2 diabetes mellitus, with fat layer exposed: Plan: Admitted empirically on IV Zosyn and IV Vancomycin. MRI revealed the presence of left third toe osteomyelitis with ? developing osteo of the 2nd toe Orthopedic consult appreciated patient is s/p I&D and amputation of the left third toe on 06/05 Culture data showing Proteus vulgaris with kerr-sensitivity along with an anaerobic GPC Transitioned antibiotics from Zosyn/Vanco to ertapenem (to cover Proteus and provide anaerobic coverage)--completed 14 day course has since completed 2 weeks of IV antibiotics (given concern for residual osteo of 2nd toe that remains). Transitioned to Levaquin with Flagyl 06/20 for additional 2-4 weeks depending on clinical response --Uncertain if the quinolone was potentially causing exacerbation of his psychiatric issues. Seems to be ongoing since this change. pt claims predates this hospitalization --Needs antibiotics through 07/03 at minimum given significant improvement. --transitioned Levaquin/Flagyl to Augmentin on 07/01 to complete full courseon 07/03 CRP elevated a 3.64 on 06/19. Down to 0.76 on 06/26. Sutures were removed by nursing on 06/25 after d/w orthopedic PA (sutures were in place for 3 weeks) Antibiotics were completed as of 07/03 and Augmentin has been discontinued. (3) Osteomyelitis: Plan: S/p I&D and amputation of left third digit but ? developing osteo in 2nd toe that remains Last dose of Invanz given 06/19 with conversion to oral Levaquin/Flagyl started 06/20. Changed to Augmentin 07/01 and completed as of 07/03 (4) Tinnitus: Plan: doesn't seem to be acute (patient seen by ENT in the past) poor historian given tangential speech pattern-- unable to differentiate if unilateral/bilateral, if he has associated/[place]/change in hearing/vertigo. seems improved slightly per patient. Refer to ENT as OP (if severe, may reach out for assistance while patient remains in house) Given difficulty ascertaining history questions and associated one bout of emesis on 06/29, a CT of the head with and without with intraauditory canal cuts was ordered --CT shows no acute pathology. No obvious schwannoma --Ultimately, MRI would be diagnostic study of choice; however, he seems to be very sensitive to noise and I do not believe he would be compliant with that (5) Diabetes mellitus type 2, uncontrolled: Plan: Patient has not taken medications for his diabetes mellitus for some time now -- was previously on Glipizide and at one time was on Metformin. Medication non- compliance has been an issue. hemoglobin A1c. 11.6 Glycemic management per pharmacy Since has been started on Metformin with uptitration to 1000mg Given his known history of noncompliance, I would not utilize insulin long- term. Could consider Lantus temporarily if going to a facility (currently on Lantus 8U at night) Is on sliding scale and requiring little if any coverage (2 units). His biggest complaint is the multiple fingersticks and his fingers are sore Given adequate blood sugar control, stopped Accu-Cheks 4 times daily and transitioned to Accuchecks (Fasting) on Mondays, Wednesdays, Fridays and as needed (trying to lesson stimulation) Patient has been educated regarding the importance of compliance and good glycemic control hand deicer element winder consulted for dietary education-- appreciate assistance Added lisinopril 2.5mg for renal protection. BP tolerating this Will need podiatry F/U for nail care, diabetic eye exam, microalbumin, and follow up labs Will need follow-up A1c (September) (6) Dyslipidemia: Plan: Fasting lipid panel 12/12/20 showed a total cholesterol of 323 mg/dL, HDL is 43 mg/dL, LDL 202 mg/dL, and triglycerides are 391 mg/dL. Total Cholesterol:HDL ration is 7.5. Resumed Atorvastatin at 80 mg daily. Will need follow up labs and potentially addition of tricor to target TG. Now on heart healthy/DM diet. (7) Schizo affective schizophrenia: Plan: Added Haldol as needed for anxiety/agitation/hallucinations, etc. Added Lorazepam as needed for anxiety/agitation. Seen by psych on 06/05, pt does not have capacity to make medical decisions On 06/28 and 06/29: Patient seems to be very easily agitated. Things such as the lights, loud noises, things going on with other patients seem overstimulating to him. He has been very tearful off and on. I have consulted psychiatry who has since seen the patient and recommends no medication changes at this time but behavioral modifications such as limiting overstimulation. In addition, she has recommended a urinalysis which I have ordered. Not overly suspicious that there is an underlying bacterial infectious process as patient has been on IV antibiotics and now converted to oral antibiotics. His CRP continues to downtrend. He is afebrile and hemodynamically stable. He did have an episode of emesis on 06/29, perhaps he has something viral which is exacerbating his psychiatric issues. ? exacerbated by FQ on board (changed as outlined above). Will continue to follow. Appreciate recommendations per psych. Did change Accu-Cheks from 4 times a day to 3 times a week trying to limit stimulation as patient seems to be easily agitated. Plan: Disposition: To be determined. Admission and Anticipated Discharge Date Admission Date: June 03, 2021 Subjective Patient seen on daily rounds today. Vocalizes no significant complaints or concerns. Continues to mention "buzzing" again/earache in his R ear. Review of Systems Review of Systems: All systems reviewed and are unremarkable except as noted in HPI and below Denies fevers, chills, headache, nasal congestion, sore throat, cough, chest pain, shortness of breath, palpitations, orthopnea, PND, abdominal pain, nausea, vomiting, diarrhea, constipation, dysuria, hematuria, frequency, back pain, joint pain or swelling, easy bruising or bleeding, skin lesions or rashes. Physical Exam Physical Exam: GENERAL: 56 yo WD/WN WM. NAD. LUNGS: Clear to auscultation bilaterally. No W/R/R. CARDIOVASCULAR: Regular rate and rhythm. No M/G/R. ABDOMEN: Soft, non-tender and non-distended. BS normal x 4 quad. EXTREMITIES: No edema. Non-tender. Peripheral pulses +2/4. NEUROLOGIC: A&O x3. PSYCHIATRIC: Cooperative. Appropriate mood and affect. SKIN: Warm, dry, intact. Results & Data Results & Data ([facility]) Vital Signs (Past 12 Hours) Vital Signs Temp Pulse Resp BP Pulse Ox 07/06/21 07:50 37 C 71 16 99/62 L 96 PG Care Time/CCT Total # of Minutes Spent Total Time Spent with Patient: Total time spent is greater than 50% in coordination of care (as documented) at patient's floor/unit and/or counseling patient: Coding Level of Care Code 29099 Subseq Hosp Care Lvl 1 Diagnoses Discharge planning issues Z02.9 Diabetic foot ulcer associated with type 2 diabetes mellitus, with fat layer exposed E11.621; L97.502 Osteomyelitis M86.9 Tinnitus H93.19 Diabetes mellitus type 2, uncontrolled E11.65 Dyslipidemia E78.5 Schizo affective schizophrenia F25.0
[2021-07-07] MEDS: metFORMIN HCL 500 MG TAB PO SCH ×2 (08:00→17:06)
[2021-07-07] MEDS: lisinopril 2.5 MG TAB PO SCH (08:00)
[2021-07-07] MEDS: FLUTICASONE PROPIONATE NA SPR 16 GM BTL SCH (08:01)
[2021-07-07] MEDS: INSULIN GLARGINE SOLOSTAR 100 UNITS/ML 3 ML PEN SC SCH (08:02)
--- NOTE | 2021-07-07 11:44 | Hospitalist Progress Note ---
Date of Service July 07, 2021 Assessment & Plan (1) Discharge planning issues: Plan: Patient presented to the hospital with large diabetic foot ulcer with exposed bone, all of which has subsequently been treated as indicated below Pt was living in poor conditions--old farm house w/o running water or heat Seen by Psych, it was determined he does not have capacity to make decisions A meeting was to be held on 06/10 in order for the OOA to obtain emergency guardianship to assist in medical decision making and discharge planning; however, evidently this meeting did not happen Apparently now the meeting is to be held on 07/08 (tomorrow)--legal team or someone from [facility] is to be in attendance Case management has been following along closely with this case, multiple phone calls made to APS re: guardianship decision but they are not returning calls; legal team and administration is involved Pt subsequently remains in the hospital until a safe discharge plan is in place (2) Diabetic foot ulcer associated with type 2 diabetes mellitus, with fat layer exposed: Plan: Admitted empirically on IV Zosyn and IV Vancomycin. MRI revealed the presence of left third toe osteomyelitis with ? developing osteo of the 2nd toe Orthopedic consult appreciated patient is s/p I&D and amputation of the left third toe on 06/05 Culture data showing Proteus vulgaris with kerr-sensitivity along with an an aerobic GPC Transitioned antibiotics from Zosyn/Vanco to ertapenem (to cover Proteus and provide anaerobic coverage)--completed 14 day course has since completed 2 weeks of IV antibiotics (given concern for residual osteo of 2nd toe that remains). Transitioned to Levaquin with Flagyl 06/20 for additional 2-4 weeks depending on clinical response --Uncertain if the quinolone was potentially causing exacerbation of his psychiatric issues. Seems to be ongoing since this change. pt claims predates this hospitalization --Needs antibiotics through 07/03 at minimum given significant improvement. --transitioned Levaquin/Flagyl to Augmentin on 07/01 to complete full courseon 07/03 CRP elevated a 3.64 on 06/19. Down to 0.76 on 06/26. Sutures were removed by nursing on 06/25 after d/w orthopedic PA (sutures were in place for 3 weeks) Antibiotics were completed as of 07/03 and Augmentin has been discontinued. (3) Osteomyelitis: Plan: S/p I&D and amputation of left third digit but ? developing osteo in 2nd toe that remains Last dose of Invanz given 06/19 with conversion to oral Levaquin/Flagyl started 06/20. Changed to Augmentin 07/01 and completed as of 07/03 (4) Tinnitus: Plan: doesn't seem to be acute (patient seen by ENT in the past) poor historian given tangential speech pattern-- unable to differentiate if unilateral/bilateral, if he has associated/OWENS/change in hearing/vertigo. seems improved slightly per patient. Refer to ENT as OP (if severe, may reach out for assistance while patient remains in house) Given difficulty ascertaining history questions and associated one bout of emesis on 06/29, a CT of the head with and without with intra-auditory canal cuts was ordered --CT shows no acute pathology. No obvious schwannoma --Ultimately, MRI would be diagnostic study of choice; however, he seems to be very sensitive to noise and I do not believe he would be compliant with that (5) Diabetes mellitus type 2, uncontrolled: Plan: Patient has not taken medications for his diabetes mellitus for some time now -- was previously on Glipizide and at one time was on Metformin. Medication non- compliance has been an issue. hemoglobin A1c. 11.6 Glycemic management per pharmacy Since has been started on Metformin with uptitration to 1000mg Given his known history of noncompliance, I would not utilize insulin long- term. Could consider Lantus temporarily if going to a facility (currently on Lantus 8U at night) Is on sliding scale and requiring little if any coverage (2 units). His biggest complaint is the multiple fingersticks and his fingers are sore Given adequate blood sugar control, stopped Accu-Cheks 4 times daily and transitioned to Accuchecks (Fasting) on Mondays, Wednesdays, Fridays and as needed (trying to lesson stimulation) Patient has been educated regarding the importance of compliance and good glycemic control harvest worker fruit consulted for dietary education-- appreciate assistance Added lisinopril 2.5mg for renal protection. BP tolerating this Will need podiatry F/U for nail care, diabetic eye exam, microalbumin, and follow up labs Will need follow-up A1c (September) (6) Dyslipidemia: Plan: Fasting lipid panel 12/12/20 showed a total cholesterol of 323 mg/dL, HDL is 43 mg/dL, LDL 202 mg/dL, and triglycerides are 391 mg/dL. Total Cholesterol:HDL ration is 7.5. Resumed Atorvastatin at 80 mg daily. Will need follow up labs and potentially addition of tricor to target TG. Now on heart healthy/DM diet. (7) Schizo affective schizophrenia: Plan: Added Haldol as needed for anxiety/agitation/hallucinations, etc. Added Lorazepam as needed for anxiety/agitation. Seen by psych on 06/05, pt does not have capacity to make medical decisions On 06/28 and 06/29: Patient seems to be very easily agitated. Things such as the lights, loud noises, things going on with other patients seem overstimulating to him. He has been very tearful off and on. I have consulted psychiatry who has since seen the patient and recommends no medication changes at this time but behavioral modifications such as limiting overstimulation. In addition, she has recommended a urinalysis which I have ordered. Not overly suspicious that there is an underlying bacterial infectious process as patient has been on IV antibiotics and now converted to oral antibiotics. His CRP continues to downtrend. He is afebrile and hemodynamically stable. He did have an episode of emesis on 06/29, perhaps he has something viral which is exacerbating his psychiatric issues. ? exacerbated by FQ on board (changed as outlined above). Will continue to follow. Appreciate recommendations per psych. Did change Accu-Cheks from 4 times a day to 3 times a week trying to limit stimulation as patient seems to be easily agitated. Plan: Disposition: To be determined. Admission and Anticipated Discharge Date Admission Date: June 03, 2021 Subjective Patient seen on daily rounds today. Vocalizes no significant complaints or concerns. Continues to mention "buzzing" in his R ear which has been investigated without obvious cause. Review of Systems Review of Systems: All systems reviewed and are unremarkable except as noted in HPI and below Denies fevers, chills, headache, nasal congestion, sore throat, cough, chest pain, shortness of breath, palpitations, orthopnea, PND, abdominal pain, nausea, vomiting, diarrhea, constipation, dysuria, hematuria, frequency, back pain, joint pain or swelling, easy bruising or bleeding, skin lesions or rashes. Physical Exam Physical Exam: GENERAL: 56 yo WD/WN WM. NAD. LUNGS: Clear to auscultation bilaterally. No W/R/R. CARDIOVASCULAR: Regular rate and rhythm. No M/G/R. ABDOMEN: Soft, non-tender and non-distended. BS normal x 4 quad. EXTREMITIES: No edema. Non-tender. Peripheral pulses +2/4. NEUROLOGIC: A&O x3. PSYCHIATRIC: Cooperative. Appropriate mood and affect. SKIN: Warm, dry, intact. Results & Data Results & Data ([facility]) Vital Signs (Past 12 Hours) Vital Signs Temp Pulse Resp BP Pulse Ox 07/07/21 07:26 36.7 C 65 14 101/64 97 PG Care Time/CCT Total # of Minutes Spent Total Time Spent with Patient: Total time spent is greater than 50% in coordination of care (as documented) at patient's floor/unit and/or counseling patient: Coding Level of Care Code 51671 Subseq Hosp Care Lvl 1 Diagnoses Discharge planning issues Z02.9 Diabetic foot ulcer associated with type 2 diabetes mellitus, with fat layer exposed E11.621; L97.502 Osteomyelitis M86.9 Tinnitus H93.19 Diabetes mellitus type 2, uncontrolled E11.65 Dyslipidemia E78.5 Schizo affective schizophrenia F25.0
[2021-07-08] MEDS: metFORMIN HCL 500 MG TAB PO SCH ×2 (08:17→17:11)
[2021-07-08] MEDS: lisinopril 2.5 MG TAB PO SCH (08:17)
[2021-07-08] MEDS: FLUTICASONE PROPIONATE NA SPR 16 GM BTL SCH (08:18)
[2021-07-08] MEDS: INSULIN GLARGINE SOLOSTAR 100 UNITS/ML 3 ML PEN SC SCH (08:18)
--- NOTE | 2021-07-08 11:24 | Hospitalist Progress Note ---
Date of Service July 08, 2021 Assessment & Plan (1) Discharge planning issues: Plan: Patient presented to the hospital with large diabetic foot ulcer with exposed bone, all of which has subsequently been treated as indicated below Pt was living in poor conditions--old farm house w/o running water or heat Seen by Psych, it was determined he does not have capacity to make decisions A meeting was to be held on 06/10 in order for the OOA to obtain emergency guardianship to assist in medical decision making and discharge planning; however, evidently this meeting did not happen Apparently now the meeting is to be held today (07/08)--legal team or someone from [facility] is to be in attendance Case management has been following along closely with this case, multiple phone calls made to [employer]PS re: guardianship decision but they are not returning calls; legal team and administration is involved Pt subsequently remains in the hospital until a safe discharge plan is in place (2) Diabetic foot ulcer associated with type 2 diabetes mellitus, with fat layer exposed: Plan: Admitted empirically on IV Zosyn and IV Vancomycin. MRI revealed the presence of left third toe osteomyelitis with ? developing osteo of the 2nd toe Orthopedic consult appreciated patient is s/p I&D and amputation of the left third toe on 06/05 Culture data showing Proteus vulgaris with kerr-sensitivity along with an anaerobic GPC Transitioned antibiotics from Zosyn/Vanco to ertapenem (to cover Proteus and provide anaerobic coverage)--completed 14 day course has since completed 2 weeks of IV antibiotics (given concern for residual osteo of 2nd toe that remains). Transitioned to Levaquin with Flagyl 06/20 for additional 2-4 weeks depending on clinical response --Uncertain if the quinolone was potentially causing exacerbation of his psychiatric issues. Seems to be ongoing since this change. pt claims predates this hospitalization --Needs antibiotics through 07/03 at minimum given significant improvement. --transitioned Levaquin/Flagyl to Augmentin on 07/01 to complete full courseon 07/03 CRP elevated a 3.64 on 06/19. Down to 0.76 on 06/26. Sutures were removed by nursing on 06/25 after d/w orthopedic PA (sutures were in place for 3 weeks) Antibiotics were completed as of 07/03 and Augmentin has been discontinued. (3) Osteomyelitis: Plan: S/p I&D and amputation of left third digit but ? developing osteo in 2nd toe that remains Last dose of Invanz given 06/19 with conversion to oral Levaquin/Flagyl started 06/20. Changed to Augmentin 07/01 and completed as of 07/03 (4) Tinnitus: Plan: doesn't seem to be acute (patient seen by ENT in the past) poor historian given tangential speech pattern-- unable to differentiate if unilateral/bilateral, if he has associated/OWENS/change in hearing/vertigo. seems improved slightly per patient. Refer to ENT as OP (if severe, may reach out for assistance while patient remains in house) Given difficulty ascertaining history questions and associated one bout of emesis on 06/29, a CT of the head with and without with intra-auditory canal cuts was ordered --CT shows no acute pathology. No obvious schwannoma --Ultimately, MRI would be diagnostic study of choice; however, he seems to be very sensitive to noise and I do not believe he would be compliant with that (5) Diabetes mellitus type 2, uncontrolled: Plan: Patient has not taken medications for his diabetes mellitus for some time now -- was previously on Glipizide and at one time was on Metformin. Medication non- compliance has been an issue. hemoglobin A1c. 11.6 Glycemic management per pharmacy Since has been started on Metformin with uptitration to 1000mg Given his known history of noncompliance, I would not utilize insulin long- term. Could consider Lantus temporarily if going to a facility (currently on Lantus 8U at night) Is on sliding scale and requiring little if any coverage (2 units). His biggest complaint is the multiple fingersticks and his fingers are sore Given adequate blood sugar control, stopped Accu-Cheks 4 times daily and transitioned to Accuchecks (Fasting) on Mondays, Wednesdays, Fridays and as needed (trying to lesson stimulation) Patient has been educated regarding the importance of compliance and good glycemic control cosmetics demonstrator consulted for dietary education-- appreciate assistance Added lisinopril 2.5mg for renal protection. BP tolerating this Will need podiatry F/U for nail care, diabetic eye exam, microalbumin, and follow up labs Will need follow-up A1c (September) (6) Dyslipidemia: Plan: Fasting lipid panel 12/12/20 showed a total cholesterol of 323 mg/dL, HDL is 43 mg/dL, LDL 202 mg/dL, and triglycerides are 391 mg/dL. Total Cholesterol:HDL ration is 7.5. Resumed Atorvastatin at 80 mg daily. Will need follow up labs and potentially addition of tricor to target TG. Now on heart healthy/DM diet. (7) Schizo affective schizophrenia: Plan: Added Haldol as needed for anxiety/agitation/hallucinations, etc. Added Lorazepam as needed for anxiety/agitation. Seen by psych on 06/05, pt does not have capacity to make medical decisions On 06/28 and 06/29: Patient seems to be very easily agitated. Things such as the lights, loud noises, things going on with other patients seem overstimulating to him. He has been very tearful off and on. I have consulted psychiatry who has since seen the patient and recommends no medication changes at this time but behavioral modifications such as limiting overstimulation. In addition, she has recommended a urinalysis which I have ordered. Not overly suspicious that there is an underlying bacterial infectious process as patient has been on IV antibiotics and now converted to oral antibiotics. His CRP continues to downtrend. He is afebrile and hemodynamically stable. He did have an episode of emesis on 06/29, perhaps he has something viral which is exacerbating his psychiatric issues. ? exacerbated by FQ on board (changed as outlined above). Will continue to follow. Appreciate recommendations per psych. Did change Accu-Cheks from 4 times a day to 3 times a week trying to limit stimulation as patient seems to be easily agitated. Plan: Disposition: To be determined. Admission and Anticipated Discharge Date Admission Date: June 03, 2021 Subjective Patient seen on daily rounds today. Vocalizes no significant complaints or concerns. Review of Systems Review of Systems: All systems reviewed and are unremarkable except as noted in HPI and below Denies fevers, chills, headache, nasal congestion, sore throat, cough, chest pain, shortness of breath, palpitations, orthopnea, PND, abdominal pain, nausea, vomiting, diarrhea, constipation, dysuria, hematuria, frequency, back pain, joint pain or swelling, easy bruising or bleeding, skin lesions or rashes. Physical Exam Physical Exam: GENERAL: 56 yo WD/WN WM. NAD. LUNGS: Clear to auscultation bilaterally. No W/R/R. CARDIOVASCULAR: Regular rate and rhythm. No M/G/R. ABDOMEN: Soft, non-tender and non-distended. BS normal x 4 quad. EXTREMITIES: No edema. Non-tender. Peripheral pulses +2/4. NEUROLOGIC: A&O x3. PSYCHIATRIC: Cooperative. Appropriate mood and affect. SKIN: Warm, dry, intact. Results & Data Results & Data ([facility]) Vital Signs (Past 12 Hours) Vital Signs Temp Pulse Resp BP Pulse Ox 07/08/21 07:38 36.5 C 67 16 101/65 97 PG Care Time/CCT Total # of Minutes Spent Total Time Spent with Patient: Total time spent is greater than 50% in coordination of care (as documented) at patient's floor/unit and/or counseling patient: Coding Level of Care Code 96735 Subseq Hosp Care Lvl 1 Diagnoses Discharge planning issues Z02.9 Diabetic foot ulcer associated with type 2 diabetes mellitus, with fat layer exposed E11.621; L97.502 Osteomyelitis M86.9 Tinnitus H93.19 Diabetes mellitus type 2, uncontrolled E11.65 Dyslipidemia E78.5 Schizo affective schizophrenia F25.0
[2021-07-09] MEDS: metFORMIN HCL 500 MG TAB PO SCH ×2 (08:25→17:43)
[2021-07-09] MEDS: INSULIN GLARGINE SOLOSTAR 100 UNITS/ML 3 ML PEN SC SCH (08:25)
[2021-07-09] MEDS: lisinopril 2.5 MG TAB PO SCH (08:25)
[2021-07-09] MEDS: FLUTICASONE PROPIONATE NA SPR 16 GM BTL SCH (10:02)
--- NOTE | 2021-07-09 11:31 | Hospitalist Progress Note ---
Date of Service July 09, 2021 Assessment & Plan (1) Discharge planning issues: Plan: Patient presented to the hospital with large diabetic foot ulcer with exposed bone, all of which has subsequently been treated as indicated below Pt was living in poor conditions--old farm house w/o running water or heat Seen by Psych, it was determined he does not have capacity to make decisions A meeting was to be held on 06/10 in order for the OOA to obtain emergency guardianship (which did not occur) rescheduled for 07/08 Pt now has an appointed guardian, referrals are to be sent to local [facility], per note, referral sent to [facility] Pt subsequently remains in the hospital until a safe discharge plan is in place (2) Diabetic foot ulcer associated with type 2 diabetes mellitus, with fat layer exposed: Plan: Admitted empirically on IV Zosyn and IV Vancomycin. MRI revealed the presence of left third toe osteomyelitis with ? developing osteo of the 2nd toe Orthopedic consult appreciated patient is s/p I&D and amputation of the left third toe on 06/05 Culture data showing Proteus vulgaris with kerr-sensitivity along with an anaerobic GPC Transitioned antibiotics from Zosyn/Vanco to ertapenem (to cover Proteus and provide anaerobic coverage)--completed 14 day course has since completed 2 weeks of IV antibiotics (given concern for residual osteo of 2nd toe that remains). Transitioned to Levaquin with Flagyl 06/20 for additional 2-4 weeks depending on clinical response --Uncertain if the quinolone was potentially causing exacerbation of his psychiatric issues. Seems to be ongoing since this change. pt claims predates this hospitalization --transitioned Levaquin/Flagyl to Augmentin on 07/01 and completedon 07/03 (3) Osteomyelitis: Plan: S/p I&D and amputation of left third digit but ? developing osteo in 2nd toe that remains Last dose of Invanz given 06/19 with conversion to oral Levaquin/Flagyl started 06/20. Changed to Augmentin 07/01 and completed as of 07/03 (4) Tinnitus: Plan: doesn't seem to be acute (patient seen by ENT in the past) poor historian given tangential speech pattern-- unable to differentiate if unilateral/bilateral, if he has associated/OW[place]/change in hearing/vertigo. seems improved slightly per patient. Refer to ENT as OP (if severe, may reach out for assistance while patient remains in house) Given difficulty ascertaining history questions and associated one bout of emesis on 06/29, a CT of the head with and without with intra-auditory canal cuts was ordered --CT shows no acute pathology. No obvious schwannoma --Ultimately, MRI would be diagnostic study of choice; however, he seems to be very sensitive to noise and I do not believe he would be compliant with that (5) Diabetes mellitus type 2, uncontrolled: Plan: Patient has not taken medications for his diabetes mellitus for some time now -- was previously on Glipizide and at one time was on Metformin. Medication non- compliance has been an issue. hemoglobin A1c. 11.6 Glycemic management per pharmacy Since has been started on Metformin with uptitration to 1000mg Given his known history of noncompliance, I would not utilize insulin long- term. Could consider Lantus temporarily if going to a facility (currently on Lantus 8U at night) Is on sliding scale and requiring little if any coverage (2 units). His biggest complaint is the multiple fingersticks and his fingers are sore Given adequate blood sugar control, stopped Accu-Cheks 4 times daily and transitioned to Accuchecks (Fasting) on Mondays, Wednesdays, Fridays and as needed (trying to lesson stimulation) Patient has been educated regarding the importance of compliance and good glycemic control tester regulator consulted for dietary education-- appreciate assistance Added lisinopril 2.5mg for renal protection. BP tolerating this Will need podiatry F/U for nail care, diabetic eye exam, microalbumin, and follow up labs Will need follow-up A1c (September) (6) Dyslipidemia: Plan: Fasting lipid panel 12/12/20 showed a total cholesterol of 323 mg/dL, HDL is 43 mg/dL, LDL 202 mg/dL, and triglycerides are 391 mg/dL. Total Cholesterol:HDL ration is 7.5. Resumed Atorvastatin at 80 mg daily. Will need follow up labs and potentially addition of tricor to target TG. Now on heart healthy/DM diet. (7) Schizo affective schizophrenia: Plan: Added Haldol as needed for anxiety/agitation/hallucinations, etc. Added Lorazepam as needed for anxiety/agitation. Seen by psych on 06/05, pt does not have capacity to make medical decisions On 06/28 and 06/29: Patient seems to be very easily agitated. Things such as the lights, loud noises, things going on with other patients seem overstimulating to him. He has been very tearful off and on. I have consulted psychiatry who has since seen the patient and recommends no medication changes at this time but behavioral modifications such as limiting overstimulation. In addition, she has recommended a urinalysis which I have ordered. Not overly suspicious that there is an underlying bacterial infectious process as patient has been on IV antibiotics and now converted to oral antibiotics. His CRP continues to downtrend. He is afebrile and hemodynamically stable. He did have an episode of emesis on 06/29, perhaps he has something viral which is exacerbating his psychiatric issues. ? exacerbated by FQ on board (changed as outlined above). Will continue to follow. Appreciate recommendations per psych. Did change Accu-Cheks from 4 times a day to 3 times a week trying to limit stimulation as patient seems to be easily agitated. Plan: Disposition: Emergency guardian appointed, [facility] in the process of sending out referrals to personal half-way facilities. Admission and Anticipated Discharge Date Admission Date: June 03, 2021 Subjective Patient seen on daily rounds today. Vocalizes no significant complaints or concerns other than ongoing buzzing in his ear. Review of Systems Review of Systems: All systems reviewed and are unremarkable except as noted in HPI and below Denies fevers, chills, headache, nasal congestion, sore throat, cough, chest marcelino n, shortness of breath, palpitations, orthopnea, PND, abdominal pain, nausea, vomiting, diarrhea, constipation, dysuria, hematuria, frequency, back pain, joint pain or swelling, easy bruising or bleeding, skin lesions or rashes. Physical Exam Physical Exam: GENERAL: 56 yo WD/WN WM. NAD. LUNGS: Clear to auscultation bilaterally. No W/R/R. CARDIOVASCULAR: Regular rate and rhythm. No M/G/R. ABDOMEN: Soft, non-tender and non-distended. BS normal x 4 quad. EXTREMITIES: No edema. Non-tender. Peripheral pulses +2/4. NEUROLOGIC: A&O x3. PSYCHIATRIC: Cooperative. Appropriate mood and affect. SKIN: Warm, dry, intact. Results & Data Results & Data ([facility]) Vital Signs (Past 12 Hours) Vital Signs Temp Pulse Resp BP Pulse Ox 07/09/21 07:40 37.0 C 66 16 122/77 97 PG Care Time/CCT Total # of Minutes Spent Total Time Spent with Patient: Total time spent is greater than 50% in coordination of care (as documented) at patient's floor/unit and/or counseling patient: Coding Level of Care Code 19501 Subseq Hosp Care Lvl 1 Diagnoses Discharge planning issues Z02.9 Diabetic foot ulcer associated with type 2 diabetes mellitus, with fat layer exposed E11.621; L97.502 Osteomyelitis M86.9 Tinnitus H93.19 Diabetes mellitus type 2, uncontrolled E11.65 Dyslipidemia E78.5 Schizo affective schizophrenia F25.0
[2021-07-10] MEDS: lisinopril 2.5 MG TAB PO SCH (08:32)
[2021-07-10] MEDS: FLUTICASONE PROPIONATE NA SPR 16 GM BTL SCH (08:32)
[2021-07-10] MEDS: INSULIN GLARGINE SOLOSTAR 100 UNITS/ML 3 ML PEN SC SCH (08:33)
[2021-07-10] MEDS: metFORMIN HCL 500 MG TAB PO SCH ×2 (08:33→17:49)
--- NOTE | 2021-07-10 13:54 | Hospitalist Progress Note ---
Date of Service July 10, 2021 Assessment & Plan (1) Discharge planning issues: Plan: Patient presented to the hospital with large diabetic foot ulcer with exposed bone, all of which has subsequently been treated as indicated below Pt was living in poor conditions--old farm house w/o running water or heat Seen by Psych, it was determined he does not have capacity to make decisions A meeting was to be held on 06/10 in order for the OOA to obtain emergency guardianship (which did not occur) rescheduled for / Pt now has an appointed guardian, referrals are to be sent to local [facility], per note, referral sent to [facility] Pt subsequently remains in the hospital until a safe discharge plan is in place (2) Diabetic foot ulcer associated with type 2 diabetes mellitus, with fat layer exposed: Plan: Admitted empirically on IV Zosyn and IV Vancomycin. MRI revealed the presence of left third toe osteomyelitis with ? developing osteo of the 2nd toe Orthopedic consult appreciated patient is s/p I&D and amputation of the left third toe on 06/05 Culture data showing Proteus vulgaris with kerr-sensitivity along with an anaerobic GPC Initially on Zosyn/Vanco Empirically. Transitioend to ertapenem (to cover Proteus and provide anaerobic coverage)--completed 14 day course has since completed 2 weeks oral abx therapy as well (levaquin/flagyl but then changed to Augmentin as uncertain is Quinolone was exacerbating Psych issues) (3) Osteomyelitis: Plan: S/p I&D and amputation of left third digit but ? developing osteo in 2nd toe that remains Last dose of Invanz given 06/19 with conversion to oral Levaquin/Flagyl started 06/20. Changed to Augmentin 07/01 and completed as of 07/03 (4) Tinnitus: Plan: doesn't seem to be acute (patient seen by ENT in the past) poor historian given tangential speech pattern-- unable to differentiate if unilateral/bilateral, if he has associated/OWENS/change in hearing/vertigo. seems improved slightly per patient. Refer to ENT as OP (if severe, may reach out for assistance while patient remains in house) Given difficulty ascertaining history questions and associated one bout of emesis on 06/29, a CT of the head with and without with intra-auditory canal cuts was ordered --CT shows no acute pathology. No obvious schwannoma --Ultimately, MRI would be diagnostic study of choice; however, he seems to be very sensitive to noise and I do not believe he would be compliant with that (5) Diabetes mellitus type 2, uncontrolled: Plan: Patient has not taken medications for his diabetes mellitus for some time now -- was previously on Glipizide and at one time was on Metformin. Medication non- compliance has been an issue. hemoglobin A1c. 11.6 Glycemic management per pharmacy Since has been started on Metformin with uptitration to 1000mg Given his known history of noncompliance, I would not utilize insulin long- term. Could consider Lantus temporarily if going to a facility (currently on Lantus 8U at night) Is on sliding scale and requiring little if any coverage (2 units). His biggest complaint is the multiple fingersticks and his fingers are sore Given adequate blood sugar control, stopped Accu-Cheks 4 times daily and tr ansitioned to Accuchecks (Fasting) on Mondays, Wednesdays, Fridays and as needed (trying to lesson stimulation) Patient has been educated regarding the importance of compliance and good glycemic control brownfield redevelopment specialist consulted for dietary education-- appreciate assistance Added lisinopril 2.5mg for renal protection. BP tolerating this Will need podiatry F/U for nail care, diabetic eye exam, microalbumin, and follow up labs Will need follow-up A1c (September) (6) Dyslipidemia: Plan: Fasting lipid panel 12/12/20 showed a total cholesterol of 323 mg/dL, HDL is 43 mg/dL, LDL 202 mg/dL, and triglycerides are 391 mg/dL. Total Cholesterol:HDL ration is 7.5. Resumed Atorvastatin at 80 mg daily. Will need follow up labs and potentially addition of tricor to target TG. Now on heart healthy/DM diet. (7) Schizo affective schizophrenia: Plan: Added Haldol as needed for anxiety/agitation/hallucinations, etc. Added Lorazepam as needed for anxiety/agitation. Seen by psych on 06/05, pt does not have capacity to make medical decisions On 06/28 and 06/29: Patient seems to be very easily agitated. Things such as the lights, loud noises, things going on with other patients seem overstimulating to him. He has been very tearful off and on. I have consulted psychiatry who has since seen the patient and recommends no medication changes at this time but behavioral modifications such as limiting overstimulation. In addition, she has recommended a urinalysis which I have ordered. Not overly suspicious that there is an underlying bacterial infectious process as patient has been on IV antibiotics and now converted to oral antibiotics. His CRP continues to downtrend. He is afebrile and hemodynamically stable. He did have an episode of emesis on 06/29, perhaps he has something viral which is exacerbating his psychiatric issues. ? exacerbated by FQ on board (changed as outlined above). Will continue to follow. Appreciate recommendations per psych. Did change Accu-Cheks from 4 times a day to 3 times a week trying to limit stimulation as patient seems to be easily agitated. Plan: Disposition: Emergency guardian appointed, KIMBERLY in the process of sending out referrals to personal detention facilities. Admission and Anticipated Discharge Date Admission Date: June 03, 2021 Subjective Patient seen on daily rounds today. Vocalizes no c/c. Nursing voices no c/c. Review of Systems Review of Systems: All systems reviewed and are unremarkable except as noted in HPI and below Denies fevers, chills, headache, nasal congestion, sore throat, cough, chest pain, shortness of breath, palpitations, orthopnea, PND, abdominal pain, nausea, vomiting, diarrhea, constipation, dysuria, hematuria, frequency, back pain, joint pain or swelling, easy bruising or bleeding, skin lesions or rashes. Physical Exam Physical Exam: General: Resting comfortably in his hospital bed. NAD. HEENT: Head is AT/NC. Buccal mucosa is moist and pink. No nystagmus but limited in his cooperation. TMs intact bilaterally. Cerumen in the bilateral canals which seems to be improving with Debrox. Neck: No JVD. Negative hepatojugular reflex. No bruits Cardiac: RRR without M/G/R Lungs: CTA without W/R/R Abdomen: Normoactive X4. Soft and nontender in all quadrants. Extremities: No peripheral clubbing cyanosis or edema. post-surgical boot to right lower extremity. Neuro: A&O X4. Cranial nerves II through XII are grossly intact. No focal neuro deficits Skin: No obvious skin lesions or rashes Psych: Appropriate affect. Pleasant and cooperative Results & Data Results & Data ([facility]) Vital Signs (Past 12 Hours) Vital Signs Temp Pulse Resp BP Pulse Ox 04/07/22 07:44 36.9 C 73 16 104/70 96 Laboratory Results no lab data PG Care Time/CCT Total # of Minutes Spent Total Time Spent with Patient: Total time spent is greater than 50% in coordination of care (as documented) at patient's floor/unit and/or counseling patient: Coding Level of Care Code 81815 Subseq Hosp Care Lvl 1 Diagnoses Discharge planning issues Z02.9 Diabetic foot ulcer associated with type 2 diabetes mellitus, with fat layer exposed E11.621; L97.502 Osteomyelitis M86.9 Tinnitus H93.19 Diabetes mellitus type 2, uncontrolled E11.65 Dyslipidemia E78.5 Schizo affective schizophrenia F25.0
[2021-07-11] MEDS: INSULIN GLARGINE SOLOSTAR 100 UNITS/ML 3 ML PEN SC SCH (07:55)
[2021-07-11] MEDS: lisinopril 2.5 MG TAB PO SCH (07:55)
[2021-07-11] MEDS: metFORMIN HCL 500 MG TAB PO SCH ×2 (07:55→15:48)
[2021-07-11] MEDS: FLUTICASONE PROPIONATE NA SPR 16 GM BTL SCH (07:55)
--- NOTE | 2021-07-11 12:57 | Hospitalist Progress Note ---
Date of Service July 11, 2021 Assessment & Plan (1) Discharge planning issues: Plan: Patient presented to the hospital with large diabetic foot ulcer with exposed bone, all of which has subsequently been treated as indicated below Pt was living in poor conditions--old farm house w/o running water or heat Seen by Psych, it was determined he does not have capacity to make decisions A meeting was to be held on 06/10 in order for the OOA to obtain emergency guardianship (which did not occur) rescheduled for / Pt now has an appointed guardian, referrals are to be sent to local [facility], per note, referral sent to [facility] Pt subsequently remains in the hospital until a safe discharge plan is in place (2) Diabetic foot ulcer associated with type 2 diabetes mellitus, with fat layer exposed: Plan: Admitted empirically on IV Zosyn and IV Vancomycin. MRI revealed the presence of left third toe osteomyelitis with ? developing osteo of the 2nd toe Orthopedic consult appreciated patient is s/p I&D and amputation of the left third toe on 06/05 Culture data showing Proteus vulgaris with kerr-sensitivity along with an anaerobic GPC Initially on Zosyn/Vanco Empirically. Transitioend to ertapenem (to cover Proteus and provide anaerobic coverage)--completed 14 day course has since completed 2 weeks oral abx therapy as well (levaquin/flagyl but then changed to Augmentin as uncertain is Quinolone was exacerbating Psych issues) (3) Osteomyelitis: Plan: S/p I&D and amputation of left third digit but ? developing osteo in 2nd toe that remains Last dose of Invanz given 06/19 with conversion to oral Levaquin/Flagyl started 06/20. Changed to Augmentin 07/01 and completed as of 07/03 (4) Tinnitus: Plan: doesn't seem to be acute (patient seen by ENT in the past) poor historian given tangential speech pattern-- unable to differentiate if unilateral/bilateral, if he has associated/OWENS/change in hearing/vertigo. seems improved slightly per patient. Refer to ENT as OP (if severe, may reach out for assistance while patient remains in house) Given difficulty ascertaining history questions and associated one bout of emesis on 06/29, a CT of the head with and without with intra-auditory canal cuts was ordered --CT shows no acute pathology. No obvious schwannoma --Ultimately, MRI would be diagnostic study of choice; however, he seems to be very sensitive to noise and I do not believe he would be compliant with that (5) Diabetes mellitus type 2, uncontrolled: Plan: Patient has not taken medications for his diabetes mellitus for some time now -- was previously on Glipizide and at one time was on Metformin. Medication non- compliance has been an issue. hemoglobin A1c. 11.6 Glycemic management per pharmacy Since has been started on Metformin with uptitration to 1000mg Given his known history of noncompliance, I would not utilize insulin long- term. Could consider Lantus temporarily if going to a facility (currently on Lantus 8U at night) Is on sliding scale and requiring little if any coverage (2 units). His biggest complaint is the multiple fingersticks and his fingers are sore Given adequate blood sugar control, stopped Accu-Cheks 4 times daily and tr ansitioned to Accuchecks (Fasting) on Mondays, Wednesdays, Fridays and as needed (trying to lesson stimulation) Patient has been educated regarding the importance of compliance and good glycemic control eligibility supervisor consulted for dietary education-- appreciate assistance Added lisinopril 2.5mg for renal protection. BP tolerating this Will need podiatry F/U for nail care, diabetic eye exam, microalbumin, and follow up labs Will need follow-up A1c (September) (6) Dyslipidemia: Plan: Fasting lipid panel 12/12/20 showed a total cholesterol of 323 mg/dL, HDL is 43 mg/dL, LDL 202 mg/dL, and triglycerides are 391 mg/dL. Total Cholesterol:HDL ration is 7.5. Resumed Atorvastatin at 80 mg daily. Will need follow up labs and potentially addition of tricor to target TG. Now on heart healthy/DM diet. (7) Schizo affective schizophrenia: Plan: Added Haldol as needed for anxiety/agitation/hallucinations, etc. Added Lorazepam as needed for anxiety/agitation. Seen by psych on 06/05, pt does not have capacity to make medical decisions On 06/28 and 06/29: Patient seems to be very easily agitated. Things such as the lights, loud noises, things going on with other patients seem overstimulating to him. He has been very tearful off and on. I have consulted psychiatry who has since seen the patient and recommends no medication changes at this time but behavioral modifications such as limiting overstimulation. In addition, she has recommended a urinalysis which I have ordered. Not overly suspicious that there is an underlying bacterial infectious process as patient has been on IV antibiotics and now converted to oral antibiotics. His CRP continues to downtrend. He is afebrile and hemodynamically stable. He did have an episode of emesis on 06/29, perhaps he has something viral which is exacerbating his psychiatric issues. ? exacerbated by FQ on board (changed as outlined above). Will continue to follow. Appreciate recommendations per psych. Did change Accu-Cheks from 4 times a day to 3 times a week trying to limit stimulation as patient seems to be easily agitated. Plan: Disposition: Emergency guardian appointed, KIMBERLY in the process of sending out referrals to personal fdc facilities. Admission and Anticipated Discharge Date Admission Date: June 03, 2021 Subjective Patient seen on daily rounds today. Vocalizes no c/c. Nursing voices no c/c. Review of Systems Review of Systems: All systems reviewed and are unremarkable except as noted in HPI and below Denies fevers, chills, headache, nasal congestion, sore throat, cough, chest pain, shortness of breath, palpitations, orthopnea, PND, abdominal pain, nausea, vomiting, diarrhea, constipation, dysuria, hematuria, frequency, back pain, joint pain or swelling, easy bruising or bleeding, skin lesions or rashes. Physical Exam Physical Exam: General: Resting comfortably in his hospital bed. NAD. HEENT: Head is AT/NC. Buccal mucosa is moist and pink. No nystagmus but limited in his cooperation. TMs intact bilaterally. Cerumen in the bilateral canals which seems to be improving with Debrox. Neck: No JVD. Negative hepatojugular reflex. No bruits Cardiac: RRR without M/G/R Lungs: CTA without W/R/R Abdomen: Normoactive X4. Soft and nontender in all quadrants. Extremities: No peripheral clubbing cyanosis or edema. post-surgical boot to right lower extremity. Neuro: A&O X4. Cranial nerves II through XII are grossly intact. No focal neuro deficits Skin: No obvious skin lesions or rashes Psych: Appropriate affect. Pleasant and cooperative Results & Data Results & Data ([facility]) Vital Signs (Past 12 Hours) Vital Signs Temp Pulse Resp BP Pulse Ox 04/08/22 07:37 36.8 C 71 16 94/60 L 97 Laboratory Results no lab data today PG Care Time/CCT Total # of Minutes Spent Total Time Spent with Patient: Total time spent is greater than 50% in coordination of care (as documented) at patient's floor/unit and/or counseling patient: Coding Level of Care Code 16576 Subseq Hosp Care Lvl 1 Diagnoses Discharge planning issues Z02.9 Diabetic foot ulcer associated with type 2 diabetes mellitus, with fat layer exposed E11.621; L97.502 Osteomyelitis M86.9 Tinnitus H93.19 Diabetes mellitus type 2, uncontrolled E11.65 Dyslipidemia E78.5 Schizo affective schizophrenia F25.0
--- NOTE | 2021-07-12 08:00 | Hospitalist Progress Note ---
Date of Service July 12, 2021 Assessment & Plan (1) Discharge planning issues: Plan: Patient presented to the hospital with large diabetic foot ulcer with exposed bone, all of which has subsequently been treated as indicated below Pt was living in poor conditions--old farm house w/o running water or heat Seen by Psych, it was determined he does not have capacity to make decisions A meeting was to be held on 06/10 in order for the OOA to obtain emergency guardianship (which did not occur) rescheduled for / Pt now has an appointed guardian, referrals are to be sent to local [facility], per note, referral sent to [facility] Pt subsequently remains in the hospital until a safe discharge plan is in place (2) Diabetic foot ulcer associated with type 2 diabetes mellitus, with fat layer exposed: Plan: Admitted empirically on IV Zosyn and IV Vancomycin. MRI revealed the presence of left third toe osteomyelitis with ? developing osteo of the 2nd toe Orthopedic consult appreciated patient is s/p I&D and amputation of the left third toe on 06/05 Culture data showing Proteus vulgaris with kerr-sensitivity along with an anaerobic GPC Initially on Zosyn/Vanco Empirically. Transitioend to ertapenem (to cover Proteus and provide anaerobic coverage)--completed 14 day course has since completed 2 weeks oral abx therapy as well (levaquin/flagyl but then changed to Augmentin as uncertain is Quinolone was exacerbating Psych issues) (3) Osteomyelitis: Plan: S/p I&D and amputation of left third digit but ? developing osteo in 2nd toe that remains Last dose of Invanz given 06/19 with conversion to oral Levaquin/Flagyl started 06/20. Changed to Augmentin 07/01 and completed as of 07/03 (4) Tinnitus: Plan: doesn't seem to be acute (patient seen by ENT in the past) poor historian given tangential speech pattern-- unable to differentiate if unilateral/bilateral, if he has associated/OW[place]/change in hearing/vertigo. seems improved slightly per patient. Refer to ENT as OP (if severe, may reach out for assistance while patient remains in house) Given difficulty ascertaining history questions and associated one bout of emesis on 06/29, a CT of the head with and without with intra-auditory canal cuts was ordered --CT shows no acute pathology. No obvious schwannoma --Ultimately, MRI would be diagnostic study of choice; however, he seems to be very sensitive to noise and I do not believe he would be compliant with that (5) Diabetes mellitus type 2, uncontrolled: Plan: Patient has not taken medications for his diabetes mellitus for some time now -- was previously on Glipizide and at one time was on Metformin. Medication non- compliance has been an issue. hemoglobin A1c. 11.6 Glycemic management per pharmacy Since has been started on Metformin with uptitration to 1000mg Given his known history of noncompliance, I would not utilize insulin long- term. Could consider Lantus temporarily if going to a facility (currently on Lantus 8U at night) Is on sliding scale and requiring little if any coverage (2 units). His biggest complaint is the multiple fingersticks and his fingers are sore Given adequate blood sugar control, stopped Accu-Cheks 4 times daily and tr ansitioned to Accuchecks (Fasting) on Mondays, Wednesdays, Fridays and as needed (trying to lesson stimulation) Patient has been educated regarding the importance of compliance and good glycemic control pilot plant operator consulted for dietary education-- appreciate assistance Started on Lisinopril during this hospitalization. 07/12: BP 94/60. Asymptomatic. Hold lisinopril for now but low dose, likely not affecting BP much. Will need podiatry F/U for nail care, diabetic eye exam, microalbumin, and follow up labs Will need follow-up A1c (September) (6) Dyslipidemia: Plan: Fasting lipid panel 12/12/20 showed a total cholesterol of 323 mg/dL, HDL is 43 mg/dL, LDL 202 mg/dL, and triglycerides are 391 mg/dL. Total Cholesterol:HDL ration is 7.5. Resumed Atorvastatin at 80 mg daily. Will need follow up labs and potentially addition of tricor to target TG. Now on heart healthy/DM diet. (7) Schizo affective schizophrenia: Plan: Added Haldol as needed for anxiety/agitation/hallucinations, etc. Added Lorazepam as needed for anxiety/agitation. Seen by psych on 06/05, pt does not have capacity to make medical decisions On 06/28 and 06/29: Patient seems to be very easily agitated. Things such as the lights, loud noises, things going on with other patients seem overstimulating to him. He has been very tearful off and on. I have consulted psychiatry who has since seen the patient and recommends no medication changes at this time but behavioral modifications such as limiting overstimulation. In addition, she has recommended a urinalysis which I have ordered. Not overly suspicious that there is an underlying bacterial infectious process as patient has been on IV antibiotics and now converted to oral antibiotics. His CRP continues to downtrend. He is afebrile and hemodynamically stable. He did have an episode of emesis on 06/29, perhaps he has something viral which is exacerbating his psychiatric issues. ? exacerbated by FQ on board (changed as outlined above). Will continue to follow. Appreciate recommendations per psych. Did change Accu-Cheks from 4 times a day to 3 times a week trying to limit stimulation as patient seems to be easily agitated. Plan: Disposition: Emergency guardian appointed, KIMBERLY in the process of sending out referrals to personal detention facilities. Admission and Anticipated Discharge Date Admission Date: June 03, 2021 Subjective Patient seen on daily rounds today. feeling well. Vocalizes no c/c. Nursing asked about lisinopril-- held BP 94/60. Pt asymptomatic--denies dizziness/lightheadedness Review of Systems Review of Systems: All systems reviewed and are unremarkable except as noted in HPI and below Denies fevers, chills, headache, nasal congestion, sore throat, cough, chest pain, shortness of breath, palpitations, orthopnea, PND, abdominal pain, nausea, vomiting, diarrhea, constipation, dysuria, hematuria, frequency, back pain, joint pain or swelling, easy bruising or bleeding, skin lesions or rashes. Physical Exam Physical Exam: General: Resting comfortably in his hospital bed. NAD. HEENT: Head is AT/NC. Buccal mucosa is moist and pink. No nystagmus but limited in his cooperation. TMs intact bilaterally. Cerumen in the bilateral canals which seems to be improving with Debrox. Neck: No JVD. Negative hepatojugular reflex. No bruits Cardiac: RRR without M/G/R Lungs: CTA without W/R/R Abdomen: Normoactive X4. Soft and nontender in all quadrants. Extremities: No peripheral clubbing cyanosis or edema. post-surgical boot to right lower extremity. Neuro: A&O X4. Cranial nerves II through XII are grossly intact. No focal lew ro deficits Skin: No obvious skin lesions or rashes Psych: Appropriate affect. Pleasant and cooperative Results & Data Results & Data ([facility]) Vital Signs (Past 12 Hours) Vital Signs Temp Pulse Pulse Resp BP BP Pulse Ox 07/12/21 07:50 36.9 C 78 16 94/60 L 96 07/11/21 22:25 37.1 C 91 H 16 111/74 95 Laboratory Results no lab data PG Care Time/CCT Total # of Minutes Spent Total Time Spent with Patient: Total time spent is greater than 50% in coordination of care (as documented) at patient's floor/unit and/or counseling patient: Coding Level of Care Code 37793 Subseq Hosp Care Lvl 1 Diagnoses Discharge planning issues Z02.9 Diabetic foot ulcer associated with type 2 diabetes mellitus, with fat layer exposed E11.621; L97.502 Osteomyelitis M86.9 Tinnitus H93.19 Diabetes mellitus type 2, uncontrolled E11.65 Dyslipidemia E78.5 Schizo affective schizophrenia F25.0
[2021-07-12] MEDS: metFORMIN HCL 500 MG TAB PO SCH ×3 (08:09→15:51)
[2021-07-12] MEDS: FLUTICASONE PROPIONATE NA SPR 16 GM BTL SCH (08:10)
[2021-07-12] MEDS: lisinopril 2.5 MG TAB PO SCH (09:20)
[2021-07-12] MEDS: INSULIN GLARGINE SOLOSTAR 100 UNITS/ML 3 ML PEN SC SCH (09:21)
[2021-07-13] MEDS: FLUTICASONE PROPIONATE NA SPR 16 GM BTL SCH (08:19)
[2021-07-13] MEDS: lisinopril 2.5 MG TAB PO SCH (08:20)
[2021-07-13] MEDS: INSULIN GLARGINE SOLOSTAR 100 UNITS/ML 3 ML PEN SC SCH (08:20)
[2021-07-13] MEDS: metFORMIN HCL 500 MG TAB PO SCH ×2 (08:20→15:59)
--- NOTE | 2021-07-13 14:03 | Hospitalist Progress Note ---
Date of Service July 13, 2021 Assessment & Plan (1) Discharge planning issues: Plan: Patient presented to the hospital with large diabetic foot ulcer with exposed bone, all of which has subsequently been treated as indicated below Pt was living in poor conditions--old farm house w/o running water or heat Seen by Psych, it was determined he does not have capacity to make decisions A meeting was to be held on 06/10 in order for the OOA to obtain emergency guardianship (which did not occur) rescheduled for / Pt now has an appointed guardian, referrals are to be sent to local [facility], per note, referral sent to [facility] Pt subsequently remains in the hospital until a safe discharge plan is in place (2) Diabetic foot ulcer associated with type 2 diabetes mellitus, with fat layer exposed: Plan: Admitted empirically on IV Zosyn and IV Vancomycin. MRI revealed the presence of left third toe osteomyelitis with ? developing osteo of the 2nd toe Orthopedic consult appreciated patient is s/p I&D and amputation of the left third toe on 06/05 Culture data showing Proteus vulgaris with kerr-sensitivity along with an anaerobic GPC Initially on Zosyn/Vanco Empirically. Transitioend to ertapenem (to cover Proteus and provide anaerobic coverage)--completed 14 day course has since completed 2 weeks oral abx therapy as well (levaquin/flagyl but then changed to Augmentin as uncertain is Quinolone was exacerbating Psych issues) (3) Osteomyelitis: Plan: S/p I&D and amputation of left third digit but ? developing osteo in 2nd toe that remains Last dose of Invanz given 06/19 with conversion to oral Levaquin/Flagyl started 06/20. Changed to Augmentin 07/01 and completed as of 07/03 (4) Tinnitus: Plan: doesn't seem to be acute (patient seen by ENT in the past) poor historian given tangential speech pattern-- unable to differentiate if unilateral/bilateral, if he has associated/OWENS/change in hearing/vertigo. seems improved slightly per patient. Refer to ENT as OP (if severe, may reach out for assistance while patient remains in house) Given difficulty ascertaining history questions and associated one bout of emesis on 06/29, a CT of the head with and without with intra-auditory canal cuts was ordered --CT shows no acute pathology. No obvious schwannoma --Ultimately, MRI would be diagnostic study of choice; however, he seems to be very sensitive to noise and I do not believe he would be compliant with that (5) Diabetes mellitus type 2, uncontrolled: Plan: Patient has not taken medications for his diabetes mellitus for some time now -- was previously on Glipizide and at one time was on Metformin. Medication non- compliance has been an issue. hemoglobin A1c. 11.6 Glycemic management per pharmacy Since has been started on Metformin with uptitration to 1000mg Given his known history of noncompliance, I would not utilize insulin long- term. Could consider Lantus temporarily if going to a facility (currently on Lantus 8U at night) Is on sliding scale and requiring little if any coverage (2 units). His biggest complaint is the multiple fingersticks and his fingers are sore Given adequate blood sugar control, stopped Accu-Cheks 4 times daily and t ransitioned to Accuchecks (Fasting) on Mondays, Wednesdays, Fridays and as needed (trying to lesson stimulation) Patient has been educated regarding the importance of compliance and good glycemic control rn review consulted for dietary education-- appreciate assistance Started on Lisinopril during this hospitalization. 07/12: BP 94/60. Asymptomatic. Lisinopril has since been stopped. BP improved (123/85) Will need podiatry F/U for nail care, diabetic eye exam, microalbumin, and follow up labs Will need follow-up A1c (September) (6) Dyslipidemia: Plan: Fasting lipid panel 12/12/20 showed a total cholesterol of 323 mg/dL, HDL is 43 mg/dL, LDL 202 mg/dL, and triglycerides are 391 mg/dL. Total Cholesterol:HDL ration is 7.5. Resumed Atorvastatin at 80 mg daily. Will need follow up labs and potentially addition of tricor to target TG. Now on heart healthy/DM diet. (7) Schizo affective schizophrenia: Plan: Added Haldol as needed for anxiety/agitation/hallucinations, etc. Added Lorazepam as needed for anxiety/agitation. Seen by psych on 06/05, pt does not have capacity to make medical decisions On 06/28 and 06/29: Patient seems to be very easily agitated. Things such as the lights, loud noises, things going on with other patients seem overstimulating to him. He has been very tearful off and on. I have consulted psychiatry who has since seen the patient and recommends no medication changes at this time but behavioral modifications such as limiting overstimulation. In addition, she has recommended a urinalysis which I have ordered (negative). Not overly suspicious that there is an underlying bacterial infectious process as patient has completed IV antibiotics and now converted to oral antibiotics. His CRP continues to downtrend. He is afebrile and hemodynamically stable. He did have an episode of emesis on 06/29, perhaps he has something viral which is exacerbating his psychiatric issues. ? exacerbated by FQ on board (changed as outlined above). Will continue to follow. Appreciate recommendations per psych. Did change Accu-Cheks from 4 times a day to 3 times a week trying to limit stimulation as patient seems to be easily agitated. Plan: Disposition: Emergency guardian appointed, KIMBERLY in the process of sending out referrals to personal detention facilities. Admission and Anticipated Discharge Date Admission Date: June 03, 2021 Subjective Patient seen on daily rounds today. feeling well. Vocalizes no c/c. lisinopril on hold given low BP's. BP better today (128/85) Review of Systems Review of Systems: All systems reviewed and are unremarkable except as noted in HPI and below Denies fevers, chills, headache, nasal congestion, sore throat, cough, chest pa in, shortness of breath, palpitations, orthopnea, PND, abdominal pain, nausea, vomiting, diarrhea, constipation, dysuria, hematuria, frequency, back pain, joint pain or swelling, easy bruising or bleeding, skin lesions or rashes. Physical Exam Physical Exam: General: Resting comfortably in his hospital bed. NAD. HEENT: Head is AT/NC. Buccal mucosa is moist and pink. Neck: No JVD. Negative hepatojugular reflex. No bruits Cardiac: RRR without M/G/R Lungs: CTA without W/R/R Abdomen: Normoactive X4. Soft and nontender in all quadrants. Extremities: No peripheral clubbing cyanosis or edema. post-surgical boot to right lower extremity. Neuro: A&O X4. Cranial nerves II through XII are grossly intact. No focal neuro deficits Skin: No obvious skin lesions or rashes Psych: Appropriate affect. Pleasant and cooperative Results & Data Results & Data ([facility]) Vital Signs (Past 12 Hours) Vital Signs Temp Pulse Resp BP Pulse Ox 07/13/21 07:05 36.4 C L 83 18 128/85 96 PG Care Time/CCT Total # of Minutes Spent Total Time Spent with Patient: Total time spent is greater than 50% in coordination of care (as documented) at patient's floor/unit and/or counseling patient: Coding Level of Care Code 38243 Subseq Hosp Care Lvl 1 Diagnoses Discharge planning issues Z02.9 Diabetic foot ulcer associated with type 2 diabetes mellitus, with fat layer exposed E11.621; L97.502 Osteomyelitis M86.9 Tinnitus H93.19 Diabetes mellitus type 2, uncontrolled E11.65 Dyslipidemia E78.5 Schizo affective schizophrenia F25.0
[2021-07-14] MEDS: FLUTICASONE PROPIONATE NA SPR 16 GM BTL SCH (07:39)
[2021-07-14] MEDS: metFORMIN HCL 500 MG TAB PO SCH ×2 (07:39→15:55)
[2021-07-14] MEDS: lisinopril 2.5 MG TAB PO SCH (07:40)
[2021-07-14] MEDS: INSULIN GLARGINE SOLOSTAR 100 UNITS/ML 3 ML PEN SC SCH (08:26)
--- NOTE | 2021-07-14 12:27 | Hospitalist Progress Note ---
Date of Service July 14, 2021 Assessment & Plan (1) Discharge planning issues: Plan: Patient presented to the hospital with large diabetic foot ulcer with exposed bone, all of which has subsequently been treated as indicated below Pt was living in poor conditions--old farm house w/o running water or heat Seen by Psych, it was determined he does not have capacity to make decisions A meeting was to be held on 06/10 in order for the OOA to obtain emergency guardianship (which did not occur) rescheduled for 07/08 Pt now has an appointed guardian, referrals are to be sent to local [facility], per note, referral sent to [facility]. Now finances being reviewed Pt subsequently remains in the hospital until a safe discharge plan is in place (2) Diabetic foot ulcer associated with type 2 diabetes mellitus, with fat layer exposed: Plan: Admitted empirically on IV Zosyn and IV Vancomycin. MRI revealed the presence of left third toe osteomyelitis with ? developing osteo of the 2nd toe Orthopedic consult appreciated patient is s/p I&D and amputation of the left third toe on 06/05 Culture data showing Proteus vulgaris with kerr-sensitivity along with an anaerobic GPC Initially on Zosyn/Vanco Empirically. Transitioend to ertapenem (to cover Proteus and provide anaerobic coverage)--completed 14 day course has since completed 2 weeks oral abx therapy as well (levaquin/flagyl but then changed to Augmentin as uncertain is Quinolone was exacerbating Psych issues) (3) Osteomyelitis: Plan: S/p I&D and amputation of left third digit but ? developing osteo in 2nd toe that remains Last dose of Invanz given 06/19 with conversion to oral Levaquin/Flagyl started 06/20. Changed to Augmentin 07/01 and completed as of 07/03 (4) Tinnitus: Plan: doesn't seem to be acute (patient seen by ENT in the past) poor historian given tangential speech pattern-- unable to differentiate if unilateral/bilateral, if he has associated/OW[place]/change in hearing/vertigo. seems improved slightly per patient. Refer to ENT as OP (if severe, may reach out for assistance while patient remains in house) Given difficulty ascertaining history questions and associated one bout of emesis on 06/29, a CT of the head with and without with intra-auditory canal cuts was ordered --CT shows no acute pathology. No obvious schwannoma --Ultimately, MRI would be diagnostic study of choice; however, he seems to be very sensitive to noise and I do not believe he would be compliant with that (5) Diabetes mellitus type 2, uncontrolled: Plan: Patient has not taken medications for his diabetes mellitus for some time now -- was previously on Glipizide and at one time was on Metformin. Medication non- compliance has been an issue. hemoglobin A1c. 11.6 Glycemic management per pharmacy Since has been started on Metformin with uptitration to 1000mg Given his known history of noncompliance, I would not utilize insulin long- term. Could consider Lantus temporarily if going to a facility (currently on Lantus 8U at night) Is on sliding scale and requiring little if any coverage (2 units). His biggest complaint is the multiple fingersticks and his fingers are sore Given adequate blood sugar control, stopped Accu-Cheks 4 times daily and transitioned to Accuchecks (Fasting) on Mondays, Wednesdays, Fridays and as needed (trying to lesson stimulation) Patient has been educated regarding the importance of compliance and good glycemic control school business manager consulted for dietary education-- appreciate assistance Started on Lisinopril during this hospitalization. 07/12: BP 94/60. Asymptomatic. Lisinopril has since been stopped. BP improved (123/85) Will need podiatry F/U for nail care, diabetic eye exam, microalbumin, and follow up labs Will need follow-up A1c (September) (6) Dyslipidemia: Plan: Fasting lipid panel 12/12/20 showed a total cholesterol of 323 mg/dL, HDL is 43 mg/dL, LDL 202 mg/dL, and triglycerides are 391 mg/dL. Total Cholesterol:HDL ration is 7.5. Resumed Atorvastatin at 80 mg daily. Will need follow up labs and potentially addition of tricor to target TG. Now on heart healthy/DM diet. (7) Schizo affective schizophrenia: Plan: Added Haldol as needed for anxiety/agitation/hallucinations, etc. Added Lorazepam as needed for anxiety/agitation. Seen by psych on 06/05, pt does not have capacity to make medical decisions On 06/28 and 06/29: Patient seems to be very easily agitated. Things such as the lights, loud noises, things going on with other patients seem overstimulating to him. He has been very tearful off and on. I have consulted psychiatry who has since seen the patient and recommends no medication changes at this time but behavioral modifications such as limiting overstimulation. In addition, she has recommended a urinalysis which I have ordered (negative). Not overly suspicious that there is an underlying bacterial infectious process as patient has completed IV antibiotics and now converted to oral antibiotics. His CRP continues to downtrend. He is afebrile and hemodynamically stable. He did have an episode of emesis on 06/29, perhaps he has something viral which is exacerbating his psychiatric issues. ? exacerbated by FQ on board (changed as outlined above). Will continue to follow. Appreciate recommendations per psych. Did change Accu-Cheks from 4 times a day to 3 times a week trying to limit stimulation as patient seems to be easily agitated. Plan: Disposition: Emergency guardian appointed, CM in the process of sending out referrals to personal custodial facilities. Patient has been medically and hemodynamically stable for discharge X weeks Admission and Anticipated Discharge Date Admission Date: June 03, 2021 Subjective Patient seen on daily rounds today. Vocalizes no significant complaints or concerns. Nursing staff without any complaints or concerns. Review of Systems Review of Systems: All systems reviewed and are unremarkable except as noted in HPI and below Denies fevers, chills, headache, nasal congestion, sore throat, cough, chest pain, shortness of breath, palpitations, orthopnea, PND, abdominal pain, nausea, vomiting, diarrhea, constipation, dysuria, hematuria, frequency, back pain, joint pain or swelling, easy bruising or bleeding, skin lesions or rashes. Physical Exam Physical Exam: General: Resting comfortably in his hospital bed. NAD. HEENT: Head is AT/NC. Buccal mucosa is moist and pink. Neck: No JVD. Negative hepatojugular reflex. No bruits Cardiac: RRR without M/G/R Lungs: CTA without W/R/R Abdomen: Normoactive X4. Soft and nontender in all quadrants. Extremities: No peripheral clubbing cyanosis or edema. post-surgical boot to right lower extremity. Neuro: A&O X4. Cranial nerves II through XII are grossly intact. No focal neuro deficits Skin: No obvious skin lesions or rashes Psych: Appropriate affect. Pleasant and cooperative Results & Data Results & Data ([facility]) Vital Signs (Past 12 Hours) Vital Signs Temp Pulse Resp BP Pulse Ox 07/14/21 07:14 36.4 C L 71 14 103/63 97 Laboratory Results No lab data PG Care Time/CCT Total # of Minutes Spent Total Time Spent with Patient: Total time spent is greater than 50% in coordination of care (as documented) at patient's floor/unit and/or counseling patient: Coding Level of Care Code 74031 Subseq Hosp Care Lvl 1 Diagnoses Discharge planning issues Z02.9 Diabetic foot ulcer associated with type 2 diabetes mellitus, with fat layer exposed E11.621; L97.502 Osteomyelitis M86.9 Tinnitus H93.19 Diabetes mellitus type 2, uncontrolled E11.65 Dyslipidemia E78.5 Schizo affective schizophrenia F25.0
[2021-07-15] MEDS: FLUTICASONE PROPIONATE NA SPR 16 GM BTL SCH (08:13)
[2021-07-15] MEDS: metFORMIN HCL 500 MG TAB PO SCH ×3 (08:14→21:38)
[2021-07-15] MEDS: lisinopril 2.5 MG TAB PO SCH (08:14)
[2021-07-15] MEDS: INSULIN GLARGINE SOLOSTAR 100 UNITS/ML 3 ML PEN SC SCH (08:15)
--- NOTE | 2021-07-15 16:41 | Hospitalist Progress Note ---
Date of Service July 15, 2021 Assessment & Plan (1) Discharge planning issues: Plan: Patient presented to the hospital with large diabetic foot ulcer with exposed bone, all of which has subsequently been treated as indicated below Pt was living in poor conditions--old farm house w/o running water or heat Seen by Psych, it was determined he does not have capacity to make decisions A meeting was to be held on 06/10 in order for the OOA to obtain emergency guardianship (which did not occur) rescheduled for 07/08 Pt now has an appointed guardian, referrals are to be sent to local [facility], per CM note, referral sent to [facility]. Now finances being reviewed Pt subsequently remains in the hospital until a safe discharge plan is in place (2) Diabetic foot ulcer associated with type 2 diabetes mellitus, with fat layer exposed: Plan: Admitted empirically on IV Zosyn and IV Vancomycin. MRI revealed the presence of left third toe osteomyelitis with ? developing osteo of the 2nd toe Orthopedic consult appreciated patient is s/p I&D and amputation of the left third toe on 06/05 Culture data showing Proteus vulgaris with kerr-sensitivity along with an anaerobic GPC Initially on Zosyn/Vanco Empirically. Transitioend to ertapenem (to cover Proteus and provide anaerobic coverage)--completed 14 day course has since completed 2 weeks oral abx therapy as well (levaquin/flagyl but then changed to Augmentin as uncertain is Quinolone was exacerbating Psych issues) (3) Osteomyelitis: Plan: S/p I&D and amputation of left third digit but ? developing osteo in 2nd toe that remains Last dose of Invanz given 06/19 with conversion to oral Levaquin/Flagyl started 06/20. Changed to Augmentin 07/01 and completed as of 07/03 (4) Tinnitus: Plan: doesn't seem to be acute (patient seen by ENT in the past) poor historian given tangential speech pattern-- unable to differentiate if unilateral/bilateral, if he has associated/[place]/change in hearing/vertigo. seems improved slightly per patient. Refer to ENT as OP (if severe, may reach out for assistance while patient remains in house) Given difficulty ascertaining history questions and associated one bout of emesis on 06/29, a CT of the head with and without with intra-auditory canal cuts was ordered --CT shows no acute pathology. No obvious schwannoma --Ultimately, MRI would be diagnostic study of choice; however, he seems to be very sensitive to noise and I do not believe he would be compliant with that (5) Diabetes mellitus type 2, uncontrolled: Plan: Patient has not taken medications for his diabetes mellitus for some time now -- was previously on Glipizide and at one time was on Metformin. Medication non- compliance has been an issue. hemoglobin A1c. 11.6 Glycemic management per pharmacy Since has been started on Metformin with uptitration to 1000mg Given his known history of noncompliance, I would not utilize insulin long- term. Could consider Lantus temporarily if going to a facility (currently on Lantus 8U at night) Is on sliding scale and requiring little if any coverage (2 units). His biggest complaint is the multiple fingersticks and his fingers are sore Given adequate blood sugar control, stopped Accu-Cheks 4 times daily and transitioned to Accuchecks (Fasting) on Mondays, Wednesdays, Fridays and as needed (trying to lesson stimulation) Patient has been educated regarding the importance of compliance and good glycemic control sports trainer consulted for dietary education-- appreciate assistance Started on Lisinopril 2.5 mg daily for renal protection Will need podiatry F/U for nail care, diabetic eye exam, microalbumin, and follow up labs Will need follow-up A1c (September) (6) Dyslipidemia: Plan: Fasting lipid panel 12/12/20 showed a total cholesterol of 323 mg/dL, HDL is 43 mg/dL, LDL 202 mg/dL, and triglycerides are 391 mg/dL. Total Cholesterol:HDL ration is 7.5. Resumed Atorvastatin at 80 mg daily. Will need follow up labs and potentially addition of tricor to target TG. Now on heart healthy/DM diet. (7) Schizo affective schizophrenia: Plan: Added Haldol as needed for anxiety/agitation/hallucinations, etc. Added Lorazepam as needed for anxiety/agitation. Seen by psych on 06/05, pt does not have capacity to make medical decisions On 06/28 and 06/29: Patient seems to be very easily agitated. Things such as the lights, loud noises, things going on with other patients seem overstimulating to him. He has been very tearful off and on. I have consulted psychiatry who has since seen the patient and recommends no medication changes at this time but behavioral modifications such as limiting overstimulation. In addition, she has recommended a urinalysis which I have ordered (negative). Not overly suspicious that there is an underlying bacterial infectious process as patient has completed IV antibiotics and now converted to oral antibiotics. His CRP continues to downtrend. He is afebrile and hemodynamically stable. He did have an episode of emesis on 06/29, perhaps he has something viral which is exacerbating his psychiatric issues. ? exacerbated by FQ on board (changed as outlined above). Will continue to follow. Appreciate recommendations per psych. Did change Accu-Cheks from 4 times a day to 3 times a week trying to limit stimulation as patient seems to be easily agitated. Plan: Disposition: Emergency guardian appointed, KIMBERLY in the process of sending out referrals to personal fpc facilities. Patient has been medically and hemodynamically stable for discharge X weeks Admission and Anticipated Discharge Date Admission Date: June 03, 2021 Subjective Patient seen on daily rounds today. Vocalizes no significant complaints or concerns. Nursing staff without any complaints or concerns. Review of Systems Review of Systems: All systems reviewed and are unremarkable except as noted in HPI and below Denies fevers, chills, headache, nasal congestion, sore throat, cough, chest pain, shortness of breath, palpitations, orthopnea, PND, abdominal pain, nausea, vomiting, diarrhea, constipation, dysuria, hematuria, frequency, back pain, joint pain or swelling, easy bruising or bleeding, skin lesions or rashes. Physical Exam Physical Exam: General: Resting comfortably in his hospital bed. NAD. HEENT: Head is AT/NC. Buccal mucosa is moist and pink. Neck: No JVD. Negative hepatojugular reflex. No bruits Cardiac: RRR without M/G/R Lungs: CTA without W/R/R Abdomen: Normoactive X4. Soft and nontender in all quadrants. Extremities: No peripheral clubbing cyanosis or edema. post-surgical boot to right lower extremity. Neuro: A&O X4. Cranial nerves II through XII are grossly intact. No focal neuro deficits Skin: No obvious skin lesions or rashes Psych: Appropriate affect. Pleasant and cooperative Results & Data Results & Data ([facility] [place]) Vital Signs (Past 12 Hours) Vital Signs Temp Pulse Resp BP BP Pulse Ox 04/12/22 15:41 36.8 C 72 16 131/69 95 07/15/21 07:34 36.6 C 67 16 118/74 97 Laboratory Results no lab data PG Care Time/CCT Total # of Minutes Spent Total Time Spent with Patient: Total time spent is greater than 50% in coordination of care (as documented) at patient's floor/unit and/or counseling patient: Coding Level of Care Code 51071 Subseq Hosp Care Lvl 1 Diagnoses Discharge planning issues Z02.9 Diabetic foot ulcer associated with type 2 diabetes mellitus, with fat layer exposed E11.621; L97.502 Osteomyelitis M86.9 Tinnitus H93.19 Diabetes mellitus type 2, uncontrolled E11.65 Dyslipidemia E78.5 Schizo affective schizophrenia F25.0
[2021-07-16] MEDS: lisinopril 2.5 MG TAB PO SCH (07:37)
[2021-07-16] MEDS: FLUTICASONE PROPIONATE NA SPR 16 GM BTL SCH (07:38)
[2021-07-16] MEDS: metFORMIN HCL 500 MG TAB PO SCH ×2 (07:38→21:37)
[2021-07-16] MEDS: INSULIN GLARGINE SOLOSTAR 100 UNITS/ML 3 ML PEN SC SCH (08:28)
--- NOTE | 2021-07-16 17:23 | Hospitalist Progress Note ---
Date of Service July 16, 2021 Assessment & Plan (1) Discharge planning issues: Plan: Patient presented to the hospital with large diabetic foot ulcer with exposed bone, all of which has subsequently been treated as indicated below Pt was living in poor conditions--old farm house w/o running water or heat Seen by Psych, it was determined he does not have capacity to make decisions A meeting was to be held on 06/10 in order for the OOA to obtain emergency guardianship (which did not occur) rescheduled for 07/08 Pt now has an appointed guardian, referrals are to be sent to local [facility], per note, referral sent to [facility]. Now finances being reviewed Pt subsequently remains in the hospital until a safe discharge plan is in place (2) Diabetic foot ulcer associated with type 2 diabetes mellitus, with fat layer exposed: Plan: Admitted empirically on IV Zosyn and IV Vancomycin. MRI revealed the presence of left third toe osteomyelitis with ? developing osteo of the 2nd toe Orthopedic consult appreciated patient is s/p I&D and amputation of the left third toe on 06/05 Culture data showing Proteus vulgaris with kerr-sensitivity along with an anaerobic GPC Initially on Zosyn/Vanco Empirically. Transitioned to ertapenem (to cover Proteus and provide anaerobic coverage)--completed 14 day course has since completed 2 weeks oral abx therapy as well (levaquin/flagyl but then changed to Augmentin as uncertain is Quinolone was exacerbating Psych issues) (3) Osteomyelitis: Plan: S/p I&D and amputation of left third digit but ? developing osteo in 2nd toe that remains Last dose of Invanz given 06/19 with conversion to oral Levaquin/Flagyl started 06/20. Changed to Augmentin 07/01 and completed as of 07/03 (4) Tinnitus: Plan: doesn't seem to be acute (patient seen by ENT in the past) poor historian given tangential speech pattern-- unable to differentiate if unilateral/bilateral, if he has associated/OWENS/change in hearing/vertigo. seems improved slightly per patient. Refer to ENT as OP (if severe, may reach out for assistance while patient remains in house) Given difficulty ascertaining history questions and associated one bout of emesis on 06/29, a CT of the head with and without with intra-auditory canal cuts was ordered --CT shows no acute pathology. No obvious schwannoma --Ultimately, MRI would be diagnostic study of choice; however, he seems to be very sensitive to noise and I do not believe he would be compliant with that (5) Diabetes mellitus type 2, uncontrolled: Plan: Patient has not taken medications for his diabetes mellitus for some time now -- was previously on Glipizide and at one time was on Metformin. Medication non- compliance has been an issue. hemoglobin A1c. 11.6 Glycemic management per pharmacy Since has been started on Metformin with uptitration to 1000mg Given his known history of noncompliance, I would not utilize insulin long- term. Could consider Lantus temporarily if going to a facility (currently on Lantus 8U at night) Is on sliding scale and requiring little if any coverage (2 units). His biggest complaint is the multiple fingersticks and his fingers are sore Given adequate blood sugar control, stopped Accu-Cheks 4 times daily and transitioned to Accuchecks (Fasting) on Mondays, Wednesdays, Fridays and as needed (trying to lesson stimulation) Patient has been educated regarding the importance of compliance and good glycemic control financial administrator consulted for dietary education-- appreciate assistance Blood sugar today 130 Started on Lisinopril 2.5 mg daily for renal protection Will need podiatry F/U for nail care, diabetic eye exam, microalbumin, and follow up labs Will need follow-up A1c (~September 03) (6) Dyslipidemia: Plan: Fasting lipid panel 12/12/20 showed a total cholesterol of 323 mg/dL, HDL is 43 mg/dL, LDL 202 mg/dL, and triglycerides are 391 mg/dL. Total Cholesterol:HDL ration is 7.5. Resumed Atorvastatin at 80 mg daily. Will need follow up labs and potentially addition of tricor to target TG. Now on heart healthy/DM diet. (7) Schizo affective schizophrenia: Plan: Added Haldol as needed for anxiety/agitation/hallucinations, etc. Added Lorazepam as needed for anxiety/agitation. Seen by psych on 06/05, pt does not have capacity to make medical decisions On 06/28 and 06/29: Patient seems to be very easily agitated. Things such as the lights, loud noises, things going on with other patients seem overstimulating to him. He has been very tearful off and on. I have consulted psychiatry who has since seen the patient and recommends no medication changes at this time but behavioral modifications such as limiting overstimulation. In addition, she has recommended a urinalysis which I have ordered (negative). Not overly suspicious that there is an underlying bacterial infectious process as patient has completed IV antibiotics and now converted to oral antibiotics. His CRP continues to downtrend. He is afebrile and hemodynamically stable. He did have an episode of emesis on 06/29, perhaps he has something viral which is exacerbating his psychiatric issues. ? exacerbated by FQ on board (changed as outlined above). Will continue to follow. Appreciate recommendations per psych. Did change Accu-Cheks from 4 times a day to 3 times a week trying to limit stimulation as patient seems to be easily agitated. Plan: Disposition: Emergency guardian appointed, KIMBERLY in the process of sending out referrals to personal prison facilities. Wound has accepted but finances seem to be an ongoing issue at this point. Court appointed guardian involved Patient has been medically and hemodynamically stable for discharge X weeks Admission and Anticipated Discharge Date Admission Date: June 03, 2021 Subjective Patient seen on daily rounds today. Vocalizes no significant complaints or concerns. Nursing staff without any complaints or concerns. Review of Systems Review of Systems: All systems reviewed and are unremarkable except as noted in HPI and below Denies fevers, chills, headache, nasal congestion, sore throat, cough, chest pain, shortness of breath, palpitations, orthopnea, PND, abdominal pain, nausea, vomiting, diarrhea, constipation, dysuria, hematuria, frequency, back pain, joint pain or swelling, easy bruising or bleeding, skin lesions or rashes. Physical Exam Physical Exam: General: Resting comfortably in his hospital bed. NAD. HEENT: Head is AT/NC. Buccal mucosa is moist and pink. Neck: No JVD. Negative hepatojugular reflex. No bruits Cardiac: RRR without M/G/R Lungs: CTA without W/R/R Abdomen: Normoactive X4. Soft and nontender in all quadrants. Extremities: No peripheral clubbing cyanosis or edema. post-surgical boot to right lower extremity. Neuro: A&O X4. Cranial nerves II through XII are grossly intact. No focal neuro deficits Skin: No obvious skin lesions or rashes Psych: Appropriate affect. Pleasant and cooperative Results & Data Results & Data ([facility]) Vital Signs (Past 12 Hours) Vital Signs Temp Pulse Pulse Resp BP BP Pulse Ox 07/16/21 15:20 36.7 C 70 18 122/68 98 07/16/21 07:51 36.8 C 72 16 108/78 98 Laboratory Results No lab data today PG Care Time/CCT Total # of Minutes Spent Total Time Spent with Patient: Total time spent is greater than 50% in coordination of care (as documented) at patient's floor/unit and/or counseling patient: Coding Level of Care Code 51508 Subseq Hosp Care Lvl 1 Diagnoses Discharge planning issues Z02.9 Diabetic foot ulcer associated with type 2 diabetes mellitus, with fat layer exposed E11.621; L97.502 Osteomyelitis M86.9 Tinnitus H93.19 Diabetes mellitus type 2, uncontrolled E11.65 Dyslipidemia E78.5 Schizo affective schizophrenia F25.0
--- NOTE | 2021-07-16 21:36 | Communication Note ---
Date of Service: July 16, 2021 Messaged about R ear pain and requesting prn tylenol. ordered. Assessed. R ear has waxy cerumen obstructing view of TM. L TM wlightly dull w/ slight veination. No erythema. Not suggestive of otitis media of L.
[2021-07-16] MEDS: ACETAMINOPHEN 325 MG TAB PO PRN (21:37)
[2021-07-17] MEDS: FLUTICASONE PROPIONATE NA SPR 16 GM BTL SCH (08:17)
[2021-07-17] MEDS: metFORMIN HCL 500 MG TAB PO SCH ×2 (08:18→20:51)
[2021-07-17] MEDS: ATORVASTATIN 40 MG TAB PO SCH (08:18)
[2021-07-17] MEDS: INSULIN GLARGINE SOLOSTAR 100 UNITS/ML 3 ML PEN SC SCH (08:20)
--- NOTE | 2021-07-17 14:18 | Hospitalist Progress Note ---
Date of Service July 17, 2021 Assessment & Plan (1) Discharge planning issues: Plan: Patient presented to the hospital with large diabetic foot ulcer with exposed bone, all of which has subsequently been treated as indicated below Pt was living in poor conditions--old farm house w/o running water or heat Seen by Psych, it was determined he does not have capacity to make decisions A meeting was to be held on 06/10 in order for the OOA to obtain emergency guardianship (which did not occur) rescheduled for / Pt now has an appointed guardian, referrals are to be sent to local [facility], per CM note, referral sent to [facility] and [facility] personal care fa cilities. finances being reviewed Pt subsequently remains in the hospital until a safe discharge plan is in place (2) Diabetic foot ulcer associated with type 2 diabetes mellitus, with fat layer exposed: Plan: Admitted empirically on IV Zosyn and IV Vancomycin. MRI revealed the presence of left third toe osteomyelitis with ? developing osteo of the 2nd toe Orthopedic consult appreciated patient is s/p I&D and amputation of the left third toe on 06/05 Culture data showing Proteus vulgaris with kerr-sensitivity along with an anaerobic GPC Initially on Zosyn/Vanco Empirically. Transitioned to ertapenem (to cover Proteus and provide anaerobic coverage)--completed 14 day course has since completed 2 weeks oral abx therapy as well (levaquin/flagyl but then changed to Augmentin as uncertain is Quinolone was exacerbating Psych issues) (3) Osteomyelitis: Plan: S/p I&D and amputation of left third digit but ? developing osteo in 2nd toe that remains Last dose of Invanz given 06/19 with conversion to oral Levaquin/Flagyl started 06/20. Changed to Augmentin 07/01 and completed as of 07/03 (4) Tinnitus: Plan: doesn't seem to be acute (patient seen by ENT in the past) poor historian given tangential speech pattern-- unable to differentiate if unilateral/bilateral, if he has associated/OWENS/change in hearing/vertigo. seems improved slightly per patient. Refer to ENT as OP (if severe, may reach out for assistance while patient remains in house) Given difficulty ascertaining history questions and associated one bout of emesis on 06/29, a CT of the head with and without with intra-auditory canal cuts was ordered --CT shows no acute pathology. No obvious schwannoma --Ultimately, MRI would be diagnostic study of choice; however, he seems to be very sensitive to noise and I do not believe he would be compliant with that (5) Diabetes mellitus type 2, uncontrolled: Plan: Patient has not taken medications for his diabetes mellitus for some time now -- was previously on Glipizide and at one time was on Metformin. Medication non- compliance has been an issue. hemoglobin A1c. 11.6 Glycemic management per pharmacy Since has been started on Metformin with uptitration to 1000mg Given his known history of noncompliance, I would not utilize insulin long- term. Could consider Lantus temporarily if going to a facility (currently on Lantus 8U at night) Is on sliding scale and requiring little if any coverage (2 units). His biggest complaint is the multiple fingersticks and his fingers are sore Given adequate blood sugar control, stopped Accu-Cheks 4 times daily and transitioned to Accuchecks (Fasting) on Mondays, Wednesdays, Fridays and as needed (trying to lesson stimulation) Patient has been educated regarding the importance of compliance and good glycemic control automatic i threading machine feeder consulted for dietary education-- appreciate assistance Blood sugar today 130 Started on Lisinopril 2.5 mg daily for renal protection Will need podiatry F/U for nail care, diabetic eye exam, microalbumin, and follow up labs Will need follow-up A1c (~September 03) (6) Dyslipidemia: Plan: Fasting lipid panel 12/12/20 showed a total cholesterol of 323 mg/dL, HDL is 43 mg/dL, LDL 202 mg/dL, and triglycerides are 391 mg/dL. Total Cholesterol:HDL ration is 7.5. Resumed Atorvastatin at 80 mg daily. Will need follow up labs and potentially addition of tricor to target TG. Now on heart healthy/DM diet. (7) Schizo affective schizophrenia: Plan: Added Haldol as needed for anxiety/agitation/hallucinations, etc. Added Lorazepam as needed for anxiety/agitation. Seen by psych on 06/05, pt does not have capacity to make medical decisions On 06/28 and 06/29: Patient seems to be very easily agitated. Things such as the lights, loud noises, things going on with other patients seem overstimulating to him. He has been very tearful off and on. I have consulted psychiatry who has since seen the patient and recommends no medication changes at this time but behavioral modifications such as limiting overstimulation. In addition, she has recommended a urinalysis which I have ordered (negative). Not overly suspicious that there is an underlying bacterial infectious process as patient has completed IV antibiotics and now converted to oral antibiotics. His CRP continues to downtrend. He is afebrile and hemodynamically stable. He did have an episode of emesis on 06/29, perhaps he has something viral which is exacerbating his psychiatric issues. ? exacerbated by FQ on board (changed as outlined above). Will continue to follow. Appreciate recommendations per psych. Did change Accu-Cheks from 4 times a day to 3 times a week trying to limit stimulation as patient seems to be easily agitated. Plan: Disposition: Emergency guardian appointed, KIMBERLY in the process of sending out referrals to personal senior living facilities. Wound has accepted but finances seem to be an ongoing issue at this point. Court appointed guardian involved Patient has been medically and hemodynamically stable for discharge X weeks Admission and Anticipated Discharge Date Admission Date: June 03, 2021 Subjective Patient seen on daily rounds today. Vocalizes no significant complaints or concerns. Nursing staff without any complaints or concerns. Review of Systems Review of Systems: All systems reviewed and are unremarkable except as noted in HPI and below Denies fevers, chills, headache, nasal congestion, sore throat, cough, chest pain, shortness of breath, palpitations, orthopnea, PND, abdominal pain, nausea, vomiting, diarrhea, constipation, dysuria, hematuria, frequency, back pain, joint pain or swelling, easy bruising or bleeding, skin lesions or rashes. Physical Exam Physical Exam: General: Resting comfortably in his hospital bed. NAD. HEENT: Head is AT/NC. Buccal mucosa is moist and pink. Neck: No JVD. Negative hepatojugular reflex. No bruits Cardiac: RRR without M/G/R Lungs: CTA without W/R/R Abdomen: Normoactive X4. Soft and nontender in all quadrants. Extremities: No peripheral clubbing cyanosis or edema. post-surgical boot to right lower extremity. Neuro: A&O X4. Cranial nerves II through XII are grossly intact. No focal neuro deficits Skin: No obvious skin lesions or rashes Psych: Appropriate affect. Pleasant and cooperative Results & Data Results & Data ([facility]) Vital Signs (Past 12 Hours) Vital Signs Temp Pulse Resp BP Pulse Ox 07/17/21 07:42 36.5 C 66 16 124/82 97 PG Care Time/CCT Total # of Minutes Spent Total Time Spent with Patient: Total time spent is greater than 50% in coordination of care (as documented) at patient's floor/unit and/or counseling patient: Coding Level of Care Code 51483 Subseq Hosp Care Lvl 1 Diagnoses Discharge planning issues Z02.9 Diabetic foot ulcer associated with type 2 diabetes mellitus, with fat layer exposed E11.621; L97.502 Osteomyelitis M86.9 Tinnitus H93.19 Diabetes mellitus type 2, uncontrolled E11.65 Dyslipidemia E78.5 Schizo affective schizophrenia F25.0
[2021-07-18] MEDS: lisinopril 2.5 MG TAB PO SCH (08:10)
[2021-07-18] MEDS: ATORVASTATIN 40 MG TAB PO SCH (08:10)
[2021-07-18] MEDS: metFORMIN HCL 500 MG TAB PO SCH ×2 (08:10→21:03)
[2021-07-18] MEDS: FLUTICASONE PROPIONATE NA SPR 16 GM BTL SCH (08:10)
[2021-07-18] MEDS: INSULIN GLARGINE SOLOSTAR 100 UNITS/ML 3 ML PEN SC SCH (08:10)
[2021-07-18] MEDS: ACETAMINOPHEN 325 MG TAB PO PRN (08:18)
--- NOTE | 2021-07-18 13:40 | Hospitalist Progress Note ---
Date of Service July 18, 2021 Assessment & Plan (1) Discharge planning issues: Plan: Patient presented to the hospital with large diabetic foot ulcer with exposed bone, all of which has subsequently been treated as indicated below Pt was living in poor conditions--old farm house w/o running water or heat Seen by Psych, it was determined he does not have capacity to make decisions A meeting was to be held on 06/10 in order for the OOA to obtain emergency guardianship (which did not occur) rescheduled and held on 07/08 Pt now has an appointed guardian, referrals are to be sent to local [facility], per CM note, referral sent to [facility] and [facility] personal care facilities. finances being reviewed and are to be d/w pt's guardian. Bed available at [facility] but will not accept/take pt until finances are in order. Pt subsequently remains in the hospital until a safe discharge plan is in place (2) Diabetic foot ulcer associated with type 2 diabetes mellitus, with fat layer exposed: Plan: Admitted empirically on IV Zosyn and IV Vancomycin. MRI revealed the presence of left third toe osteomyelitis with ? developing osteo of the 2nd toe Orthopedic consult appreciated patient is s/p I&D and amputation of the left third toe on 06/05 Culture data showing Proteus vulgaris with kerr-sensitivity along with an anaerobic GPC Initially on Zosyn/Vanco Empirically. Transitioned to ertapenem (to cover Proteus and provide anaerobic coverage)--completed 14 day course has since completed 2 weeks oral abx therapy as well (levaquin/flagyl but then changed to Augmentin as uncertain is Quinolone was exacerbating Psych issues) (3) Osteomyelitis: Plan: S/p I&D and amputation of left third digit but ? developing osteo in 2nd toe that remains Last dose of Invanz given 06/19 with conversion to oral Levaquin/Flagyl started 06/20. Changed to Augmentin 07/01 and completed as of 07/03 (4) Tinnitus: Plan: doesn't seem to be acute (patient seen by ENT in the past) poor historian given tangential speech pattern-- unable to differentiate if unilateral/bilateral, if he has associated/OWENS/change in hearing/vertigo. seems improved slightly per patient. Refer to ENT as OP (if severe, may reach out for assistance while patient remains in house) Given difficulty ascertaining history questions and associated one bout of emesis on 06/29, a CT of the head with and without with intra-auditory canal cuts was ordered --CT shows no acute pathology. No obvious schwannoma --Ultimately, MRI would be diagnostic study of choice; however, he seems to be very sensitive to noise and I do not believe he would be compliant with that (5) Diabetes mellitus type 2, uncontrolled: Plan: Patient has not taken medications for his diabetes mellitus for some time now -- was previously on Glipizide and at one time was on Metformin. Medication non- compliance has been an issue. hemoglobin A1c. 11.6 Glycemic management per pharmacy Since has been started on Metformin with uptitration to 1000mg Given his known history of noncompliance, I would not utilize insulin long- term. Could consider Lantus temporarily if going to a facility (currently on Lantus 8U at night) Is on sliding scale and requiring little if any coverage (2 units). His biggest complaint is the multiple fingersticks and his fingers are sore Given adequate blood sugar control, stopped Accu-Cheks 4 times daily and transitioned to Accuchecks (Fasting) on Mondays, Wednesdays, Fridays and as needed (trying to lesson stimulation) Patient has been educated regarding the importance of compliance and good glycemic control barista consulted for dietary education-- appreciate assistance Blood sugar today 130 Started on Lisinopril 2.5 mg daily for renal protection Will need podiatry F/U for nail care, diabetic eye exam, microalbumin, and follow up labs Will need follow-up A1c (~September 03) (6) Dyslipidemia: Plan: Fasting lipid panel 12/12/20 showed a total cholesterol of 323 mg/dL, HDL is 43 mg/dL, LDL 202 mg/dL, and triglycerides are 391 mg/dL. Total Cholesterol:HDL ration is 7.5. Resumed Atorvastatin at 80 mg daily. Will need follow up labs and potentially addition of tricor to target TG. Now on heart healthy/DM diet. (7) Schizo affective schizophrenia: Plan: Added Haldol as needed for anxiety/agitation/hallucinations, etc. Added Lorazepam as needed for anxiety/agitation. Seen by psych on 06/05, pt does not have capacity to make medical decisions On 06/28 and 06/29: Patient seems to be very easily agitated. Things such as the lights, loud noises, things going on with other patients seem overstimulating to him. He has been very tearful off and on. I have consulted psychiatry who has since seen the patient and recommends no medication changes at this time but behavioral modifications such as limiting overstimulation. In addition, she has recommended a urinalysis which I have ordered (negative). Not overly suspicious that there is an underlying bacterial infectious process as patient has completed IV antibiotics and now converted to oral antibiotics. His CRP continues to downtrend. He is afebrile and hemodynamically stable. He did have an episode of emesis on 06/29, perhaps he has something viral which is exacerbating his psychiatric issues. ? exacerbated by FQ on board (changed as outlined above). Will continue to follow. Appreciate recommendations per psych. Did change Accu-Cheks from 4 times a day to 3 times a week trying to limit stimulation as patient seems to be easily agitated. Plan: Disposition: Emergency guardian appointed, CM in the process of sending out referrals to personal [facility] facilities. Wound has accepted but finances seem to be an ongoing issue at this point. Court appointed guardian involved Patient has been medically and hemodynamically stable for discharge X weeks Admission and Anticipated Discharge Date Admission Date: June 03, 2021 Subjective Patient seen on daily rounds today. Pt seems agitated today. Upset that he d oesn't know when he will be leaving. He states "I will call my brother and go home." Also states that he's tired, didn't sleep well and that he has a headache. Review of Systems Review of Systems: All systems reviewed and are unremarkable except as noted in HPI and below Pos headache. Denies fevers, chills, nasal congestion, sore throat, cough, chest pain, shortness of breath, palpitations, orthopnea, PND, abdominal pain, nausea, vomiting, diarrhea, constipation, dysuria, hematuria, frequency, back pain, joint pain or swelling, easy bruising or bleeding, skin lesions or rashes. Physical Exam Physical Exam: GENERAL: 56 yo WD/WN WM. NAD. LUNGS: Clear to auscultation bilaterally. No W/R/R. CARDIOVASCULAR: Regular rate and rhythm. No M/G/R. ABDOMEN: Soft, non-tender and non-distended. BS normal x 4 quad. EXTREMITIES: No edema. Non-tender. Peripheral pulses +2/4. NEUROLOGIC: A&O x3. PSYCHIATRIC: Cooperative. Appropriate mood and affect. SKIN: Warm, dry, intact. Results & Data Results & Data ([facility]) Vital Signs (Past 12 Hours) Vital Signs Temp Pulse Resp BP Pulse Ox 07/18/21 08:24 36.6 C 73 16 109/77 97 Laboratory Results None PG Care Time/CCT Total # of Minutes Spent Total Time Spent with Patient: Total time spent is greater than 50% in coordination of care (as documented) at patient's floor/unit and/or counseling patient: Coding Level of Care Code 86737 Subseq Hosp Care Lvl 1 Diagnoses Discharge planning issues Z02.9 Diabetic foot ulcer associated with type 2 diabetes mellitus, with fat layer exposed E11.621; L97.502 Osteomyelitis M86.9 Tinnitus H93.19 Diabetes mellitus type 2, uncontrolled E11.65 Dyslipidemia E78.5 Schizo affective schizophrenia F25.0
[2021-07-19] MEDS: ATORVASTATIN 40 MG TAB PO SCH (08:39)
[2021-07-19] MEDS: lisinopril 2.5 MG TAB PO SCH (08:40)
[2021-07-19] MEDS: metFORMIN HCL 500 MG TAB PO SCH ×2 (08:40→20:24)
[2021-07-19] MEDS: FLUTICASONE PROPIONATE NA SPR 16 GM BTL SCH (08:40)
[2021-07-19] MEDS: INSULIN GLARGINE SOLOSTAR 100 UNITS/ML 3 ML PEN SC SCH (08:42)
[2021-07-19] MEDS: ACETAMINOPHEN 325 MG TAB PO PRN (10:11)
--- NOTE | 2021-07-19 11:36 | Hospitalist Progress Note ---
Date of Service July 19, 2021 Assessment & Plan (1) Discharge planning issues: Plan: Patient presented to the hospital with large diabetic foot ulcer with exposed bone, all of which has subsequently been treated as indicated below Pt was living in poor conditions--old farm house w/o running water or heat Seen by Psych, it was determined he does not have capacity to make decisions A meeting was to be held on 06/10 in order for the OOA to obtain emergency guardianship (which did not occur) rescheduled and held on 07/08 Pt now has an appointed guardian, referrals are to be sent to local [facility], per CM note, referral sent to [facility] and [facility] personal care facilities. finances being reviewed and are to be d/w pt's guardian. Bed available at [facility] but will not accept/take pt until finances are in order. Pt subsequently remains in the hospital until a safe discharge plan is in place (2) Diabetic foot ulcer associated with type 2 diabetes mellitus, with fat layer exposed: Plan: Admitted empirically on IV Zosyn and IV Vancomycin. MRI revealed the presence of left third toe osteomyelitis with ? developing osteo of the 2nd toe Orthopedic consult appreciated patient is s/p I&D and amputation of the left third toe on 06/05 Culture data showing Proteus vulgaris with kerr-sensitivity along with an anaerobic GPC Initially on Zosyn/Vanco Empirically. Transitioned to ertapenem (to cover Proteus and provide anaerobic coverage)--completed 14 day course has since completed 2 weeks oral abx therapy as well (levaquin/flagyl but then changed to Augmentin as uncertain is Quinolone was exacerbating Psych issues) (3) Osteomyelitis: Plan: S/p I&D and amputation of left third digit but ? developing osteo in 2nd toe that remains Last dose of Invanz given 06/19 with conversion to oral Levaquin/Flagyl started 06/20. Changed to Augmentin 07/01 and completed as of 07/03 (4) Tinnitus: Plan: doesn't seem to be acute (patient seen by ENT in the past) poor historian given tangential speech pattern-- unable to differentiate if unilateral/bilateral, if he has associated/OWENS/change in hearing/vertigo. seems improved slightly per patient. Refer to ENT as OP (if severe, may reach out for assistance while patient remains in house) Given difficulty ascertaining history questions and associated one bout of emesis on 06/29, a CT of the head with and without with intra-auditory canal cuts was ordered --CT shows no acute pathology. No obvious schwannoma --Ultimately, MRI would be diagnostic study of choice; however, he seems to be very sensitive to noise and I do not believe he would be compliant with that (5) Diabetes mellitus type 2, uncontrolled: Plan: Patient has not taken medications for his diabetes mellitus for some time now -- was previously on Glipizide and at one time was on Metformin. Medication non- compliance has been an issue. hemoglobin A1c. 11.6 Glycemic management per pharmacy Since has been started on Metformin with uptitration to 1000mg Given his known history of noncompliance, I would not utilize insulin long- term. Could consider Lantus temporarily if going to a facility (currently on Lantus 8U at night) Is on sliding scale and requiring little if any coverage (2 units). His biggest complaint is the multiple fingersticks and his fingers are sore Given adequate blood sugar control, stopped Accu-Cheks 4 times daily and transitioned to Accuchecks (Fasting) on Mondays, Wednesdays, Fridays and as needed (trying to lesson stimulation) Patient has been educated regarding the importance of compliance and good glycemic control lead technical writer consulted for dietary education-- appreciate assistance Blood sugar today 130 Started on Lisinopril 2.5 mg daily for renal protection Will need podiatry F/U for nail care, diabetic eye exam, microalbumin, and follow up labs Will need follow-up A1c (~September 03) (6) Dyslipidemia: Plan: Fasting lipid panel 12/12/20 showed a total cholesterol of 323 mg/dL, HDL is 43 mg/dL, LDL 202 mg/dL, and triglycerides are 391 mg/dL. Total Cholesterol:HDL ration is 7.5. Resumed Atorvastatin at 80 mg daily. Will need follow up labs and potentially addition of tricor to target TG. Now on heart healthy/DM diet. (7) Schizo affective schizophrenia: Plan: Added Haldol as needed for anxiety/agitation/hallucinations, etc. Added Lorazepam as needed for anxiety/agitation. Seen by psych on 06/05, pt does not have capacity to make medical decisions On 06/28 and 06/29: Patient seems to be very easily agitated. Things such as the lights, loud noises, things going on with other patients seem overstimulating to him. He has been very tearful off and on. I have consulted psychiatry who has since seen the patient and recommends no medication changes at this time but behavioral modifications such as limiting overstimulation. In addition, she has recommended a urinalysis which I have ordered (negative). Not overly suspicious that there is an underlying bacterial infectious process as patient has completed IV antibiotics and now converted to oral antibiotics. His CRP continues to downtrend. He is afebrile and hemodynamically stable. He did have an episode of emesis on 06/29, perhaps he has something viral which is exacerbating his psychiatric issues. ? exacerbated by FQ on board (changed as outlined above). Will continue to follow. Appreciate recommendations per psych. Did change Accu-Cheks from 4 times a day to 3 times a week trying to limit stimulation as patient seems to be easily agitated. Plan: Disposition: Emergency guardian appointed, KIMBERLY in the process of sending out referrals to personal usp facilities. Wound has accepted but finances seem to be an ongoing issue at this point. Court appointed guardian involved Patient has been medically and hemodynamically stable for discharge X weeks Admission and Anticipated Discharge Date Admission Date: June 03, 2021 Subjective Patient seen on daily rounds today. Continues to ask about discharge but voc alizes no other new complaints or concerns. C/o earache which has been an ongoing issue throughout his stay. Review of Systems Review of Systems: All systems reviewed and are unremarkable except as noted in HPI and below +earache. Denies fevers, chills, nasal congestion, sore throat, cough, chest pain, shortness of breath, palpitations, orthopnea, PND, abdominal pain, nausea, vomiting, diarrhea, constipation, dysuria, hematuria, frequency, back pain, joint pain or swelling, easy bruising or bleeding, skin lesions or rashes. Physical Exam Physical Exam: GENERAL: 56 yo WD/WN WM. NAD. LUNGS: Clear to auscultation bilaterally. No W/R/R. CARDIOVASCULAR: Regular rate and rhythm. No M/G/R. ABDOMEN: Soft, non-tender and non-distended. BS normal x 4 quad. EXTREMITIES: No edema. Non-tender. Peripheral pulses +2/4. NEUROLOGIC: A&O x3. PSYCHIATRIC: Cooperative. Appropriate mood and affect. SKIN: Warm, dry, intact. Results & Data Results & Data ([facility]) Vital Signs (Past 12 Hours) Vital Signs Temp Pulse Resp BP Pulse Ox 07/19/21 07:38 36.6 C 63 16 117/75 96 PG Care Time/CCT Total # of Minutes Spent Total Time Spent with Patient: Total time spent is greater than 50% in coordination of care (as documented) at patient's floor/unit and/or counseling patient: Coding Level of Care Code 39066 Subseq Hosp Care Lvl 1 Diagnoses Discharge planning issues Z02.9 Diabetic foot ulcer associated with type 2 diabetes mellitus, with fat layer exposed E11.621; L97.502 Osteomyelitis M86.9 Tinnitus H93.19 Diabetes mellitus type 2, uncontrolled E11.65 Dyslipidemia E78.5 Schizo affective schizophrenia F25.0
[2021-07-20] MEDS: metFORMIN HCL 500 MG TAB PO SCH ×2 (08:31→20:54)
[2021-07-20] MEDS: FLUTICASONE PROPIONATE NA SPR 16 GM BTL SCH (08:31)
[2021-07-20] MEDS: ATORVASTATIN 40 MG TAB PO SCH (08:31)
[2021-07-20] MEDS: lisinopril 2.5 MG TAB PO SCH (08:34)
[2021-07-20] MEDS: INSULIN GLARGINE SOLOSTAR 100 UNITS/ML 3 ML PEN SC SCH (08:34)
--- NOTE | 2021-07-20 16:07 | Hospitalist Progress Note ---
Date of Service July 20, 2021 Assessment & Plan (1) Discharge planning issues: Plan: Patient presented to the hospital with large diabetic foot ulcer with exposed bone, all of which has subsequently been treated as indicated below Pt was living in poor conditions--old farm house w/o running water or heat Seen by Psych, it was determined he does not have capacity to make decisions A meeting was to be held on 06/10 in order for the OOA to obtain emergency guardianship (which did not occur) rescheduled and held on 07/08 Pt now has an appointed guardian, referrals are to be sent to local [facility], per CM note, referral sent to [facility] and [facility] personal care facilities. finances being reviewed and are to be d/w pt's guardian. Bed available at [facility] but will not accept/take pt until finances are in order. Pt subsequently remains in the hospital until a safe discharge plan is in place (2) Diabetic foot ulcer associated with type 2 diabetes mellitus, with fat layer exposed: Plan: Admitted empirically on IV Zosyn and IV Vancomycin. MRI revealed the presence of left third toe osteomyelitis with ? developing osteo of the 2nd toe Orthopedic consult appreciated patient is s/p I&D and amputation of the left third toe on 06/05 Culture data showing Proteus vulgaris with kerr-sensitivity along with an anaerobic GPC Initially on Zosyn/Vanco Empirically. Transitioned to ertapenem (to cover Proteus and provide anaerobic coverage)--completed 14 day course has since completed 2 weeks oral abx therapy as well (levaquin/flagyl but then changed to Augmentin as uncertain is Quinolone was exacerbating Psych issues) (3) Osteomyelitis: Plan: S/p I&D and amputation of left third digit but ? developing osteo in 2nd toe that remains Last dose of Invanz given 06/19 with conversion to oral Levaquin/Flagyl started 06/20. Changed to Augmentin 07/01 and completed as of 07/03 (4) Tinnitus: Plan: doesn't seem to be acute (patient seen by ENT in the past) poor historian given tangential speech pattern-- unable to differentiate if unilateral/bilateral, if he has associated/OWENS/change in hearing/vertigo. seems improved slightly per patient. Refer to ENT as OP (if severe, may reach out for assistance while patient remains in house) Given difficulty ascertaining history questions and associated one bout of emesis on 06/29, a CT of the head with and without with intra-auditory canal cuts was ordered --CT shows no acute pathology. No obvious schwannoma --Ultimately, MRI would be diagnostic study of choice; however, he seems to be very sensitive to noise and I do not believe he would be compliant with that (5) Diabetes mellitus type 2, uncontrolled: Plan: Patient has not taken medications for his diabetes mellitus for some time now -- was previously on Glipizide and at one time was on Metformin. Medication non- compliance has been an issue. hemoglobin A1c. 11.6 Glycemic management per pharmacy Since has been started on Metformin with uptitration to 1000mg Given his known history of noncompliance, I would not utilize insulin long- term. Could consider Lantus temporarily if going to a facility (currently on Lantus 8U at night) Is on sliding scale and requiring little if any coverage (2 units). His biggest complaint is the multiple fingersticks and his fingers are sore Given adequate blood sugar control, stopped Accu-Cheks 4 times daily and transitioned to Accuchecks (Fasting) on Mondays, Wednesdays, Fridays and as needed (trying to lesson stimulation) Patient has been educated regarding the importance of compliance and good glycemic control ice maker consulted for dietary education-- appreciate assistance Blood sugar today 130 Started on Lisinopril 2.5 mg daily for renal protection -Obtain follow-up labs tomorrow (07/21) as last set of labs was 1 month ago and since then, has been started on lisinopril and Metformin has been uptitrated. Will follow up on renal function Will need podiatry F/U for nail care, diabetic eye exam, microalbumin, and follow up labs Will need follow-up A1c (~September 03) (6) Dyslipidemia: Plan: Fasting lipid panel 12/12/20 showed a total cholesterol of 323 mg/dL, HDL is 43 mg/dL, LDL 202 mg/dL, and triglycerides are 391 mg/dL. Total Cholesterol:HDL ration is 7.5. Resumed Atorvastatin at 80 mg daily. Will need follow up labs and potentially addition of tricor to target TG. Now on heart healthy/DM diet. (7) Schizo affective schizophrenia: Plan: Added Haldol as needed for anxiety/agitation/hallucinations, etc. Added Lorazepam as needed for anxiety/agitation. Seen by psych on 06/05, pt does not have capacity to make medical decisions On 06/28 and 06/29: Patient seems to be very easily agitated. Things such as the lights, loud noises, things going on with other patients seem overstimulating to him. He has been very tearful off and on. I have consulted psychiatry who has since seen the patient and recommends no medication changes at this time but behavioral modifications such as limiting overstimulation. In addition, she has recommended a urinalysis which I have ordered (negative). Not overly suspicious that there is an underlying bacterial infectious process as patient has completed IV antibiotics and now converted to oral antibiotics. His CRP continues to downtrend. He is afebrile and hemodynamically stable. He did have an episode of emesis on 06/29, perhaps he has something viral which is exacerbating his psychiatric issues. ? exacerbated by FQ on board (changed as outlined above). Will continue to follow. Appreciate recommendations per psych. Did change Accu-Cheks from 4 times a day to 3 times a week trying to limit stimulation as patient seems to be easily agitated. Plan: Disposition: Emergency guardian appointed, KIMBERLY in the process of sending out referrals to personal residential facilities. Wound has accepted but finances seem to be an ongoing issue at this point. Court appointed guardian involved Patient has been medically and hemodynamically stable for discharge X weeks Admission and Anticipated Discharge Date Admission Date: June 03, 2021 Subjective Patient seen on daily rounds today. Vocalizes no significant complaints or concerns. Denies fevers, chills, chest pain, shortness of breath, abdominal pain, nausea or vomiting. Nursing voices no complaints or concerns. Review of Systems Review of Systems: All systems reviewed and are unremarkable except as noted in HPI and below Denies fevers, chills, headache, nasal congestion, sore throat, cough, chest pain, shortness of breath, palpitations, orthopnea, PND, abdominal pain, nausea, vomiting, diarrhea, constipation, dysuria, hematuria, frequency, back pain, joint pain or swelling, easy bruising or bleeding, skin lesions or rashes. Physical Exam Physical Exam: General: Resting comfortably in his hospital bed. NAD. HEENT: Head is AT/NC. Buccal mucosa is moist and pink. Neck: No JVD. Negative hepatojugular reflex. No bruits Cardiac: RRR without M/G/R Lungs: CTA without W/R/R Abdomen: Normoactive X4. Soft and nontender in all quadrants. Extremities: No peripheral clubbing cyanosis or edema. Neuro: A&O X4. Cranial nerves II through XII are grossly intact. No focal neuro deficits Skin: No obvious skin lesions or rashes Psych: Appropriate affect. Pleasant and cooperative Results & Data Results & Data ([facility]) Vital Signs (Past 12 Hours) Vital Signs Temp Pulse Resp BP BP Pulse Ox 07/20/21 15:36 36.5 C 97 H 16 94/71 L 93 07/20/21 08:33 114/71 07/20/21 07:44 36.3 C L 90 16 96/63 L 96 PG Care Time/CCT Total # of Minutes Spent Total Time Spent with Patient: Total time spent is greater than 50% in coordination of care (as documented) at patient's floor/unit and/or counseling patient: Coding Level of Care Code 32130 Subseq Hosp Care Lvl 2 Diagnoses Discharge planning issues Z02.9 Diabetic foot ulcer associated with type 2 diabetes mellitus, with fat layer exposed E11.621; L97.502 Osteomyelitis M86.9 Tinnitus H93.19 Diabetes mellitus type 2, uncontrolled E11.65 Dyslipidemia E78.5 Schizo affective schizophrenia F25.0
[2021-07-21 06:13] LABS: Basophils # (auto) 0.01 K/uL (0-0.2); Basophils % (auto) 0.1 %; Eosinophils # (auto) 0.25 K/uL (0-0.5); Eosinophils % (auto) 3.4 %; Hematocrit (blood only) 41.5 % (42-52); Hemoglobin 14.2 g/dL (14.0-18.0); Immature Granulocytes # (auto) 0.02 K/uL (0.00-0.02); Immature Granulocytes % (auto) 0.3 %; Lymphocytes # (auto) 2.38 K/uL (1.2-3.4); Lymphocytes % (auto) 32.2 %; Mean Corpuscular Hemoglobin 29.2 pg (25-34); Mean Corpuscular Hgb Conc 34.2 g/dL (32-36); Mean Corpuscular Volume 85.4 fL (80-100); Mean Platelet Volume 9.3 fL (7.4-10.4); Monocytes # (auto) 0.75 K/uL (0.11-0.59); Monocytes % (auto) 10.2 %; Neutrophils # (auto) 3.97 K/uL (1.4-6.5); Neutrophils % (auto) 53.8 %; Platelet Count 216 K/uL (130-400); RDW Coefficient of Variation 13.2 % (11.5-14.5); RDW Standard Deviation 40.7 fL (36.4-46.3); Red Blood Count 4.86 M/uL (4.7-6.1); White Blood Count 7.38 K/uL (4.8-10.8)
[2021-07-21 06:42] LABS: Albumin Globulin Ratio 1.6 (0.9-2); Albumin Level 4.1 gm/dl (3.4-5.0); BUN Creatinine Ratio 22.6 (10-20); Bilirubin,Total 0.5 mg/dl (0.2-1.0); Calcium 9.2 mg/dl (8.5-10.1); Est GFR (African American) 111.9 ml/min; Est GFR (Non-African American) 96.5 ml/min; Globulin 2.6 gm/dl (2.5-4.0); Magnesium 1.9 mg/dl (1.7-2.4); Potassium 4.3 mmol/L (3.5-5.1); Total Protein 6.7 gm/dl (6.0-8.3)
[2021-07-21] MEDS: INSULIN GLARGINE SOLOSTAR 100 UNITS/ML 3 ML PEN SC SCH (08:55)
[2021-07-21] MEDS: FLUTICASONE PROPIONATE NA SPR 16 GM BTL SCH (08:56)
[2021-07-21] MEDS: ATORVASTATIN 40 MG TAB PO SCH (08:56)
[2021-07-21] MEDS: lisinopril 2.5 MG TAB PO SCH (08:56)
[2021-07-21] MEDS: metFORMIN HCL 500 MG TAB PO SCH ×2 (08:57→21:17)
--- NOTE | 2021-07-21 12:35 | Hospitalist Progress Note ---
Date of Service July 21, 2021 Assessment & Plan (1) Discharge planning issues: Plan: Patient presented to the hospital with large diabetic foot ulcer with exposed bone, all of which has subsequently been treated as indicated below Pt was living in poor conditions--old farm house w/o running water or heat Seen by Psych, it was determined he does not have capacity to make decisions A meeting was to be held on 06/10 in order for the OOA to obtain emergency guardianship (which did not occur) rescheduled and held on 07/08 Pt now has an appointed guardian, referrals are to be sent to local [facility], per CM note, referral sent to [facility] and [facility] personal care facilities. finances being reviewed and are to be d/w pt's guardian. Bed available at [facility] but will not accept/take pt until finances are in order. Pt subsequently remains in the hospital until a safe discharge plan is in place (2) Diabetic foot ulcer associated with type 2 diabetes mellitus, with fat layer exposed: Plan: Admitted empirically on IV Zosyn and IV Vancomycin. MRI revealed the presence of left third toe osteomyelitis with ? developing osteo of the 2nd toe Orthopedic consult appreciated patient is s/p I&D and amputation of the left third toe on 06/05 Culture data showing Proteus vulgaris with kerr-sensitivity along with an anaerobic GPC Initially on Zosyn/Vanco Empirically. Transitioned to ertapenem (to cover Proteus and provide anaerobic coverage)--completed 14 day course has since completed 2 weeks oral abx therapy as well (levaquin/flagyl but then changed to Augmentin as uncertain is Quinolone was exacerbating Psych issues) (3) Osteomyelitis: Plan: S/p I&D and amputation of left third digit but ? developing osteo in 2nd toe that remains Last dose of Invanz given 06/19 with conversion to oral Levaquin/Flagyl started 06/20. Changed to Augmentin 07/01 and completed as of 07/03 (4) Tinnitus: Plan: doesn't seem to be acute (patient seen by ENT in the past) poor historian given tangential speech pattern-- unable to differentiate if unilateral/bilateral, if he has associated/OWENS/change in hearing/vertigo. seems improved slightly per patient. Refer to ENT as OP (if severe, may reach out for assistance while patient remains in house) Given difficulty ascertaining history questions and associated one bout of emesis on 06/29, a CT of the head with and without with intra-auditory canal cuts was ordered --CT shows no acute pathology. No obvious schwannoma --Ultimately, MRI would be diagnostic study of choice; however, he seems to be very sensitive to noise and I do not believe he would be compliant with that (5) Diabetes mellitus type 2, uncontrolled: Plan: Patient has not taken medications for his diabetes mellitus for some time now -- was previously on Glipizide and at one time was on Metformin. Medication non- compliance has been an issue. hemoglobin A1c. 11.6 Glycemic management per pharmacy Since has been started on Metformin with uptitration to 1000mg Given his known history of noncompliance, I would not utilize insulin long- term. Could consider Lantus temporarily if going to a facility (currently on Lantus 8U at night) Is on sliding scale and requiring little if any coverage (2 units). His biggest complaint is the multiple fingersticks and his fingers are sore Given adequate blood sugar control, stopped Accu-Cheks 4 times daily and transitioned to Accuchecks (Fasting) on Mondays, Wednesdays, Fridays and as needed (trying to lesson stimulation) Patient has been educated regarding the importance of compliance and good glycemic control senior media buyer consulted for dietary education-- appreciate assistance Blood sugar today 130 Started on Lisinopril 2.5 mg daily for renal protection -Obtain follow-up labs tomorrow (07/21) as last set of labs was 1 month ago and since then, has been started on lisinopril and Metformin has been uptitrated. Will follow up on renal function Will need podiatry F/U for nail care, diabetic eye exam, microalbumin, and follow up labs Will need follow-up A1c (~September 03) (6) Dyslipidemia: Plan: Fasting lipid panel 12/12/20 showed a total cholesterol of 323 mg/dL, HDL is 43 mg/dL, LDL 202 mg/dL, and triglycerides are 391 mg/dL. Total Cholesterol:HDL ration is 7.5. Resumed Atorvastatin at 80 mg daily. Will need follow up labs and potentially addition of tricor to target TG. Now on heart healthy/DM diet. (7) Schizo affective schizophrenia: Plan: Added Haldol as needed for anxiety/agitation/hallucinations, etc. Added Lorazepam as needed for anxiety/agitation. Seen by psych on 06/05, pt does not have capacity to make medical decisions On 06/28 and 06/29: Patient seems to be very easily agitated. Things such as the lights, loud noises, things going on with other patients seem overstimulating to him. He has been very tearful off and on. I have consulted psychiatry who has since seen the patient and recommends no medication changes at this time but behavioral modifications such as limiting overstimulation. In addition, she has recommended a urinalysis which I have ordered (negative). Not overly suspicious that there is an underlying bacterial infectious process as patient has completed IV antibiotics and now converted to oral antibiotics. His CRP continues to downtrend. He is afebrile and hemodynamically stable. He did have an episode of emesis on 06/29, perhaps he has something viral which is exacerbating his psychiatric issues. ? exacerbated by FQ on board (changed as outlined above). Will continue to follow. Appreciate recommendations per psych. Did change Accu-Cheks from 4 times a day to 3 times a week trying to limit stimulation as patient seems to be easily agitated. Plan: Disposition: Emergency guardian appointed, KIMBERLY in the process of sending out referrals to personal group home facilities. Wound has accepted but finances seem to be an ongoing issue at this point. Court appointed guardian involved Patient has been medically and hemodynamically stable for discharge X weeks Admission and Anticipated Discharge Date Admission Date: June 03, 2021 Subjective Patient seen on daily rounds today. Vocalizes no significant complaints or concerns. Denies fevers, chills, chest pain, shortness of breath, abdominal pain, nausea or vomiting. Review of Systems Review of Systems: All systems reviewed and are unremarkable except as noted in HPI and below Denies fevers, chills, headache, nasal congestion, sore throat, cough, chest pain, shortness of breath, palpitations, orthopnea, PND, abdominal pain, nausea, vomiting, diarrhea, constipation, dysuria, hematuria, frequency, back pain, joint pain or swelling, easy bruising or bleeding, skin lesions or rashes. Physical Exam Physical Exam: GENERAL: 56 yo WD/WN WM. NAD. LUNGS: Clear to auscultation bilaterally. No W/R/R. CARDIOVASCULAR: Regular rate and rhythm. No M/G/R. ABDOMEN: Soft, non-tender and non-distended. BS normal x 4 quad. EXTREMITIES: No edema. Non-tender. Peripheral pulses +2/4. NEUROLOGIC: A&O x3. PSYCHIATRIC: Cooperative. Appropriate mood and affect. SKIN: Warm, dry, intact. Results & Data Results & Data ([facility]) Vital Signs (Past 12 Hours) Vital Signs Temp Pulse Resp BP Pulse Ox 07/21/21 07:06 36.7 C 78 16 112/61 98 Laboratory Results 07/21/21 05:45 07/21/21 05:45 PG Care Time/CCT Total # of Minutes Spent Total Time Spent with Patient: Total time spent is greater than 50% in coordination of care (as documented) at patient's floor/unit and/or counseling patient: Coding Level of Care Code 76151 Subseq Hosp Care Lvl 1 Diagnoses Discharge planning issues Z02.9 Diabetic foot ulcer associated with type 2 diabetes mellitus, with fat layer ex posed E11.621; L97.502 Osteomyelitis M86.9 Tinnitus H93.19 Diabetes mellitus type 2, uncontrolled E11.65 Dyslipidemia E78.5 Schizo affective schizophrenia F25.0
[2021-07-22] MEDS: lisinopril 2.5 MG TAB PO SCH (08:55)
[2021-07-22] MEDS: ATORVASTATIN 40 MG TAB PO SCH (08:55)
[2021-07-22] MEDS: FLUTICASONE PROPIONATE NA SPR 16 GM BTL SCH (08:55)
[2021-07-22] MEDS: metFORMIN HCL 500 MG TAB PO SCH ×2 (08:56→20:18)
[2021-07-22] MEDS: INSULIN GLARGINE SOLOSTAR 100 UNITS/ML 3 ML PEN SC SCH (08:58)
--- NOTE | 2021-07-22 12:50 | Hospitalist Progress Note ---
Date of Service July 22, 2021 Assessment & Plan (1) Discharge planning issues: Plan: Patient presented to the hospital with large diabetic foot ulcer with exposed bone, all of which has subsequently been treated as indicated below Pt was living in poor conditions--old farm house w/o running water or heat Seen by Psych, it was determined he does not have capacity to make decisions A meeting was to be held on 06/10 in order for the OOA to obtain emergency guardianship (which did not occur) rescheduled and held on 07/08 Pt now has an appointed guardian, referrals are to be sent to local [facility], per CM note, referral sent to [facility] and [facility] personal care facilities. finances being reviewed and are to be d/w pt's guardian. Bed available at [facility] but will not accept/take pt until finances are in order. Pt subsequently remains in the hospital until a safe discharge plan is in place (2) Diabetic foot ulcer associated with type 2 diabetes mellitus, with fat layer exposed: Plan: Admitted empirically on IV Zosyn and IV Vancomycin. MRI revealed the presence of left third toe osteomyelitis with ? developing osteo of the 2nd toe Orthopedic consult appreciated patient is s/p I&D and amputation of the left third toe on 06/05 Culture data showing Proteus vulgaris with kerr-sensitivity along with an anaerobic GPC Initially on Zosyn/Vanco Empirically. Transitioned to ertapenem (to cover Proteus and provide anaerobic coverage)--completed 14 day course has since completed 2 weeks oral abx therapy as well (levaquin/flagyl but then changed to Augmentin as uncertain is Quinolone was exacerbating Psych issues) (3) Osteomyelitis: Plan: S/p I&D and amputation of left third digit but ? developing osteo in 2nd toe that remains Last dose of Invanz given 06/19 with conversion to oral Levaquin/Flagyl started 06/20. Changed to Augmentin 07/01 and completed as of 07/03 (4) Tinnitus: Plan: doesn't seem to be acute (patient seen by ENT in the past) poor historian given tangential speech pattern-- unable to differentiate if unilateral/bilateral, if he has associated/OWENS/change in hearing/vertigo. seems improved slightly per patient. Refer to ENT as OP (if severe, may reach out for assistance while patient remains in house) Given difficulty ascertaining history questions and associated one bout of emesis on 06/29, a CT of the head with and without with intra-auditory canal cuts was ordered * CT shows no acute pathology. No obvious schwannoma * Ultimately, MRI would be diagnostic study of choice; however, he seems to be very sensitive to noise and I do not believe he would be compliant with that (5) Diabetes mellitus type 2, uncontrolled: Plan: Patient has not taken medications for his diabetes mellitus for some time now -- was previously on Glipizide and at one time was on Metformin. Medication non- compliance has been an issue. hemoglobin A1c. 11.6 Glycemic management per pharmacy Since has been started on Metformin with uptitration to 1000mg Given his known history of noncompliance, I would not utilize insulin long- term. Could consider Lantus temporarily if going to a facility (currently on Lantus 8U at night) Is on sliding scale and requiring little if any coverage (2 units). His biggest complaint is the multiple fingersticks and his fingers are sore Given adequate blood sugar control, stopped Accu-Cheks 4 times daily and falcon sitioned to Accuchecks (Fasting) on Mondays, Wednesdays, Fridays and as needed (trying to lesson stimulation) Patient has been educated regarding the importance of compliance and good glycemic control daub color mixer consulted for dietary education-- appreciate assistance Blood sugar today 130 Started on Lisinopril 2.5 mg daily for renal protection -Obtain follow-up labs tomorrow (07/21) as last set of labs was 1 month ago and since then, has been started on lisinopril and Metformin has been uptitrated. Will follow up on renal function Will need podiatry F/U for nail care, diabetic eye exam, microalbumin, and follow up labs Will need follow-up A1c (~September 03) (6) Dyslipidemia: Plan: Fasting lipid panel 12/12/20 showed a total cholesterol of 323 mg/dL, HDL is 43 mg/dL, LDL 202 mg/dL, and triglycerides are 391 mg/dL. Total Cholesterol:HDL ration is 7.5. Resumed Atorvastatin at 80 mg daily. Will need follow up labs and potentially addition of tricor to target TG. Now on heart healthy/DM diet. (7) Schizo affective schizophrenia: Plan: Added Haldol as needed for anxiety/agitation/hallucinations, etc. Added Lorazepam as needed for anxiety/agitation. Seen by psych on 06/05, pt does not have capacity to make medical decisions On 06/28 and 06/29: Patient seems to be very easily agitated. Things such as the lights, loud noises, things going on with other patients seem overstimulating to him. He has been very tearful off and on. I have consulted psychiatry who has since seen the patient and recommends no medication changes at this time but behavioral modifications such as limiting overstimulation. In addition, she has recommended a urinalysis which I have ordered (negative). Not overly suspicious that there is an underlying bacterial infectious process as patient has completed IV antibiotics and now converted to oral antibiotics. His CRP continues to downtrend. He is afebrile and hemodynamically stable. He did have an episode of emesis on 06/29, perhaps he has something viral which is exacerbating his psychiatric issues. ? exacerbated by FQ on board (changed as outlined above). Will continue to follow. Appreciate recommendations per psych. Did change Accu-Cheks from 4 times a day to 3 times a week trying to limit stimulation as patient seems to be easily agitated. Plan: Disposition: Emergency guardian appointed, KIMBERLY in the process of sending out referrals to personal group home facilities. [facility] has accepted but finances seem to be an ongoing issue at this point. Court appointed guardian involved Patient has been medically and hemodynamically stable for discharge X weeks Admission and Anticipated Discharge Date Admission Date: June 03, 2021 Subjective Patient seen on daily rounds today. Vocalizes no significant complaints or concerns. Denies fevers, chills, chest pain, shortness of breath, abdominal pain, nausea or vomiting. Review of Systems Review of Systems: All systems reviewed and are unremarkable except as noted in HPI and below Denies fevers, chills, headache, nasal congestion, sore throat, cough, chest pain, shortness of breath, palpitations, orthopnea, PND, abdominal pain, nausea, vomiting, diarrhea, constipation, dysuria, hematuria, frequency, back pain, joint pain or swelling, easy bruising or bleeding, skin lesions or rashes. Physical Exam Physical Exam: GENERAL: 56 yo WD/WN WM. NAD. LUNGS: Clear to auscultation bilaterally. No W/R/R. CARDIOVASCULAR: Regular rate and rhythm. No M/G/R. ABDOMEN: Soft, non-tender and non-distended. BS normal x 4 quad. EXTREMITIES: No edema. Non-tender. Peripheral pulses +2/4. NEUROLOGIC: A&O x3. PSYCHIATRIC: Cooperative. Appropriate mood and affect. SKIN: Warm, dry, intact. Results & Data Results & Data ([facility]) Vital Signs (Past 12 Hours) Vital Signs Temp Pulse Resp BP Pulse Ox 07/22/21 07:23 36.6 C 69 18 111/74 97 PG Care Time/CCT Total # of Minutes Spent Total Time Spent with Patient: Total time spent is greater than 50% in coordination of care (as documented) at patient's floor/unit and/or counseling patient: Coding Level of Care Code 63421 Subseq Hosp Care Lvl 1 Diagnoses Discharge planning issues Z02.9 Diabetic foot ulcer associated with type 2 diabetes mellitus, with fat layer exposed E11.621; L97.502 Osteomyelitis M86.9 Tinnitus H93.19 Diabetes mellitus type 2, uncontrolled E11.65 Dyslipidemia E78.5 Schizo affective schizophrenia F25.0
[2021-07-23] MEDS: FLUTICASONE PROPIONATE NA SPR 16 GM BTL SCH (08:25)
[2021-07-23] MEDS: ATORVASTATIN 40 MG TAB PO SCH (08:25)
[2021-07-23] MEDS: lisinopril 2.5 MG TAB PO SCH (08:25)
[2021-07-23] MEDS: metFORMIN HCL 500 MG TAB PO SCH ×2 (08:26→20:11)
[2021-07-23] MEDS: INSULIN GLARGINE SOLOSTAR 100 UNITS/ML 3 ML PEN SC SCH (08:29)
--- NOTE | 2021-07-23 11:34 | Hospitalist Progress Note ---
Date of Service July 23, 2021 Assessment & Plan (1) Discharge planning issues: Plan: Patient presented to the hospital with large diabetic foot ulcer with exposed bone, all of which has subsequently been treated as indicated below Pt was living in poor conditions--old farm house w/o running water or heat Seen by Psych, it was determined he does not have capacity to make decisions A meeting was to be held on 06/10 in order for the OOA to obtain emergency guardianship (which did not occur) rescheduled and held on 07/08 Pt now has an appointed guardian, referrals are to be sent to local [facility], per CM note, referral sent to [facility] and [facility] personal care facilities. finances being reviewed and are to be d/w pt's guardian. Bed available at [facility] but will not accept/take pt until finances are in order. Pt subsequently remains in the hospital until a safe discharge plan is in place (2) Diabetic foot ulcer associated with type 2 diabetes mellitus, with fat layer exposed: Plan: Admitted empirically on IV Zosyn and IV Vancomycin. MRI revealed the presence of left third toe osteomyelitis with ? developing osteo of the 2nd toe Orthopedic consult appreciated patient is s/p I&D and amputation of the left third toe on 06/05 Culture data showing Proteus vulgaris with kerr-sensitivity along with an anaerobic GPC Initially on Zosyn/Vanco Empirically. Transitioned to ertapenem (to cover Proteus and provide anaerobic coverage)--completed 14 day course has since completed 2 weeks oral abx therapy as well (levaquin/flagyl but then changed to Augmentin as uncertain is Quinolone was exacerbating Psych issues) (3) Osteomyelitis: Plan: S/p I&D and amputation of left third digit but ? developing osteo in 2nd toe that remains Last dose of Invanz given 06/19 with conversion to oral Levaquin/Flagyl started 06/20. Changed to Augmentin 07/01 and completed as of 07/03 (4) Tinnitus: Plan: doesn't seem to be acute (patient seen by ENT in the past) poor historian given tangential speech pattern-- unable to differentiate if unilateral/bilateral, if he has associated/OWENS/change in hearing/vertigo. seems improved slightly per patient. Refer to ENT as OP (if severe, may reach out for assistance while patient remains in house) Given difficulty ascertaining history questions and associated one bout of emesis on 06/29, a CT of the head with and without with intra-auditory canal cuts was ordered * CT shows no acute pathology. No obvious schwannoma * Ultimately, MRI would be diagnostic study of choice; however, he seems to be very sensitive to noise and I do not believe he would be compliant with that (5) Diabetes mellitus type 2, uncontrolled: Plan: Patient has not taken medications for his diabetes mellitus for some time now -- was previously on Glipizide and at one time was on Metformin. Medication non- compliance has been an issue. hemoglobin A1c. 11.6 Glycemic management per pharmacy Since has been started on Metformin with uptitration to 1000mg Given his known history of noncompliance, I would not utilize insulin long- term. Could consider Lantus temporarily if going to a facility (currently on Lantus 8U at night) Is on sliding scale and requiring little if any coverage (2 units). His biggest complaint is the multiple fingersticks and his fingers are sore Given adequate blood sugar control, stopped Accu-Cheks 4 times daily and tra nsitioned to Accuchecks (Fasting) on Mondays, Wednesdays, Fridays and as needed (trying to lesson stimulation) Patient has been educated regarding the importance of compliance and good glycemic control heat treat supervisor consulted for dietary education-- appreciate assistance Blood sugar today 130 Started on Lisinopril 2.5 mg daily for renal protection -Obtain follow-up labs tomorrow (07/21) as last set of labs was 1 month ago and since then, has been started on lisinopril and Metformin has been uptitrated. Will follow up on renal function Will need podiatry F/U for nail care, diabetic eye exam, microalbumin, and follow up labs Will need follow-up A1c (~September 03) (6) Dyslipidemia: Plan: Fasting lipid panel 12/12/20 showed a total cholesterol of 323 mg/dL, HDL is 43 mg/dL, LDL 202 mg/dL, and triglycerides are 391 mg/dL. Total Cholesterol:HDL ration is 7.5. Resumed Atorvastatin at 80 mg daily. Will need follow up labs and potentially addition of tricor to target TG. Now on heart healthy/DM diet. (7) Schizo affective schizophrenia: Plan: Added Haldol as needed for anxiety/agitation/hallucinations, etc. Added Lorazepam as needed for anxiety/agitation. Seen by psych on 06/05, pt does not have capacity to make medical decisions On 06/28 and 06/29: Patient seems to be very easily agitated. Things such as the lights, loud noises, things going on with other patients seem overstimulating to him. He has been very tearful off and on. I have consulted psychiatry who has since seen the patient and recommends no medication changes at this time but behavioral modifications such as limiting overstimulation. In addition, she has recommended a urinalysis which I have ordered (negative). Not overly suspicious that there is an underlying bacterial infectious process as patient has completed IV antibiotics and now converted to oral antibiotics. His CRP continues to downtrend. He is afebrile and hemodynamically stable. He did have an episode of emesis on 06/29, perhaps he has something viral which is exacerbating his psychiatric issues. ? exacerbated by FQ on board (changed as outlined above). Will continue to follow. Appreciate recommendations per psych. Did change Accu-Cheks from 4 times a day to 3 times a week trying to limit stimulation as patient seems to be easily agitated. Plan: Disposition: Emergency guardian appointed, KIMBERLY in the process of sending out referrals to personal assisted facilities. [facility] has accepted but finances seem to be an ongoing issue at this point. Court appointed guardian involved Patient has been medically and hemodynamically stable for discharge X weeks Admission and Anticipated Discharge Date Admission Date: June 03, 2021 Subjective Patient seen on daily rounds today. Vocalizes no significant complaints or concerns. Denies fevers, chills, chest pain, shortness of breath, abdominal pain, nausea or vomiting. Review of Systems Review of Systems: All systems reviewed and are unremarkable except as noted in HPI and below Denies fevers, chills, headache, nasal congestion, sore throat, cough, chest pain, shortness of breath, palpitations, orthopnea, PND, abdominal pain, nausea, vomiting, diarrhea, constipation, dysuria, hematuria, frequency, back pain, joint pain or swelling, easy bruising or bleeding, skin lesions or rashes. Physical Exam Physical Exam: GENERAL: 56 yo WD/WN WM. NAD. LUNGS: Clear to auscultation bilaterally. No W/R/R. CARDIOVASCULAR: Regular rate and rhythm. No M/G/R. ABDOMEN: Soft, non-tender and non-distended. BS normal x 4 quad. EXTREMITIES: No edema. Non-tender. Peripheral pulses +2/4. NEUROLOGIC: A&O x3. PSYCHIATRIC: Cooperative. Appropriate mood and affect. SKIN: Warm, dry, intact. Results & Data Results & Data ([facility]) Vital Signs (Past 12 Hours) Vital Signs Temp Pulse Resp BP Pulse Ox 07/23/21 07:43 37.4 C 72 16 131/83 96 PG Care Time/CCT Total # of Minutes Spent Total Time Spent with Patient: Total time spent is greater than 50% in coordination of care (as documented) at patient's floor/unit and/or counseling patient: Coding Level of Care Code 51694 Subseq Hosp Care Lvl 1 Diagnoses Discharge planning issues Z02.9 Diabetic foot ulcer associated with type 2 diabetes mellitus, with fat layer exposed E11.621; L97.502 Osteomyelitis M86.9 Tinnitus H93.19 Diabetes mellitus type 2, uncontrolled E11.65 Dyslipidemia E78.5 Schizo affective schizophrenia F25.0
[2021-07-24] MEDS: ATORVASTATIN 40 MG TAB PO SCH (08:49)
[2021-07-24] MEDS: metFORMIN HCL 500 MG TAB PO SCH ×2 (08:49→20:11)
[2021-07-24] MEDS: lisinopril 2.5 MG TAB PO SCH (08:50)
[2021-07-24] MEDS: INSULIN GLARGINE SOLOSTAR 100 UNITS/ML 3 ML PEN SC SCH (08:50)
[2021-07-24] MEDS: FLUTICASONE PROPIONATE NA SPR 16 GM BTL SCH (08:51)
--- NOTE | 2021-07-24 11:36 | Hospitalist Progress Note ---
Date of Service July 24, 2021 Assessment & Plan (1) Discharge planning issues: Plan: Patient presented to the hospital with large diabetic foot ulcer with exposed bone, all of which has subsequently been treated as indicated below Pt was living in poor conditions--old farm house w/o running water or heat Seen by Psych, it was determined he does not have capacity to make decisions A meeting was to be held on 06/10 in order for the OOA to obtain emergency guardianship (which did not occur) rescheduled and held on 07/08 Pt now has an appointed guardian, referrals are to be sent to local [facility], per CM note, referral sent to [facility] and [facility] personal care facilities. finances being reviewed and are to be d/w pt's guardian. Bed available at [facility] but will not accept/take pt until finances are in order. Pt subsequently remains in the hospital until a safe discharge plan is in place (2) Diabetic foot ulcer associated with type 2 diabetes mellitus, with fat layer exposed: Plan: Admitted empirically on IV Zosyn and IV Vancomycin. MRI revealed the presence of left third toe osteomyelitis with ? developing osteo of the 2nd toe Orthopedic consult appreciated patient is s/p I&D and amputation of the left third toe on 06/05 Culture data showing Proteus vulgaris with kerr-sensitivity along with an anaerobic GPC Initially on Zosyn/Vanco Empirically. Transitioned to ertapenem (to cover Proteus and provide anaerobic coverage)--completed 14 day course has since completed 2 weeks oral abx therapy as well (levaquin/flagyl but then changed to Augmentin as uncertain is Quinolone was exacerbating Psych issues) (3) Osteomyelitis: Plan: S/p I&D and amputation of left third digit but ? developing osteo in 2nd toe that remains Last dose of Invanz given 06/19 with conversion to oral Levaquin/Flagyl started 06/20. Changed to Augmentin 07/01 and completed as of 07/03 (4) Tinnitus: Plan: doesn't seem to be acute (patient seen by ENT in the past) poor historian given tangential speech pattern-- unable to differentiate if unilateral/bilateral, if he has associated/OWENS/change in hearing/vertigo. seems improved slightly per patient. Refer to ENT as OP (if severe, may reach out for assistance while patient remains in house) Given difficulty ascertaining history questions and associated one bout of emesis on 06/29, a CT of the head with and without with intra-auditory canal cuts was ordered * CT shows no acute pathology. No obvious schwannoma * Ultimately, MRI would be diagnostic study of choice; however, he seems to be very sensitive to noise and I do not believe he would be compliant with that (5) Diabetes mellitus type 2, uncontrolled: Plan: Patient has not taken medications for his diabetes mellitus for some time now -- was previously on Glipizide and at one time was on Metformin. Medication non- compliance has been an issue. hemoglobin A1c. 11.6 Glycemic management per pharmacy Since has been started on Metformin with uptitration to 1000mg Given his known history of noncompliance, I would not utilize insulin long- term. Could consider Lantus temporarily if going to a facility (currently on Lantus 8U at night) Is on sliding scale and requiring little if any coverage (2 units). His biggest complaint is the multiple fingersticks and his fingers are sore Given adequate blood sugar control, stopped Accu-Cheks 4 times daily and tra nsitioned to Accuchecks (Fasting and AC) on Mondays, Wednesdays, Fridays and as needed (trying to lesson stimulation) Patient has been educated regarding the importance of compliance and good glycemic control repertoire manager consulted for dietary education-- appreciate assistance Started on Lisinopril 2.5 mg daily for renal protection Will need podiatry F/U for nail care, diabetic eye exam, microalbumin, and follow up labs Will need follow-up A1c (~September 03) Weaned Lantus to 5 units on 07/23 (from 8 units), will d/c and start Glipizide 5mg (6) Dyslipidemia: Plan: Fasting lipid panel 12/12/20 showed a total cholesterol of 323 mg/dL, HDL is 43 mg/dL, LDL 202 mg/dL, and triglycerides are 391 mg/dL. Total Cholesterol:HDL ration is 7.5. Resumed Atorvastatin at 80 mg daily. Will need follow up labs and potentially addition of tricor to target TG. Now on heart healthy/DM diet. (7) Schizo affective schizophrenia: Plan: Added Haldol as needed for anxiety/agitation/hallucinations, etc. Added Lorazepam as needed for anxiety/agitation. Seen by psych on 3/3, pt does not have capacity to make medical decisions On 06/28 and 06/29: Patient seems to be very easily agitated. Things such as the lights, loud noises, things going on with other patients seem overstimulating to him. He has been very tearful off and on. I have consulted psychiatry who has since seen the patient and recommends no medication changes at this time but behavioral modifications such as limiting overstimulation. In addition, she has recommended a urinalysis which I have ordered (negative). Not overly suspicious that there is an underlying bacterial infectious process as patient has completed IV antibiotics and now converted to oral antibiotics. His CRP continues to downtrend. He is afebrile and hemodynamically stable. He did have an episode of emesis on 06/29, perhaps he has something viral which is exacerbating his psychiatric issues. ? exacerbated by FQ on board (changed as outlined above). Will continue to follow. Appreciate recommendations per psych. Did change Accu-Cheks from 4 times a day to 3 times a week trying to limit stimulation as patient seems to be easily agitated. Plan: Disposition: Emergency guardian appointed, KIMBERLY in the process of sending out referrals to personal alf facilities. There have been [facility] that have accepted pt but finances seem to be an ongoing issue at this point. Court appointed guardian involved. CM continues to work on additional referrals that will be affordable based on pt's monthly income. Patient has been medically and hemodynamically stable for discharge X weeks Admission and Anticipated Discharge Date Admission Date: June 03, 2021 Subjective Patient seen on daily rounds today. Vocalizes no significant complaints or concerns. Denies fevers, chills, chest pain, shortness of breath, abdominal pain, nausea or vomiting. Review of Systems Review of Systems: All systems reviewed and are unremarkable except as noted in HPI and below Denies fevers, chills, headache, nasal congestion, sore throat, cough, chest pain, shortness of breath, palpitations, orthopnea, PND, abdominal pain, nausea, vomiting, diarrhea, constipation, dysuria, hematuria, frequency, back pain, joint pain or swelling, easy bruising or bleeding, skin lesions or rashes. Physical Exam Physical Exam: GENERAL: 56 yo WD/WN WM. NAD. LUNGS: Clear to auscultation bilaterally. No W/R/R. CARDIOVASCULAR: Regular rate and rhythm. No M/G/R. ABDOMEN: Soft, non-tender and non-distended. BS normal x 4 quad. EXTREMITIES: No edema. Non-tender. Peripheral pulses +2/4. NEUROLOGIC: A&O x3. PSYCHIATRIC: Cooperative. Appropriate mood and affect. SKIN: Warm, dry, intact. Results & Data Results & Data ([facility]) Vital Signs (Past 12 Hours) Vital Signs Temp Pulse Resp BP Pulse Ox 07/24/21 07:27 36.7 C 60 16 101/66 96 PG Care Time/CCT Total # of Minutes Spent Total Time Spent with Patient: Total time spent is greater than 50% in coordination of care (as documented) at patient's floor/unit and/or counseling patient: Coding Level of Care Code 02595 Subseq Hosp Care Lvl 1 Diagnoses Discharge planning issues Z02.9 Diabetic foot ulcer associated with type 2 diabetes mellitus, with fat layer exposed E11.621; L97.502 Osteomyelitis M86.9 Tinnitus H93.19 Diabetes mellitus type 2, uncontrolled E11.65 Dyslipidemia E78.5 Schizo affective schizophrenia F25.0
[2021-07-25] MEDS: ACETAMINOPHEN 325 MG TAB PO PRN (07:41)
[2021-07-25] MEDS: metFORMIN HCL 500 MG TAB PO SCH ×2 (08:27→20:01)
[2021-07-25] MEDS: FLUTICASONE PROPIONATE NA SPR 16 GM BTL SCH (08:27)
[2021-07-25] MEDS: glipiZIDE 5 MG TAB PO SCH (08:27)
[2021-07-25] MEDS: lisinopril 2.5 MG TAB PO SCH (08:27)
[2021-07-25] MEDS: ATORVASTATIN 40 MG TAB PO SCH (08:27)
--- NOTE | 2021-07-25 17:02 | Hospitalist Progress Note ---
Date of Service July 25, 2021 Assessment & Plan (1) Discharge planning issues: Plan: Patient presented to the hospital with large diabetic foot ulcer with exposed bone, all of which has subsequently been treated as indicated below Pt was living in poor conditions--old farm house w/o running water or heat Seen by Psych, it was determined he does not have capacity to make decisions A meeting was to be held on 06/10 in order for the OOA to obtain emergency guardianship (which did not occur) rescheduled and held on 07/08 Pt now has an appointed guardian, referrals are to be sent to local [facility], per CM note, referral sent to multiple facilities. finances being reviewed and are to be d/w pt's guardian. Case management diligently working on this Pt subsequently remains in the hospital until a safe discharge plan is in place (2) Diabetic foot ulcer associated with type 2 diabetes mellitus, with fat layer exposed: Plan: Admitted empirically on IV Zosyn and IV Vancomycin. MRI revealed the presence of left third toe osteomyelitis with ? developing osteo of the 2nd toe Orthopedic consult appreciated patient is s/p I&D and amputation of the left third toe on 06/05 Culture data showing Proteus vulgaris with kerr-sensitivity along with an anaerobic GPC Initially on Zosyn/Vanco Empirically. Transitioned to ertapenem (to cover Proteus and provide anaerobic coverage)--completed 14 day course has since completed 2 weeks oral abx therapy as well (levaquin/flagyl but then changed to Augmentin as uncertain is Quinolone was exacerbating Psych issues) (3) Osteomyelitis: Plan: S/p I&D and amputation of left third digit but ? developing osteo in 2nd toe that remains Last dose of Invanz given 06/19 with conversion to oral Levaquin/Flagyl started 06/20. Changed to Augmentin 07/01 and completed as of 07/03 (4) Tinnitus: Plan: doesn't seem to be acute (patient seen by ENT in the past) poor historian given tangential speech pattern-- unable to differentiate if unilateral/bilateral, if he has associated/OWENS/change in hearing/vertigo. seems improved slightly per patient. Refer to ENT as OP (if severe, may reach out for assistance while patient remains in house) Given difficulty ascertaining history questions and associated one bout of emesis on 06/29, a CT of the head with and without with intra-auditory canal cuts was ordered * CT shows no acute pathology. No obvious schwannoma * Ultimately, MRI would be diagnostic study of choice; however, he seems to be very sensitive to noise and I do not believe he would be compliant with that (5) Diabetes mellitus type 2, uncontrolled: Plan: Patient has not taken medications for his diabetes mellitus for some time now -- was previously on Glipizide and at one time was on Metformin. Medication non- compliance has been an issue. hemoglobin A1c. 11.6 Glycemic management per pharmacy Since has been started on Metformin with uptitration to 1000mg Given his known history of noncompliance, I would not utilize insulin long-te rm. Could consider Lantus temporarily if going to a facility (currently on Lantus 8U at night) Is on sliding scale and requiring little if any coverage (2 units). 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 Total Cholesterol:HDL ration is 7.5. Resumed Atorvastatin at 80 mg daily. Will need follow up labs and potentially addition of tricor to target TG. Now on heart healthy/DM diet. (7) Schizo affective schizophrenia: Plan: Added Haldol as needed for anxiety/agitation/hallucinations, etc. Added Lorazepam as needed for anxiety/agitation. Seen by psych on 06/05, pt does not have capacity to make medical decisions On 06/28 and 06/29: Patient seems to be very easily agitated. Things such as the lights, loud noises, things going on with other patients seem overstimulating to him. He has been very tearful off and on. I have consulted psychiatry who has since seen the patient and recommends no medication changes at this time but behavioral modifications such as limiting overstimulation. In addition, she has recommended a urinalysis which I have ordered (negative). Not overly suspicious that there is an underlying bacterial infectious process as patient has completed IV antibiotics and now converted to oral antibiotics. His CRP continues to downtrend. He is afebrile and hemodynamically stable. He did have an episode of emesis on 06/29, perhaps he has something viral which is exacerbating his psychiatric issues. ? exacerbated by FQ on board (changed as outlined above). Will continue to follow. Appreciate recommendations per psych. Did change Accu-Cheks from 4 times a day to 3 times a week trying to limit stimulation as patient seems to be easily agitated. Plan: Disposition: Emergency guardian appointed, KIMBERLY in the process of sending out referrals to personal longterm facilities. There have been [facility] that have accepted pt but finances seem to be an ongoing issue at this point. Court appointed guardian involved. CM continues to work on additional referrals that will be affordable based on pt's monthly income. Patient has been medically and hemodynamically stable for discharge X weeks Admission and Anticipated Discharge Date Admission Date: June 03, 2021 Subjective Patient seen on daily rounds today. Vocalizes no complaints or concerns. Denies fevers, chills, chest pain, shortness of breath, abdominal pain, nausea or vomiting. Moving bowel bladder without difficulty. Nursing voices no complaints or concerns. Review of Systems Review of Systems: All systems reviewed and are unremarkable except as noted in HPI and below Denies fevers, chills, headache, nasal congestion, sore throat, cough, chest pain, shortness of breath, palpitations, orthopnea, PND, abdominal pain, nausea, vomiting, diarrhea, constipation, dysuria, hematuria, frequency, back pain, joint pain or swelling, easy bruising or bleeding, skin lesions or rashes. Physical Exam Physical Exam: General: Resting comfortably in his hospital bed. NAD. HEENT: Head is AT/NC. Buccal mucosa is moist and pink Neck: No JVD. Negative hepatojugular reflex Cardiac: RRR without M/G/R Lungs: CTA without W/R/R Abdomen: Normoactive X4. Soft and nontender in all quadrants. Extremities: No peripheral clubbing cyanosis or edema Neuro: A&O X4. Cranial nerves II through XII are grossly intact. No focal neuro deficits Skin: No obvious skin lesions or rashes Psych: Appropriate affect. Pleasant and cooperative Results & Data Results & Data ([facility]) Vital Signs (Past 12 Hours) Vital Signs Temp Pulse Resp BP Pulse Ox 07/25/21 15:09 36.8 C 77 16 124/77 96 07/25/21 07:33 36.5 C 70 18 102/68 97 PG Care Time/CCT Total # of Minutes Spent Total Time Spent with Patient: Total time spent is greater than 50% in coordination of care (as documented) at patient's floor/unit and/or counseling patient: Coding Level of Care Code 33255 Subseq Hosp Care Lvl 1 Diagnoses Discharge planning issues Z02.9 Diabetic foot ulcer associated with type 2 diabetes mellitus, with fat layer exposed E11.621; L97.502 Osteomyelitis M86.9 Tinnitus H93.19 Diabetes mellitus type 2, uncontrolled E11.65 Dyslipidemia E78.5 Schizo affective schizophrenia F25.0
[2021-07-26] MEDS: metFORMIN HCL 500 MG TAB PO SCH ×2 (08:40→20:26)
[2021-07-26] MEDS: glipiZIDE 5 MG TAB PO SCH (08:40)
[2021-07-26] MEDS: ATORVASTATIN 40 MG TAB PO SCH (08:40)
[2021-07-26] MEDS: FLUTICASONE PROPIONATE NA SPR 16 GM BTL SCH (08:40)
[2021-07-26] MEDS: lisinopril 2.5 MG TAB PO SCH (08:43)
--- NOTE | 2021-07-26 14:00 | Hospitalist Progress Note ---
Date of Service July 26, 2021 Assessment & Plan (1) Discharge planning issues: Plan: Patient presented to the hospital with large diabetic foot ulcer with exposed bone, all of which has subsequently been treated as indicated below Pt was living in poor conditions--old farm house w/o running water or heat Seen by Psych, it was determined he does not have capacity to make decisions A meeting was to be held on 06/10 in order for the OOA to obtain emergency guardianship (which did not occur) rescheduled and held on 07/08 Pt now has an appointed guardian, referrals are to be sent to local [facility], per CM note, referral sent to multiple facilities. finances being reviewed and are to be d/w pt's guardian. Case management diligently working on this Pt subsequently remains in the hospital until a safe discharge plan is in place (2) Diabetic foot ulcer associated with type 2 diabetes mellitus, with fat layer exposed: Plan: Admitted empirically on IV Zosyn and IV Vancomycin. MRI revealed the presence of left third toe osteomyelitis with ? developing osteo of the 2nd toe Orthopedic consult appreciated patient is s/p I&D and amputation of the left third toe on 06/05 Culture data showing Proteus vulgaris with kerr-sensitivity along with an anaerobic GPC Initially on Zosyn/Vanco Empirically. Transitioned to ertapenem (to cover Proteus and provide anaerobic coverage)--completed 14 day course has since completed 2 weeks oral abx therapy as well (levaquin/flagyl but then changed to Augmentin as uncertain is Quinolone was exacerbating Psych issues) (3) Osteomyelitis: Plan: S/p I&D and amputation of left third digit but ? developing osteo in 2nd toe that remains Last dose of Invanz given 06/19 with conversion to oral Levaquin/Flagyl started 06/20. Changed to Augmentin 07/01 and completed as of 07/03 (4) Tinnitus: Plan: doesn't seem to be acute (patient seen by ENT in the past) poor historian given tangential speech pattern-- unable to differentiate if unilateral/bilateral, if he has associated/[place]/change in hearing/vertigo. seems improved slightly per patient. Refer to ENT as OP (if severe, may reach out for assistance while patient remains in house) Given difficulty ascertaining history questions and associated one bout of emesis on 06/29, a CT of the head with and without with intra-auditory canal cuts was ordered * CT shows no acute pathology. No obvious schwannoma * Ultimately, MRI would be diagnostic study of choice; however, he seems to be very sensitive to noise and I do not believe he would be compliant with that (5) Diabetes mellitus type 2, uncontrolled: Plan: Patient has not taken medications for his diabetes mellitus for some time now -- was previously on Glipizide and at one time was on Metformin. Medication non- compliance has been an issue. hemoglobin A1c. 11.6 Glycemic management per pharmacy Since has been started on Metformin with uptitration to 1000mg Lantus/Log utilized upfront with close BS monitorring Given adequate blood sugar control, stopped Accu-Cheks 4 times daily and transitioned to Accuchecks (Fasting and AC) on Mondays, Wednesdays, Fridays and as needed (trying to lesson stimulation) - in addition, lantus stopped and started on Glipizide Patient has been educated regarding the importance of compliance and good glycemic control development eng consulted for dietary education-- appreciate assistance Started on Lisinopril 2.5 mg daily for renal protection Will need podiatry F/U for nail care, diabetic eye exam, microalbumin, and follow up labs Will need follow-up A1c (~September 03) (6) Dyslipidemia: Plan: Fasting lipid panel 12/12/20 showed a total cholesterol of 323 mg/dL, HDL is 43 mg/dL, LDL 202 mg/dL, and triglycerides are 391 mg/dL. Total Cholesterol:HDL ration is 7.5. Resumed Atorvastatin at 80 mg daily. Will need follow up labs and potentially addition of tricor to target TG. Now on heart healthy/DM diet. (7) Schizo affective schizophrenia: Plan: Added Haldol as needed for anxiety/agitation/hallucinations, etc. Added Lorazepam as needed for anxiety/agitation. Seen by psych on 06/05, pt does not have capacity to make medical decisions On 06/28 and 06/29: Patient seems to be very easily agitated. Things such as the lights, loud noises, things going on with other patients seem overstimulating to him. He has been very tearful off and on. I have consulted psychiatry who has since seen the patient and recommends no medication changes at this time but behavioral modifications such as limiting overstimulation. In addition, she has recommended a urinalysis which I have ordered (negative). Not overly suspicious that there is an underlying bacterial infectious process as patient has completed IV antibiotics and now converted to oral antibiotics. His CRP continues to downtrend. He is afebrile and hemodynamically stable. He did have an episode of emesis on 06/29, perhaps he has something viral which is exacerbating his psychiatric issues. ? exacerbated by FQ on board (changed as outlined above). Will continue to follow. Appreciate recommendations per psych. Did change Accu-Cheks from 4 times a day to 3 times a week trying to limit stimulation as patient seems to be easily agitated. Plan: Disposition: Emergency guardian appointed, KIMBERLY in the process of sending out referrals to personal fci facilities. There have been [facility] that have accepted pt but finances seem to be an ongoing issue at this point. Court appointed guardian involved. CM continues to work on additional referrals that will be affordable based on pt's monthly income. Patient has been medically and hemodynamically stable for discharge X weeks Admission and Anticipated Discharge Date Admission Date: June 03, 2021 Subjective Patient seen on daily rounds today. Vocalizes no complaints or concerns. Denies fevers, chills, chest pain, shortness of breath, abdominal pain, nausea or vomiting. Moving bowel bladder without difficulty. Nursing voices no complaints or concerns. Review of Systems Review of Systems: All systems reviewed and are unremarkable except as noted in HPI and below Denies fevers, chills, headache, nasal congestion, sore throat, cough, chest pain, shortness of breath, palpitations, orthopnea, PND, abdominal pain, nausea, vomiting, diarrhea, constipation, dysuria, hematuria, frequency, back pain, joint pain or swelling, easy bruising or bleeding, skin lesions or rashes. Physical Exam Physical Exam: General: Resting comfortably in his hospital bed. NAD. HEENT: Head is AT/NC. Buccal mucosa is moist and pink Neck: No JVD. Negative hepatojugular reflex Cardiac: RRR without M/G/R Lungs: CTA without W/R/R Abdomen: Normoactive X4. Soft and nontender in all quadrants. Extremities: No peripheral clubbing cyanosis or edema Neuro: A&O X4. Cranial nerves II through XII are grossly intact. No focal neuro deficits Skin: No obvious skin lesions or rashes Psych: Appropriate affect. Pleasant and cooperative Results & Data Results & Data ([facility]) Vital Signs (Past 12 Hours) Vital Signs Temp Pulse Resp BP Pulse Ox 07/26/21 07:47 36.4 C L 67 16 110/66 95 PG Care Time/CCT Total # of Minutes Spent Total Time Spent with Patient: Total time spent is greater than 50% in coordination of care (as documented) at patient's floor/unit and/or counseling patient: Coding Level of Care Code 39871 Subseq Hosp Care Lvl 1 Diagnoses Discharge planning issues Z02.9 Diabetic foot ulcer associated with type 2 diabetes mellitus, with fat layer exposed E11.621; L97.502 Osteomyelitis M86.9 Tinnitus H93.19 Diabetes mellitus type 2, uncontrolled E11.65 Dyslipidemia E78.5 Schizo affective schizophrenia F25.0
[2021-07-27] MEDS: ATORVASTATIN 40 MG TAB PO SCH (09:11)
[2021-07-27] MEDS: metFORMIN HCL 500 MG TAB PO SCH ×2 (09:11→20:15)
[2021-07-27] MEDS: glipiZIDE 5 MG TAB PO SCH (09:11)
[2021-07-27] MEDS: lisinopril 2.5 MG TAB PO SCH (09:11)
[2021-07-27] MEDS: FLUTICASONE PROPIONATE NA SPR 16 GM BTL SCH (09:12)
--- NOTE | 2021-07-27 11:05 | Hospitalist Progress Note ---
Date of Service July 27, 2021 Assessment & Plan (1) Discharge planning issues: Plan: Patient presented to the hospital with large diabetic foot ulcer with exposed bone, all of which has subsequently been treated as indicated below Pt was living in poor conditions--old farm house w/o running water or heat Seen by Psych, it was determined he does not have capacity to make decisions A meeting was to be held on 06/10 in order for the OOA to obtain emergency guardianship (which did not occur) rescheduled and held on 07/08 Pt now has an appointed guardian, referrals are to be sent to local [facility], per CM note, referral sent to multiple facilities. finances being reviewed and are to be d/w pt's guardian. Case management diligently working on this Pt subsequently remains in the hospital until a safe discharge plan is in place (2) Diabetic foot ulcer associated with type 2 diabetes mellitus, with fat layer exposed: Plan: Admitted empirically on IV Zosyn and IV Vancomycin. MRI revealed the presence of left third toe osteomyelitis with ? developing osteo of the 2nd toe Orthopedic consult appreciated patient is s/p I&D and amputation of the left third toe on 06/05 Culture data showing Proteus vulgaris with kerr-sensitivity along with an anaerobic GPC Initially on Zosyn/Vanco Empirically. Transitioned to ertapenem (to cover Proteus and provide anaerobic coverage)--completed 14 day course has since completed 2 weeks oral abx therapy as well (levaquin/flagyl but then changed to Augmentin as uncertain is Quinolone was exacerbating Psych issues) (3) Osteomyelitis: Plan: S/p I&D and amputation of left third digit but ? developing osteo in 2nd toe that remains Last dose of Invanz given 06/19 with conversion to oral Levaquin/Flagyl started 06/20. Changed to Augmentin 07/01 and completed as of 07/03 (4) Tinnitus: Plan: doesn't seem to be acute (patient seen by ENT in the past) poor historian given tangential speech pattern-- unable to differentiate if unilateral/bilateral, if he has associated/[place]/change in hearing/vertigo. seems improved slightly per patient. Refer to ENT as OP (if severe, may reach out for assistance while patient remains in house) Given difficulty ascertaining history questions and associated one bout of emesis on 06/29, a CT of the head with and without with intra-auditory canal cuts was ordered * CT shows no acute pathology. No obvious schwannoma * Ultimately, MRI would be diagnostic study of choice; however, he seems to be very sensitive to noise and I do not believe he would be compliant with that (5) Diabetes mellitus type 2, uncontrolled: Plan: Patient has not taken medications for his diabetes mellitus for some time now -- was previously on Glipizide and at one time was on Metformin. Medication non- compliance has been an issue. hemoglobin A1c. 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 Total Cholesterol:HDL ration is 7.5. Resumed Atorvastatin at 80 mg daily. Will need follow up labs and potentially addition of tricor to target TG. Now on heart healthy/DM diet. (7) Schizo affective schizophrenia: Plan: Added Haldol as needed for anxiety/agitation/hallucinations, etc. Added Lorazepam as needed for anxiety/agitation. Seen by psych on 06/05, pt does not have capacity to make medical decisions On 06/28 and 06/29: Patient seems to be very easily agitated. Things such as the lights, loud noises, things going on with other patients seem overstimulating to him. He has been very tearful off and on. I have consulted psychiatry who has since seen the patient and recommends no medication changes at this time but behavioral modifications such as limiting overstimulation. In addition, she has recommended a urinalysis which I have ordered (negative). Not overly suspicious that there is an underlying bacterial infectious process as patient has completed IV antibiotics and now converted to oral antibiotics. His CRP continues to downtrend. He is afebrile and hemodynamically stable. He did have an episode of emesis on 06/29, perhaps he has something viral which is exacerbating his psychiatric issues. ? exacerbated by FQ on board (changed as outlined above). Will continue to follow. Appreciate recommendations per psych. Did change Accu-Cheks from 4 times a day to 3 times a week trying to limit stimulation as patient seems to be easily agitated. Plan: Disposition: Emergency guardian appointed, KIMBERLY in the process of sending out referrals to personal snf facilities. There have been [facility] that have accepted pt but finances seem to be an ongoing issue at this point. Court appointed guardian involved. CM continues to work on additional referrals that will be affordable based on pt's monthly income. Patient has been medically and hemodynamically stable for discharge X weeks I have encouraged patient to take a walk in the healing garden today as the weather is nice and the sun is shining. He declines. Admission and Anticipated Discharge Date Admission Date: June 03, 2021 Subjective Patient seen on daily rounds today. Vocalizes no complaints or concerns. Denies fevers, chills, chest pain, shortness of breath, abdominal pain, nausea or vomiting. Moving bowel bladder without difficulty. Nursing voices no complaints or concerns. Physical Exam Physical Exam: General: Resting comfortably in his hospital bed. NAD. HEENT: Head is AT/NC. Buccal mucosa is moist and pink Neck: No JVD. Negative hepatojugular reflex Cardiac: RRR without M/G/R Lungs: CTA without W/R/R Abdomen: Normoactive X4. Soft and nontender in all quadrants. Extremities: No peripheral clubbing cyanosis or edema Neuro: A&O X4. Cranial nerves II through XII are grossly intact. No focal neuro deficits Skin: No obvious skin lesions or rashes Psych: Appropriate affect. Pleasant and cooperative Results & Data Results & Data ([facility]) Vital Signs (Past 12 Hours) Vital Signs Temp Pulse Resp BP Pulse Ox 07/27/21 07:44 36.6 C 69 16 131/80 96 Laboratory Results no lab data PG Care Time/CCT Total # of Minutes Spent Total Time Spent with Patient: Total time spent is greater than 50% in coordination of care (as documented) at patient's floor/unit and/or counseling patient: Coding Level of Care Code 45022 Subseq Hosp Care Lvl 1 Diagnoses Discharge planning issues Z02.9 Diabetic foot ulcer associated with type 2 diabetes mellitus, with fat layer exposed E11.621; L97.502 Osteomyelitis M86.9 Tinnitus H93.19 Diabetes mellitus type 2, uncontrolled E11.65 Dyslipidemia E78.5 Schizo affective schizophrenia F25.0
[2021-07-28] MEDS: FLUTICASONE PROPIONATE NA SPR 16 GM BTL SCH (08:13)
[2021-07-28] MEDS: lisinopril 2.5 MG TAB PO SCH (08:13)
[2021-07-28] MEDS: glipiZIDE 5 MG TAB PO SCH (08:13)
[2021-07-28] MEDS: metFORMIN HCL 500 MG TAB PO SCH ×2 (08:13→20:55)
[2021-07-28] MEDS: ATORVASTATIN 40 MG TAB PO SCH (08:13)
--- NOTE | 2021-07-28 18:34 | Hospitalist Progress Note ---
Date of Service July 28, 2021 Assessment & Plan (1) Discharge planning issues: Plan: Patient presented to the hospital with large diabetic foot ulcer with exposed bone, all of which has subsequently been treated as indicated below Pt was living in poor conditions--old farm house w/o running water or heat Seen by Psych, it was determined he does not have capacity to make decisions A meeting was to be held on 06/10 in order for the OOA to obtain emergency guardianship (which did not occur) rescheduled and held on 07/08 Pt now has an appointed guardian, referrals are to be sent to local [facility], per CM note, referral sent to multiple facilities. finances being reviewed and are to be d/w pt's guardian. Case management diligently working on this Pt subsequently remains in the hospital until a safe discharge plan is in place (2) Diabetic foot ulcer associated with type 2 diabetes mellitus, with fat layer exposed: Plan: Admitted empirically on IV Zosyn and IV Vancomycin. MRI revealed the presence of left third toe osteomyelitis with ? developing osteo of the 2nd toe Orthopedic consult appreciated patient is s/p I&D and amputation of the left third toe on 06/05 Culture data showing Proteus vulgaris with kerr-sensitivity along with an anaerobic GPC Initially on Zosyn/Vanco Empirically. Transitioned to ertapenem (to cover Proteus and provide anaerobic coverage)--completed 14 day course has since completed 2 weeks oral abx therapy as well (levaquin/flagyl but then changed to Augmentin as uncertain is Quinolone was exacerbating Psych issues) (3) Osteomyelitis: Plan: S/p I&D and amputation of left third digit but ? developing osteo in 2nd toe that remains Last dose of Invanz given 06/19 with conversion to oral Levaquin/Flagyl started 06/20. Changed to Augmentin 07/01 and completed as of 07/03 (4) Tinnitus: Plan: doesn't seem to be acute (patient seen by ENT in the past) poor historian given tangential speech pattern-- unable to differentiate if unilateral/bilateral, if he has associated/OWENS/change in hearing/vertigo. seems improved slightly per patient. Refer to ENT as OP (if severe, may reach out for assistance while patient remains in house) Given difficulty ascertaining history questions and associated one bout of emesis on 06/29, a CT of the head with and without with intra-auditory canal cuts was ordered * CT shows no acute pathology. No obvious schwannoma * Ultimately, MRI would be diagnostic study of choice; however, he seems to be very sensitive to noise and I do not believe he would be compliant with that (5) Diabetes mellitus type 2, uncontrolled: Plan: Patient has not taken medications for his diabetes mellitus for some time now -- was previously on Glipizide and at one time was on Metformin. Medication non- compliance has been an issue. hemoglobin A1c. 11.6 Glycemic management per pharmacy Since has been started on Metformin with uptitration to 1000mg Lantus/Log utilized upfront with close BS monitorring Given adequate blood sugar control, stopped Accu-Cheks 4 times daily and transitioned to Accuchecks (Fasting and AC) on Mondays, Wednesdays, Fridays and as needed (trying to lesson stimulation) - in addition, lantus stopped and started on Glipizide Patient has been educated regarding the importance of compliance and good glycemic control tong hooker consulted for dietary education-- appreciate assistance Started on Lisinopril 2.5 mg daily for renal protection Will need podiatry F/U for nail care, diabetic eye exam, microalbumin, and follow up labs Will need follow-up A1c (~September 03) (6) Dyslipidemia: Plan: Fasting lipid panel 12/12/20 showed a total cholesterol of 323 mg/dL, HDL is 43 mg/dL, LDL 202 mg/dL, and triglycerides are 391 mg/dL. Total Cholesterol:HDL ration is 7.5. Resumed Atorvastatin at 80 mg daily. Will need follow up labs and potentially addition of tricor to target TG. Now on heart healthy/DM diet. (7) Schizo affective schizophrenia: Plan: Added Haldol as needed for anxiety/agitation/hallucinations, etc. Added Lorazepam as needed for anxiety/agitation. Seen by psych on 06/05, pt does not have capacity to make medical decisions On 06/28 and 06/29: Patient seems to be very easily agitated. Things such as the lights, loud noises, things going on with other patients seem overstimulating to him. He has been very tearful off and on. I have consulted psychiatry who has since seen the patient and recommends no medication changes at this time but behavioral modifications such as limiting overstimulation. In addition, she has recommended a urinalysis which I have ordered (negative). Not overly suspicious that there is an underlying bacterial infectious process as patient has completed IV antibiotics and now converted to oral antibiotics. His CRP continues to downtrend. He is afebrile and hemodynamically stable. He did have an episode of emesis on 06/29, perhaps he has something viral which is exacerbating his psychiatric issues. ? exacerbated by FQ on board (changed as outlined above). Will continue to follow. Appreciate recommendations per psych. Did change Accu-Cheks from 4 times a day to 3 times a week trying to limit stimulation as patient seems to be easily agitated. Plan: Disposition: Emergency guardian appointed, KIMBERLY in the process of sending out referrals to personal nursing home facilities. There have been [facility] that have accepted pt but finances seem to be an ongoing issue at this point. Court appointed guardian involved. CM continues to work on additional referrals that will be affordable based on pt's monthly income. Patient has been medically and hemodynamically stable for discharge X weeks Admission and Anticipated Discharge Date Admission Date: June 03, 2021 Subjective Patient seen on daily rounds today. Vocalizes no complaints or concerns. Denies fevers, chills, chest pain, shortness of breath, abdominal pain, nausea or vomiting. Moving bowel bladder without difficulty. Nursing voices no complaints or concerns. Review of Systems Review of Systems: All systems reviewed and are unremarkable except as noted in HPI and below Denies fevers, chills, headache, nasal congestion, sore throat, cough, chest pain, shortness of breath, palpitations, orthopnea, PND, abdominal pain, nausea, vomiting, diarrhea, constipation, dysuria, hematuria, frequency, back pain, joint pain or swelling, easy bruising or bleeding, skin lesions or rashes. Physical Exam Physical Exam: General: Resting comfortably in his hospital bed. NAD. HEENT: Head is AT/NC. Buccal mucosa is moist and pink Neck: No JVD. Negative hepatojugular reflex Cardiac: RRR without M/G/R Lungs: CTA without W/R/R Abdomen: Normoactive X4. Soft and nontender in all quadrants. Extremities: No peripheral clubbing cyanosis or edema Neuro: A&O X4. Cranial nerves II through XII are grossly intact. No focal neuro deficits Skin: No obvious skin lesions or rashes Psych: Appropriate affect. Pleasant and cooperative Results & Data Results & Data ([facility]) Vital Signs (Past 12 Hours) Vital Signs Temp Pulse Resp BP Pulse Ox 07/28/21 07:42 36.4 C L 87 16 103/72 98 PG Care Time/CCT Total # of Minutes Spent Total Time Spent with Patient: Total time spent is greater than 50% in coordination of care (as documented) at patient's floor/unit and/or counseling patient: Coding Level of Care Code 86524 Subseq Hosp Care Lvl 1 Diagnoses Discharge planning issues Z02.9 Diabetic foot ulcer associated with type 2 diabetes mellitus, with fat layer exposed E11.621; L97.502 Osteomyelitis M86.9 Tinnitus H93.19 Diabetes mellitus type 2, uncontrolled E11.65 Dyslipidemia E78.5 Schizo affective schizophrenia F25.0
[2021-07-29] MEDS: metFORMIN HCL 500 MG TAB PO SCH ×2 (07:59→20:15)
[2021-07-29] MEDS: FLUTICASONE PROPIONATE NA SPR 16 GM BTL SCH (07:59)
[2021-07-29] MEDS: ATORVASTATIN 40 MG TAB PO SCH (07:59)
[2021-07-29] MEDS: glipiZIDE 5 MG TAB PO SCH (07:59)
[2021-07-29] MEDS: lisinopril 2.5 MG TAB PO SCH (07:59)
--- NOTE | 2021-07-29 16:34 | Hospitalist Progress Note ---
Date of Service July 29, 2021 Assessment & Plan (1) Discharge planning issues: Plan: Patient presented to the hospital with large diabetic foot ulcer with exposed bone, all of which has subsequently been treated as indicated below Pt was living in poor conditions--old farm house w/o running water or heat Seen by Psych, it was determined he does not have capacity to make decisions A meeting was to be held on 06/10 in order for the OOA to obtain emergency guardianship (which did not occur) rescheduled and held on 07/08 Pt now has an appointed guardian, referrals are to be sent to local [facility], per CM note, referral sent to multiple facilities. finances being reviewed and are to be d/w pt's guardian. Case management diligently working on this Pt subsequently remains in the hospital until a safe discharge plan is in place (2) Diabetic foot ulcer associated with type 2 diabetes mellitus, with fat layer exposed: Plan: Admitted empirically on IV Zosyn and IV Vancomycin. MRI revealed the presence of left third toe osteomyelitis with ? developing osteo of the 2nd toe Orthopedic consult appreciated patient is s/p I&D and amputation of the left third toe on 06/05 Culture data showing Proteus vulgaris with kerr-sensitivity along with an anaerobic GPC Initially on Zosyn/Vanco Empirically. Transitioned to ertapenem (to cover Proteus and provide anaerobic coverage)--completed 14 day course has since completed 2 weeks oral abx therapy as well (levaquin/flagyl but then changed to Augmentin as uncertain is Quinolone was exacerbating Psych issues) (3) Osteomyelitis: Plan: S/p I&D and amputation of left third digit but ? developing osteo in 2nd toe that remains Last dose of Invanz given 06/19 with conversion to oral Levaquin/Flagyl started 06/20. Changed to Augmentin 07/01 and completed as of 07/03 (4) Tinnitus: Plan: doesn't seem to be acute (patient seen by ENT in the past) poor historian given tangential speech pattern-- unable to differentiate if unilateral/bilateral, if he has associated/OWENS/change in hearing/vertigo. seems improved slightly per patient. Refer to ENT as OP (if severe, may reach out for assistance while patient remains in house) Given difficulty ascertaining history questions and associated one bout of emesis on 06/29, a CT of the head with and without with intra-auditory canal cuts was ordered * CT shows no acute pathology. No obvious schwannoma * Ultimately, MRI would be diagnostic study of choice; however, he seems to be very sensitive to noise and I do not believe he would be compliant with that (5) Diabetes mellitus type 2, uncontrolled: Plan: Patient has not taken medications for his diabetes mellitus for some time now -- was previously on Glipizide and at one time was on Metformin. Medication non- compliance has been an issue. hemoglobin A1c. 11.6 Glycemic management per pharmacy Since has been started on Metformin with uptitration to 1000mg Lantus/Log utilized upfront with close BS monitorring Given adequate blood sugar control, stopped Accu-Cheks 4 times daily and transitioned to Accuchecks (Fasting and AC) on Mondays, Wednesdays, Fridays and as needed (trying to lesson stimulation) - in addition, lantus stopped and started on Glipizide Patient has been educated regarding the importance of compliance and good glycemic control surg nurse consulted for dietary education-- appreciate assistance Started on Lisinopril 2.5 mg daily for renal protection Will need podiatry F/U for nail care, diabetic eye exam, microalbumin, and follow up labs Will need follow-up A1c (~September 03) (6) Dyslipidemia: Plan: Fasting lipid panel 12/12/20 showed a total cholesterol of 323 mg/dL, HDL is 43 mg/dL, LDL 202 mg/dL, and triglycerides are 391 mg/dL. Total Cholesterol:HDL ration is 7.5. Resumed Atorvastatin at 80 mg daily. Will need follow up labs and potentially addition of tricor to target TG. Now on heart healthy/DM diet. (7) Schizo affective schizophrenia: Plan: Added Haldol as needed for anxiety/agitation/hallucinations, etc. Added Lorazepam as needed for anxiety/agitation. Seen by psych on 06/05, pt does not have capacity to make medical decisions On 06/28 and 06/29: Patient seems to be very easily agitated. Things such as the lights, loud noises, things going on with other patients seem overstimulating to him. He has been very tearful off and on. I have consulted psychiatry who has since seen the patient and recommends no medication changes at this time but behavioral modifications such as limiting overstimulation. In addition, she has recommended a urinalysis which I have ordered (negative). Not overly suspicious that there is an underlying bacterial infectious process as patient has completed IV antibiotics and now converted to oral antibiotics. His CRP continues to downtrend. He is afebrile and hemodynamically stable. He did have an episode of emesis on 06/29, perhaps he has something viral which is exacerbating his psychiatric issues. ? exacerbated by FQ on board (changed as outlined above). Will continue to follow. Appreciate recommendations per psych. Did change Accu-Cheks from 4 times a day to 3 times a week trying to limit stimulation as patient seems to be easily agitated. Plan: Disposition: Emergency guardian appointed, KIMBERLY in the process of sending out referrals to personal usp facilities. There have been [facility] that have accepted pt but finances seem to be an ongoing issue at this point. Court appointed guardian involved. CM continues to work on additional referrals that will be affordable based on pt's monthly income. Patient has been medically and hemodynamically stable for discharge X weeks Admission and Anticipated Discharge Date Admission Date: June 03, 2021 Subjective Patient seen on daily rounds today. Vocalizes no complaints or concerns. Denies fevers, chills, chest pain, shortness of breath, abdominal pain, nausea or vomiting. No complaints or concerns. Review of Systems Review of Systems: All systems reviewed and are unremarkable except as noted in HPI and below Denies fevers, chills, headache, nasal congestion, sore throat, cough, chest pain, shortness of breath, palpitations, orthopnea, PND, abdominal pain, nausea, vomiting, diarrhea, constipation, dysuria, hematuria, frequency, back pain, joint pain or swelling, easy bruising or bleeding, skin lesions or rashes. Physical Exam Physical Exam: General: Resting comfortably in his hospital bed. NAD. HEENT: Head is AT/NC. Buccal mucosa is moist and pink Neck: No JVD. Negative hepatojugular reflex Cardiac: RRR without M/G/R Lungs: CTA without W/R/R Abdomen: Normoactive X4. Soft and nontender in all quadrants. Extremities: No peripheral clubbing cyanosis or edema Neuro: A&O X4. Cranial nerves II through XII are grossly intact. No focal neuro deficits Skin: No obvious skin lesions or rashes Psych: Appropriate affect. Pleasant and cooperative Results & Data Results & Data ([facility]) Vital Signs (Past 12 Hours) Vital Signs Temp Pulse Resp BP Pulse Ox 07/29/21 07:40 36.6 C 78 16 121/77 97 Laboratory Results no lab data today PG Care Time/CCT Total # of Minutes Spent Total Time Spent with Patient: Total time spent is greater than 50% in coordination of care (as documented) at patient's floor/unit and/or counseling patient: Coding Level of Care Code 23573 Subseq Hosp Care Lvl 1 Diagnoses Discharge planning issues Z02.9 Diabetic foot ulcer associated with type 2 diabetes mellitus, with fat layer exposed E11.621; L97.502 Osteomyelitis M86.9 Tinnitus H93.19 Diabetes mellitus type 2, uncontrolled E11.65 Dyslipidemia E78.5 Schizo affective schizophrenia F25.0
[2021-07-30] MEDS: glipiZIDE 5 MG TAB PO SCH (08:51)
[2021-07-30] MEDS: lisinopril 2.5 MG TAB PO SCH (08:51)
[2021-07-30] MEDS: metFORMIN HCL 500 MG TAB PO SCH ×2 (08:51→20:10)
[2021-07-30] MEDS: ATORVASTATIN 40 MG TAB PO SCH (08:51)
[2021-07-30] MEDS: FLUTICASONE PROPIONATE NA SPR 16 GM BTL SCH (08:51)
--- NOTE | 2021-07-30 11:49 | Hospitalist Progress Note ---
Date of Service July 30, 2021 Assessment & Plan (1) Discharge planning issues: Plan: Patient presented to the hospital with large diabetic foot ulcer with exposed bone, all of which has subsequently been treated as indicated below Pt was living in poor conditions--old farm house w/o running water or heat Seen by Psych, it was determined he does not have capacity to make decisions A meeting was to be held on 06/10 in order for the O to obtain emergency gua rdianship (which did not occur) rescheduled and held on 07/08 Pt now has an appointed guardian, referrals are to be sent to local [facility], per CM note, referral sent to multiple facilities including most recently, a boarding home Boarding home will accept patient but request therapy clear him to independently do steps. PT order placed Pt subsequently remains in the hospital until a safe discharge plan is in place (2) Diabetic foot ulcer associated with type 2 diabetes mellitus, with fat layer exposed: Plan: empirically on IV Zosyn and IV Vancomycin. MRI revealed the presence of left third toe osteomyelitis with ? developing osteo of the 2nd toe s/p I&D and amputation of the left third toe on 06/05- Dr. Tello Culture data: Proteus vulgaris with kerr-sensitivity along with an anaerobic GPC Transitioned to ertapenem--completed 14 day course transitioned to oral (levaquin/flagyl but then changed to Augmentin as uncertain is Quinolone was exacerbating Psych issues)-- completed full course (3) Osteomyelitis: Plan: S/p I&D and amputation of left third digit but ? developing osteo in 2nd toe that remains Last dose of Invanz given 06/19 with conversion to oral Levaquin/Flagyl started 06/20. Changed to Augmentin 07/01 and completed as of 07/03 (4) Tinnitus: Plan: predates this hospitalization (patient seen by ENT in the past) poor historian given tangential speech pattern-- unable to differentiate if unilateral/bilateral, if he has associated/[place]/change in hearing/vertigo. waxes and wanes. Refer to ENT as OP Given difficulty ascertaining history questions and associated one bout of emesis on 06/29, a CT of the head with and without with intra-auditory canal cuts was ordered * CT shows no acute pathology. No obvious schwannoma * Ultimately, MRI would be diagnostic study of choice; however, he seems to be very sensitive to noise and I do not believe he would be compliant with that (5) Diabetes mellitus type 2, uncontrolled: Plan: Patient has not taken medications for his diabetes mellitus for some time now -- was previously on Glipizide and at one time was on Metformin. Medication non- compliance has been an issue. hemoglobin A1c. 11.6 Since has been started on Metformin with uptitration to 1000mg while in house. Tolerating this Lantus/Log utilized upfront with close BS monitoring Given adequate blood sugar control, stopped Accu-Cheks 4 times daily and transitioned to Accuchecks (Fasting and AC) on Mondays, Wednesdays, Fridays and as needed (trying to lesson stimulation) - lantus/log since stopped and started on Glipizide Patient has been educated regarding the importance of compliance and good glycemic control medicare coordinator consulted for dietary education-- appreciate assistance Started on Lisinopril 2.5 mg daily for renal protection Will need podiatry F/U for nail care, diabetic eye exam, microalbumin, and follow up labs Will need follow-up A1c (~September 03) (6) Dyslipidemia: Plan: Fasting lipid panel 12/12/20 showed a total cholesterol of 323 mg/dL, HDL is 43 mg/dL, LDL 202 mg/dL, and triglycerides are 391 mg/dL. Total Cholesterol:HDL ration is 7.5. Resumed Atorvastatin at 80 mg daily. Will need follow up labs and potentially addition of tricor to target TG. Now on heart healthy/DM diet. (7) Schizo affective schizophrenia: Plan: gerardo paul upfront Seen by psych on 06/05, pt does not have capacity to make medical decisions On 06/28 and 06/29: Patient seemed to be very easily agitated. Things such as the lights, loud noises, things going on with other patients seem overstimulating to him. He has been very tearful off and on. Psychiatry reconsulted who has since seen the patient and recommends no medication changes at this time but behavioral modifications such as limiting overstimulation. Plan: Disposition: Emergency guardian appointed, CM diligently working on finding a facility. Most recently, boarding home will accept patient but needs clearance by PT on steps. Order placed Patient has been medically and hemodynamically stable for discharge X weeks Admission and Anticipated Discharge Date Admission Date: June 03, 2021 Subjective Patient seen on daily rounds today. Vocalizes no complaints or concerns. Denies fevers, chills, chest pain, shortness of breath, abdominal pain, nausea or vomiting. No complaints or concerns. Reports he is "feeling angry today" but has not acted on this. Per case management, has found a boarding home that will accept patient but they need him to be cleared by therapy to do stairs. Review of Systems Review of Systems: All systems reviewed and are unremarkable except as noted in HPI and below Denies fevers, chills, headache, nasal congestion, sore throat, cough, chest pain, shortness of breath, palpitations, orthopnea, PND, abdominal pain, nausea, vomiting, diarrhea, constipation, dysuria, hematuria, frequency, back pain, joint pain or swelling, easy bruising or bleeding, skin lesions or rashes. Physical Exam Physical Exam: General: Resting comfortably in his hospital bed. NAD. HEENT: Head is AT/NC. Buccal mucosa is moist and pink Neck: No JVD. Negative hepatojugular reflex Cardiac: RRR without M/G/R Lungs: CTA without W/R/R Abdomen: Normoactive X4. Soft and nontender in all quadrants. Extremities: No peripheral clubbing cyanosis or edema Neuro: A&O X4. Cranial nerves II through XII are grossly intact. No focal neuro deficits Skin: No obvious skin lesions or rashes Psych: Appropriate affect. Pleasant and cooperative Results & Data Results & Data ([facility]) Vital Signs (Past 12 Hours) Vital Signs Temp Pulse Resp BP Pulse Ox 07/30/21 07:53 37.1 C 81 16 137/81 95 Laboratory Results Lab data today PG Care Time/CCT Total # of Minutes Spent Total Time Spent with Patient: Total time spent is greater than 50% in coordination of care (as documented) at patient's floor/unit and/or counseling patient: Coding Level of Care Code 80423 Subseq Hosp Care Lvl 2 Diagnoses Discharge planning issues Z02.9 Diabetic foot ulcer associated with type 2 diabetes mellitus, with fat layer exposed E11.621; L97.502 Osteomyelitis M86.9 Tinnitus H93.19 Diabetes mellitus type 2, uncontrolled E11.65 Dyslipidemia E78.5 Schizo affective schizophrenia F25.0
[2021-07-30] MEDS ORDERED: HALOPERIDOL LACTATE 5 MG/ML 1 ML VIAL IV PRN (18:21)
--- NOTE | 2021-07-30 18:23 | Communication Note ---
Date of Service: July 30, 2021 notified by staff that patient having increased agitation. Yelling at staff. Throwing things in his room. Has been easily agitated (much more so) over this past week. Easily angered. For now, staff encouraged to limit stimulation. I have ordered Haldol IM to be utilized if patient becomes agitation and at risk of harming himself or others. In addition, I have reconsulted psych for potential medication adjustments-- appreciate recommendations.
[2021-07-30] MEDS ORDERED: HALOPERIDOL LACTATE 5 MG/ML 1 ML VIAL IM PRN (18:24)
[2021-07-31] MEDS: FLUTICASONE PROPIONATE NA SPR 16 GM BTL SCH (08:05)
[2021-07-31] MEDS: glipiZIDE 5 MG TAB PO SCH (08:06)
[2021-07-31] MEDS: lisinopril 2.5 MG TAB PO SCH (08:06)
[2021-07-31] MEDS: ATORVASTATIN 40 MG TAB PO SCH (08:06)
[2021-07-31] MEDS: metFORMIN HCL 500 MG TAB PO SCH ×2 (08:07→20:26)
--- NOTE | 2021-07-31 13:32 | Hospitalist Progress Note ---
Date of Service July 31, 2021 Assessment & Plan (1) Discharge planning issues: Plan: Patient presented to the hospital with large diabetic foot ulcer with exposed bone, all of which has subsequently been treated as indicated below Pt was living in poor conditions--old farm house w/o running water or heat Seen by Psych, it was determined he does not have capacity to make decisions A meeting was to be held on 06/10 in order for the [facility]OA to obtain emergency gua rdianship (which did not occur) rescheduled and held on 07/08 Pt now has an appointed guardian, referrals are to be sent to local Hs, per CM note, referral sent to multiple facilities including most recently, a boarding home Prior provider notified by case management that a boarding home would take patient but needed cleared on stairs first, PT ordered and pt was cleared on stairs. Now CM stating that the boarding home has elected not to take patient. Pt subsequently remains in the hospital until a safe discharge plan is in place which unfortunately is also directly contributing to his agitation (2) Diabetic foot ulcer associated with type 2 diabetes mellitus, with fat layer exposed: Plan: empirically on IV Zosyn and IV Vancomycin. MRI revealed the presence of left third toe osteomyelitis with ? developing osteo of the 2nd toe s/p I&D and amputation of the left third toe on 06/05- Dr. Tello Culture data: Proteus vulgaris with kerr-sensitivity along with an anaerobic GPC Transitioned to ertapenem--completed 14 day course transitioned to oral (levaquin/flagyl but then changed to Augmentin as u ncertain is Quinolone was exacerbating Psych issues)-- completed full course (3) Osteomyelitis: Plan: S/p I&D and amputation of left third digit but ? developing osteo in 2nd toe that remains Last dose of Invanz given 06/19 with conversion to oral Levaquin/Flagyl started 06/20. Changed to Augmentin 07/01 and completed as of 07/03 (4) Tinnitus: Plan: predates this hospitalization (patient seen by ENT in the past) poor historian given tangential speech pattern-- unable to differentiate if unilateral/bilateral, if he has associated/OWENS/change in hearing/vertigo. waxes and wanes. Refer to ENT as OP Given difficulty ascertaining history questions and associated one bout of emesis on 06/29, a CT of the head with and without with intra-auditory canal cuts was ordered * CT shows no acute pathology. No obvious schwannoma * Ultimately, MRI would be diagnostic study of choice; however, he seems to be very sensitive to noise and I do not believe he would be compliant with that (5) Diabetes mellitus type 2, uncontrolled: Plan: Patient has not taken medications for his diabetes mellitus for some time now -- was previously on Glipizide and at one time was on Metformin. Medication non- compliance has been an issue. hemoglobin A1c. 11.6 Since has been started on Metformin with uptitration to 1000mg while in house. Tolerating this Lantus/Log utilized upfront with close BS monitoring Given adequate blood sugar control, stopped Accu-Cheks 4 times daily and transitioned to Accuchecks (Fasting and AC) on Mondays, Wednesdays, Fridays and as needed (trying to lesson stimulation) - lantus/log since stopped and started on Glipizide Patient has been educated regarding the importance of compliance and good glycemic control clinical services director consulted for dietary education-- appreciate assistance Started on Lisinopril 2.5 mg daily for renal protection Will need podiatry F/U for nail care, diabetic eye exam, microalbumin, and follow up labs Will need follow-up A1c (~September 03) (6) Dyslipidemia: Plan: Fasting lipid panel 12/12/20 showed a total cholesterol of 323 mg/dL, HDL is 43 mg/dL, LDL 202 mg/dL, and triglycerides are 391 mg/dL. Total Cholesterol:HDL ration is 7.5. Resumed Atorvastatin at 80 mg daily. Will need follow up labs and potentially addition of tricor to target TG. Now on heart healthy/DM diet. (7) Schizo affective schizophrenia: Plan: Seen by psych on 06/05, pt does not have capacity to make medical decisions haldol prn was given upfront Patient is becoming increasingly agitated; Psychiatry reconsulted who last saw pt at end of June when having some issues with overstimulation and agitation. At this point, psych providing some puzzles and other activities he can do in his room to help keep him occupied; however, with a hospitalization that is approaching 60 days, his agitation is not unexpected. He does not meet for inpatient psychiatric admission. Ideally, he needs to be discharged as early as possible. Plan: Disposition: Emergency guardian appointed, KIMBERLY diligently working on finding a facility. At this time, no one has accepted him. Patient has been medically and hemodynamically stable for discharge X weeks Admission and Anticipated Discharge Date Admission Date: June 03, 2021 Supervising Physician Co-Signing Physician Notes Attending Attestation - Chart reviewed, care plan d/w KAVITHA Shah. I agree w/ the saavedra components of her documentation. Barrier to discharge is disposition - social work assisting with this. Sundar Cody MD Subjective Patient seen on daily rounds this morning. He has no complaints or concerns at this time. Denies cp, dyspnea, n/v/d, f/c, headache, or gu symptoms. Per previous provider, has been increasingly agitated. Seems to be frustrated related to his discharge. Review of Systems Review of Systems: All systems reviewed and are unremarkable except as noted in HPI and below. Denies fever, chills, fatigue, headache, nasal congestion, sore throat, cough, chest pain, shortness of breath, palpitations, orthopnea, PND, abdominal pain, n/v/d, constipation, dysuria, hematuria, frequency, back pain, joint pain or swelling, easy bruising or bleeding, skin lesions or rashes. Physical Exam Physical Exam: GENERAL: 56 yo Well-developed, well-nourished WM. NAD. LUNGS: Clear to auscultation bilaterally. No W/R/R. CARDIOVASCULAR: Regular rate and rhythm. No M/G/R. No JVD. ABDOMEN: Soft, non-tender and non-distended. BS normal x 4 quad. EXTREMITIES: No edema. Non-tender. Peripheral pulses +2/4. NEUROLOGIC: A&O x3. PSYCHIATRIC: Cooperative. Appropriate mood and affect. SKIN: Warm, dry, intact. No rashes or lesions. Results & Data Results & Data ([facility]) Vital Signs (Past 12 Hours) Vital Signs Temp Pulse Resp BP Pulse Ox 07/31/21 08:09 37.1 C 88 17 151/88 H 94 Laboratory Results None PG Care Time/CCT Total # of Minutes Spent Total Time Spent with Patient: Total time spent is greater than 50% in coordination of care (as documented) at patient's floor/unit and/or counseling patient: Coding Level of Care Code 52533 Subseq Hosp Care Lvl 1 Diagnoses Discharge planning issues Z02.9 Diabetic foot ulcer associated with type 2 diabetes mellitus, with fat layer exposed E11.621; L97.502 Osteomyelitis M86.9 Tinnitus H93.19 Diabetes mellitus type 2, uncontrolled E11.65 Dyslipidemia E78.5 Schizo affective schizophrenia F25.0
--- NOTE | 2021-07-31 14:15 | Psychiatric Progress Note ---
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 He does exhibit some autistic features that are typical of ID patients with/without other developmental disabilities. 07/31/21: no evidence of psychosis or petty. (1) Schizo affective schizophrenia: my understanding is that patient has been accepted to a boarding home pending clearance from PT to do stairs independently. His behavioral outburst yesterday was directly related to his length of stay and uncertainty of timing of discharge. His outburst is less likely to occur outside of the hospital as he has more options of leisure activities and social interactions. Staffing limits ability for him to have scheduled therapeutic time outside. He declines any additional rec therapy items from [facility]. His ringing in his ears is longstanding complaint and not related to psychosis. Risk Factors Assessment Do You Have Access To A Gun?: No Interval History Chief Complaint "I'm watching tv and yeah I want to leave soon." Review of Systems Notes "I'm all good" Subjective Subjective Patient was seen & assessed and interval progress reviewed with Eulalia Fernandez PA-C and nursing. He has multiple cans of energy drinks at his bedside but nursing confirms he doesn't drink them. He has been more irritable this week given the length of stay (day 58). He was focussed on going outside and when his need couldn't be met he escalated and was throwing things around his room as he didn't like being redirected. He did not require prn medication. Procedures Performed Operation Date: 06/05/21 12:35 Actual Procedures p Left 3rd Toe Amputation, Irrigation and Debridement Ulcer on Left 2nd Toe 10x6mm, Irrigation and Debridement Ulcer on Left Great Toe 6x5mm(Not Applicable) - Adrian Tello M.D. Physical Exam Psychiatric Orientation: alert, oriented to person and oriented to place Apperance: appropriately dressed and appropriately groomed Eye Contact: + fair eye contact Motor Behavior: no abnormal motor movements Speech: normal rate/rhythm/volume of speech Affect: euthymic affect Mood: no depressed mood Thought Process: + concrete thought process Thought Content: reality based without delusions Suicidal Thoughts: denies suicidal thoughts Homicidal Thoughts: denies homicidal thoughts Hallucinations: no auditory hallucinations and no visual hallucinations Cognition: language grossly intact Estimated Intelligence: + below average estimated intelligence Insight: + limited insight Judgement: + limited judgement Vital Signs (Past 24 Hours) Last Vital Signs Temp 37.1 C 07/31/21 08:09 Pulse 88 07/31/21 08:09 Resp 17 07/31/21 08:09 BP 151/88 H 07/31/21 08:09 Pulse Ox 94 07/31/21 08:09 Results & Data ([facility]) Current Inpatient Medications Current Inpatient Medications: Current Inpatient Medications Acetaminophen (Acetaminophen 325 Mg Tab) 650 mg PO Q6H PRN PRN Reason: Pain Stop: 10/15/21 21:11 Last Admin: 07/25/21 07:41 Dose: 650 mg Documented by: Atorvastatin Calcium (Atorvastatin 40 Mg Tab) 80 mg PO QAM TOMMY; Protocol Stop: 10/15/21 08:59 Last Admin: 07/31/21 08:06 Dose: 80 mg Documented by: Dextrose (Dextrose 50% 50 Ml Syringe) 25 - 50 ml IV UD PRN; Protocol PRN Reason: Hypoglycemia Protocol Stop: 10/15/21 13:29 Fluticasone Propionate (Fluticasone Propionate Na Spr 16 Gm Btl) 2 sprays NA DAILY [facility] Stop: 10/15/21 12:14 Last Admin: 07/31/21 08:05 Dose: 2 sprays Documented by: Glipizide (Glipizide 5 Mg Tab) 5 mg PO QAM TOMMY Stop: 08/24/21 08:59 Last Admin: 07/31/21 08:06 Dose: 5 mg Documented by: Glucagon (Glucagon For Inj 1 Mg Vial) 1 mg IM UD PRN; Protocol PRN Reason: Hypoglycemia Protocol Stop: 10/15/21 13:29 Glucose (Glucose 40% Gel 15 Gm Tube) 15 - 30 gm PO UD PRN; Protocol PRN Reason: Hypoglycemia Protocol Stop: 10/15/21 13:29 Glucose (Glucose 10 Tabs/Tube) 4 - 8 tabs PO UD PRN; Protocol PRN Reason: Hypoglycemia Protocol Stop: 10/15/21 13:29 Haloperidol Lactate (Haloperidol Lactate 5 Mg/Ml 1 Ml Vial) 5 mg IM Q6H PRN PRN Reason: agitation Stop: 08/29/21 18:20 Lisinopril (Lisinopril 2.5 Mg Tab) 2.5 mg PO QAM [facility] Stop: 10/15/21 08:59 Last Admin: 07/31/21 08:06 Dose: 2.5 mg Documented by: Metformin HCl (Metformin Hcl 500 Mg Tab) 1,000 mg PO BID [facility] Stop: 10/15/21 20:59 Last Admin: 07/31/21 08:07 Dose: 1,000 mg Documented by: Miscellaneous (Carbohydrates For Hypoglycemia ) 15 - 30 gm PO UD PRN PRN Reason: Hypoglycemia Treatment Stop: 10/15/21 13:29 Ondansetron HCl (Ondansetron 4 Mg Od Tab) 4 mg PO Q6H PRN PRN Reason: Nausea Stop: 10/15/21 15:35
[2021-08-01] MEDS: ATORVASTATIN 40 MG TAB PO SCH (08:08)
[2021-08-01] MEDS: FLUTICASONE PROPIONATE NA SPR 16 GM BTL SCH (08:08)
[2021-08-01] MEDS: metFORMIN HCL 500 MG TAB PO SCH ×2 (08:09→20:35)
[2021-08-01] MEDS: lisinopril 2.5 MG TAB PO SCH (08:09)
[2021-08-01] MEDS: glipiZIDE 5 MG TAB PO SCH (08:09)
--- NOTE | 2021-08-01 12:57 | Hospitalist Progress Note ---
Date of Service August 01, 2021 Assessment & Plan (1) Discharge planning issues: Plan: Patient presented to the hospital with large diabetic foot ulcer with exposed bone, all of which has subsequently been treated as indicated below Pt was living in poor conditions--old farm house w/o running water or heat Seen by Psych, it was determined he does not have capacity to make decisions A meeting was to be held on 06/10 in order for the [facility] to obtain emergency gua rdianship (which did not occur) rescheduled and held on 07/08 Pt now has an appointed guardian, referrals are to be sent to local Hs, per CM note, referral sent to multiple facilities including most recently, a boarding home Prior provider notified by case management that a boarding home would take patient but needed cleared on stairs first, PT ordered and pt was cleared on stairs. Now CM stating that the boarding home has elected not to take patient. Pt subsequently remains in the hospital until a safe discharge plan is in place which unfortunately is also directly contributing to his agitation (2) Diabetic foot ulcer associated with type 2 diabetes mellitus, with fat layer exposed: Plan: empirically on IV Zosyn and IV Vancomycin. MRI revealed the presence of left third toe osteomyelitis with ? developing osteo of the 2nd toe s/p I&D and amputation of the left third toe on 06/05- Dr. Tello Culture data: Proteus vulgaris with kerr-sensitivity along with an anaerobic GPC Transitioned to ertapenem--completed 14 day course transitioned to oral (levaquin/flagyl but then changed to Augmentin as u ncertain is Quinolone was exacerbating Psych issues)-- completed full course (3) Osteomyelitis: Plan: S/p I&D and amputation of left third digit but ? developing osteo in 2nd toe that remains Last dose of Invanz given 06/19 with conversion to oral Levaquin/Flagyl started 06/20. Changed to Augmentin 07/01 and completed as of 07/03 (4) Tinnitus: Plan: predates this hospitalization (patient seen by ENT in the past) poor historian given tangential speech pattern-- unable to differentiate if unilateral/bilateral, if he has associated/OWENS/change in hearing/vertigo. waxes and wanes. Refer to ENT as OP Given difficulty ascertaining history questions and associated one bout of emesis on 06/29, a CT of the head with and without with intra-auditory canal cuts was ordered * CT shows no acute pathology. No obvious schwannoma * Ultimately, MRI would be diagnostic study of choice; however, he seems to be very sensitive to noise and I do not believe he would be compliant with that (5) Diabetes mellitus type 2, uncontrolled: Plan: Patient has not taken medications for his diabetes mellitus for some time now -- was previously on Glipizide and at one time was on Metformin. Medication non- compliance has been an issue. hemoglobin A1c. 11.6 Since has been started on Metformin with uptitration to 1000mg while in house. Tolerating this Lantus/Log utilized upfront with close BS monitoring Given adequate blood sugar control, stopped Accu-Cheks 4 times daily and transitioned to Accuchecks (Fasting and AC) on Mondays, Wednesdays, Fridays and as needed (trying to lesson stimulation) - lantus/log since stopped and started on Glipizide Patient has been educated regarding the importance of compliance and good glycemic control fashion photographer consulted for dietary education-- appreciate assistance Started on Lisinopril 2.5 mg daily for renal protection Will need podiatry F/U for nail care, diabetic eye exam, microalbumin, and follow up labs Will need follow-up A1c (~September 03) (6) Dyslipidemia: Plan: Fasting lipid panel 12/12/20 showed a total cholesterol of 323 mg/dL, HDL is 43 mg/dL, LDL 202 mg/dL, and triglycerides are 391 mg/dL. Total Cholesterol:HDL ration is 7.5. Resumed Atorvastatin at 80 mg daily. Will need follow up labs and potentially addition of tricor to target TG. Now on heart healthy/DM diet. (7) Schizo affective schizophrenia: Plan: Seen by psych on 06/05, pt does not have capacity to make medical decisions haldol prn was given upfront Patient is becoming increasingly agitated; Psychiatry reconsulted who last saw pt at end of June when having some issues with overstimulation and agitation. At this point, psych providing some puzzles and other activities he can do in his room to help keep him occupied; however, with a hospitalization that is approaching 60 days, his agitation is not unexpected. He does not meet for inpatient psychiatric admission. Ideally, he needs to be discharged as early as possible. Plan: Disposition: Emergency guardian appointed, KIMBERLY diligently working on finding a facility. At this time, no one has accepted him. Patient has been medically and hemodynamically stable for discharge X weeks Admission and Anticipated Discharge Date Admission Date: June 03, 2021 Subjective Patient seen on daily rounds this morning. He has no complaints or concerns at this time. Denies cp, dyspnea, n/v/d, f/c, headache, or gu symptoms. Per previous provider, has been increasingly agitated. Seems to be frustrated related to his discharge. Review of Systems Review of Systems: All systems reviewed and are unremarkable except as noted in HPI and below. Denies fever, chills, fatigue, headache, nasal congestion, sore throat, cough, chest pain, shortness of breath, palpitations, orthopnea, PND, abdominal pain, n/v/d, constipation, dysuria, hematuria, frequency, back pain, joint pain or swelling, easy bruising or bleeding, skin lesions or rashes. Physical Exam Physical Exam: GENERAL: 56 yo Well-developed, well-nourished WM. NAD. LUNGS: Clear to auscultation bilaterally. No W/R/R. CARDIOVASCULAR: Regular rate and rhythm. No M/G/R. No JVD. ABDOMEN: Soft, non-tender and non-distended. BS normal x 4 quad. EXTREMITIES: No edema. Non-tender. Peripheral pulses +2/4. NEUROLOGIC: A&O x3. PSYCHIATRIC: Cooperative. Appropriate mood and affect. SKIN: Warm, dry, intact. No rashes or lesions. Results & Data Results & Data ([facility]) Vital Signs (Past 12 Hours) Vital Signs Temp Pulse Resp BP Pulse Ox 08/01/21 07:59 36.4 C L 70 18 159/98 H 97 PG Care Time/CCT Total # of Minutes Spent Total Time Spent with Patient: Total time spent is greater than 50% in coordination of care (as documented) at patient's floor/unit and/or counseling patient: Coding Level of Care Code 56675 Subseq Hosp Care Lvl 1 Diagnoses Discharge planning issues Z02.9 Diabetic foot ulcer associated with type 2 diabetes mellitus, with fat layer exposed E11.621; L97.502 Osteomyelitis M86.9 Tinnitus H93.19 Diabetes mellitus type 2, uncontrolled E11.65 Dyslipidemia E78.5 Schizo affective schizophrenia F25.0
[2021-08-02] MEDS: glipiZIDE 5 MG TAB PO SCH (08:37)
[2021-08-02] MEDS: FLUTICASONE PROPIONATE NA SPR 16 GM BTL SCH (08:37)
[2021-08-02] MEDS: ATORVASTATIN 40 MG TAB PO SCH (08:37)
[2021-08-02] MEDS: metFORMIN HCL 500 MG TAB PO SCH ×2 (08:38→20:20)
[2021-08-02] MEDS: lisinopril 2.5 MG TAB PO SCH (08:38)
--- NOTE | 2021-08-02 12:05 | Hospitalist Progress Note ---
Date of Service August 02, 2021 Assessment & Plan (1) Discharge planning issues: Plan: Patient presented to the hospital with large diabetic foot ulcer with exposed bone, all of which has subsequently been treated as indicated below Pt was living in poor conditions--old farm house w/o running water or heat Seen by Psych, it was determined he does not have capacity to make decisions A meeting was to be held on 06/10 in order for the OOA to obtain emergency gua rdianship (which did not occur) rescheduled and held on 07/08 Pt now has an appointed guardian, referrals are to be sent to local Hs, per CM note, referral sent to multiple facilities including most recently, a boarding home Prior provider notified by case management that a boarding home would take patient but needed cleared on stairs first, PT ordered and pt was cleared on stairs. Now CM stating that the boarding home has elected not to take patient. Pt subsequently remains in the hospital until a safe discharge plan is in place which unfortunately is also directly contributing to his agitation (2) Diabetic foot ulcer associated with type 2 diabetes mellitus, with fat layer exposed: Plan: empirically started on IV Zosyn and IV Vancomycin. MRI revealed the presence of left third toe osteomyelitis with ? developing osteo of the 2nd toe s/p I&D and amputation of the left third toe on 06/05- Dr. Tello Culture data: Proteus vulgaris with kerr-sensitivity along with an anaerobic GPC Transitioned to ertapenem--completed 14 day course transitioned to oral (levaquin/flagyl but then changed to Augmentin as uncertain is Quinolone was exacerbating Psych issues)-- completed full course (3) Osteomyelitis: Plan: S/p I&D and amputation of left third digit but ? developing osteo in 2nd toe that remains Last dose of Invanz given 06/19 with conversion to oral Levaquin/Flagyl started 06/20. Changed to Augmentin 07/01 and completed as of 07/03 (4) Tinnitus: Plan: predates this hospitalization (patient seen by ENT in the past) poor historian given tangential speech pattern-- unable to differentiate if unilateral/bilateral, if he has associated/OWENS/change in hearing/vertigo. waxes and wanes. Refer to ENT as OP Given difficulty ascertaining history questions and associated one bout of emesis on 06/29, a CT of the head with and without with intra-auditory canal cuts was ordered * CT shows no acute pathology. No obvious schwannoma * Ultimately, MRI would be diagnostic study of choice; however, he seems to be very sensitive to noise and I do not believe he would be compliant with that (5) Diabetes mellitus type 2, uncontrolled: Plan: Patient has not taken medications for his diabetes mellitus for some time now -- was previously on Glipizide and at one time was on Metformin. Medication non- compliance has been an issue. hemoglobin A1c. 11.6 Since has been started on Metformin with uptitration to 1000mg while in house. Tolerating this Lantus/Log utilized upfront with close BS monitoring Given adequate blood sugar control, stopped Accu-Cheks 4 times daily and transitioned to Accuchecks (Fasting and AC) on Mondays, Wednesdays, Fridays and as needed (trying to lesson stimulation) - lantus/log since stopped and started on Glipizide Patient has been educated regarding the importance of compliance and good glycemic control mineral surveying technician consulted for dietary education-- appreciate assistance Started on Lisinopril 2.5 mg daily for renal protection Will need podiatry F/U for nail care, diabetic eye exam, microalbumin, and follow up labs Will need follow-up A1c (~September 03) (6) Dyslipidemia: Plan: Fasting lipid panel 12/12/20 showed a total cholesterol of 323 mg/dL, HDL is 43 mg/dL, LDL 202 mg/dL, and triglycerides are 391 mg/dL. Total Cholesterol:HDL ration is 7.5. Resumed Atorvastatin at 80 mg daily. Will need follow up labs and potentially addition of tricor to target TG. Now on heart healthy/DM diet. (7) Schizo affective schizophrenia: Plan: Seen by psych on 06/05, pt does not have capacity to make medical decisions haldol prn was given upfront Patient is becoming increasingly agitated; Psychiatry reconsulted who last saw pt at end of June when having some issues with overstimulation and agitation. At this point, psych providing some puzzles and other activities he can do in his room to help keep him occupied; however, with a hospitalization that is approaching 60 days, his agitation is not unexpected. He does not meet for inpatient psychiatric admission. Ideally, he needs to be discharged as early as possible. Plan: Disposition: Emergency guardian appointed, KIMBERLY diligently working on finding a facility. At this time, no one has accepted him. Patient has been medically and hemodynamically stable for discharge X weeks Admission and Anticipated Discharge Date Admission Date: June 03, 2021 Subjective Patient seen on daily rounds this morning. He has no complaints or concerns at this time. Denies cp, dyspnea, n/v/d, f/c, headache, or gu symptoms. Per previous provider, has been increasingly agitated. Review of Systems Review of Systems: All systems reviewed and are unremarkable except as noted in HPI and below. Denies fever, chills, fatigue, headache, nasal congestion, sore throat, cough, chest pain, shortness of breath, palpitations, orthopnea, PND, abdominal pain, n/v/d, constipation, dysuria, hematuria, frequency, back pain, joint pain or swelling, easy bruising or bleeding, skin lesions or rashes. Physical Exam Physical Exam: GENERAL: 56 yo Well-developed, well-nourished WM. NAD. LUNGS: Clear to auscultation bilaterally. No W/R/R. CARDIOVASCULAR: Regular rate and rhythm. No M/G/R. No JVD. ABDOMEN: Soft, non-tender and non-distended. BS normal x 4 quad. EXTREMITIES: No edema. Non-tender. Peripheral pulses +2/4. NEUROLOGIC: A&O x3. PSYCHIATRIC: Cooperative. Appropriate mood and affect. SKIN: Warm, dry, intact. No rashes or lesions. Results & Data Results & Data ([facility]) Vital Signs (Past 12 Hours) Vital Signs Temp Pulse Resp BP Pulse Ox 08/02/21 07:43 36.5 C 70 18 124/75 95 PG Care Time/CCT Total # of Minutes Spent Total Time Spent with Patient: Total time spent is greater than 50% in coordination of care (as documented) at patient's floor/unit and/or counseling patient: Coding Level of Care Code 04825 Subseq Hosp Care Lvl 1 Diagnoses Discharge planning issues Z02.9 Diabetic foot ulcer associated with type 2 diabetes mellitus, with fat layer exposed E11.621; L97.502 Osteomyelitis M86.9 Tinnitus H93.19 Diabetes mellitus type 2, uncontrolled E11.65 Dyslipidemia E78.5 Schizo affective schizophrenia F25.0
[2021-08-03] MEDS: ATORVASTATIN 40 MG TAB PO SCH (08:31)
[2021-08-03] MEDS: FLUTICASONE PROPIONATE NA SPR 16 GM BTL SCH (08:31)
[2021-08-03] MEDS: lisinopril 2.5 MG TAB PO SCH (08:32)
[2021-08-03] MEDS: glipiZIDE 5 MG TAB PO SCH (08:32)
[2021-08-03] MEDS: metFORMIN HCL 500 MG TAB PO SCH ×2 (08:32→20:19)
--- NOTE | 2021-08-03 11:52 | Hospitalist Progress Note ---
Date of Service August 03, 2021 Assessment & Plan (1) Discharge planning issues: Plan: Patient presented to the hospital with large diabetic foot ulcer with exposed bone, all of which has subsequently been treated as indicated below Pt was living in poor conditions--old farm house w/o running water or heat Seen by Psych, it was determined he does not have capacity to make decisions A meeting was to be held on 06/10 in order for the OOA to obtain emergency guardianship (which did not occur) rescheduled and held on 07/08 Pt now has an appointed guardian, referrals are to be sent to local Hs, per CM note, referral sent to multiple facilities including most recently, a boarding home Prior provider notified by case management that a boarding home would take patient but needed cleared on stairs first, PT ordered and pt was cleared on stairs. Now CM stating that the boarding home has elected not to take patient. Pt subsequently remains in the hospital until a safe discharge plan is in place which unfortunately is also directly contributing to his agitation (2) Diabetic foot ulcer associated with type 2 diabetes mellitus, with fat layer exposed: Plan: empirically started on IV Zosyn and IV Vancomycin. MRI revealed the presence of left third toe osteomyelitis with ? developing osteo of the 2nd toe s/p I&D and amputation of the left third toe on 06/05- Dr. Tello Culture data: Proteus vulgaris with kerr-sensitivity along with an anaerobic GPC Transitioned to ertapenem--completed 14 day course transitioned to oral (levaquin/flagyl but then changed to Augmentin as uncertain is Quinolone was exacerbating Psych issues)-- completed full course (3) Osteomyelitis: Plan: S/p I&D and amputation of left third digit but ? developing osteo in 2nd toe that remains Last dose of Invanz given 06/19 with conversion to oral Levaquin/Flagyl started 06/20. Changed to Augmentin 07/01 and completed as of 07/03 (4) Tinnitus: Plan: predates this hospitalization (patient seen by ENT in the past) poor historian given tangential speech pattern-- unable to differentiate if unilateral/bilateral, if he has associated/[place]/change in hearing/vertigo. waxes and wanes. Refer to ENT as OP Given difficulty ascertaining history questions and associated one bout of emesis on 06/29, a CT of the head with and without with intra-auditory canal cuts was ordered * CT shows no acute pathology. No obvious schwannoma * Ultimately, MRI would be diagnostic study of choice; however, he seems to be very sensitive to noise and I do not believe he would be compliant with that (5) Diabetes mellitus type 2, uncontrolled: Plan: Patient has not taken medications for his diabetes mellitus for some time now -- was previously on Glipizide and at one time was on Metformin. Medication non- compliance has been an issue. hemoglobin A1c. 11.6 Since has been started on Metformin with uptitration to 1000mg while in house. Tolerating this Lantus/Log utilized upfront with close BS monitoring Given adequate blood sugar control, stopped Accu-Cheks 4 times daily and transitioned to Accuchecks (Fasting and AC) on Mondays, Wednesdays, Fridays and as needed (trying to lesson stimulation) - lantus/log since stopped and started on Glipizide Patient has been educated regarding the importance of compliance and good glycemic control information security specialist consulted for dietary education-- appreciate assistance Started on Lisinopril 2.5 mg daily for renal protection Will need podiatry F/U for nail care, diabetic eye exam, microalbumin, and follow up labs Will need follow-up A1c (~September 03) (6) Dyslipidemia: Plan: Fasting lipid panel 12/12/20 showed a total cholesterol of 323 mg/dL, HDL is 43 mg/dL, LDL 202 mg/dL, and triglycerides are 391 mg/dL. Total Cholesterol:HDL ration is 7.5. Resumed Atorvastatin at 80 mg daily. Will need follow up labs and potentially addition of tricor to target TG. Now on heart healthy/DM diet. (7) Schizo affective schizophrenia: Plan: Seen by psych on 06/05, pt does not have capacity to make medical decisions haldol prn was given upfront Patient becoming increasingly agitated; Psychiatry reconsulted who last saw pt at end of June when having some issues with overstimulation and agitation. At this point, psych providing some puzzles and other activities he can do in his room to help keep him occupied; however, with a hospitalization that is approaching 60 days, his agitation is not unexpected. He does not meet for inpatient psychiatric admission. Ideally, he needs to be discharged as early as possible. Plan: Disposition: Emergency guardian appointed, CM diligently working on finding a facility. At this time, no one has accepted him. Patient has been medically and hemodynamically stable for discharge X weeks Admission and Anticipated Discharge Date Admission Date: June 03, 2021 Subjective Patient seen on daily rounds this morning. He has no complaints or concerns at this time. Denies cp, dyspnea, n/v/d, f/c, headache, or gu symptoms. Review of Systems Review of Systems: All systems reviewed and are unremarkable except as noted in HPI and below. Denies fever, chills, fatigue, headache, nasal congestion, sore throat, cough, chest pain, shortness of breath, palpitations, orthopnea, PND, abdominal pain, n/v/d, constipation, dysuria, hematuria, frequency, back pain, joint pain or swelling, easy bruising or bleeding, skin lesions or rashes. Physical Exam Physical Exam: GENERAL: 56 yo Well-developed, well-nourished WM. NAD. LUNGS: Clear to auscultation bilaterally. No W/R/R. CARDIOVASCULAR: Regular rate and rhythm. No M/G/R. No JVD. ABDOMEN: Soft, non-tender and non-distended. BS normal x 4 quad. EXTREMITIES: No edema. Non-tender. Peripheral pulses +2/4. NEUROLOGIC: A&O x3. PSYCHIATRIC: Cooperative. Appropriate mood and affect. SKIN: Warm, dry, intact. No rashes or lesions. Results & Data Results & Data ([facility]) Vital Signs (Past 12 Hours) Vital Signs Temp Pulse Resp BP Pulse Ox 08/03/21 07:26 36.9 C 67 16 143/76 H 97 PG Care Time/CCT Total # of Minutes Spent Total Time Spent with Patient: Total time spent is greater than 50% in coordination of care (as documented) at patient's floor/unit and/or counseling patient: Coding Level of Care Code 36843 Subseq Hosp Care Lvl 1 Diagnoses Discharge planning issues Z02.9 Diabetic foot ulcer associated with type 2 diabetes mellitus, with fat layer exposed E11.621; L97.502 Osteomyelitis M86.9 Tinnitus H93.19 Diabetes mellitus type 2, uncontrolled E11.65 Dyslipidemia E78.5 Schizo affective schizophrenia F25.0
[2021-08-04] MEDS: glipiZIDE 5 MG TAB PO SCH (08:37)
[2021-08-04] MEDS: ATORVASTATIN 40 MG TAB PO SCH (08:37)
[2021-08-04] MEDS: FLUTICASONE PROPIONATE NA SPR 16 GM BTL SCH (08:37)
[2021-08-04] MEDS: metFORMIN HCL 500 MG TAB PO SCH ×2 (08:38→20:33)
[2021-08-04] MEDS: lisinopril 2.5 MG TAB PO SCH (08:38)
--- NOTE | 2021-08-04 11:41 | Hospitalist Progress Note ---
Date of Service August 04, 2021 Assessment & Plan (1) Discharge planning issues: Plan: Patient presented to the hospital with large diabetic foot ulcer with exposed bone, all of which has subsequently been treated as indicated below Pt was living in poor conditions--old farm house w/o running water or heat Seen by Psych, it was determined he does not have capacity to make decisions A meeting was to be held on 06/10 in order for the OOA to obtain emergency guardianship (which did not occur) rescheduled and held on 07/08 Pt now has an appointed guardian, referrals are to be sent to local Hs, per CM note, referral sent to multiple facilities including most recently, a boarding home Prior provider notified by case management that a boarding home would take patient but needed cleared on stairs first, PT ordered and pt was cleared on stairs. Now CM stating that the boarding home has elected not to take patient. Pt subsequently remains in the hospital until a safe discharge plan is in place which unfortunately is also directly contributing to his agitation (2) Diabetic foot ulcer associated with type 2 diabetes mellitus, with fat layer exposed: Plan: empirically started on IV Zosyn and IV Vancomycin. MRI revealed the presence of left third toe osteomyelitis with ? developing osteo of the 2nd toe s/p I&D and amputation of the left third toe on 06/05- Dr. Tello Culture data: Proteus vulgaris with kerr-sensitivity along with an anaerobic GPC Transitioned to ertapenem--completed 14 day course transitioned to oral (levaquin/flagyl but then changed to Augmentin as uncertain is Quinolone was exacerbating Psych issues)-- completed full course (3) Osteomyelitis: Plan: S/p I&D and amputation of left third digit but ? developing osteo in 2nd toe that remains Last dose of Invanz given 06/19 with conversion to oral Levaquin/Flagyl started 06/20. Changed to Augmentin 07/01 and completed as of 07/03 (4) Tinnitus: Plan: predates this hospitalization (patient seen by ENT in the past) poor historian given tangential speech pattern-- unable to differentiate if unilateral/bilateral, if he has associated/[place]/change in hearing/vertigo. waxes and wanes. Refer to ENT as OP Given difficulty ascertaining history questions and associated one bout of emesis on 06/29, a CT of the head with and without with intra-auditory canal cuts was ordered * CT shows no acute pathology. No obvious schwannoma * Ultimately, MRI would be diagnostic study of choice; however, he seems to be very sensitive to noise and I do not believe he would be compliant with that (5) Diabetes mellitus type 2, uncontrolled: Plan: Patient has not taken medications for his diabetes mellitus for some time now -- was previously on Glipizide and at one time was on Metformin. Medication non- compliance has been an issue. hemoglobin A1c. 11.6 Since has been started on Metformin with uptitration to 1000mg while in house. Tolerating this Lantus/Log utilized upfront with close BS monitoring Given adequate blood sugar control, stopped Accu-Cheks 4 times daily and transitioned to Accuchecks (Fasting and AC) on Mondays, Wednesdays, Fridays and as needed (trying to lesson stimulation) - lantus/log since stopped and started on Glipizide Patient has been educated regarding the importance of compliance and good glycemic control marketing professional consulted for dietary education-- appreciate assistance Started on Lisinopril 2.5 mg daily for renal protection Will need podiatry F/U for nail care, diabetic eye exam, microalbumin, and follow up labs Will need follow-up A1c (~September 03) (6) Dyslipidemia: Plan: Fasting lipid panel 12/12/20 showed a total cholesterol of 323 mg/dL, HDL is 43 mg/dL, LDL 202 mg/dL, and triglycerides are 391 mg/dL. Total Cholesterol:HDL ration is 7.5. Resumed Atorvastatin at 80 mg daily. Will need follow up labs and potentially addition of tricor to target TG. Now on heart healthy/DM diet. (7) Schizo affective schizophrenia: Plan: Seen by psych on 06/05, pt does not have capacity to make medical decisions haldol prn was given upfront Patient becoming increasingly agitated; Psychiatry reconsulted who last saw pt at end of June when having some issues with overstimulation and agitation. At this point, psych providing some puzzles and other activities he can do in his room to help keep him occupied; however, with a hospitalization that is approaching 60 days, his agitation is not unexpected. He does not meet for inpatient psychiatric admission. Ideally, he needs to be discharged as early as possible. Plan: Disposition: Emergency guardian appointed, CM diligently working on finding a facility. At this time, no one has accepted him. Patient has been medically and hemodynamically stable for discharge X weeks Admission and Anticipated Discharge Date Admission Date: June 03, 2021 Subjective Patient seen on daily rounds this morning. He has no complaints or concerns at this time. Denies cp, dyspnea, n/v/d, f/c, headache, or gu symptoms. Review of Systems Review of Systems: All systems reviewed and are unremarkable except as noted in HPI and below. Denies fever, chills, fatigue, headache, nasal congestion, sore throat, cough, chest pain, shortness of breath, palpitations, orthopnea, PND, abdominal pain, n/v/d, constipation, dysuria, hematuria, frequency, back pain, joint pain or swelling, easy bruising or bleeding, skin lesions or rashes. Physical Exam Physical Exam: GENERAL: 56 yo Well-developed, well-nourished WM. NAD. LUNGS: Clear to auscultation bilaterally. No W/R/R. CARDIOVASCULAR: Regular rate and rhythm. No M/G/R. No JVD. ABDOMEN: Soft, non-tender and non-distended. BS normal x 4 quad. EXTREMITIES: No edema. Non-tender. Peripheral pulses +2/4. NEUROLOGIC: A&O x3. PSYCHIATRIC: Cooperative. Appropriate mood and affect. SKIN: Warm, dry, intact. No rashes or lesions. Results & Data Results & Data ([facility]) Vital Signs (Past 12 Hours) Vital Signs Temp Pulse Resp BP Pulse Ox 08/04/21 07:36 36.5 C 78 16 111/71 95 PG Care Time/CCT Total # of Minutes Spent Total Time Spent with Patient: Total time spent is greater than 50% in coordination of care (as documented) at patient's floor/unit and/or counseling patient: Coding Level of Care Code 80638 Subseq Hosp Care Lvl 1 Diagnoses Discharge planning issues Z02.9 Diabetic foot ulcer associated with type 2 diabetes mellitus, with fat layer exposed E11.621; L97.502 Osteomyelitis M86.9 Tinnitus H93.19 Diabetes mellitus type 2, uncontrolled E11.65 Dyslipidemia E78.5 Schizo affective schizophrenia F25.0
[2021-08-05] MEDS: metFORMIN HCL 500 MG TAB PO SCH ×2 (08:12→20:14)
[2021-08-05] MEDS: ATORVASTATIN 40 MG TAB PO SCH (08:12)
[2021-08-05] MEDS: lisinopril 2.5 MG TAB PO SCH (08:12)
[2021-08-05] MEDS: glipiZIDE 5 MG TAB PO SCH (08:12)
[2021-08-05] MEDS: FLUTICASONE PROPIONATE NA SPR 16 GM BTL SCH (08:12)
--- NOTE | 2021-08-05 13:46 | Hospitalist Progress Note ---
Date of Service August 05, 2021 Assessment & Plan (1) Discharge planning issues: Plan: Patient presented to the hospital with large diabetic foot ulcer with exposed bone, all of which has subsequently been treated as indicated below Pt was living in poor conditions--old farm house w/o running water or heat Seen by Psych, it was determined he does not have capacity to make decisions A meeting was to be held on 06/10 in order for the OOA to obtain emergency guardianship (which did not occur) rescheduled and held on 07/08 Pt now has an appointed guardian, referrals are to be sent to local Hs, per CM note, referral sent to multiple facilities including most recently, a boarding home Prior provider notified by case management that a boarding home would take patient but needed cleared on stairs first, PT ordered and pt was cleared on stairs. Now CM stating that the boarding home has elected not to take patient. Pt subsequently remains in the hospital until a safe discharge plan is in place which unfortunately is also directly contributing to his agitation (2) Diabetic foot ulcer associated with type 2 diabetes mellitus, with fat layer exposed: Plan: empirically started on IV Zosyn and IV Vancomycin. MRI revealed the presence of left third toe osteomyelitis with ? developing osteo of the 2nd toe s/p I&D and amputation of the left third toe on 06/05- Dr. Tello Culture data: Proteus vulgaris with kerr-sensitivity along with an anaerobic GPC Transitioned to ertapenem--completed 14 day course transitioned to oral (levaquin/flagyl but then changed to Augmentin as uncertain is Quinolone was exacerbating Psych issues)-- completed full course (3) Osteomyelitis: Plan: S/p I&D and amputation of left third digit but ? developing osteo in 2nd toe that remains Last dose of Invanz given 06/19 with conversion to oral Levaquin/Flagyl started 06/20. Changed to Augmentin 07/01 and completed as of 07/03 (4) Tinnitus: Plan: predates this hospitalization (patient seen by ENT in the past) poor historian given tangential speech pattern-- unable to differentiate if unilateral/bilateral, if he has associated/OWENS/change in hearing/vertigo. waxes and wanes. Refer to ENT as OP Given difficulty ascertaining history questions and associated one bout of emesis on 06/29, a CT of the head with and without with intra-auditory canal cuts was ordered * CT shows no acute pathology. No obvious schwannoma * Ultimately, MRI would be diagnostic study of choice; however, he seems to be very sensitive to noise and I do not believe he would be compliant with that (5) Diabetes mellitus type 2, uncontrolled: Plan: Patient has not taken medications for his diabetes mellitus for some time now -- was previously on Glipizide and at one time was on Metformin. Medication non- compliance has been an issue. hemoglobin A1c. 11.6 Since has been started on Metformin with uptitration to 1000mg while in house. Tolerating this Lantus/Log utilized upfront with close BS monitoring Given adequate blood sugar control, stopped Accu-Cheks 4 times daily and transitioned to Accuchecks (Fasting and AC) on Mondays, Wednesdays, Fridays and as needed (trying to lesson stimulation) - lantus/log since stopped and started on Glipizide Patient has been educated regarding the importance of compliance and good glycemic control manager housekeeping consulted for dietary education-- appreciate assistance Started on Lisinopril 2.5 mg daily for renal protection Will need podiatry F/U for nail care, diabetic eye exam, microalbumin, and follow up labs Will need follow-up A1c (~September 03) (6) Dyslipidemia: Plan: Fasting lipid panel 12/12/20 showed a total cholesterol of 323 mg/dL, HDL is 43 mg/dL, LDL 202 mg/dL, and triglycerides are 391 mg/dL. Total Cholesterol:HDL ration is 7.5. Resumed Atorvastatin at 80 mg daily. Will need follow up labs and potentially addition of tricor to target TG. Now on heart healthy/DM diet. (7) Schizo affective schizophrenia: Plan: Seen by psych on 06/05, pt does not have capacity to make medical decisions haldol prn was given upfront Patient becoming increasingly agitated; Psychiatry reconsulted who last saw pt at end of June when having some issues with overstimulation and agitation. At this point, psych providing some puzzles and other activities he can do in his room to help keep him occupied; however, with a hospitalization that is approaching 60 days, his agitation is not unexpected. He does not meet for inpatient psychiatric admission. Ideally, he needs to be discharged as early as possible. Plan: Disposition: Emergency guardian appointed, CM diligently working on finding a facility. At this time, no one has accepted him. Patient has been medically and hemodynamically stable for discharge X weeks Admission and Anticipated Discharge Date Admission Date: June 03, 2021 Subjective Patient seen on daily rounds this morning. He has no complaints or concerns at this time. Denies cp, dyspnea, n/v/d, f/c, headache, or gu symptoms. Review of Systems Review of Systems: All systems reviewed and are unremarkable except as noted in HPI and below. Denies fever, chills, fatigue, headache, nasal congestion, sore throat, cough, chest pain, shortness of breath, palpitations, orthopnea, PND, abdominal pain, n/v/d, constipation, dysuria, hematuria, frequency, back pain, joint pain or swelling, easy bruising or bleeding, skin lesions or rashes. Physical Exam Physical Exam: GENERAL: 56 yo Well-developed, well-nourished WM. NAD. LUNGS: Clear to auscultation bilaterally. No W/R/R. CARDIOVASCULAR: Regular rate and rhythm. No M/G/R. No JVD. ABDOMEN: Soft, non-tender and non-distended. BS normal x 4 quad. EXTREMITIES: No edema. Non-tender. Peripheral pulses +2/4. NEUROLOGIC: A&O x3. PSYCHIATRIC: Cooperative. Appropriate mood and affect. SKIN: Warm, dry, intact. No rashes or lesions. Results & Data Results & Data ([facility]) Vital Signs (Past 12 Hours) Vital Signs Temp Pulse Pulse Resp BP Pulse Ox 08/05/21 08:11 76 104/69 08/05/21 07:54 36.7 C 60 16 92/64 L 98 PG Care Time/CCT Total # of Minutes Spent Total Time Spent with Patient: Total time spent is greater than 50% in coordination of care (as documented) at patient's floor/unit and/or counseling patient: Coding Level of Care Code 29834 Subseq Hosp Care Lvl 1 Diagnoses Discharge planning issues Z02.9 Diabetic foot ulcer associated with type 2 diabetes mellitus, with fat layer exposed E11.621; L97.502 Osteomyelitis M86.9 Tinnitus H93.19 Diabetes mellitus type 2, uncontrolled E11.65 Dyslipidemia E78.5 Schizo affective schizophrenia F25.0
[2021-08-06] MEDS: ATORVASTATIN 40 MG TAB PO SCH (08:11)
[2021-08-06] MEDS: lisinopril 2.5 MG TAB PO SCH (08:11)
[2021-08-06] MEDS: glipiZIDE 5 MG TAB PO SCH (08:11)
[2021-08-06] MEDS: metFORMIN HCL 500 MG TAB PO SCH ×2 (08:12→21:04)
[2021-08-06] MEDS: FLUTICASONE PROPIONATE NA SPR 16 GM BTL SCH (08:12)
--- NOTE | 2021-08-06 11:36 | Hospitalist Progress Note ---
Date of Service August 06, 2021 Assessment & Plan (1) Discharge planning issues: Plan: Patient presented to the hospital with large diabetic foot ulcer with exposed bone, all of which has subsequently been treated as indicated below Pt was living in poor conditions--old farm house w/o running water or heat Seen by Psych, it was determined he does not have capacity to make decisions A meeting was to be held on 06/10 in order for the OOA to obtain emergency guardianship (which did not occur) rescheduled and held on 07/08 Pt now has an appointed guardian, referrals are to be sent to local Hs, per CM note, referral sent to multiple facilities including most recently, a boarding home Prior provider notified by case management that a boarding home would take patient but needed cleared on stairs first, PT ordered and pt was cleared on stairs. Now CM stating that the boarding home has elected not to take patient. Pt subsequently remains in the hospital until a safe discharge plan is in place which unfortunately is also directly contributing to his agitation (2) Diabetic foot ulcer associated with type 2 diabetes mellitus, with fat layer exposed: Plan: empirically on IV Zosyn and IV Vancomycin. MRI revealed the presence of left third toe osteomyelitis with ? developing osteo of the 2nd toe s/p I&D and amputation of the left third toe on 06/05- Dr. Tello Culture data: Proteus vulgaris with kerr-sensitivity along with an anaerobic GPC Transitioned to ertapenem--completed 14 day course transitioned to oral (levaquin/flagyl but then changed to Augmentin as unce rtain is Quinolone was exacerbating Psych issues)-- completed full course (3) Osteomyelitis: Plan: S/p I&D and amputation of left third digit but ? developing osteo in 2nd toe that remains Last dose of Invanz given 06/19 with conversion to oral Levaquin/Flagyl started 06/20. Changed to Augmentin 07/01 and completed as of 07/03 (4) Tinnitus: Plan: predates this hospitalization (patient seen by ENT in the past) poor historian given tangential speech pattern-- unable to differentiate if unilateral/bilateral, if he has associated/[place]/change in hearing/vertigo. waxes and wanes. Refer to ENT as OP Given difficulty ascertaining history questions and associated one bout of emesis on 06/29, a CT of the head with and without with intra-auditory canal cuts was ordered * CT shows no acute pathology. No obvious schwannoma * Ultimately, MRI would be diagnostic study of choice; however, he seems to be very sensitive to noise and I do not believe he would be compliant with that (5) Diabetes mellitus type 2, uncontrolled: Plan: Patient has not taken medications for his diabetes mellitus for some time now -- was previously on Glipizide and at one time was on Metformin. Medication non- compliance has been an issue. hemoglobin A1c. 11.6 Since has been started on Metformin with uptitration to 1000mg while in house. 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 Total Cholesterol:HDL ration is 7.5. Resumed Atorvastatin at 80 mg daily. Will need follow up labs and potentially addition of tricor to target TG. Now on heart healthy/DM diet. (7) Schizo affective schizophrenia: Plan: Seen by psych on 06/05, pt does not have capacity to make medical decisions haldol prn was given upfront Patient is becoming increasingly agitated; Psychiatry reconsulted who last saw pt at end of June when having some issues with overstimulation and agitation. At this point, psych providing some puzzles and other activities he can do in his room to help keep him occupied; however, with a hospitalization that is approaching 60 days, his agitation is not unexpected. He does not meet for inpatient psychiatric admission. Ideally, he needs to be discharged as early as possible. Plan: Disposition: Emergency guardian appointed, CM diligently working on finding a facility. At this time, no one has accepted him. Patient has been medically and hemodynamically stable for discharge X weeks Admission and Anticipated Discharge Date Admission Date: June 03, 2021 Subjective Patient seen on daily rounds this morning. He has no complaints or concerns at this time. Denies cp, dyspnea, n/v/d, f/c, headache, or gu symptoms. Review of Systems Review of Systems: All systems reviewed and are unremarkable except as noted in HPI and below. Denies fever, chills, fatigue, headache, nasal congestion, sore throat, cough, chest pain, shortness of breath, palpitations, orthopnea, PND, abdominal pain, n/v/d, constipation, dysuria, hematuria, frequency, back pain, joint pain or swelling, easy bruising or bleeding, skin lesions or rashes. Physical Exam Physical Exam: GENERAL: 56 yo Well-developed, well-nourished WM. NAD. LUNGS: Clear to auscultation bilaterally. No W/R/R. CARDIOVASCULAR: Regular rate and rhythm. No M/G/R. No JVD. ABDOMEN: Soft, non-tender and non-distended. BS normal x 4 quad. EXTREMITIES: No edema. Non-tender. Peripheral pulses +2/4. NEUROLOGIC: A&O x3. PSYCHIATRIC: Cooperative. Appropriate mood and affect. SKIN: Warm, dry, intact. No rashes or lesions. Results & Data Results & Data ([facility]) Vital Signs (Past 12 Hours) Vital Signs Temp Pulse Resp BP Pulse Ox 08/06/21 07:33 36.5 C 73 16 102/66 96 PG Care Time/CCT Total # of Minutes Spent Total Time Spent with Patient: Total time spent is greater than 50% in coordination of care (as documented) at patient's floor/unit and/or counseling patient: Coding Level of Care Code 22006 Subseq Hosp Care Lvl 1 Diagnoses Discharge planning issues Z02.9 Diabetic foot ulcer associated with type 2 diabetes mellitus, with fat layer exposed E11.621; L97.502 Osteomyelitis M86.9 Tinnitus H93.19 Diabetes mellitus type 2, uncontrolled E11.65 Dyslipidemia E78.5 Schizo affective schizophrenia F25.0
[2021-08-07] MEDS: ATORVASTATIN 40 MG TAB PO SCH (08:25)
[2021-08-07] MEDS: FLUTICASONE PROPIONATE NA SPR 16 GM BTL SCH (08:25)
[2021-08-07] MEDS: metFORMIN HCL 500 MG TAB PO SCH ×2 (08:25→20:03)
[2021-08-07] MEDS: lisinopril 2.5 MG TAB PO SCH (08:25)
[2021-08-07] MEDS: glipiZIDE 5 MG TAB PO SCH (08:25)
--- NOTE | 2021-08-07 12:45 | Hospitalist Progress Note ---
Date of Service August 07, 2021 Assessment & Plan (1) Discharge planning issues: Plan: Patient presented to the hospital with large diabetic foot ulcer with exposed bone, all of which has subsequently been treated as indicated below Pt was living in poor conditions--old farm house w/o running water or heat Seen by Psych, it was determined he does not have capacity to make decisions A meeting was to be held on 06/10 in order for the OOA to obtain emergency guardianship (which did not occur) rescheduled and held on 07/08 Pt now has an appointed guardian, referrals are to be sent to local Hs, per CM note, referral sent to multiple facilities including most recently, a boarding home Prior provider notified by case management that a boarding home would take patient but needed cleared on stairs first, PT ordered and pt was cleared on stairs. Now CM stating that the boarding home has elected not to take patient. Pt subsequently remains in the hospital until a safe discharge plan is in place which unfortunately is also directly contributing to his agitation (2) Diabetic foot ulcer associated with type 2 diabetes mellitus, with fat layer exposed: Plan: empirically on IV Zosyn and IV Vancomycin. MRI revealed the presence of left third toe osteomyelitis with ? developing osteo of the 2nd toe s/p I&D and amputation of the left third toe on 06/05- Dr. Tello Culture data: Proteus vulgaris with kerr-sensitivity along with an anaerobic GPC Transitioned to ertapenem--completed 14 day course transitioned to oral (levaquin/flagyl but then changed to Augmentin as unce rtain is Quinolone was exacerbating Psych issues)-- completed full course (3) Osteomyelitis: Plan: S/p I&D and amputation of left third digit but ? developing osteo in 2nd toe that remains Last dose of Invanz given 06/19 with conversion to oral Levaquin/Flagyl started 06/20. Changed to Augmentin 07/01 and completed as of 07/03 (4) Tinnitus: Plan: predates this hospitalization (patient seen by ENT in the past) poor historian given tangential speech pattern-- unable to differentiate if unilateral/bilateral, if he has associated/[place]/change in hearing/vertigo. waxes and wanes. Refer to ENT as OP Given difficulty ascertaining history questions and associated one bout of emesis on 06/29, a CT of the head with and without with intra-auditory canal cuts was ordered * CT shows no acute pathology. No obvious schwannoma * Ultimately, MRI would be diagnostic study of choice; however, he seems to be very sensitive to noise and I do not believe he would be compliant with that (5) Diabetes mellitus type 2, uncontrolled: Plan: Patient has not taken medications for his diabetes mellitus for some time now -- was previously on Glipizide and at one time was on Metformin. Medication non- compliance has been an issue. hemoglobin A1c. 11.6 Since has been started on Metformin with uptitration to 1000mg while in house. Tolerating this Lantus/Log utilized upfront with close BS monitoring Given adequate blood sugar control, stopped Accu-Cheks 4 times daily and transitioned to Accuchecks (Fasting and AC) on Mondays, Wednesdays, Fridays and as needed (trying to lesson stimulation) - lantus/log since stopped and added Glipizide 5mg daily to his Metformin Patient has been educated regarding the importance of compliance and good glycemic control drawer waxer consulted for dietary education-- appreciate assistance Started on Lisinopril 2.5 mg daily for renal protection Will need podiatry F/U for nail care, diabetic eye exam, microalbumin, and follow up labs Will need follow-up A1c (~September 03) Blood sugars seem to be fairly well controlled on current Glipizide/Metformin regimen (6) Dyslipidemia: Plan: Fasting lipid panel 12/12/20 showed a total cholesterol of 323 mg/dL, HDL is 43 mg/dL, LDL 202 mg/dL, and triglycerides are 391 mg/dL. Total Cholesterol:HDL ration is 7.5. Resumed Atorvastatin at 80 mg daily. Will need follow up labs and potentially addition of tricor to target TG. Now on heart healthy/DM diet. (7) Schizo affective schizophrenia: Plan: Seen by psych on 06/05, pt does not have capacity to make medical decisions haldol prn was given upfront Patient is becoming increasingly agitated; Psychiatry reconsulted who last saw pt at end of June when having some issues with overstimulation and agitation. At this point, psych providing some puzzles and other activities he can do in his room to help keep him occupied; however, with a hospitalization that is approaching 60 days, his agitation is not unexpected. He does not meet for inpatient psychiatric admission. Ideally, he needs to be discharged as early as possible. Plan: Disposition: Emergency guardian appointed, CM diligently working on finding a facility. At this time, no one has accepted him. Patient has been medically and hemodynamically stable for discharge X weeks Admission and Anticipated Discharge Date Admission Date: June 03, 2021 Subjective Patient seen on daily rounds today. Remains in house awaiting placement. Vocalizes no significant complaints or concerns. Denies fevers, chills, chest pain, shortness of breath, abdominal pain, nausea or vomiting. Patient has been having increased agitation. Psych has been following and reports likely related to his ongoing hospitalization. Has been offered multiple puzzles/coloring books/etc. but he refuses. Review of Systems Review of Systems: All systems reviewed and are unremarkable except as noted in HPI and below Denies fevers, chills, headache, nasal congestion, sore throat, cough, chest pain, shortness of breath, palpitations, orthopnea, PND, abdominal pain, nausea, vomiting, diarrhea, constipation, dysuria, hematuria, frequency, back pain, joint pain or swelling, easy bruising or bleeding, skin lesions or rashes. Physical Exam Physical Exam: General: Resting comfortably in his hospital bed. NAD. HEENT: Head is AT/NC. Buccal mucosa is moist and pink Neck: No JVD. Negative hepatojugular reflex Cardiac: RRR without M/G/R Lungs: CTA without W/R/R Abdomen: Normoactive X4. Soft and nontender in all quadrants. Extremities: No peripheral clubbing cyanosis or edema Neuro: A&O X4. Cranial nerves II through XII are grossly intact. No focal neuro deficits Skin: No obvious skin lesions or rashes Psych: Appropriate affect. Pleasant and cooperative Results & Data Results & Data ([facility]) Vital Signs (Past 12 Hours) Vital Signs Temp Pulse Resp BP Pulse Ox 08/07/21 07:17 36.6 C 65 16 106/69 96 PG Care Time/CCT Total # of Minutes Spent Total Time Spent with Patient: Total time spent is greater than 50% in coordination of care (as documented) at patient's floor/unit and/or counseling patient: Coding Level of Care Code 05621 Subseq Hosp Care Lvl 1 Diagnoses Discharge planning issues Z02.9 Diabetic foot ulcer associated with type 2 diabetes mellitus, with fat layer exposed E11.621; L97.502 Osteomyelitis M86.9 Tinnitus H93.19 Diabetes mellitus type 2, uncontrolled E11.65 Dyslipidemia E78.5 Schizo affective schizophrenia F25.0
[2021-08-08] MEDS: glipiZIDE 5 MG TAB PO SCH (08:15)
[2021-08-08] MEDS: lisinopril 2.5 MG TAB PO SCH (08:15)
[2021-08-08] MEDS: metFORMIN HCL 500 MG TAB PO SCH ×2 (08:15→20:32)
[2021-08-08] MEDS: ATORVASTATIN 40 MG TAB PO SCH (08:16)
[2021-08-08] MEDS: FLUTICASONE PROPIONATE NA SPR 16 GM BTL SCH (08:16)
--- NOTE | 2021-08-08 17:24 | Hospitalist Progress Note ---
Date of Service August 08, 2021 Assessment & Plan (1) Discharge planning issues: Plan: Patient presented to the hospital with large diabetic foot ulcer with exposed bone, all of which has subsequently been treated as indicated below Pt was living in poor conditions--old farm house w/o running water or heat Seen by Psych, it was determined he does not have capacity to make decisions A meeting was to be held on 06/10 in order for the OOA to obtain emergency guardianship (which did not occur) rescheduled and held on 07/08 Pt now has an appointed guardian, referrals are to be sent to local Hs, per CM note, referral sent to multiple facilities including most recently, a boarding home Prior provider notified by case management that a boarding home would take patient but needed cleared on stairs first, PT ordered and pt was cleared on stairs. Now CM stating that the boarding home has elected not to take patient. Pt subsequently remains in the hospital until a safe discharge plan is in place which unfortunately is also directly contributing to his agitation (2) Diabetic foot ulcer associated with type 2 diabetes mellitus, with fat layer exposed: Plan: empirically on IV Zosyn and IV Vancomycin. MRI revealed the presence of left third toe osteomyelitis with ? developing osteo of the 2nd toe s/p I&D and amputation of the left third toe on 06/05- Dr. Tello Culture data: Proteus vulgaris with kerr-sensitivity along with an anaerobic GPC Transitioned to ertapenem--completed 14 day course transitioned to oral (levaquin/flagyl but then changed to Augmentin as unce rtain is Quinolone was exacerbating Psych issues)-- completed full course (3) Osteomyelitis: Plan: S/p I&D and amputation of left third digit but ? developing osteo in 2nd toe that remains Last dose of Invanz given 06/19 with conversion to oral Levaquin/Flagyl started 06/20. Changed to Augmentin 07/01 and completed as of 07/03 (4) Tinnitus: Plan: predates this hospitalization (patient seen by ENT in the past) poor historian given tangential speech pattern-- unable to differentiate if unilateral/bilateral, if he has associated/OWENS/change in hearing/vertigo. waxes and wanes. Refer to ENT as OP Given difficulty ascertaining history questions and associated one bout of emesis on 06/29, a CT of the head with and without with intra-auditory canal cuts was ordered * CT shows no acute pathology. No obvious schwannoma * Ultimately, MRI would be diagnostic study of choice; however, he seems to be very sensitive to noise and I do not believe he would be compliant with that (5) Diabetes mellitus type 2, uncontrolled: Plan: Patient has not taken medications for his diabetes mellitus for some time now -- was previously on Glipizide and at one time was on Metformin. Medication non- compliance has been an issue. hemoglobin A1c. 11.6 Since has been started on Metformin with uptitration to 1000mg while in house. Tolerating this Lantus/Log utilized upfront with close BS monitoring Given adequate blood sugar control, stopped Accu-Cheks 4 times daily and transitioned to Accuchecks (Fasting and AC) on Mondays, Wednesdays, Fridays and as needed (trying to lesson stimulation) - lantus/log since stopped and added Glipizide 5mg daily to his Metformin Patient has been educated regarding the importance of compliance and good glycemic control furnace repairer helper consulted for dietary education-- appreciate assistance Started on Lisinopril 2.5 mg daily for renal protection Will need podiatry F/U for nail care, diabetic eye exam, microalbumin, and follow up labs Will need follow-up A1c (~September 03) Blood sugars seem to be fairly well controlled on current Glipizide/Metformin regimen (6) Dyslipidemia: Plan: Fasting lipid panel 12/12/20 showed a total cholesterol of 323 mg/dL, HDL is 43 mg/dL, LDL 202 mg/dL, and triglycerides are 391 mg/dL. Total Cholesterol:HDL ration is 7.5. Resumed Atorvastatin at 80 mg daily. Will need follow up labs and potentially addition of tricor to target TG. Now on heart healthy/DM diet. (7) Schizo affective schizophrenia: Plan: Seen by psych on 06/05, pt does not have capacity to make medical decisions haldol prn was given upfront Patient is becoming increasingly agitated; Psychiatry reconsulted who last saw pt at end of June when having some issues with overstimulation and agitation. At this point, psych providing some puzzles and other activities he can do in his room to help keep him occupied; however, with a hospitalization that is approaching 60 days, his agitation is not unexpected. He does not meet for inpatient psychiatric admission. Ideally, he needs to be discharged as early as possible. Plan: Disposition: Emergency guardian appointed, KIMBERLY diligently working on finding a facility. Patient has been accepted at [facility]. They will have a bed available for him on Wednesday of next week after appropriate paperwork has been completed. Legal guardian is involved in preparation of this documentation. Patient has been medically and hemodynamically stable for discharge X weeks Admission and Anticipated Discharge Date Admission Date: June 03, 2021 Subjective Patient seen on daily rounds today. Remains in house awaiting placement. Vocalizes no significant complaints or concerns. Denies fevers, chills, chest pain, shortness of breath, abdominal pain, nausea or vomiting. Patient has been having increased agitation. Psych has been following and reports likely related to his ongoing hospitalization. Has been offered multiple puzzles/coloring books/etc. but he refuses. Review of Systems Review of Systems: All systems reviewed and are unremarkable except as noted in HPI and below Denies fevers, chills, headache, nasal congestion, sore throat, cough, chest pain, shortness of breath, palpitations, orthopnea, PND, abdominal pain, nausea, vomiting, diarrhea, constipation, dysuria, hematuria, frequency, back pain, joint pain or swelling, easy bruising or bleeding, skin lesions or rashes. Physical Exam Physical Exam: General: Resting comfortably in his hospital bed. NAD. HEENT: Head is AT/NC. Buccal mucosa is moist and pink Neck: No JVD. Negative hepatojugular reflex Cardiac: RRR without M/G/R Lungs: CTA without W/R/R Abdomen: Normoactive X4. Soft and nontender in all quadrants. Extremities: No peripheral clubbing cyanosis or edema Neuro: A&O X4. Cranial nerves II through XII are grossly intact. No focal neuro deficits Skin: No obvious skin lesions or rashes Psych: Appropriate affect. Pleasant and cooperative Results & Data Results & Data ([facility]) Vital Signs (Past 12 Hours) Vital Signs Temp Pulse Pulse Resp BP BP Pulse Ox 08/08/21 14:48 37.0 C 85 16 118/97 98 08/08/21 07:38 36.8 C 72 14 115/81 97 PG Care Time/CCT Total # of Minutes Spent Total Time Spent with Patient: Total time spent is greater than 50% in coordination of care (as documented) at patient's floor/unit and/or counseling patient: Coding Level of Care Code 22112 Subseq Hosp Care Lvl 1 Diagnoses Discharge planning issues Z02.9 Diabetic foot ulcer associated with type 2 diabetes mellitus, with fat layer exposed E11.621; L97.502 Osteomyelitis M86.9 Tinnitus H93.19 Diabetes mellitus type 2, uncontrolled E11.65 Dyslipidemia E78.5 Schizo affective schizophrenia F25.0
[2021-08-09] MEDS: ATORVASTATIN 40 MG TAB PO SCH (08:30)
[2021-08-09] MEDS: lisinopril 2.5 MG TAB PO SCH (08:31)
[2021-08-09] MEDS: metFORMIN HCL 500 MG TAB PO SCH ×2 (08:31→20:55)
[2021-08-09] MEDS: FLUTICASONE PROPIONATE NA SPR 16 GM BTL SCH (08:31)
[2021-08-09] MEDS: glipiZIDE 5 MG TAB PO SCH (09:02)
--- NOTE | 2021-08-09 12:28 | Hospitalist Progress Note ---
Date of Service August 09, 2021 Assessment & Plan (1) Discharge planning issues: Plan: Patient presented to the hospital with large diabetic foot ulcer with exposed bone, all of which has subsequently been treated as indicated below Pt was living in poor conditions--old farm house w/o running water or heat Seen by Psych, it was determined he does not have capacity to make decisions A meeting was to be held on 06/10 in order for the OOA to obtain emergency guardianship (which did not occur) rescheduled and held on 07/08 Pt now has an appointed guardian, referrals are to be sent to local Hs, per CM note, referral sent to multiple facilities including most recently, a boarding home Prior provider notified by case management that a boarding home would take patient but needed cleared on stairs first, PT ordered and pt was cleared on stairs. Now CM stating that the boarding home has elected not to take patient. Pt subsequently remains in the hospital until a safe discharge plan is in place which unfortunately is also directly contributing to his agitation (2) Diabetic foot ulcer associated with type 2 diabetes mellitus, with fat layer exposed: Plan: empirically on IV Zosyn and IV Vancomycin. MRI revealed the presence of left third toe osteomyelitis with ? developing osteo of the 2nd toe s/p I&D and amputation of the left third toe on 06/05- Dr. Tello Culture data: Proteus vulgaris with kerr-sensitivity along with an anaerobic GPC Transitioned to ertapenem--completed 14 day course transitioned to oral (levaquin/flagyl but then changed to Augmentin as unce rtain is Quinolone was exacerbating Psych issues)-- completed full course (3) Osteomyelitis: Plan: S/p I&D and amputation of left third digit but ? developing osteo in 2nd toe that remains Last dose of Invanz given 06/19 with conversion to oral Levaquin/Flagyl started 06/20. Changed to Augmentin 07/01 and completed as of 07/03 (4) Tinnitus: Plan: predates this hospitalization (patient seen by ENT in the past) poor historian given tangential speech pattern-- unable to differentiate if unilateral/bilateral, if he has associated/OWENS/change in hearing/vertigo. waxes and wanes. Refer to ENT as OP Given difficulty ascertaining history questions and associated one bout of emesis on 06/29, a CT of the head with and without with intra-auditory canal cuts was ordered * CT shows no acute pathology. No obvious schwannoma * Ultimately, MRI would be diagnostic study of choice; however, he seems to be very sensitive to noise and I do not believe he would be compliant with that (5) Diabetes mellitus type 2, uncontrolled: Plan: Patient has not taken medications for his diabetes mellitus for some time now -- was previously on Glipizide and at one time was on Metformin. Medication non- compliance has been an issue. hemoglobin A1c. 11.6 Since has been started on Metformin with uptitration to 1000mg while in house. Tolerating this Lantus/Log utilized upfront with close BS monitoring Given adequate blood sugar control, stopped Accu-Cheks 4 times daily and transitioned to Accuchecks (Fasting and AC) on Mondays, Wednesdays, Fridays and as needed (trying to lesson stimulation) - lantus/log since stopped and added Glipizide 5mg daily to his Metformin Patient has been educated regarding the importance of compliance and good glycemic control shift superintendent caustic cresylate consulted for dietary education-- appreciate assistance Started on Lisinopril 2.5 mg daily for renal protection Will need podiatry F/U for nail care, diabetic eye exam, microalbumin, and follow up labs Will need follow-up A1c (~September 03) Blood sugars seem to be fairly well controlled on current Glipizide/Metformin regimen (6) Dyslipidemia: Plan: Fasting lipid panel 12/12/20 showed a total cholesterol of 323 mg/dL, HDL is 43 mg/dL, LDL 202 mg/dL, and triglycerides are 391 mg/dL. Total Cholesterol:HDL ration is 7.5. Resumed Atorvastatin at 80 mg daily. Will need follow up labs and potentially addition of tricor to target TG. Now on heart healthy/DM diet. (7) Schizo affective schizophrenia: Plan: Seen by psych on 06/05, pt does not have capacity to make medical decisions haldol prn was given upfront Patient is becoming increasingly agitated; Psychiatry reconsulted who last saw pt at end of June when having some issues with overstimulation and agitation. At this point, psych providing some puzzles and other activities he can do in his room to help keep him occupied; however, with a hospitalization that is approaching 60 days, his agitation is not unexpected. He does not meet for inpatient psychiatric admission. Ideally, he needs to be discharged as early as possible. Plan: Disposition: Emergency guardian appointed, KIMBERLY diligently working on finding a facility. Patient has been accepted at [facility]. They will have a bed available for him on Wednesday of next week after appropriate paperwork has been completed. Legal guardian is involved in preparation of this documentation. Patient has been medically and hemodynamically stable for discharge X weeks Admission and Anticipated Discharge Date Admission Date: June 03, 2021 Subjective Patient seen on daily rounds today. Denies fevers, chills, chest pain, shortness of breath, abdominal pain, nausea or vomiting. Vocalizes no significant complaints or concerns Review of Systems Review of Systems: All systems reviewed and are unremarkable except as noted in HPI and below Denies fevers, chills, headache, nasal congestion, sore throat, cough, chest pain, shortness of breath, palpitations, orthopnea, PND, abdominal pain, nausea, vomiting, diarrhea, constipation, dysuria, hematuria, frequency, back pain, joint pain or swelling, easy bruising or bleeding, skin lesions or rashes. Physical Exam Physical Exam: General: Resting comfortably in his hospital bed. NAD. HEENT: Head is AT/NC. Buccal mucosa is moist and pink Neck: No JVD. Negative hepatojugular reflex Cardiac: RRR without M/G/R Lungs: CTA without W/R/R Abdomen: Normoactive X4. Soft and nontender in all quadrants. Extremities: No peripheral clubbing cyanosis or edema Neuro: A&O X4. Cranial nerves II through XII are grossly intact. No focal neuro deficits Skin: No obvious skin lesions or rashes Psych: Appropriate affect. Pleasant and cooperative Results & Data Results & Data ([facility]) Vital Signs (Past 12 Hours) Vital Signs Temp Pulse Resp BP Pulse Ox 08/09/21 08:11 36.7 C 81 16 132/79 97 Laboratory Results 07/21/21 05:45 07/21/21 05:45 PG Care Time/CCT Total # of Minutes Spent Total Time Spent with Patient: Total time spent is greater than 50% in coordination of care (as documented) at patient's floor/unit and/or counseling patient: Coding Level of Care Code 18190 Subseq Hosp Care Lvl 1 Diagnoses Discharge planning issues Z02.9 Diabetic foot ulcer associated with type 2 diabetes mellitus, with fat layer exposed E11.621; L97.502 Osteomyelitis M86.9 Tinnitus H93.19 Diabetes mellitus type 2, uncontrolled E11.65 Dyslipidemia E78.5 Schizo affective schizophrenia F25.0
[2021-08-10] MEDS: ATORVASTATIN 40 MG TAB PO SCH (08:00)
[2021-08-10] MEDS: lisinopril 2.5 MG TAB PO SCH (08:00)
[2021-08-10] MEDS: metFORMIN HCL 500 MG TAB PO SCH ×2 (08:00→20:50)
[2021-08-10] MEDS: FLUTICASONE PROPIONATE NA SPR 16 GM BTL SCH (08:00)
[2021-08-10] MEDS: glipiZIDE 5 MG TAB PO SCH (08:00)
--- NOTE | 2021-08-10 10:59 | Hospitalist Progress Note ---
Date of Service August 10, 2021 Assessment & Plan (1) Discharge planning issues: Plan: Patient presented to the hospital with large diabetic foot ulcer with exposed bone, all of which has subsequently been treated as indicated below Pt was living in poor conditions--old farm house w/o running water or heat Seen by Psych, it was determined he does not have capacity to make decisions A meeting was to be held on 06/10 in order for the OOA to obtain emergency guardianship (which did not occur) rescheduled and held on 07/08 Pt now has an appointed guardian, referrals are to be sent to local [facility], per CM note, referral sent to multiple facilities including most recently, a boarding home Pt subsequently remains in the hospital until a safe discharge plan is in place which unfortunately is also directly contributing to his agitation (2) Diabetic foot ulcer associated with type 2 diabetes mellitus, with fat layer exposed: Plan: empirically on IV Zosyn and IV Vancomycin. MRI revealed the presence of left third toe osteomyelitis with ? developing osteo of the 2nd toe s/p I&D and amputation of the left third toe on 06/05- Dr. Tello Culture data: Proteus vulgaris with kerr-sensitivity along with an anaerobic GPC Transitioned to ertapenem--completed 14 day course transitioned to oral (levaquin/flagyl but then changed to Augmentin as uncertain is Quinolone was exacerbating Psych issues)-- completed full course (3) Osteomyelitis: Plan: S/p I&D and amputation of left third digit but ? developing osteo in 2nd toe that remains Last dose of Invanz given 06/19 with conversion to oral Levaquin/Flagyl started 06/20. Changed to Augmentin 07/01 and completed as of 07/03 (4) Tinnitus: Plan: predates this hospitalization (patient seen by ENT in the past) poor historian given tangential speech pattern-- unable to differentiate if u nilateral/bilateral, if he has associated/OWENS/change in hearing/vertigo. waxes and wanes. Refer to ENT as OP Given difficulty ascertaining history questions and associated one bout of emesis on 06/29, a CT of the head with and without with intra-auditory canal cuts was ordered * CT shows no acute pathology. No obvious schwannoma * Ultimately, MRI would be diagnostic study of choice; however, he seems to be very sensitive to noise and I do not believe he would be compliant with that (5) Diabetes mellitus type 2, uncontrolled: Plan: Patient has not taken medications for his diabetes mellitus for some time now -- was previously on Glipizide and at one time was on Metformin. Medication non- compliance has been an issue. hemoglobin A1c. 11.6 Since has been started on Metformin with uptitration to 1000mg while in house. Tolerating this Lantus/Log utilized upfront with close BS monitoring Given adequate blood sugar control, stopped Accu-Cheks 4 times daily and transitioned to Accuchecks (Fasting and AC) on Mondays, Wednesdays, Fridays and as needed (trying to lesson stimulation) - lantus/log since stopped and added Glipizide 5mg daily to his Metformin Patient has been educated regarding the importance of compliance and good glycemic control rn clinical appeals consulted for dietary education-- appreciate assistance Started on Lisinopril 2.5 mg daily for renal protection Will need podiatry F/U for nail care, diabetic eye exam, microalbumin, and follow up labs Will need follow-up A1c (~September 03) Blood sugars seem to be fairly well controlled on current Glipizide/Metformin regimen (6) Dyslipidemia: Plan: Fasting lipid panel 12/12/20 showed a total cholesterol of 323 mg/dL, HDL is 43 mg/dL, LDL 202 mg/dL, and triglycerides are 391 mg/dL. Total Cholesterol:HDL ration is 7.5. Resumed Atorvastatin at 80 mg daily. Will need follow up labs and potentially addition of tricor to target TG. Now on heart healthy/DM diet. (7) Schizo affective schizophrenia: Plan: Seen by psych on 06/05, pt does not have capacity to make medical decisions haldol prn was given upfront Patient is becoming increasingly agitated; Psychiatry reconsulted who last saw pt at end of June when having some issues with overstimulation and agitation. At this point, psych providing some puzzles and other activities he can do in his room to help keep him occupied; however, with a hospitalization that is approaching 60 days, his agitation is not unexpected. He does not meet for inpatient psychiatric admission. Ideally, he needs to be discharged as early as possible. Plan: Disposition: Emergency guardian appointed, CM diligently working on finding a facility. Patient has been accepted at [facility]. They will have a bed available for him on Wednesday, 08/12, after appropriate paperwork has been completed. Legal guardian is involved in preparation of this documentation. Patient has been medically and hemodynamically stable for discharge X weeks Admission and Anticipated Discharge Date Admission Date: June 03, 2021 Subjective Patient seen on daily rounds today. Denies fevers, chills, chest pain, shortness of breath, abdominal pain, nausea or vomiting. Vocalizes no significant complaints or concerns Review of Systems Review of Systems: All systems reviewed and are unremarkable except as noted in HPI and below Denies fevers, chills, headache, nasal congestion, sore throat, cough, chest pain, shortness of breath, palpitations, orthopnea, PND, abdominal pain, nausea, vomiting, diarrhea, constipation, dysuria, hematuria, frequency, back pain, joint pain or swelling, easy bruising or bleeding, skin lesions or rashes. Physical Exam Physical Exam: GENERAL: 56 yo Well-developed, well-nourished WM. NAD. LUNGS: Clear to auscultation bilaterally. No W/R/R. CARDIOVASCULAR: Regular rate and rhythm. No M/G/R. No JVD. ABDOMEN: Soft, non-tender and non-distended. BS normal x 4 quad. EXTREMITIES: No edema. Non-tender. Peripheral pulses +2/4. NEUROLOGIC: A&O x3. PSYCHIATRIC: Cooperative. Appropriate mood and affect. SKIN: Warm, dry, intact. No rashes or lesions. Results & Data Results & Data ([facility]) Vital Signs (Past 12 Hours) Vital Signs Temp Pulse Pulse Resp BP BP Pulse Ox 08/10/21 07:15 36.5 C 92 H 18 101/71 97 08/09/21 23:22 36.6 C 73 16 116/69 98 PG Care Time/CCT Total # of Minutes Spent Total Time Spent with Patient: Total time spent is greater than 50% in coordination of care (as documented) at patient's floor/unit and/or counseling patient: Coding Level of Care Code 78113 Subseq Hosp Care Lvl 1 Diagnoses Discharge planning issues Z02.9 Diabetic foot ulcer associated with type 2 diabetes mellitus, with fat layer exposed E11.621; L97.502 Osteomyelitis M86.9 Tinnitus H93.19 Diabetes mellitus type 2, uncontrolled E11.65 Dyslipidemia E78.5 Schizo affective schizophrenia F25.0
[2021-08-10] MEDS: ACETAMINOPHEN 325 MG TAB PO PRN (20:50)
[2021-08-11] MEDS: glipiZIDE 5 MG TAB PO SCH (08:07)
[2021-08-11] MEDS: ATORVASTATIN 40 MG TAB PO SCH (08:07)
[2021-08-11] MEDS: lisinopril 2.5 MG TAB PO SCH (08:07)
[2021-08-11] MEDS: metFORMIN HCL 500 MG TAB PO SCH ×2 (08:07→20:05)
[2021-08-11] MEDS: FLUTICASONE PROPIONATE NA SPR 16 GM BTL SCH (08:07)
[2021-08-11] MEDS: ACETAMINOPHEN 325 MG TAB PO PRN ×2 (14:34→21:19)
--- NOTE | 2021-08-11 17:04 | Hospitalist Progress Note ---
Date of Service August 11, 2021 Assessment & Plan (1) Discharge planning issues: Plan: Patient presented to the hospital with large diabetic foot ulcer with exposed bone, all of which has subsequently been treated as indicated below Pt was living in poor conditions--old farm house w/o running water or heat Seen by Psych, it was determined he does not have capacity to make decisions A meeting was to be held on 06/10 in order for the OOA to obtain emergency guardianship (which did not occur) rescheduled and held on 07/08 Pt now has an appointed guardian, referrals are to be sent to local [facility], per CM note, referral sent to multiple facilities including most recently, a boarding home Pt subsequently remains in the hospital until a safe discharge plan is in place which unfortunately is also directly contributing to his agitation (2) Diabetic foot ulcer associated with type 2 diabetes mellitus, with fat layer exposed: Plan: empirically on IV Zosyn and IV Vancomycin. MRI revealed the presence of left third toe osteomyelitis with ? developing osteo of the 2nd toe s/p I&D and amputation of the left third toe on 06/05- Dr. Tello Culture data: Proteus vulgaris with kerr-sensitivity along with an anaerobic GPC Transitioned to ertapenem--completed 14 day course transitioned to oral (levaquin/flagyl but then changed to Augmentin as uncertain is Quinolone was exacerbating Psych issues)-- completed full course (3) Osteomyelitis: Plan: S/p I&D and amputation of left third digit but ? developing osteo in 2nd toe that remains Last dose of Invanz given 06/19 with conversion to oral Levaquin/Flagyl started 06/20. Changed to Augmentin 07/01 and completed as of 07/03 (4) Tinnitus: Plan: predates this hospitalization (patient seen by ENT in the past) poor historian given tangential speech pattern-- unable to differentiate if u nilateral/bilateral, if he has associated/OWENS/change in hearing/vertigo. waxes and wanes. Refer to ENT as OP Given difficulty ascertaining history questions and associated one bout of emesis on 06/29, a CT of the head with and without with intra-auditory canal cuts was ordered * CT shows no acute pathology. No obvious schwannoma * Ultimately, MRI would be diagnostic study of choice; however, he seems to be very sensitive to noise and I do not believe he would be compliant with that (5) Diabetes mellitus type 2, uncontrolled: Plan: Patient has not taken medications for his diabetes mellitus for some time now -- was previously on Glipizide and at one time was on Metformin. Medication non- compliance has been an issue. hemoglobin A1c. 11.6 Since has been started on Metformin with uptitration to 1000mg while in house. Tolerating this Lantus/Log utilized upfront with close BS monitoring Given adequate blood sugar control, stopped Accu-Cheks 4 times daily and transitioned to Accuchecks (Fasting and AC) on Mondays, Wednesdays, Fridays and as needed (trying to lesson stimulation) - lantus/log since stopped and added Glipizide 5mg daily to his Metformin Patient has been educated regarding the importance of compliance and good glycemic control appointment scheduler consulted for dietary education-- appreciate assistance Started on Lisinopril 2.5 mg daily for renal protection Will need podiatry F/U for nail care, diabetic eye exam, microalbumin, and follow up labs Will need follow-up A1c (~September 03) Blood sugars seem to be fairly well controlled on current Glipizide/Metformin regimen (6) Dyslipidemia: Plan: Fasting lipid panel 12/12/20 showed a total cholesterol of 323 mg/dL, HDL is 43 mg/dL, LDL 202 mg/dL, and triglycerides are 391 mg/dL. Total Cholesterol:HDL ration is 7.5. Resumed Atorvastatin at 80 mg daily. Will need follow up labs and potentially addition of tricor to target TG. Now on heart healthy/DM diet. (7) Schizo affective schizophrenia: Plan: Seen by psych on 06/05, pt does not have capacity to make medical decisions haldol prn was given upfront Patient is becoming increasingly agitated; Psychiatry reconsulted who last saw pt at end of June when having some issues with overstimulation and agitation. At this point, psych providing some puzzles and other activities he can do in his room to help keep him occupied; however, with a hospitalization that is approaching 60 days, his agitation is not unexpected. He does not meet for inpatient psychiatric admission. Ideally, he needs to be discharged as early as possible. Plan: Disposition: Emergency guardian appointed, CM diligently working on finding a facility. Patient has been accepted at [facility]. They will have a bed available for him on Wednesday, 08/12, after appropriate paperwork has been completed. Legal guardian is involved in preparation of this documentation. Medication sent to their pharmacy so they have them available. Patient has been medically and hemodynamically stable for discharge X weeks Admission and Anticipated Discharge Date Admission Date: June 03, 2021 Subjective Patient seen on daily rounds today. Denies fevers, chills, chest pain, shortness of breath, abdominal pain, nausea or vomiting. Vocalizes no significant complaints or concerns Review of Systems Review of Systems: All systems reviewed and are unremarkable except as noted in HPI and below Denies fevers, chills, headache, nasal congestion, sore throat, cough, chest pain, shortness of breath, palpitations, orthopnea, PND, abdominal pain, nausea, vomiting, diarrhea, constipation, dysuria, hematuria, frequency, back pain, joint pain or swelling, easy bruising or bleeding, skin lesions or rashes. Physical Exam Physical Exam: General: Resting comfortably in his hospital bed. NAD. HEENT: Head is AT/NC. Buccal mucosa is moist and pink Neck: No JVD. Negative hepatojugular reflex Cardiac: RRR without M/G/R Lungs: CTA without W/R/R Abdomen: Normoactive X4. Soft and nontender in all quadrants. Extremities: No peripheral clubbing cyanosis or edema Neuro: A&O X4. Cranial nerves II through XII are grossly intact. No focal neuro deficits Skin: No obvious skin lesions or rashes Psych: Appropriate affect. Pleasant and cooperative Results & Data Results & Data ([facility]) Vital Signs (Past 12 Hours) Vital Signs Temp Pulse Resp BP Pulse Ox 08/11/21 15:10 36.9 C 67 16 120/74 98 08/11/21 07:34 36.9 C 77 16 134/80 97 PG Care Time/CCT Total # of Minutes Spent Total Time Spent with Patient: Total time spent is greater than 50% in coordination of care (as documented) at patient's floor/unit and/or counseling patient: Coding Level of Care Code 26749 Subseq Hosp Care Lvl 1 Diagnoses Discharge planning issues Z02.9 Diabetic foot ulcer associated with type 2 diabetes mellitus, with fat layer exposed E11.621; L97.502 Osteomyelitis M86.9 Tinnitus H93.19 Diabetes mellitus type 2, uncontrolled E11.65 Dyslipidemia E78.5 Schizo affective schizophrenia F25.0
[2021-08-12] MEDS: metFORMIN HCL 500 MG TAB PO SCH (08:31)
[2021-08-12] MEDS: lisinopril 2.5 MG TAB PO SCH (08:32)
[2021-08-12] MEDS: ATORVASTATIN 40 MG TAB PO SCH (08:32)
[2021-08-12] MEDS: glipiZIDE 5 MG TAB PO SCH (08:33)
[2021-08-12] MEDS: FLUTICASONE PROPIONATE NA SPR 16 GM BTL SCH (08:34)
--- NOTE | 2021-08-12 13:52 | Hospitalist Progress Note ---
Date of Service August 12, 2021 Assessment & Plan (1) Discharge planning issues: Plan: Patient presented to the hospital with large diabetic foot ulcer with exposed bone, all of which has subsequently been treated as indicated below Pt was living in poor conditions--old farm house w/o running water or heat Seen by Psych, it was determined he does not have capacity to make decisions A meeting was to be held on 06/10 in order for the OOA to obtain emergency guard ianship (which did not occur) rescheduled and held on 07/08 Pt now has an appointed guardian, referrals are to be sent to local [facility], per CM note, referral sent to multiple facilities including most recently, a boarding home Pt subsequently remains in the hospital until a safe discharge plan is in place which unfortunately is also directly contributing to his agitation (2) Diabetic foot ulcer associated with type 2 diabetes mellitus, with fat layer exposed: Plan: empirically on IV Zosyn and IV Vancomycin. MRI revealed the presence of left third toe osteomyelitis with ? developing osteo of the 2nd toe s/p I&D and amputation of the left third toe on 06/05- Dr. Tello Culture data: Proteus vulgaris with kerr-sensitivity along with an anaerobic GPC Transitioned to ertapenem--completed 14 day course transitioned to oral (levaquin/flagyl but then changed to Augmentin as uncertain is Quinolone was exacerbating Psych issues)-- completed full course (3) Osteomyelitis: Plan: S/p I&D and amputation of left third digit but ? developing osteo in 2nd toe that remains Last dose of Invanz given 06/19 with conversion to oral Levaquin/Flagyl started 06/20. Changed to Augmentin 07/01 and completed as of 07/03 (4) Tinnitus: Plan: predates this hospitalization (patient seen by ENT in the past) poor historian given tangential speech pattern-- unable to differentiate if unilateral/bilateral, if he has associated/OWENS/change in hearing/vertigo. waxes and wanes. Refer to ENT as OP Given difficulty ascertaining history questions and associated one bout of emesis on 06/29, a CT of the head with and without with intra-auditory canal cuts was ordered * CT shows no acute pathology. No obvious schwannoma * Ultimately, MRI would be diagnostic study of choice; however, he seems to be very sensitive to noise and I do not believe he would be compliant with that (5) Diabetes mellitus type 2, uncontrolled: Plan: Patient has not taken medications for his diabetes mellitus for some time now -- was previously on Glipizide and at one time was on Metformin. Medication non- compliance has been an issue. hemoglobin A1c. 11.6 Since has been started on Metformin with uptitration to 1000mg while in house. Tolerating this Lantus/Log utilized upfront with close BS monitoring Given adequate blood sugar control, stopped Accu-Cheks 4 times daily and transitioned to Accuchecks (Fasting and AC) on Mondays, Wednesdays, Fridays and as needed (trying to lesson stimulation) - lantus/log since stopped and added Glipizide 5mg daily to his Metformin Patient has been educated regarding the importance of compliance and good glycemic control schedule supervisor consulted for dietary education-- appreciate assistance Started on Lisinopril 2.5 mg daily for renal protection Will need podiatry F/U for nail care, diabetic eye exam, microalbumin, and follow up labs Will need follow-up A1c (~September 03) Blood sugars seem to be fairly well controlled on current Glipizide/Metformin regimen (6) Dyslipidemia: Plan: Fasting lipid panel 12/12/20 showed a total cholesterol of 323 mg/dL, HDL is 43 mg/dL, LDL 202 mg/dL, and triglycerides are 391 mg/dL. Total Cholesterol:HDL ration is 7.5. Resumed Atorvastatin at 80 mg daily. Will need follow up labs and potentially addition of tricor to target TG. Now on heart healthy/DM diet. (7) Schizo affective schizophrenia: Plan: Seen by psych on 06/05, pt does not have capacity to make medical decisions haldol prn was given upfront Patient is becoming increasingly agitated; Psychiatry reconsulted who last saw pt at end of June when having some issues with overstimulation and agitation. At this point, psych providing some puzzles and other activities he can do in his room to help keep him occupied; however, with a hospitalization that is approaching 60 days, his agitation is not unexpected. He does not meet for inpatient psychiatric admission. Ideally, he needs to be discharged as early as possible. Plan: Disposition: Emergency guardian appointed, CM diligently working on finding a facility. Patient has been accepted at [facility]. They will have a bed available for him on Wednesday, 08/12, after appropriate paperwork has been completed. Legal guardian is involved in preparation of this documentation. Medication sent to their pharmacy so they have them available. Patient has been medically and hemodynamically stable for discharge X weeks Admission and Anticipated Discharge Date Admission Date: June 03, 2021 Results & Data Results & Data ([facility]) Vital Signs (Past 12 Hours) Vital Signs Temp Pulse Resp BP BP Pulse Ox 08/12/21 08:30 103/66 08/12/21 07:26 37 C 71 16 111/72 95 PG Care Time/CCT Total # of Minutes Spent Total Time Spent with Patient: Total time spent is greater than 50% in coordination of care (as documented) at patient's floor/unit and/or counseling patient: Coding Diagnoses Discharge planning issues Z02.9 Diabetic foot ulcer associated with type 2 diabetes mellitus, with fat layer exposed E11.621; L97.502 Osteomyelitis M86.9 Tinnitus H93.19 Diabetes mellitus type 2, uncontrolled E11.65 Dyslipidemia E78.5 Schizo affective schizophrenia F25.0
--- NOTE | 2021-08-12 13:59 | Discharge Summary ---
Date of Service August 12, 2021 Admission HPI Per Admitting Provider Mr. Gunn is a 56-year-old male with a history of Schizoaffective Schizophrenia, Depression, Pseudoseizures, Hyperlipidemia (untreated), Uncontrolled Type 2 Diabetes Mellitus, and Poor Living Conditions who presented to [facility] ER today with a large ulcer on his left 3rd toe which was likely brought on by his untrimmed toenails digging into the side of that toe. Patient currently lives in a barn with an inadequate heating system (he has been using space heaters ), and he generally wears his muck boots without socks. Patient does not have any running water but he does have electricity. Patient is uncertain when this ulceration developed, but he stated that his toes have been stiff and sore for a couple of weeks and that his feet always feel cold. Patient does not think that he has had any frostbite injuries. Patient denies any fevers, chills, headache, stiff neck. He has not had any nausea or vomiting. he denies any swelling or erythema of the leg, most of the erythema is limited around the 3rd toe wound. He does not experience intermittent claudication. Patient is accompanied by his brother today. The patient does not take any medications this time although he is supposed to be on Atorvastatin and Glipizide. Patient does not routinely check his blood sugars. Principal Diagnosis 1. Diabetic Foot Ulcer 2. Osteomyelitis- s/p amputation of 3rd toe/completion of antibiotics 3. Schizophrenia 4. Intellectual disability Discharge Exam General: Resting comfortably in his hospital bed. NAD. HEENT: Head is AT/NC. Buccal mucosa is moist and pink Neck: No JVD. Negative hepatojugular reflex Cardiac: RRR without M/G/R Lungs: CTA without W/R/R Abdomen: Normoactive X4. Soft and nontender in all quadrants. Extremities: No peripheral clubbing cyanosis or edema Neuro: A&O X4. Cranial nerves II through XII are grossly intact. No focal neuro deficits Skin: No obvious skin lesions or rashes Psych: Appropriate affect. Pleasant and cooperative Discharge Data Allergies Allergy/AdvReac Type Severity Reaction Status Date / Time egg Allergy Unknown Unknown Verified 06/03/21 15:53 mustard Allergy Unknown UNKNOWN Verified 06/03/21 15:53 risperidone [From Risperdal] AdvReac Unknown unknown Verified 06/03/21 15:53 Consultations 03/01/22 14:54 ED Decision to Admit Stat 06/03/21 17:46 Consult Orthopedic Surgery Routine 06/29/21 11:44 Consult Psychiatry Routine 07/30/21 18:23 Consult Psychiatry Routine Procedures Performed Operation Date: 06/05/21 12:35 Actual Procedures p Left 3rd Toe Amputation, Irrigation and Debridement Ulcer on Left 2nd Toe 10x6mm, Irrigation and Debridement Ulcer on Left Great Toe 6x5mm(Not Applicable) - Adrian Tello M.D. Ordered Studies 06/03/21 17:46 US arterial duplex LE BI Routine IMPRESSION: 1. No hemodynamically significant stenosis. 2. Normal ankle-brachial indices. US duplex aorta/iliacs/IVC ltd Routine IMPRESSION: 1. Normal Doppler ultrasound of the abdominal aorta and iliac arteries with no increased flow velocities demonstrated.. 06/04/21 10:35 MR foot LT wo/w con Routine IMPRESSION: 1. A cutaneous ulceration is noted in the third toe with findings highly suspicious for osteomyelitis of the third middle and distal phalanges. 2. Milder marrow edema is seen in the second toe within the middle and distal phalanges. Osteitis/developing osteomyelitis is not excluded. 3. Milder nonspecific edema is seen within the first distal phalanx and the dylon of the fourth and fifth distal phalanges. Clinical correlation will be required. 4. Soft tissue edema is noted in the forefoot, greatest in the third toe. The appearance is typical for cellulitis. 5. No organized/drainable fluid collection is seen to suggest abscess 06/30/21 10:56 CT angio head wo/w Urgent FINDINGS: Vascular findings: There is normal enhancement within the internal carotid arteries bilaterally. There is normal enhancement noted within the anterior, m iddle and posterior cerebral arteries. Nonvascular findings: There is homogeneous attenuation of the brain parenchyma bilaterally. There is no evidence for an acute infarct or cerebral edema. IMPRESSION: Negative CT angiogram of the brain without and with contrast. Diabetes Follow up Diabetes Follow-up Needed for HgbA1c >9%,Newly Diagnosed Diabetes Hospital Course (1) Discharge planning issues: Patient presented to the hospital with large diabetic foot ulcer with exposed bone, all of which has subsequently been treated as indicated below Pt was living in poor conditions--old farm house w/o running water or heat Seen by Psych, it was determined he does not have capacity to make decisions A meeting was to be held on 06/10 in order for the [facility] to obtain emergency guardianship (which did not occur) rescheduled and held on 07/08 Pt now has an appointed guardian, referrals are to be sent to local Hs, per CM note, referral sent to multiple facilities including most recently, a boarding home Pt subsequently remains in the hospital until a safe discharge plan is in place which unfortunately is also directly contributing to his agitation (2) Diabetic foot ulcer associated with type 2 diabetes mellitus, with fat layer exposed: empirically on IV Zosyn and IV Vancomycin. MRI revealed the presence of left third toe osteomyelitis with ? developing osteo of the 2nd toe s/p I&D and amputation of the left third toe on 06/05- Dr. Tello Culture data: Proteus vulgaris with kerr-sensitivity along with an anaerobic GPC Transitioned to ertapenem--completed 14 day course transitioned to oral (levaquin/flagyl but then changed to Augmentin as uncertain is Quinolone was exacerbating Psych issues)-- completed full course (3) Osteomyelitis: S/p I&D and amputation of left third digit but ? developing osteo in 2nd toe that remains Last dose of Invanz given 06/19 with conversion to oral Levaquin/Flagyl started 06/20. Changed to Augmentin 07/01 and completed as of 07/03 (4) Tinnitus: predates this hospitalization (patient seen by ENT in the past) poor historian given tangential speech pattern-- unable to differentiate if unilateral/bilateral, if he has associated/OWENS/change in hearing/vertigo. waxes and wanes. Refer to ENT as OP Given difficulty ascertaining history questions and associated one bout of emesis on 06/29, a CT of the head with and without with intra-auditory canal cuts was ordered * CT shows no acute pathology. No obvious schwannoma * Ultimately, MRI would be diagnostic study of choice; however, he seems to be very sensitive to noise and I do not believe he would be compliant with that (5) Diabetes mellitus type 2, uncontrolled: Patient has not taken medications for his diabetes mellitus for some time now -- was previously on Glipizide and at one time was on Metformin. Medication non-compliance has been an issue. hemoglobin A1c. 11.6 Since has been started on Metformin with uptitration to 1000mg while in house. Tolerating this Lantus/Log utilized upfront with close BS monitoring Given adequate blood sugar control, stopped Accu-Cheks 4 times daily and transitioned to Accuchecks (Fasting and AC) on Mondays, Wednesdays, Fridays and as needed (trying to lesson stimulation) - lantus/log since stopped and added Glipizide 5mg daily to his Metformin Patient has been educated regarding the importance of compliance and good glycemic control health program analyst consulted for dietary education-- appreciate assistance Started on Lisinopril 2.5 mg daily for renal protection Will need podiatry F/U for nail care, diabetic eye exam, microalbumin, and follow up labs Will need follow-up A1c (~September 03) Blood sugars seem to be fairly well controlled on current Glipizide/Metformin regimen (6) Dyslipidemia: Fasting lipid panel 12/12/20 showed a total cholesterol of 323 mg/dL, HDL is 43 mg/dL, LDL 202 mg/dL, and triglycerides are 391 mg/dL. Total Cholesterol:HDL ration is 7.5. Resumed Atorvastatin at 80 mg daily. Will need follow up labs and potentially addition of tricor to target TG. Now on heart healthy/DM diet. (7) Schizo affective schizophrenia: Seen by psych on 06/05, pt does not have capacity to make medical decisions haldol prn was given upfront Patient is becoming increasingly agitated; Psychiatry reconsulted who last saw pt at end of June when having some issues with overstimulation and agitation. At this point, psych providing some puzzles and other activities he can do in his room to help keep him occupied; however, with a hospitalization that is approaching 60 days, his agitation is not unexpected. He does not meet for inpatient psychiatric admission. Ideally, he needs to be discharged as early as possible. Disposition: Emergency guardian appointed, CM diligently working on finding a facility. Patient has been accepted at [facility]. They will have a bed available for him and will accept today.Appropriate paperwork has been completed. Legal guardian is involved in preparation of this documentation. Total Time Total Time Spent Total Time Spent (In Minutes): 45 min including Discharge Plan Discharge Items Patient Disposition: Personal Residential Reason For Visit: DIABETIC LEFT 3RD TOE ULCERATION, INFECTION Discharge Diagnosis: 1. Diabetic Foot Ulcer 2. Osteomyelitis- s/p amputation of 3rd toe/completion of antibiotics 3. Schizophrenia 4. Intellectual disability Activity: Resume your previous activity Non-emergency contact: Primary Care Provider Call non-emergency contact if: you have any medication questions and you have a fever Follow-up/Referrals: Arnulfo Ho III, MD [Primary Care Provider] - Diet: Carb Consistent or DM2 Addtl Attending Provider Instructions: take medications as outlined check patient's blood sugars 3x/week (fasting Mondays and Wednesdays and 2 hours PP- after dinner, on Fridays) and as needed Patient will need repeat labs in Mid- September: CMP, CBCD, A1C, Lipid panel, TSH, microalbumin Recommend referral to flamer after lasting: routine diabetic foot care Recommend referral to ophthalmology: diabetic eye exam Tinnitus has been intermittent complaint. Recommend ENT referral if persists. Follow up with PCP/House Physician: 24-48 hours Return to the ED for new or worsening symptoms Patient does have a legal guardian appointed Pending Studies at Discharge: No Stand-Alone Forms: Elo7, Smoking Cessation Skilled Items Patient informed of condition?: Yes DNR: No Discharge Level of Care: Other Communicable Disease: No Discharge Prognosis: Improving Lines: None Urinary Catheter: No Medications and DC Order Prescriptions: New atorvastatin 40 mg Tablet 80 mg PO QAM Qty: 30 RF: 0 metformin 500 mg Tablet 1,000 mg PO BID Qty: 60 RF: 0 fluticasone propionate 50 mcg/actuation Whitt,Suspension 2 spray NA DAILY Qty: 1 RF: 0 lisinopril 2.5 mg Tablet 2.5 mg PO QAM Qty: 30 RF: 0 glipizide 5 mg Tablet 5 mg PO QAM Qty: 30 RF: 0 (DME) OneTouch Verio test strips Strip See Rx Instructions .Route Qty: 100 RF: 0 (DME) lancets [OneTouch Delica Lancets] 33 gauge misc See Rx Instructions .Route Qty: 100 RF: 0 alcohol swabs [Alcohol Pads] Pads, Medicated 1 pad topical DIRECTED Qty: 100 RF: 0 Discharge Orders: Discharge Order (Routine); Ordered 08/12/21 Ordered By: Eulalia Segal/Other Patient Handouts: Diabetes: Keeping Feet Healthy, Diabetes: Caring for Your Body Admission Data Admit Date/Time: 06/03/21 15:23 Attending Provider: Saborio,Luther A Admit Provider: Dmitry Lopez Primary Care Provider: Arnulfo Ho III Other Providers: Miky Sargent ; Kia Cunningham ; Mariluz Strauss ; Kadie Galicia ; Aramis Arreola Other Interventions: Discharge Summary Assessment (RN) Last Done: 08/12/21 11:25 Coding Level of Care Code D/C DAY MANAGEMENT >30 MINS Diagnoses Discharge planning issues Z02.9 Diabetic foot ulcer associated with type 2 diabetes mellitus, with fat layer exposed E11.621; L97.502 Osteomyelitis M86.9 Tinnitus H93.19 Diabetes mellitus type 2, uncontrolled E11.65 Dyslipidemia E78.5 Schizo affective schizophrenia F25.0
== END 2021-08-12 14:21 | disposition home or self-care (01) | DRG 617 ==
LOC: ED 12:32 → SUATTDRO 15:23 → 3E 15:23